=== PATIENT | female | born 1940 | race Caucasian/White ===

== ENCOUNTER → 2025-02-06 05:00 | Outpatient (REF) | payer MEDICARE, SELFPAY ==
[2025-02-06 08:48] LABS: Hematocrit 37.8 % (37-47); Hemoglobin 13.3 g/dL (12.0-15.0); Mean Corp Hgb Conc 35.2 g/dL (32-36); Mean Corpuscular Volume 92.4 fL (81-99); Mean Platelet Vol. 10.0 fl (6.2-12.0); Platelet Count 180 K/mm3 (150-450); RBC Distribution Width CV 12.2 % (11.6-14.6); RBC Distribution Width SD 41.5 fl (35.1-43.9); Red Blood Count 4.09 M/mm3 (4.2-5.4); White Blood Count 6.8 K/mm3 (4.4-11.0)
[2025-02-06 09:15] LABS: AST(SGOT) 21 U/L (<=31); Alanine Aminotransfer ALT/SGPT 20 U/L (<=34); Albumin, Serum 3.7 g/dL (3.4-4.8); Alkaline Phosphatase 64 U/L (35-104); Anion Gap 9 (5-15); BUN 17 mg/dL (4-19); BUN/Creat Ratio 23.5 RATIO (10-20); Calcium,Total 9.7 mg/dL (7.6-11.0); Carbon Dioxide 26.3 mmol/L (21.0-32.0); Chloride 100 mmol/L (98-108); Cholesterol 132 mg/dL (<=200); Globulin 2.6 g/dL (2.2-4.2); Glucose 87 mg/dL (70-99); Low Density Lipoprotein Calc. 68 mg/dL; Potassium 3.9 mmol/L (3.3-5.1); Triglycerides 79 mg/dL; Very Low Density Lipoprotein 16 mg/dL (5-40); cholesterol:hdl ratio screen 2.70
== END ==
LOC: OLS.ACH 05:00
PROVIDERS: Visit Provider Internal Medicine
DX: E03.9 Hypothyroidism, unspecified (principal); E78.5 Hyperlipidemia, unspecified; D52.9 Folate deficiency anemia, unspecified; I10 Essential (primary) hypertension
CPT/HCPCS: 36415; 80053; 80061; 84443; 85027

== ENCOUNTER → 2025-03-05 | Outpatient (REF) | payer MEDICARE, SELFPAY ==
--- OUTSIDE RECORDS SUMMARY | 2025-03-05 03:59 | XMS RPT_ITS | CCD ---
Author Organization [facility] Care Team Providers Care Well Treatment Offsider Name Role Phone Dorothy Darron Attending Unavailable PROVIDER, UNKNOWN Referring Unavailable Dorothy, Darron Primary Care Unavailable Dorothy, Darron Attending Unavailable PROVIDER, UNKNOWN Referring Unavailable Dorothy, Darron Primary Care Unavailable Dorothy DO, Darron Primary Care Provider [phone] Dorothy DO, Darron Primary Care Provider [phone] Dorothy DO, Darron Primary Care Provider DOROTHY, DARRON Primary Care Unavailable ABDELRAHMAN BAEZA Admitting Unavailable CARLOS FALL Attending Unavailable MANUEL AYOUB Consulting Unavailable SIMMERS, MICHELE Attending Unavailable SIMMERS, MICHELE Referring Unavailable DOROTHY, DARRON Primary Care Unavailable SIMMERS, MICHELE Attending Unavailable DOROTHY, DARRON Primary Care Unavailable SIMMERS, MICHELE Attending Unavailable DOROTHY, DARRON Primary Care Unavailable Deperro OLS, Michael Attending Unavailable Deperro OLS, Michael Referring Unavailable Deperro OLS, Michael Attending Unavailable Deperro OLS, Michael Attending Unavailable Deperro OLS, Michael Attending Unavailable Allergies Allergy Classification Reported Allergen(s) Allergy Type Date of Onset Reaction(s) Facility (10 sources) Barbiturate Propensity to adverse reactions 4 Unknown [facility] (10 sources) celecoxib Drug Allergy 4 Anxiety [facility] (10 sources) Citalopram Drug Allergy 4 Anxiety [facility] (10 sources) loracarbef Drug Allergy 4 Hives [facility] (10 sources) Penicillins Propensity to adverse reactions 4 Unknown [facility] (10 sources) Sulfamethoxazole Propensity to adverse reactions Unknown [facility] Medications Current Medications Medication Drug Class(es) Dates Sig (Normalized) Sig (Original) hydroCHLOROthiazide 12.5 mg / lisinopril 20 mg oral tablet (10 sources) Thiazide Diuretic, Angiotensin Converting Enzyme Inhibitor take 1 tablet by mouth once daily lisinopril-hydr oCHLOROthiazide 20-12.5 MG tablet Take 1 tablet by mouth daily. Active lidocaine 0.04 mg/mg medicated patch (4 sources) Antiarrhythmic, Amide Local Anesthetic Start: 10-20-2024 Lidocaine 4 % patch Place 2 patches on the skin daily. 10/20/2024 Active Start: 10-20-2024 Lidocaine 4 % patch Place 2 patches on the skin daily. 10/20/2024 Active Start: 10-16-2024 End: 10-19-2024 apply 2 doses transdermal route once daily, then apply 1 dose transdermal route every twelve hours 2 patch, TransDERmal, Administer over 12 Hours, Daily, First dose on Tue10/16/24 at 0945, Apply patch to both hip area of pain. Patch may remain in place for up to 12 hours in any 24 hour period. miconazole nitrate 0.02 mg/mg topical powder (4 sources) Azole Antifungal Start: 10-16-2024 End: 10-19-2024 miconazole (Micotin) 2 % powder Apply topically 2 times daily. 10/19/2024 Active Completed/Discontinued Medications Medication Drug Class(es) Dates Sig (Normalized) Sig (Original) acetaminophen 325 mg oral tablet (4 sources) Start: 10-19-2024 End: 10-19-2024 take 1 tablet by mouth every six hours as needed for pain Start: 10-16-2024 End: 10-19-2024 1,000 mg, Oral, 3 times kiko y, First dose on Tue10/16/24 at 0945, Maximum dose of acetaminophen is 4000 mg from all sources in 24 hours. atorvastatin 10 mg oral tablet (12 sources) HMG-CoA Reductase Inhibitor Start: 10-16-2024 End: 10-19-2024 take 10 mg by mouth once daily 10 mg, Oral, Nightly, First dose on Tue10/16/24 at 2100 donepezil hydrochloride 5 mg oral tablet (11 sources) Start: 10-16-2024 End: 10-19-2024 take 10 mg by mouth once daily 10 mg, Oral, Nightly, First dose on Tue10/16/24 at 2100 Start: 02-09-2024 End: 09-06-2025 take 1 tablet by mouth once daily donepezil (Aricept) 10 MG tablet Indications: 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 behavioral disturbance, psychotic disturbance, mood disturbance, or anxiety (HCC) Take 1 tablet (10 mg) by mouth Nightly. 30 tablet 6 09/06/2024 09/06/2025 Active Start: 01-12-2024 End: 01-11-2025 take 1 tablet by mouth once daily donepezil (Aricept) 5 MG tablet Indications: 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 behavioral disturbance, psychotic disturbance, mood disturbance, or anxiety (HCC) Take 1 tablet (5 mg) by mouth Nightly. 30 tablet 1 01/12/2024 02/09/2024 Discontinued (Therapy completed) 0.4 ml enoxaparin sodium 100 mg/ml prefilled syringe (2 sources) Low Molecular Weight Heparin Start: 10-16-2024 End: 10-19-2024 inject 40 mg by subcutaneous injection every twenty-four hours 40 mg, SubCUTAneous, Every 24 hours scheduled (Daily), First dose on Tue10/16/24 at 0945, Indication of Use: Prophylaxis-DVT/PE, Indications: Prophylaxis of Venous Thromboembolism folic acid 1 mg oral tablet (12 sources) Start: 10-16-2024 End: 10-19-2024 take 1 mg by mouth once daily 1 mg, Oral, Daily, First dose (after last reorder) on Tue10/16/24 at 1000 take 1 tablet by mouth once kiko y folic acid (Folvite) 800 MCG tablet Take 1 tablet by mouth daily. Active levothyroxine sodium 0.075 mg oral tablet (12 sources) l-Thyroxine Start: 10-17-2024 End: 10-19-2024 take 75 ug by mouth once daily before breakfast 75 mcg, Oral, Daily before breakfast, First dose on Tue10/17/24 at 0600, Tube feeding (TF) interaction, obtain physician order to manage, recommend holding TF for 30 minutes before and after dose. Lisinopril (2 sources) Angiotensin Converting Enzyme Inhibitor Start: 10-16-2024 End: 10-19-2024 lisinopril tablet 20 mg memantine hydrochloride 5 mg oral tablet (8 sources) F-adsumm-Y-aspart ate Receptor Antagonist Start: 10-16-2024 End: 10-19-2024 take 10 mg by mouth twice daily 10 mg, Oral, 2 times daily, First dose on Tue10/16/24 at 0945 Start: 09-20-2024 End: 04-18-2025 take 1 tablet by mouth twice daily memantine (Namenda) 10 MG tablet Indications: 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 behavioral disturbance, psychotic disturbance, mood disturbance, or anxiety (HCC) Take 1 tablet (10 mg) by mouth 2 times daily. Start after the initial titration script Do not start before September 20, 2024. 60 tablet 6 09/20/2024 04/18/2025 Active Start: 08-30-2024 memantine (Nam enda) 5 MG tablet Indications: 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 behavioral disturbance, psychotic disturbance, mood disturbance, or anxiety (HCC) Take 1 tablet (5 mg) daily for 7 days. Then take 1 tablet (5 mg) twice a day for 7 days. Then take 2 tablets (10 mg) in AM and 1 tablet (5 mg) in PM for 7 days. Then proceed to next script 42 tablet 08/30/2024 Active 1 ml naloxone hydrochloride 0.4 mg/ml injection (2 sources) Opioid Antagonist Start: 10-16-2024 End: 10-19-2024 0.4 mg, IntraVENous, Every 5 min PRN, opioid reversal, respiratory depression, Starting on Tue10/16/24 at 0940, +++ For RR naproxen 250 mg oral tablet (10 sources) Nonsteroidal Anti-inflammatory Drug End: 10-19-2024 take 1 tablet by mouth once daily as needed for pain naproxen (Naprosyn) 250 MG tablet Take 250 mg by mouth Nightly as needed for mild pain (1-3). 10/19/2024 Discontinued (Stop taking at discharge) ondansetron ODT (Zofran-ODT) disintegrating tablet 4 mg (2 sources) Start: 10-16-2024 End: 10-19-2024 take 1 tablet by mouth every eight hours as needed for nausea and vomiting ondansetron ODT (Zofran-ODT) disintegrating tablet 4 mg oxyCODONE hydrochloride 5 mg oral tablet (2 sources) Opioid Agonist Start: 10-16-2024 End: 10-19-2024 take 1 tablet by mouth every four hours as needed for pain and pain 2.5 mg, Oral, Every 4 hours PRN, severe pain (7-10), moderate pain (4-6), Starting on Tue10/16/24 at 0938 polyethylene glycol 3350 62079 mg powder for oral solution (2 sources) Osmotic Laxative Start: 10-16-2024 End: 10-19-2024 take 17 g by mouth every twenty-four hours as needed for constipation 17 g, Oral, Daily PRN, constipation, Starting on Tue10/16/24 at 0936, 1st line for treatment of constipation - give scheduled if no bowel movement in past 24 hours. predniSONE (2 sources) Start: 10-16-2024 End: 10-16-2024 take 30 mg by mouth once 30 mg, Oral, Once, On Tue10/16/24 at 0945, For 1 dose sertraline 50 mg oral tablet (12 sources) Serotonin Reuptake Inhibitor Start: 10-16-2024 End: 10-19-2024 take 50 mg by mouth once daily 50 mg, Oral, Daily, First dose on Tue10/16/24 at 0945 5 ml sodium chloride 9 mg/ml injection (6 sources) Start: 10-16-2024 End: 10-19-2024 take 5-40 mL intravenously every twelve hours 5-40 mL, IntraVENous, Every 12 hours, First dose on Tue10/16/24 at 0945, For Line Patency: Peripheral IV = 5 mL; Midline or Central Line = 10 mL/lumen. If following IV push medication, administer flush at same rate as the IV push. Flush volume is determined by type of infusion therapy being given. For non-viscous solutions use: Peripheral IV = 5 mL Midline or Central Line = 10 mL/lumen For viscous solutions (i.e. blood components, parenteral nutrition, contrast media, or after obtaining blood sample) use: Peripheral IV = 10 mL Midline or Central Line = 20 mL/lumen Start: 10-16-2024 End: 10-19-2024 take 100 mL intravenously every hour as needed, then take 20 mL intravenously every hour as needed 5-250 mL/hr, IntraVENous, PRN, if patient receiving piggyback infusions and maintenance fluids are not ordered OR KVO fluids to protect IV site / prevent frequent line interruptions / long duration, Starting on Tue10/16/24 at 0936, For piggyback infusion, administer at same rate as piggyback for a total of 25 mL. Enter 25 mL into dose field and piggyback rate into rate field of order. If piggyback is infusing at a rate less than 100 mL/hr, enter 25 mL into dose field and 100 mL/hr into rate field of order. For KVO fluids, enter rate of 20 mL/hr or less into rate field of order. Start: 10-16-2024 End: 10-19-2024 5-40 mL, IntraVENous, PRN, l ine care, After every IV line use, Starting on Tue10/16/24 at 0936, For Line Patency: Peripheral IV = 5 mL; Midline or Central Line = 10 mL/lumen. If following IV push medication, administer flush at same rate as the IV push. Flush volume is determined by type of infusion therapy being given. For non-viscous solutions use: Peripheral IV = 5 mL Midline or Central Line = 10 mL/lumen For viscous solutions (i.e. blood components, parenteral nutrition, contrast media, or after obtaining blood sample) use: Peripheral IV = 10 mL Midline or Central Line = 20 mL/lumen Problems Active Problems Problem Classification Problem Date Documented Da te Episodic/Chronic Deficiency and other anemia (1 source) Folate deficiency anemia, unspecified; Translations: [Folate deficiency anemia, unspecified] Onset: 02-13-2025 Episodic Delirium, dementia, and amnestic and other cognitive disorders (7 sources) Senile dementia; Translations: [Alzheimer's disease with late onset] Onset: 01-12-2024 01-12-2024 Chronic Disorders of lipid metabolism (2 sources) Hyperlipidemia; Translations: [Hyperlipidemia, unspecified] Onset: 02-13-2025 07-19-2022 Chronic Essential hypertension (1 source) Essential (primary) hypertension; Translations: [Essential (primary) hypertension] Onset: 02-13-2025 Chronic Nutritional deficiencies (1 source) Vitamin B deficiency; Translations: [Deficiency of other specified B group vitamins] 07-19-2022 Episodic Other circulatory disease (3 sources) H/O: hypertension; Translations: [Personal history of other diseases of the circulatory system] 10-18-2023 Episodic Other hereditary and degenerative nervous system conditions (2 sources) Degenerative disease of nervous system, unspecified; Translations: [Degenerative disease of nervous system, unspecified] Onset: 08-13-2021 Chronic Other nervous system disorders (2 sources) Unable to walk; Translations: [Difficulty in walking, not elsewhere classified] 10-15-2024 Chronic Other nervous system disorders (2 sources) Difficulty in walking, not elsewhere classified; Translations: [Difficulty in walking, not elsewhere classified] Onset: 10-15-2024 Chronic Other non-traumatic joint disorders (6 sources) Hip pain; Translations: [Pain in right hip] Onset: 10-15-2024 10-15-2024 Episodic Other non-traumatic joint disorders (2 sources) Pain in right hip; Translations: [Pain in right hip] Onset: 10-15-2024 Episodic Other non-traumatic joint disorders (2 sources) Pain in left hip; Translations: [Pain in left hip] Onset: 10-15-2024 Episodic Residual codes; unclassified (3 sources) Amnesia; Translations: [Other amnesia] 10-18-2023 Episodic Thyroid disorders (2 sources) Hypothyroidism; Translations: [Hypothyroidism, unspecified] Onset: 02-13-2025 07-19-2022 Chronic Unclassified (1 source) Dementia in other diseases classified elsewhere, moderate, without behavioral disturbance, psychotic disturbance, mood disturbance, and anxiety (HCC); Translations: [Dementia in other diseases classified elsewhere, moderate, without behavioral disturbance, psychotic disturbance, mood disturbance, and anxiety (HCC)] Onset: 01-12-2024 Past or Other Problems Problem Classification Problem Date Documented Da te Episodic/Chronic Residual codes; unclassified (4 sources) Other amnesia; Translations: [Other amnesia] Onset: 08-13-2021 Episodic Unclassified (1 source) Dementia in other diseases classified elsewhere, moderate, without behavioral disturbance, psychotic disturbance, mood disturbance, and anxiety (HCC); Translations: [Dementia in other diseases classified elsewhere, moderate, without behavioral disturbance, psychotic disturbance, mood disturbance, and anxiety (HCC)] Onset: 01-12-2024 Results Test Name Value Interpretation Reference Range Facility CBC-Complete Blood Cnt No Di ffon 02-06-2025 Erythrocyte distribution width (RBC) [Ratio] 12.2 % Normal 11.6-14.6 [facility] Comment on above: Order Comment: 315-1 Performed By: #### L 100.0500, L500.4100, L500.4050, [id number] #### [facility] [address] [place], [address] Hematocrit (Bld) [Volume fraction] 37.8 % Normal 37-47 [facility] Comment on above: Order Comment: 315-1 Performed By: #### L 100.0500, L500.4100, L500.4050, [id number] #### [facility] [address] [place], [address] Hemoglobin (Bld) [Mass/Vol] 13.3 g/dL Normal 12.0-15.0 [facility] Comment on above: Order Comment: 315-1 Performed By: #### L 100.0500, L500.4100, L500.4050, [id number] #### [facility] [address] [place], [address] MCH (RBC) [Entitic mass] 32.5 pg High 27.0-32.0 [facility] Comment on above: Order Comment: 315-1 Performed By: #### L 100.0500, L500.4100, L500.4050, [id number] #### [facility] [address] [place], [address] MCHC (RBC) [Mass/Vol] 35.2 g/dL Normal 32-36 [facility] Comment on above: Order Comment: 315-1 Performed By: #### L 100.0500, L500.4100, L500.4050, [id number] #### [facility] [address] [place], [address] MCV (RBC) [Entitic vol] 92.4 fL Normal 81-99 [facility] Comment on above: Order Comment: 315-1 Performed By: #### L 100.0500, L500.4100, L500.4050, [id number] #### [facility] [address] [place], [address] Platelet mean volume (Bld) [Entitic vol] 10.0 fL Normal 6.2-12.0 [facility] Comment on above: Order Comment: 315-1 Performed By: #### L 100.0500, L500.4100, L500.4050, [id number] #### [facility] [address] [place], [address] Platelets (Bld) [#/Vol] 180 10*3/uL Normal 150-450 [facility] Comment on above: Order Comment: 315-1 Performed By: #### L 100.0500, L500.4100, L500.4050, [id number] #### [facility] [address] [place], [address] RBC (Bld) [#/Vol] 4.09 10*6/uL Low 4.2-5.4 [facility] Comment on above: Order Comment: 315-1 Performed By: #### L 100.0500, L500.4100, L500.4050, [id number] #### [facility] [address] [place], [address] RDW SD 41.5 fl Normal 35.1-43.9 [facility] Comment on above: Order Comment: 315-1 Performed By: #### L 100.0500, L500.4100, L500.4050, [id number] #### [facility] [address] [place], [address] WBC (Bld) [#/Vol] 6.8 10*3/uL Normal 4.4-11.0 [facility] Comment on above: Order Comment: 315-1 Performed By: #### L 100.0500, L500.4100, L500.4050, [id number] #### [facility] [address] [place], [address] Comprehensive Metabolic Prof ilon 02-06-2025 Albumin [Mass/Vol] 3.7 g/dL Normal 3.4-4.8 [facility] Comment on above: Order Comment: 315-1 Performed By: #### L 100.0500, L500.4100, L500.4050, [id number] #### [facility] [address] [place], [address] Albumin/Globulin [Mass ratio] 1.4 {ratio} Normal 0.9-2.4 [facility] Comment on above: Order Comment: 315-1 Performed By: #### L 100.0500, L500.4100, L500.4050, [id number] #### [facility] [address] [place], [address] ALK PHOS 64 U/L Normal 35-104 [facility] Comment on above: Order Comment: 315-1 Performed By: #### L 100.0500, L500.4100, L500.4050, [id number] #### [facility] [address] [place], [address] ALT [Catalytic activity/Vol] 20 U/L Normal <=34 [facility] Comment on above: Order Comment: 315-1 Performed By: #### L 100.0500, L500.4100, L500.4050, [id number] #### [facility] [address] [place], [address] AST [Catalytic activity/Vol] 21 U/L Normal <=31 [facility] Comment on above: Order Comment: 315-1 Performed By: #### L 100.0500, L500.4100, L500.4050, [id number] #### [facility] [address] [place], [address] Bilirubin [Mass/Vol] 0.47 mg/dL Normal 0.00-1.30 [place] Comment on above: Order Comment: 315-1 Performed By: #### L 100.0500, L500.4100, L500.4050, [id number] #### [facility] [address] [place], [address] BUN/CRE 23.5 RATIO High 10-20 [facility] Comment on above: Order Comment: 315-1 Performed By: #### L 100.0500, L500.4100, L500.4050, [id number] #### [facility] [address] [place], [address] Calcium [Mass/Vol] 9.7 mg/dL Normal 7.6-11.0 [facility] Comment on above: Order Comment: 315-1 Performed By: #### L 100.0500, L500.4100, L500.4050, [id number] #### [facility] [address] [place], [address] Chloride [Moles/Vol] 100 mmol/L Normal 98-108 [place] Comment on above: Order Comment: 315-1 Performed By: #### L 100.0500, L500.4100, L500.4050, [id number] #### [facility] [address] [place], [address] CO2 [Moles/Vol] 26.3 mmol/L Normal 21.0-32.0 [facility] Comment on above: Order Comment: 315-1 Performed By: #### L 100.0500, L500.4100, L500.4050, [id number] #### [facility] [address] [place], [address] Creatinine [Mass/Vol] 0.71 mg/dL Normal 0.70-1.20 [facility] Comment on above: Order Comment: 315-1 Performed By: #### L 100.0500, L500.4100, L500.4050, [id number] #### [facility] [address] [place], [address] GAP 9 Normal 5-15 [facility] Comment on above: Order Comment: 315-1 Performed By: #### L 100.0500, L500.4100, L500.4050, [id number] #### [facility] [address] [place], [address] GFR/1.73 sq M.predicted among non-blacks MDRD (S/P/Bld) [Vol rate/Area] 85 mL/min/{1.73_m2} Normal >60 [facility] Comment on above: Order Comment: 315-1 Result Comment: mL/m in/1.73m2 CKD-EPI Creatinine Equation (2020) Performed By: #### L 100.0500, L500.4100, L500.4050, [id number] #### [facility] [address] [place], [address] Globulin (S) [Mass/Vol] 2.6 g/dL Normal 2.2-4.2 [facility] Comment on above: Order Comment: 315-1 Performed By: #### L 100.0500, L500.4100, L500.4050, [id number] #### [facility] [address] [place], [address] Glucose [Mass/Vol] 87 mg/dL Normal 70-99 [facility] Comment on above: Order Comment: 315-1 Performed By: #### L 100.0500, L500.4100, L500.4050, [id number] #### [facility] [address] [place], [address] Potassium [Moles/Vol] 3.9 mmol/L Normal 3.3-5.1 [facility] Comment on above: Order Comment: 315-1 Performed By: #### L 100.0500, L500.4100, L500.4050, [id number] #### [facility] [address] [place], [address] Sodium [Moles/Vol] 136 mmol/L Normal 133-145 [facility] Comment on above: Order Comment: 315-1 Performed By: #### L 100.0500, L500.4100, L500.4050, [id number] #### [facility] [address] [place], [address] T PROT 6.3 g/dL Normal 5.9-8.4 [facility] Comment on above: Order Comment: 315-1 Performed By: #### L 100.0500, L500.4100, L500.4050, [id number] #### [facility] [address] [place], [address] Urea nitrogen [Mass/Vol] 17 mg/dL Normal 4-19 [facility] Comment on above: Order Comment: 315-1 Performed By: #### L 100.0500, L500.4100, L500.4050, [id number] #### [facility] [address] [place], [address] Lipid Profileon 02-06-2025 CHOL:HDL 2.70 Normal [facility] Comment on above: Order Comment: 315-1 Performed By: #### L 100.0500, L500.4100, L500.4050, [id number] #### [facility] [address] [place], [address] Cholesterol [Mass/Vol] 132 mg/dL Normal <=[address] [facility] Comment on above: Order Comment: 315-1 Result Comment: Chol esterol level, Desirable <200 mg/dL Borderline high cholesterol 200-239 mg/dL High cholesterol >=240 mg/dL Recommendations of the NCEP Adult Treatment Panel for the following risk-cutoff thresholds for the [place] population. Performed By: #### L 100.0500, L500.4100, L500.4050, [id number] #### [facility] [address] [place], [address] Cholesterol in HDL [Mass/Vol] 49 mg/dL Normal [facility] Comment on above: Order Comment: 315-1 Result Comment: Odilia onal Cholesterol Education Program (NCEP) guidelines: <40 mg/dL: Low HDL-cholesterol (major risk factor for CHD) >= 60 mg/dL: High HDL-cholesterol (negative risk factor for CHD) HDL-cholesterol is affected by a number of factors, e.g. smoking, exercise, hormones, sex and age. Performed By: #### L 100.0500, L500.4100, L500.4050, [id number] #### [facility] [address] [place], [address] Cholesterol in LDL [Mass/Vol] 68 mg/dL Normal [facility] Comment on above: Order Comment: 315-1 Result Comment: Bord pofdyt=907-954 mg/dL Higher Hnaz=292 mg/dL or greater Shane Equation 2020 for LDL-C Performed By: #### L 100.0500, L500.4100, L500.4050, [id number] #### [facility] [address] [place], [address] Cholesterol in VLDL [Mass/Vol] 16 mg/dL Normal 5-40 [facility] Comment on above: Order Comment: 315-1 Performed By: #### L 100.0500, L500.4100, L500.4050, [id number] #### [facility] [address] [place], [address] Triglyceride [Mass/Vol] 79 mg/dL Normal [facility] Comment on above: Order Comment: 315-1 Result Comment: The drugs N-Acetylcysteine and Metamizole may falsely depress this assay. Normal range: <150 mg/dL Borderline High: 150-199 mg/dL High: 200-499 mg/dL Very High: >500 mg/dL Performed By: #### L 100.0500, L500.4100, L500.4050, [id number] #### [facility] [address] [place], [address] Thyroid Stim Hormone (TSH)on 02-06-2025 TSH 0.809 uIU/mL Normal 0.300-4.200 [facility] Comment on above: Order Comment: 315.1 Performed By: #### L 500.2500, L100.0500 #### [facility] [address] [place], [address] CBC-Complete Blood Cnt No Di ffon 02-05-2025 HCT Normal 37-47 [facility] Comment on above: Order Comment: 315.1 Result Comment: [facility] REFUSED TOLD NURSE ONEIL Performed By: #### L 500.4100, L100.0500, L500.4050 #### [facility] [address] [place], [address] HGB Normal 12.0-15.0 [facility] Comment on above: Order Comment: 315.1 Result Comment: [facility] REFUSED TOLD NURSE ONEIL Performed By: #### L 500.4100, L100.0500, L500.4050 #### [facility] [address] [place], [address] MCH Normal 27.0-32.0 [facility] Comment on above: Order Comment: 315.1 Result Comment: [facility] REFUSED TOLD NURSE ONEIL Performed By: #### L 500.4100, L100.0500, L500.4050 #### [facility] [address] [place], [address] MCHC Normal 32-36 [facility] Comment on above: Order Comment: 315.1 Result Comment: [facility] REFUSED TOLD NURSE ONEIL Performed By: #### L 500.4100, L100.0500, L500.4050 #### [facility] [address] [place], [address] MCV Normal 81-99 [facility] Comment on above: Order Comment: 315.1 Result Comment: [facility] REFUSED TOLD NURSE ONELI Performed By: #### L 500.4100, L100.0500, L500.4050 #### [facility] [address] [place], [address] PLT Normal 150-450 [facility] Comment on above: Order Comment: 315.1 Result Comment: [facility] REFUSED TOLD NURSE ONEIL Performed By: #### L 500.4100, L100.0500, L500.4050 #### [facility] [address] [place], [address] RBC Normal 4.2-5.4 [facility] Comment on above: Order Comment: 315.1 Result Comment: [facility] REFUSED TOLD NURSE ONEIL Performed By: #### L 500.4100, L100.0500, L500.4050 #### [facility] [address] [place], [address] RDW CV Normal 11.6-14.6 [facility] Comment on above: Order Comment: 315.1 Result Comment: [facility] REFUSED TOLD NURSE ONEIL Performed By: #### L 500.4100, L100.0500, L500.4050 #### [facility] [address] [place], [address] RDW SD Normal 35.1-43.9 [facility] Comment on above: Order Comment: 315.1 Result Comment: [facility] REFUSED TOLD NURSE ONEIL Performed By: #### L 500.4100, L100.0500, L500.4050 #### [facility] [address] [place], [address] WBC Normal 4.4-11.0 [facility] Comment on above: Order Comment: 315.1 Result Comment: [facility] REFUSED TOLD NURSE ONEIL Performed By: #### L 500.4100, L100.0500, L500.4050 #### [facility] [address] [place], [address] Comprehensive Metabolic Prof ilon 02-05-2025 ALB Normal 3.4-4.8 [facility] Comment on above: Order Comment: 315.1 Result Comment: [facility] REFUSED TOLD NURSE ONEIL Performed By: #### L 500.4100, L100.0500, L500.4050 #### [facility] [address] [place], [address] ALK PHOS Normal 35-104 [facility] Comment on above: Order Comment: 315.1 Result Comment: [facility] REFUSED TOLD NURSE ONEIL Performed By: #### L 500.4100, L100.0500, L500.4050 #### [facility] [address] [place], [address] ALT Normal <=34 [facility] Comment on above: Order Comment: 315.1 Result Comment: [facility] REFUSED TOLD NURSE ONEIL Performed By: #### L 500.4100, L100.0500, L500.4050 #### [facility] [address] [place], [address] AST Normal <=31 [facility] Comment on above: Order Comment: 315.1 Result Comment: [facility] REFUSED TOLD NURSE ONEIL Performed By: #### L 500.4100, L100.0500, L500.4050 #### [facility] [address] [place], [address] BUN Normal 4-19 [facility] Comment on above: Order Comment: 315.1 Result Comment: [facility] REFUSED TOLD NURSE ONEIL Performed By: #### L 500.4100, L100.0500, L500.4050 #### [facility] [address] [place], [address] BUN/CRE Normal 10-20 [facility] Comment on above: Order Comment: 315.1 Result Comment: [facility] REFUSED TOLD NURSE ONEIL Performed By: #### L 500.4100, L100.0500, L500.4050 #### [facility] [address] [place], [address] Calcium Normal 7.6-11.0 [facility] Comment on above: Order Comment: 315.1 Result Comment: [facility] REFUSED TOLD NURSE ONEIL Performed By: #### L 500.4100, L100.0500, L500.4050 #### [facility] [address] [place], [address] CL Normal 98-108 [facility] Comment on above: Order Comment: 315.1 Result Comment: [facility] REFUSED TOLD NURSE ONEIL Performed By: #### L 500.4100, L100.0500, L500.4050 #### [facility] [address] [place], [address] CO2 Normal 21.0-32.0 [facility] Comment on above: Order Comment: 315.1 Result Comment: [facility] REFUSED TOLD NURSE ONEIL Performed By: #### L 500.4100, L100.0500, L500.4050 #### [facility] [address] [place], [address] CREAT,SERUM Normal 0.70-1.20 [facility] Comment on above: Order Comment: 315.1 Result Comment: [facility] REFUSED TOLD NURSE ONEIL Performed By: #### L 500.4100, L100.0500, L500.4050 #### [facility] [address] [place], [address] eGFR Normal >60 [facility] Comment on above: Order Comment: 315.1 Result Comment: [facility] REFUSED TOLD NURSE ONEIL Performed By: #### L 500.4100, L100.0500, L500.4050 #### [facility] [address] [place], [address] GAP Normal 5-15 [facility] Comment on above: Order Comment: 315.1 Result Comment: [facility] REFUSED TOLD NURSE ONEIL Performed By: #### L 500.4100, L100.0500, L500.4050 #### [facility] [address] [place], [address] GLU Normal 70-99 [facility] Comment on above: Order Comment: 315.1 Result Comment: [facility] REFUSED TOLD NURSE ONEIL Performed By: #### L 500.4100, L100.0500, L500.4050 #### [facility] [address] [place], [address] Potassium Normal 3.3-5.1 [facility] Comment on above: Order Comment: 315.1 Result Comment: [facility] REFUSED TOLD NURSE ONEIL Performed By: #### L 500.4100, L100.0500, L500.4050 #### [facility] [address] [place], [address] T BILI Normal 0.00-1.30 [facility] Comment on above: Order Comment: 315.1 Result Comment: [facility] REFUSED TOLD NURSE ONEIL Performed By: #### L 500.4100, L100.0500, L500.4050 #### [facility] [address] [place], [address] T PROT Normal 5.9-8.4 [facility] Comment on above: Order Comment: 315.1 Result Comment: [facility] REFUSED TOLD NURSE ONEIL Performed By: #### L 500.4100, L100.0500, L500.4050 #### [facility] [address] [place], [address] Comprehensive Metabolic Profil Normal 133-145 [facility] Comment on above: Order Comment: 315.1 Result Comment: [facility] REFUSED TOLD NURSE ONEIL Performed By: #### L 500.4100, L100.0500, L500.4050 #### [facility] [address] [place], [address] Lipid Profileon 02-05-2025 CHOL Normal <=200 [facility] Comment on above: Order Comment: 315.1 Result Comment: [facility] REFUSED TOLD NURSE ONEIL Performed By: #### L 500.4100, L100.0500, L500.4050 #### [facility] [address] [place], [address] CHOL:HDL Normal [facility] Comment on above: Order Comment: 315.1 Result Comment: [facility] REFUSED TOLD NURSE ONEIL Performed By: #### L 500.4100, L100.0500, L500.4050 #### [facility] [address] [place], [address] CLDL Normal [facility] Comment on above: Order Comment: 315.1 Result Comment: [facility] REFUSED TOLD NURSE ONEIL Performed By: #### L 500.4100, L100.0500, L500.4050 #### [facility] [address] [place], [address] HDL Normal [facility] Comment on above: Order Comment: 315.1 Result Comment: [facility] REFUSED TOLD NURSE ONEIL Performed By: #### L 500.4100, L100.0500, L500.4050 #### [facility] [address] [place], [address] TRIG Normal [facility] Comment on above: Order Comment: 315.1 Result Comment: [facility] REFUSED TOLD NURSE ONEIL Performed By: #### L 500.4100, L100.0500, L500.4050 #### [facility] [address] [place], [address] VLDL Normal 5-40 [facility] Comment on above: Order Comment: 315.1 Result Comment: [facility] REFUSED TOLD NURSE ONEIL Performed By: #### L 500.4100, L100.0500, L500.4050 #### [facility] [address] [place], [address] Potassiumon 10-26-2024 Potassium [Moles/Vol] 3.3 mmol/L Normal 3.3-5.1 [facility] Comment on above: Order Comment: 315.1 Performed By: #### L 501.5600 #### [facility] [address] [place], [address] Potassiumon 10-23-2024 Potassium [Moles/Vol] 3.4 mmol/L Normal 3.3-5.1 [facility] Comment on above: Order Comment: 315.1 Performed By: #### L 501.5600 #### [facility] [address] [place], [address] [id number] 10-22-2024 [id number] Patient Choice Patient Name: MARTHA MILLIGAN Date of : 1940 [facility] Basic Metabolic Profile (BMP )on 10-22-2024 BUN/CRE 25.1 RATIO High 10-20 [facility] Comment on above: Order Comment: 315.1 Performed By: #### L 500.2500, L100.0500 #### [facility] [address] [place], [address] Calcium [Mass/Vol] 9.6 mg/dL Normal 7.6-11.0 [facility] Comment on above: Order Comment: 315.1 Performed By: #### L 500.2500, L100.0500 #### [facility] [address] [place], [address] Chloride [Moles/Vol] 99 mmol/L Normal 98-108 [place] Comment on above: Order Comment: 315.1 Performed By: #### L 500.2500, L100.0500 #### [facility] [address] [place], [address] CO2 [Moles/Vol] 29.9 mmol/L Normal 21.0-32.0 [facility] Comment on above: Order Comment: 315.1 Performed By: #### L 500.2500, L100.0500 #### [facility] [address] [place], [address] Creatinine [Mass/Vol] 0.67 mg/dL Low 0.70-1.20 [facility] Comment on above: Order Comment: 315.1 Performed By: #### L 500.2500, L100.0500 #### [facility] [address] [place], [address] GAP 10 Normal 5-15 [facility] Comment on above: Order Comment: 315.1 Performed By: #### L 500.2500, L100.0500 #### [facility] [address] [place], [address] GFR/1.73 sq M.predicted among non-blacks MDRD (S/P/Bld) [Vol rate/Area] 88 mL/min/{1.73_m2} Normal >60 [facility] Comment on above: Order Comment: 315.1 Result Comment: mL/m in/1.73m2 CKD-EPI Creatinine Equation (2020) Performed By: #### L 500.2500, L100.0500 #### [facility] [address] [place], [address] Glucose [Mass/Vol] 85 mg/dL Normal 70-99 [facility] Comment on above: Order Comment: 315.1 Performed By: #### L 500.2500, L100.0500 #### [facility] [address] [place], [address] Potassium [Moles/Vol] 2.8 mmol/L Low 3.3-5.1 [facility] Comment on above: Order Comment: 315.1 Performed By: #### L 500.2500, L100.0500 #### [facility] [address] [place], [address] Sodium [Moles/Vol] 138 mmol/L Normal 133-145 [facility] Comment on above: Order Comment: 315.1 Performed By: #### L 500.2500, L100.0500 #### [facility] [address] [place], [address] Urea nitrogen [Mass/Vol] 17 mg/dL Normal 4-19 [facility] Comment on above: Order Comment: 315.1 Performed By: #### L 500.2500, L100.0500 #### [facility] [address] [place], [address] CBC-Complete Blood Cnt No [facility] 10-22-2024 Erythrocyte distribution width (RBC) [Ratio] 12.3 % Normal 11.6-14.6 [facility] Comment on above: Order Comment: 315.1 Performed By: #### L 500.2500, L100.0500 #### [facility] [address] [place], [address] Hematocrit (Bld) [Volume fraction] 42.6 % Normal 37-47 [facility] Comment on above: Order Comment: 315.1 Performed By: #### L 500.2500, L100.0500 #### [facility] [address] [place], [address] Hemoglobin (Bld) [Mass/Vol] 13.9 g/dL Normal 12.0-15.0 [facility] Comment on above: Order Comment: 315.1 Performed By: #### L 500.2500, L100.0500 #### [facility] [address] [place], [address] MCH (RBC) [Entitic mass] 30.3 pg Normal 27.0-32.0 [facility] Comment on above: Order Comment: 315.1 Performed By: #### L 500.2500, L100.0500 #### [facility] [address] [place], [address] MCHC (RBC) [Mass/Vol] 32.6 g/dL Normal 32-36 [facility] Comment on above: Order Comment: 315.1 Performed By: #### L 500.2500, L100.0500 #### [facility] [address] [place], [address] MCV (RBC) [Entitic vol] 93.0 fL Normal 81-99 [facility] Comment on above: Order Comment: 315.1 Performed By: #### L 500.2500, L100.0500 #### [facility] [address] [place], [address] Platelet mean volume (Bld) [Entitic vol] 10.6 fL Normal 6.2-12.0 [facility] Comment on above: Order Comment: 315.1 Performed By: #### L 500.2500, L100.0500 #### [facility] [address] [place], [address] Platelets (Bld) [#/Vol] 206 10*3/uL Normal 150-450 [facility] Comment on above: Order Comment: 315.1 Performed By: #### L 500.2500, L100.0500 #### [facility] [address] [place], [address] RBC (Bld) [#/Vol] 4.58 10*6/uL Normal 4.2-5.4 [facility] Comment on above: Order Comment: 315.1 Performed By: #### L 500.2500, L100.0500 #### [facility] [address] [place], [address] RDW SD 42.0 fl Normal 35.1-43.9 [facility] Comment on above: Order Comment: 315.1 Performed By: #### L 500.2500, L100.0500 #### [facility] [address] [place], [address] WBC (Bld) [#/Vol] 8.0 10*3/uL Normal 4.4-11.0 [facility] Comment on above: Order Comment: 315.1 Performed By: #### L 500.2500, L100.0500 #### [facility] [address] [place], [address] [id number] 10-19-2024 [id number] Next Site of Care Admission Date: 10/15/2024 07:52 PM Patient Name: MARTHA MILLIGAN Location: [place] [id number] Date of : 1940 Placement Information Referral Type:Detention/SNF - New Referral ID:[id number] [email or web address] Address 1:[address] Address 2: City:[place] Selection Factors:Patient/Fami ly Choice State:[place] [facility] [phone] Discharge med list transmitted to [facility] via [employer] per TCC request. 7000 was entered into [facility] for the SNF- FACILITY IS AWARE [facility] [phone] DC order paced. FABIAN done. [facility] tasked to do 7000 and send DC paperwork and MAR to [facility]. Transportation will be set up by ne shortly. [facility] Nursing Noteon 10-19-2024 Nursing Note Report called to Tawny SAUNDERS at [facility]. No further questions or concerns. [facility] Nursing Note Transferred to the [address] at [facility] but no answer. Phone rang for 3 min. Will attempt calling report again at a later time. Scheduled knot picker cloth time is 1330. [facility] Progress Noteon 10-19-2024 Progress [address] THERAPY [facility] Treatment Note Name/MRN: Martha Milligan ([id number]) Date of : 1940 Age: 83 y.o. Room/Bed: B2-252/B2-252 A Visit #: 1 out of 7 Discharge Recommendation: Shelter Facility Equipment Needed: No Prior Level of Function Prior Level of ADL Function: Required Assist Prior Level of Mobility: Required Assist; Device: None Prior Level of Transfers: Required Assist Assessment Pt tolerated session fair, continues to be limited by hip pain. Pt completed bed mobility at Min-SBA and STS at Min A. Pt completed short functional mobility with FWW at Min-CGA. Pt requires VC for sequencing and attention to task. Pt is progressing with POC but is still below baseline and is a high fall risk. Pt would benefit from continued OT to improve activity tolerance, balance, and strength needed for improved occupational performance. Pt is recommended for SNF at D/C Subjective Pt supine in bed, pleasantly confused and agreeable. Pain: Mccormack-Ronquillo Pain Ratin = Hurts little more Pain Location: R hip Medical Precautions: No active isolations Proper PPE donned/doffed in accordance with facility standards. Fall Risk: Turner Fall Risk Score: 95 (High Risk) Precautions/Restrict ions: Fall Precautions Family/Caregiver Present: none Objective Bed Mobility Supine to sit: Min Assist Sit to supine: SBA Scooting: SBA HOB Elevated Use of bed rail(s) Pt completed supine to sit with HOB elevated, use of bed rails, and Min A for BLE and trunk management. Pt denied dizziness but c/o hip pain. Pt required SBA to return to supine, VC for initiation of tasks. Transfers/Mobility Sit to stand: Min Assist Stand to sit: Min Assist, Pt competed STS from EOB with FWW at Min A. Pt required VC for BUE placement and initiation, denied dizziness Sitting balance: SBA Standing balance: Contact Guard Functional mobility: Contact Guard, Min Assist Pt completed short functional mobility with FWW with initial CGA. Pt demo increased fatigue and decreased foot clearance, required Min A with FWW to return to EOB Device(s) used: Front wheeled walker Cognition - Safety judgement: decreased awareness of need for assistance and decreased awareness of need for safety - Insights: decreased awareness of deficits - Initiation: requires cues for some - Sequencing: requires cues for some Exceptions Plan Continue acute OT per plan of care. Safety/Education Safety Safety Devices in place: All fall risk precautions in place, call light within reach, left in bed, bed alarm in place, gait belt, and patient at risk for falls Restraints: No Education Education Given To: patient Education Provided: OT Role, Plan of Care, Precautions, Transfer Training, Equipment, Fall Prevention Education, and Discharge Recommendations Education Method: Verbal, Demonstration, and Teach Back Barriers to Learning: Cognition Education Outcome: Verbalized Understanding, Demonstrated Understanding, and Continued Education Needed AM-PAC AM-PAC Inpatient Daily Activity Raw Score: 14 ADL Inpatient CMS G-Code Modifier: CK Goals Patient Stated Goal: Patient unable to participate in goal setting at this time. Encounter Problems Encounter Problems (Active) Dressing Upper Extremities Patient will complete upper body dressing SUP (Not Addressed) Start: 10/17/24 Expected End: 10/27/24 Dressings Lower Extremities Patient will dress lower body SBA (Not Addressed) Start: 10/17/24 Expected End: 10/27/24 Mobility Patient will demonstrate functional mobility with SBA and FWW (Progressing) Start: 10/17/24 Expected End: 10/27/24 Toileting Patient will complete toileting tasks at standard toilet with SBA. (Not Addressed) Start: 10/17/24 Expected End: 10/27/24 Transfers Patient will complete functional transfer with rolling walker with SBA in order to prepare for ambulation. (Progressing) Start: 10/17/24 Expected End: 10/27/24 Therapy Time Individual Co-treatment Time In 954 Time Out 1008 Minutes 13 Timed Code Treatment Minutes: 13 Minutes (1 Ther Act) VISHAL Burleson [facility] Progress Note PHYSICAL THERAPY [facility] Treatment Note Name/MRN: Martha Milligan ([id number]) Date of : 1940 Age: 83 y.o. Room/Bed: B2252[facility] A Visit #: 1 out of 7 visits Discharge Recommendation: Shelter Facility Equipment Needed: No Prior Level of Function Prior Level of ADL Function: Required Assist Prior Level of Mobility: Required Assist; Device: None Prior Level of Transfers: Required Assist Assessment Pt demo improved mobility, demo bed mobility min A, transfer to FWW min A and ambulate bed> chair and back CGA. She began exercises but then returned to supine stating her hip hurt. Continue to rec SNF Subjective Pt pleasantly confused, agree to PT Pain: RN managing pain. Mccormack-Ronquillo Pain Ratin = Hurts little more Pain Location: hip Medical Precautions: No active isolations Proper PPE donned/doffed in accordance with facility standards. Fall Risk: Turner Fall Risk Score: 95 (High Risk) Precautions/Restrict ions: Fall Precautions Overall Cognitive Status: Exceptions - Following commands: follows one step commands with increased time and follows one step commands with repetition - Safety judgement: decreased awareness of need for assistance and decreased awareness of need for safety - Problem solving: assistance required to generate solutions, assistance required to implement solutions, assistance required to identify errors made, assistance required to correct errors made, and decreased awareness of errors - Initiation: requires cues for all - Sequencing: requires cues for all Overall Orientation Status: Oriented to Person Family/Caregiver Present: none Objective Bed Mobility Supine to sit: Min Assist, pt denies dizziness, demo bed mobility min A to square hips and assist trunk with HOB elevated. Once seated is SBA, return to supine SBA Sit to supine: SBA Transfers/Mobility Sit to stand: Contact Guard, Min Assist, pt transfer to FWW from bed min A, from chair CGA. Therapist cues for hand placement. She demo stand step with no device CGA. Therapist cues for sequencing. She complete bed>chair then chair>bed. Attempted to instruct in exercise and additional transfers but pt return self to supine, states her hip hurts. Stand to sit: Contact Guard Stand step: Contact Guard Device(s) used: None and Front wheeled walker Plan Continue acute PT per plan of care. Safety/Education Safety Safety Devices in place: All fall risk precautions in place, call light within reach, left in bed, bed alarm in place, gait belt, patient at risk for falls, and nurse notified Restraints: No Education Education Given To: patient Education Provided: PT Role, PT Goals, Gait Training, Plan of Care, Home Exercise Program, Precautions, Transfer Training, Energy Conservation, Orientation, Equipment, Fall Prevention Education, Discharge Recommendations, and Benefits of Increasing Activity Education Method: Verbal and Demonstration Barriers to Learning: Cognition Education Outcome: Continued Education Needed Outcome Measures AM-PAC AM-PAC Inpatient Mobility Raw Score (No Stairs) : 13 JH-HLM -HLM Score: Transferred to chair/commode Goals Patient Stated Goal: Patient unable to participate in goal setting at this time. Encounter Problems Encounter Problems (Active) Balance Patient will maintain dynamic standing balance for 5 minutes with min assist in order to demonstrate decreased risk of falling. (Progressing) Start: 10/16/24 Expected End: 10/27/24 Exercise Patient will complete lower extremity exercises for 1-2 sets / 10-15 reps in order to improve strength and activity tolerance for mobility. (Not Addressed) Start: 10/16/24 Expected End: 10/27/24 Mobility Patient will ambulate 15-20 feet with min assist and least restrictive device in order to improve safety and independence with mobility. (Progressing) Start: 10/16/24 Expected End: 10/27/24 Transfers Patient will perform bed mobility with CGA in order to improve independence and prepare for out of bed mobility. (Progressing) Start: 10/16/24 Expected End: 10/27/24 Patient will complete functional transfer with least restrictive device with min assist in order to prepare for ambulation. (Completed) Start: 10/16/24 Expected End: 10/27/24 Resolved: 10/19/24 Therapy Time Individual Co-treatment Time In 0842 Time Out 0852 Minutes 10 Timed Code Treatment Minutes: 8 Minutes (ther act) Emmett Bautista, PT [facility] Progress Noteon 10-18-2024 Progress Note OCCUPATIONAL THERAPY [facility]'s Name/MRN: Martha Milligan ([id number]) Date: 10/18/2024 Chart reviewed. Attempt to see pt for OT session. Pt adamantly declining participation in OT session. Pt given encouragement and multiple tx options with no success. Unable to re direct pt. OT will continue to follow and re attempt to see as schedule permits. VISHAL Mccarthy/Rodrigo [facility] [id number] 10-17-2024 [id number] Met with Jordan at bedside to discuss DC planning. Pt had choice list in hand that I left in room yesterday. chose1) [facility] and 2) [facility]. FORENSIC SCIENTIST tasked to make new SNF referrals. Awaiting acceptance. [facility] Consulton 10-17-2024 Consult Consult Note Date:10/17/2024 Patient Name:Martha Milligan Date of :1940 Age:83 y.o. Reason for Consult: Hip pain and inability to ambulate Chief Complaint Chief Complaint Patient presents with Hip Pain Bilateral History Obtained From Patient, chart. History of Present Illness The patient is an 83 yo WF admitted with hip pain and difficulty ambulating. She has dementia and is not able to offer me any history. There was a questionable history of fall, but she adamantly denies this. She has no complaints at this time. Specifically she denies neck or back pain, and no extremity complaints. Past Medical History Medical History[1] Past Surgical History Surgical History[2] Medications Prior to Admission medications Medication Sig Start Date End Date Taking? Authorizing Provider atorvastatin (Lipitor) 10 MG tablet Take 10 mg by mouth Nightly. Historical Provider, donepezil (Aricept) 10 MG tablet Take 1 tablet (10 mg) by mouth Nightly. 09/06/24 09/06/25 Michele Mccollum MD folic acid (Folvite) 800 MCG tablet Take 1 tablet by mouth daily. Historical Provider, levothyroxine (Synthroid, Levoxyl) 75 MCG tablet Take 75 mcg by mouth every morning (before breakfast). Historical Provider, lisinopril-hydroCHLO ROthiazide 20-12.5 MG tablet Take 1 tablet by mouth daily. Historical Provider, memantine (Namenda) 10 MG tablet Take 1 tablet (10 mg) by mouth 2 times daily. Start after the initial titration script Do not start before September 20, 2024. 09/20/24 04/18/25 Michele Mccollum MD memantine (Namenda) 5 MG tablet Take 1 tablet (5 mg) daily for 7 days. Then take 1 tablet (5 mg) twice a day for 7 days. Then take 2 tablets (10 mg) in AM and 1 tablet (5 mg) in PM for 7 days. Then proceed to next script 08/30/24 Michele Mccollum MD naproxen (Naprosyn) 250 MG tablet Take 250 mg by mouth Nightly as needed for mild pain (1-3). Historical Provider, sertraline (Zoloft) 50 MG tablet Take 50 mg by mouth daily. Historical Provider, Allergies Barbiturates, Lorabid [loracarbef], Penicillins, Sulfamethoxazole, Celebrex [celecoxib], and Celexa [citalopram] Social History reports that she quit smoking about 57 years ago. Her smoking use included cigarettes. She started smoking about 64 years ago. She has a 13.6 pack-year smoking history. She has never used smokeless tobacco. She reports that she does not currently use alcohol after a past usage of about 4.0 standard drinks of alcohol per week. She reports that she does not currently use drugs. Family History Family History[3] Review of Systems Unable to obtain due to patient's mental status. Physical Exam BP 144/75 Pulse 69 Temp 36.2 ?C (97.2 ?F) (Temporal) Resp 14 Wt 62.1 kg (136 lb 14.4 oz) SpO2 96% BMI 26.08 kg/m? A&O x 1. NAD. Head NC/AT. Heart RRR. Breathing unlabored. Abdomen soft, NT. No pain in the neck or back in the midline. UE moving freely without pain. No clinical deformity of the LE. No pain with palpation over the hips. No pain with log rolling of the hips. No pain with hip flexion. Both knees and ankles also non-tender to palpation. Calves soft, NT. NVI distally. Labs CBC: Recent Labs 10/15/242107 WBC 9.6 RBC 4.27 HGB 13.2 HCT 38.5 MCV 90.2 RDW 12.5 PLT 139* CHEMISTRIES: Recent Labs 10/15/242107 NA 141 K 3.5 CL 106 CO2 23 BUN 12 CREATININE 0.68 GLUCOSE 89 PT/INR: Recent Labs 10/15/242107 PROTIME 10.7 INR 1.0 APTT:No results for input(s): "APTT" in the last 72 hours. LIVER PROFILE:No results for input(s): "AST", "ALT", "BILIDIR", "BILITOT", "ALKPHOS" in the last 72 hours. Imaging/Diagnostics Pelvis plain films and CT scan show moderate bilateral hip OA and no acute findings. Assessment Bilateral hip pain. Bilateral hip OA. Debility and difficulty ambulating. Questionable fall history. Plan I am not able to reproduce any hip pain on today's exam. No further imaging needed at this point. I recommend observation. OK for activity as tolerated. Continue PT/OT acutely. Therapy currently recommends SNF placement. Dispo will depend on progress with therapy. I will sign off - call if any questions or concerns. Electronically signed by Manuel Ayoub MD [1] Past Medical History: Diagnosis Date Anxiety Depression Folate deficiency Hiatal hernia Hyperlipemia Hypertension Hypothyroidism Memory loss Osteopenia Vitamin D deficiency [2] Past Surgical History: Procedure Laterality Date COLONOSCOPY 09/22/2015 PARATHYROIDECTOMY 1992 THYROID SURGERY 1992 Benign Thyroid mass TONSILLECTOMY TUBAL LIGATION [3] Family History Problem Relation Name Age of Onset Dementia Mother Alysha Lang Stroke Mother Alysha Lang Breast cancer Mother Alysha Lang Lung cancer Father [place] Rickey Brain cancer Father [place]key Hypertension Father [place] Rickey Heart attack Father [place] Rickey L (more content not included)... Normal [facility] Progress Noteon 10-17-2024 Progress Note Nutrition rescreen completed. Chart reviewed. Patient to be monitored and followed by the diet pc network technician. Normal [facility] ED Nursing Noteon 10-16-2024 ED Nursing Note Pt depends changed for urine incontinence and repositioned in bed for comfort. Normal [facility] Nursing Noteon 10-16-2024 Nursing Note Chart accessed pending admission to [address] Normal [facility] BASIC METABOLIC PANELon 07 Anion gap [Moles/Vol] 12 mmol/L Normal 3-13 [facility] Comment on above: Performed By: #### L [id number] ####Bureau Chief: EGOVANNA MENJIVAR ([phone])[facility] ALEXANDER RITTMAN (SWRLAB)[address] [place] [address] [place] Calcium [Mass/Vol] 9.7 mg/dL Normal 8.8-10.0 [facility] Comment on above: Performed By: #### L [id number] ####Bureau Chief: GEOVANNA MENJIVAR ([phone])[facility] ALEXANDER RITTMAN (SWRLAB)[address] [place] [address] [place] Chloride [Moles/Vol] 106 mmol/L Normal 98-107 [facility] Comment on above: Performed By: #### L [id number] ####Bureau Chief: GEOVANNA MENJIVAR ([phone])[facility] ALEXANDER RITTMAN (SWRLAB)[address] [place] [address] [place] CO2 [Moles/Vol] 23 mmol/L Normal 23-31 [facility] Comment on above: Performed By: #### L [id number] ####Bureau Chief: GEOVANNA MENJIVAR ([phone])[facility] ALEXANDER RITTMAN (SWRLAB)[address] [place] [address] [place] Creatinine [Mass/Vol] 0.68 mg/dL Normal 0.57-1.11 [facility] Comment on above: Performed By: #### L [id number] ####Bureau Chief: GEOVANNA MENJIVAR ([phone])[facility] MUNOZ RITTMAN (SWRLAB)[address] [place] [address] [place] GLOMERULAR FILTRATION RATE ML/MIN/1.73 SQ M.PREDICTED 87.6 mL/min/1.73m*2 Normal >60.0 [facility] Comment on above: Result Comment: Calc ulation based on the Chronic Kidney Disease Epidemiology Collaboration (CKD-EPI) equation refit without adjustment for race Performed By: #### L [id number] ####Bureau Chief: GEOVANNA MENJIVAR ([phone])[facility] [place]UN[place] (SWRLAB)[address] [place] [address] [place] Glucose [Mass/Vol] 89 mg/dL Normal 82-115 [facility] Comment on above: Performed By: #### L [id number] ####Bureau Chief: GEOVANNA MENJIVAR ([phone])[facility] [place]UN[place] (SWRLAB)[address] [place] [address] [place] Potassium [Moles/Vol] 3.5 mmol/L Normal 3.5-5.1 [facility] Comment on above: Result Comment: [facility] potassium values may be up to 0.5 mmol/L lower than serum values. Performed By: #### L [id number] ####Bureau Chief: GEOVANNA MENJIVAR ([phone])[facility] (SWRLAB)[address] [place] [address] [place] Sodium [Moles/Vol] 141 mmol/L Normal 136-145 [facility] Comment on above: Performed By: #### L [id number] ####Bureau Chief: GEOVANNA MENJIVAR ([phone])[facility] [place] (SWRLAB)[address] [place] [address] [place] Urea nitrogen [Mass/Vol] 12 mg/dL Normal 9-[address] [facility] Comment on above: Performed By: #### L [id number] ####Bureau Chief: GEOVANNA MENJIVAR ([phone])[facility]ENTERALEXANDERTWYLA FISH (SWRLAB)[address] [place] [address] Basic metabolic 1998 panelon 10-15-2024 Anion gap [Moles/Vol] 12 mmol/L 3 - 13 mmol/L [facility] Calcium [Mass/Vol] 9.7 mg/dL 8.8 - 10. 0 mg/dL [facility] Chloride [Moles/Vol] 106 mmol/L 98 - 10 7 mmol/L [facility] CO2 [Moles/Vol] 23 mmol/L 23 - 31 mmol/L [facility] Creatinine [Mass/Vol] 0.68 mg/dL 0.57 - 1.11 mg/dL [facility] GFR/1.73 sq M.predicted (S/P/Bld) [Vol rate/Area] 87.6 mL/min - PINF [facility] Comment on above: Calculation based on the Chronic Kidney Disease Epidemiology Collaboration (CKD-EPI) equation refit without adjustment for race Glucose [Mass/Vol] 89 mg/dL 82 - 115 mg/dL [facility] Interpretation and review of laboratory results Normal [facility] Potassium [Moles/Vol] 3.5 mmol/L 3.5 - 5.1 mmol/L [facility] Comment on above: Plasma potassium yohana ues may be up to 0.5 mmol/L lower than serum values. Sodium [Moles/Vol] 141 mmol/L 136 - 145 mmol/L [facility] Urea nitrogen [Mass/Vol] 12 mg/dL 9 - 23 mg/dL [facility] CBC W Auto Differential pane l (Bld)on 10-15-2024 Basophils (Bld) [#/Vol] 0.1 10*3/uL 0.0 - 0.2 10*3/uL [facility] Basophils/100 WBC (Bld) 0.7 % 0.0 - 2.0 % [facility] Eosinophils (Bld) [#/Vol] 0 10*3/uL 0.0 - 0.5 10*3/uL [facility] Eosinophils/100 WBC (Bld) 0 % 0.0 - 6.0 % [facility] Erythrocyte distribution width (RBC) [Ratio] 12.5 % 11.5 - 15.0 % [facility] Hematocrit (Bld) [Volume fraction] 38.5 % 35.0 - 47.0 % [facility] Hemoglobin (Bld) [Mass/Vol] 13.2 g/dL 11.7 - 16.0 g/dL [facility] Immature granulocytes (Bld) [#/Vol] 0 10*3/uL NINF - 0.1 10*3/uL [facility] Immature granulocytes/100 WBC (Bld) 0.4 % 0.0 - 2.0 % [facility] Interpretation and review of laboratory results Abnormal [facility] IPF 5 [facility] Lymphocytes (Bld) [#/Vol] 1.2 10*3/uL 1.0 - 4.3 10*3/uL [facility] Lymphocytes/100 WBC (Bld) 12.8 % Low 15.0 - 45.0 % [facility] MCH (RBC) [Entitic mass] 30.9 pg 26.0 - 34.0 pg [facility] MCHC (RBC) [Mass/Vol] 34.3 % 30.5 - 36.0 % [facility] MCV (RBC) [Entitic vol] 90.2 fL 77.0 - 99.0 fL [facility] Monocytes (Bld) [#/Vol] 1 10*3/uL High 0.0 - 0.9 10*3/uL [facility] Monocytes/100 WBC (Bld) 10.7 % 5.0 - 13.0 % [facility] Neutrophils (Bld) [#/Vol] 7.2 10*3/uL 1.8 - 7.5 10*3/uL [facility] Neutrophils/100 WBC (Bld) 75.4 % 38.0 - 82.0 % [facility] Nucleated RBC/100 WBC (Bld) [Ratio] 0 % [facility] Platelet mean volume (Bld) [Entitic vol] 11.1 fL 9.0 - 12.7 fL [facility] Platelets (Bld) [#/Vol] 139 10*3/uL Low 140 - 440 10*3/uL [facility] RBC (Bld) [#/Vol] 4.27 10*6/uL 3.80 - 5.2 0 10*6/uL [facility] WBC (Bld) [#/Vol] 9.6 10*3/uL 3.6 - 10.7 10*3/uL [facility] CBC WITH AUTO DIFFERENTIALon 10-15-2024 Basophils (Bld) [#/Vol] 0.1 10*3/uL Normal 0.0-0.[address] [facility] Comment on above: Performed By: #### L [id number] ####Bureau Chief: GEOVANNA MENJIVAR ([phone])[facility]UN[facility] (SWRLAB)[address] [place] [address] [place] Basophils/100 WBC (Bld) 0.7 % Normal 0.0-2.0 [facility] Comment on above: Performed By: #### L [id number] ####Bureau Chief: GEOVANNA MENJIVAR ([phone])[facility] [place] (SWRLAB)[address] [place] [address] [place] Eosinophils (Bld) [#/Vol] 0.0 10*3/uL Normal 0.0-0.[address] [facility] Comment on above: Performed By: #### L [id number] ####Bureau Chief: GEOVANNA MENJIVAR ([id number])[facility] [place] (SWRLAB)[address] [place] [address] [place] Eosinophils/100 WBC (Bld) 0.0 % Normal 0.0-6.[address] [facility] Comment on above: Performed By: #### L [id number] ####Bureau Chief: GEOVANNA MENJIVAR ([phone])[facility] [place] (SWRLAB)[address] [place] [address] Erythrocyte distribution width (RBC) [Ratio] 12.5 % Normal 11.5-15.[address] [facility] Comment on above: Performed By: #### L [id number] ####Bureau Chief: GEOVANNA MENJIVAR ([phone])[facility] CANADAALEXANDER RITTMAN (SWRLAB)[address] [place] [address] Hematocrit (Bld) [Volume fraction] 38.5 % Normal 35.0-47.[address] [facility] Comment on above: Performed By: #### L [id number] ####Bureau Chief: GEOVANNA MENJIVAR ([id number])[facility] [place] (SWRLAB)[address] [place] [address] Hemoglobin (Bld) [Mass/Vol] 13.2 g/dL Normal 11.7-16.[address] [facility] Comment on above: Performed By: #### L [id number] ####Bureau Chief: GEOVANNA MENJIVAR ([phone])[facility] [place] (SWRLAB)[address] [place] [address] IMMATURE GRANS % 0.4 % Normal 0.0-2.0 [facility] Comment on above: Performed By: #### L [id number] ####Bureau Chief: GEOVANNA MENJIVAR ([phone])[facility] [place] (SWRLAB)[address] [place] [address] IMMATURE GRANS ABSOLUTE 0.0 10*3/uL Normal <0.[address] [facility] Comment on above: Performed By: #### L [id number] ####Bureau Chief: GEOVANNA MENJIVAR ([phone])[facility] [place] (SWRLAB)[address] [place] [address] IPF [address] [facility] Comment on above: Performed By: #### L [id number] ####Bureau Chief: GEOVANNA MENJIVAR ([phone])[facility] (SWRLAB)[address] [place] [address] Lymphocytes (Bld) [#/Vol] 1.2 10*3/uL Normal 1.0-4.[address] [facility] Comment on above: Performed By: #### L [id number] ####Bureau Chief: GEOVANNA MENJIVAR ([id number])[facility] [place] (SWRLAB)[address] [place] [address] Lymphocytes/100 WBC (Bld) 12.8 % Low 15.0-45.[address] [facility] Comment on above: Performed By: #### L [id number] ####Bureau Chief: GEOVANNA MENJIVAR ([phone])MARLENE MUNOZ RITTMAN (SWRLAB)[address] [place] [address] MCH (RBC) [Entitic mass] 30.9 pg Normal 26.0-34.0 [facility] Comment on above: Performed By: #### L [id number] ####Bureau Chief: GEOVANNA MENJIVAR ([phone])MARLENE MUNOZ RITTMAN (SWRLAB)[address] [place] [address] MCHC 34.3 % Normal 30.5-36.0 [facility] Comment on above: Performed By: #### L [id number] ####Bureau Chief: GEOVANNA MENJIVAR ([phone])MARLENE MUNOZ RITTMAN (SWRLAB)[address] [place] [address] MCV (RBC) [Entitic vol] 90.2 fL Normal 77.0-99.0 [facility] Comment on above: Performed By: #### L [id number] ####Bureau Chief: GEOVANNA MENJIVAR ([phone])MARLENE MUNOZ RITTMAN (SWRLAB)[address] [place] [address] Monocytes (Bld) [#/Vol] 1.0 10*3/uL High 0.0-0.9 [facility] Comment on above: Performed By: #### L [id number] ####Bureau Chief: GEOVANNA MENJIVAR ([id number])MARLENE MUNOZ RITTMAN (SWRLAB)[address] [place] [address] [place] Monocytes/100 WBC (Bld) 10.7 % Normal 5.0-13.0 [facility] Comment on above: Performed By: #### L [id number] ####Bureau Chief: GEOVANNA MENJIVAR ([id number])MARLENE MUNOZ RITTMAN (SWRLAB)[address] [place] [address] NEUTROPHILS ABSOLUTE 7.2 10*3/uL Normal 1.8-7.5 [facility] Comment on above: Performed By: #### L [id number] ####Bureau Chief: GEOVANNA MENJIVAR ([phone])MARLENE MUNOZ RITTMAN (SWRLAB)[address] [place] [address] Neutrophils/100 WBC (Bld) 75.4 % Normal 38.0-82.0 [facility] Comment on above: Performed By: #### L [id number] ####Bureau Chief: GEOVANNA MENJIVAR ([id number])[facility] CANADAALEXANDER RITTMAN (SWRLAB)[address] NRBC 0.0 /100 WBCs Normal 0.0-2.0 [facility] Comment on above: Performed By: #### L [id number] ####Bureau Chief: GEOVANNA MENJIVAR ([id number])[facility] [place]DAAL[place]ANDER RITTMAN (SWRLAB)[address] [place] [address] Platelet mean volume (Bld) [Entitic vol] 11.1 fL Normal 9.0-12.7 [facility] Comment on above: Performed By: #### L [id number] ####Bureau Chief: GEOVANNA MENJIVAR ([phone])[facility] MUNO[facility]TM[facility] (SWRLAB)[address] [place] [address] [place] Platelets (Bld) [#/Vol] 139 10*3/uL Low 140-440 [facility] Comment on above: Performed By: #### L [id number] ####Bureau Chief: GEOVANNA MENJIVAR ([phone])[facility] MUN[facility] (SWRLAB)[address] [place] [address] [place] RBC (Bld) [#/Vol] 4.27 10*6/uL Normal 3.80-5.20 [facility] Comment on above: Performed By: #### L [id number] ####Bureau Chief: GEOVANNA MENJIVAR ([id number])[facility] (SWRLAB)[address] WBC (Bld) [#/Vol] 9.6 10*3/uL Normal 3.6-10.7 [facility] Comment on above: Performed By: #### L [id number] ####Bureau Chief: GEOVANNA MENJIVAR ([id number])[facility] SANDISARAI (SWRLAB)[address] PELVIS WO IV CONTRASTon 0 10-15-2024 CT PELVIS WO IV CONTRAST Patient Name: MARTHA MILLIGAN : 1940 Exam Date/Time: 10/15/2024 21:10 Procedure: CT PELVIS WO IV CONTRAST Ordering Provider: RINCON J Reason For Exam: Pelvic fracture; bilateral hip pain s/p fall CT PELVIS WITHOUT CONTRAST CLINICAL INDICATION: Pelvic fracture; bilateral hip pain s/p fall TECHNIQUE: CT scan of the pelvis without IV contrast. Multiplanar reformations. Dose reduction was employed with automated exposure control. COMPARISON: Radiographs of same date. FINDINGS: No apparent fracture, dislocation or osseous destruction. Mild degenerative change in the bilateral hip joints. Degenerative change also in the visualized lower lumbar spine. Soft tissues grossly unremarkable. Diverticulosis in the sigmoid colon. Diffuse aortoiliac calcification. Small, fat-containing umbilical hernia partially visualized. IMPRESSION: 1. No acute osseous abnormality. 2. Degenerative change. Report Dictated on Electronically Signed By: Lazaro Osuna MD Electronically Signed Date/Time: 10/15/2024 9:33 PM EDT Pt with dementia and difficulty weight bearing today, XRs done same day, suspects fall Normal [facility] CT Pelvis WO contraston 07-0 1. No acute osseous abnormality. 2. Degenerative change. Report Dictated on Electronically Signed By: Lazaro Osuna MD Electronically Signed Date/Time: 10/15/2024 9:33 PM EDT [facility] Patient Name: MARTHA MILLIGAN : 1940 Exam Date/Time: 10/15/2024 21:10 Procedure: CT PELVIS WO IV CONTRAST Ordering Provider: RINCON J Reason For Exam: Pelvic fracture; bilateral hip pain s/p fall CT PELVIS WITHOUT CONTRAST CLINICAL INDICATION: Pelvic fracture; bilateral hip pain s/p fall TECHNIQUE: CT scan of the pelvis without IV contrast. Multiplanar reformations. Dose reduction was employed with automated exposure control. COMPARISON: Radiographs of same date. FINDINGS: No apparent fracture, dislocation or osseous destruction. Mild degenerative change in the bilateral hip joints. Degenerative change also in the visualized lower lumbar spine. Soft tissues grossly unremarkable. Diverticulosis in the sigmoid colon. Diffuse aortoiliac calcification. Small, fat-containing umbilical hernia partially visualized. [facility] Lazaro Osuna MD - 10/15/2024 [facility] Name: [facility] 1940 [id number] Exam Date/Time: 10/15/2024 21:10 Procedure: CT PELVIS WO IV CONTRAST Ordering Provider: RINCON J Reason For Exam: Pelvic fracture; bilateral hip pain s/p fall CT PELVIS WITHOUT CONTRAST CLINICAL INDICATION: Pelvic fracture; bilateral hip pain s/p fall TECHNIQUE: CT scan of the pelvis without IV contrast. Multiplanar reformations. Dose reduction was employed with automated exposure control. COMPARISON: Radiographs of same date. FINDINGS: No apparent fracture, dislocation or osseous destruction. Mild degenerative change in the bilateral hip joints. Degenerative change also in the visualized lower lumbar spine. Soft tissues grossly unremarkable. Diverticulosis in the sigmoid colon. Diffuse aortoiliac calcification. Small, fat-containing umbilical hernia partially visualized. IMPRESSION: 1. No acute osseous abnormality. 2. Degenerative change. Report Dictated on Electronically Signed By: Lazaro Osuna MD Electronically Signed Date/Time: 10/15/2024 9:33 PM EDT [facility] Radiology Study observation (narrative) [facility] ED Nursing Noteon 10-15-2024 ED Nursing Note Pt to xray via cart and lifted onto table with assist of 3. Tolerated well Normal [facility] ED Nursing Note Pt to ER with her . Pt with hx of dementia- pt unable to answer questions about why she is here. Info obtained through . State she normally uses a wheelchair, but she was not able to stand and transfer today. thinks pt fell. states he lifted her into the wheelchair today from the car. Pt able to stand with assist of this RN and to pivot into the bed. Complains of pain with movement. Side rails up x 2 for safety. Cody light in reach. @ bedside. [facility] ED Provider Noteon ED Provider Note EMERGENCY DEPARTMENT ENCOUNTER Pt Name: Martha Milligan Birthdate 1940 Date of evaluation: 10/15/2024 ED Provider: Almita Rincon MD CHIEF COMPLAINT No chief complaint on file. HISTORY OF PRESENT ILLNESS (Location/Symptom, Timing/Onset, Context/Setting, Quality, Duration, Modifying Factors, Severity) Note limiting factors. I wore appropriate PPE for the entirety of this encounter. HPI Martha Milligan is a 83 y.o. female who presents to the emergency department with chief complaint of hip pain and a fall. History is provided by the patient's , who states the patient has severe Alzheimer's dementia and thinks she may have fallen today but was complaining of right hip pain. When asked, the patient states that she cannot remember. The patient's denies any head injury or loss of consciousness. Nursing Notes were reviewed. Limitations to history: Alzheimer's dementia Outside historians: Significant other REVIEW OF SYSTEMS Review of Systems Pertinent positives and negatives as per HPI. PAST MEDICAL HISTORY Medical History[1] SURGICAL HISTORY Surgical History[2] CURRENT MEDICATIONS Previous Medications ATORVASTATIN (LIPITOR) 10 MG TABLET Take 10 mg by mouth Nightly. DONEPEZIL (ARICEPT) 10 MG TABLET Take 1 tablet (10 mg) by mouth Nightly. FOLIC ACID (FOLVITE) 800 MCG TABLET Take 1 tablet by mouth daily. LEVOTHYROXINE (SYNTHROID, LEVOXYL) 75 MCG TABLET Take 75 mcg by mouth every morning (before breakfast). LISINOPRIL-HYDROCHLO ROTHIAZIDE 20-12.5 MG TABLET Take 1 tablet by mouth daily. MEMANTINE (NAMENDA) 10 MG TABLET Take 1 tablet (10 mg) by mouth 2 times daily. Start after the initial titration script Do not start before September 20, 2024. MEMANTINE (NAMENDA) 5 MG TABLET Take 1 tablet (5 mg) daily for 7 days. Then take 1 tablet (5 mg) twice a day for 7 days. Then take 2 tablets (10 mg) in AM and 1 tablet (5 mg) in PM for 7 days. Then proceed to next script NAPROXEN (NAPROSYN) 250 MG TABLET Take 250 mg by mouth Nightly as needed for mild pain (1-3). SERTRALINE (ZOLOFT) 50 MG TABLET Take 50 mg by mouth daily. ALLERGIES Barbiturates, Lorabid [loracarbef], Penicillins, Sulfamethoxazole, Celebrex [celecoxib], and Celexa [citalopram] FAMILY HISTORY Family History[3] SOCIAL HISTORY Social History[4] SCREENINGS PHYSICAL EXAM ED Triage Vitals [10/15/241951] Temp Heart Rate Resp BP 36.6 ?C (97.9 ?F) 66 18 (!) 186/78 SpO2 Temp Source Heart Rate Source Patient Position 95 % Temporal Monitor -- BP Location FiO2 (%) -- -- Physical Exam Vitals and nursing note reviewed. Constitutional: General: She is not in acute distress. Appearance: She is well-developed. HENT: Head: Normocephalic and atraumatic. Eyes: Conjunctiva/sclera: Conjunctivae normal. Cardiovascular: Rate and Rhythm: Normal rate. Pulmonary: Effort: Pulmonary effort is normal. No respiratory distress. Musculoskeletal: General: No swelling. Cervical back: Neck supple. Comments: TTP to bilateral hips. No TTP along the femurs or tib-fibs Skin: General: Skin is warm and dry. Neurological: Mental Status: She is alert. Psychiatric: Mood and Affect: Mood normal. DIAGNOSTIC RESULTS Procedures/EKG: Interpretation per the Radiologist below, if available at the time of this note: CT pelvis wo IV contrast Final Result 1. No acute osseous abnormality. 2. Degenerative change. Report Dictated on Electronically Signed By: Lazaro Osuna MD Electronically Signed Date/Time: 10/15/2024 9:33 PM EDT XR femur bilateral 2 views Final Result 1. No acute osseous abnormality. 2. Degenerative change. Report Dictated on Electronically Signed By: Lazaro Osuna MD Electronically Signed Date/Time: 10/15/2024 8:41 PM EDT XR pelvis 1 or 2 views Final Result 1. No acute osseous abnormality. 2. Degenerative change. Report Dictated on Electronically Signed By: Lazaro Osuna MD Electronically Signed Date/Time: 10/15/2024 8:41 PM EDT ED BEDSIDE ULTRASOUND: Performed by ED Physician - none LABS: Labs Reviewed CBC WITH AUTO DIFFERENTIAL - Abnormal Result Value Auto WBC 9.6 RBC 4.27 Hemoglobin 13.2 Hematocrit 38.5 MCV 90.2 MCH 30.9 MCHC 34.3 RDW 12.5 Platelets 139 (*) MPV 11.1 nRBC 0.0 Neutrophils Relative 75.4 Lymphocytes Relative 12.8 (*) Monocytes Relative 10.7 Eosinophils Relative 0.0 Basophils Relative 0.7 Immature Grans % 0.4 Neutrophils Absolute 7.2 Lymphocytes Absolute 1.2 Monocytes Absolute 1.0 (*) Eosinophils Absolute 0.0 Basophils Absolute 0.1 Immature Grans Absolute 0.0 IPF 5 BASIC METABOLIC PANEL - Normal SODIUM 141 POTASSIUM 3.5 CHLORIDE 106 CARBON DIOXIDE 23 UREA NITROGEN 12 CREATININE 0.68 GLUCOSE 89 CALCIUM 9.7 ANION GAP 12 eGFR 87.6 PROTHROMBIN TIME - Normal PROTHROMBIN TIME 10.7 (more content not included)... Normal [facility] Laboratory - Coagulationon 0 10-15-2024 PT Coag (Bld) [Time] 10.7 s 9.0 - 12.0 s [facility] No Panel Informationon 10-15 1. No acute osseous abnormality. 2. Degenerative change. Report Dictated on Electronically Signed By: Lazaro Osuna MD Electronically Signed Date/Time: 10/15/2024 8:41 PM EDT [facility] No Panel InformationOrdered By: Lazaro Osuna on 10-15-2024 [facility] Work Phone: PROTHROMBIN TIMEon 5 INR Coag (PPP) [Relative time] 1.0 {INR} Normal 0.9-1.1 [facility] Comment on above: Result Comment: Neil mmended Anticoagulant Therapy: SEE BELOW ----- INR of 2.0 - 3.0 : - Prophylaxis of Venous Thrombosis (high-risk surgery) - Treatment of Venous Thrombosis - Treatment of Pulmonary Embolism (Includes tissue heart valves, Acute Myocardial Infarction to prevent systemic embolism, Valvular Heart Disease, and Atrial Fibrillation) ----- INR of 2.5 - 3.5 : - Mechanical Prosthetic Valves (high risk) - If oral anticoagulant therapy is used to prevent Myocardial Infarction Performed By: #### L [id number] #### Bureau Chief: GEOVANNA MENJIVAR ([id number]) [facility] [employer] ([employer]) [address] [place] [address] PT Coag (PPP) [Time] 10.7 s Normal 9.0-12.0 [facility] Comment on above: Performed By: #### L [id number] #### Bureau Chief: GEOVANNA MENJIVAR ([id number]) [facility] [employer] ([employer]) [address] [place] [address] PT Coag (Bld) [Time]on 10-15 INR Coag (PPP) [Relative time] 1 {INR} 0.9 - 1.1 [facility] Comment on above: Recommended Anticoag ulant Therapy: SEE BELOW ----- INR of 2.0 - 3.0 : - Prophylaxis of Venous Thrombosis (high-risk surgery) - Treatment of Venous Thrombosis - Treatment of Pulmonary Embolism (Includes tissue heart valves, Acute Myocardial Infarction to prevent systemic embolism, Valvular Heart Disease, and Atrial Fibrillation) ----- INR of 2.5 - 3.5 : - Mechanical Prosthetic Valves (high risk) - If oral anticoagulant therapy is used to prevent Myocardial Infarction Interpretation and review of laboratory results Normal [facility] XR Femur - bilateral 2 Views on 10-15-2024 Patient Name: MARTHA MILLIGAN : 1940 Exam Date/Time: 10/15/2024 20:32 Procedure: XR FEMUR 2 VW BILATERAL Ordering Provider: RINCON J Reason For Exam: fall, bilateral hip pain PELVIS SINGLE VIEW. BILATERAL FEMUR 2 VIEWS CLINICAL INDICATION: fall, bilateral hip pain, worse to right TECHNIQUE: Single, AP view of the pelvis. 2 views of the bilateral femurs. COMPARISON: None. FINDINGS: Generalized osteopenia. No apparent fracture or dislocation. Hip joint spaces maintained. Mild, marginal spurring of the bilateral acetabula and iliac crests. Degenerative change in the visualized lower lumbar spine, and bilateral patellofemoral joint spaces. Soft tissues grossly unremarkable. [facility] Lazaro Osuna MD - 10/15/2024 [facility] 1940 [id number] Exam Date/Time: 10/15/2024 20:32 Procedure: XR FEMUR 2 VW BILATERAL Ordering Provider: RINCON J Reason For Exam: fall, bilateral hip pain PELVIS SINGLE VIEW. BILATERAL FEMUR 2 VIEWS CLINICAL INDICATION: fall, bilateral hip pain, worse to right TECHNIQUE: Single, AP view of the pelvis. 2 views of the bilateral femurs. COMPARISON: None. FINDINGS: Generalized osteopenia. No apparent fracture or dislocation. Hip joint spaces maintained. Mild, marginal spurring of the bilateral acetabula and iliac crests. Degenerative change in the visualized lower lumbar spine, and bilateral patellofemoral joint spaces. Soft tissues grossly unremarkable. IMPRESSION: 1. No acute osseous abnormality. 2. Degenerative change. Report Dictated on Electronically Signed By: Lazaro Osuna MD Electronically Signed Date/Time: 10/15/2024 8:41 PM EDT [facility] Radiology Study observation (narrative) [facility] alth XR Pelvis 1 or 2 Viewson Patient Name: MARTHA [facility]ILLIGAN : 1940 [id number] Exam Date/Time: 10/15/2024 20:13 Procedure: XR PELVIS 1-2 VIEWS Ordering Provider: RINCON J Reason For Exam: fall, bilateral hip pain, worse to right PELVIS SINGLE VIEW. BILATERAL FEMUR 2 VIEWS CLINICAL INDICATION: fall, bilateral hip pain, worse to right TECHNIQUE: Single, AP view of the pelvis. 2 views of the bilateral femurs. COMPARISON: None. FINDINGS: Generalized osteopenia. No apparent fracture or dislocation. Hip joint spaces maintained. Mild, marginal spurring of the bilateral acetabula and iliac crests. Degenerative change in the visualized lower lumbar spine, and bilateral patellofemoral joint spaces. Soft tissues grossly unremarkable. [facility] Lazaro Osuna MD - 10/15/2024 Patient Name: MARTHA [facility]ILLIGAN : 1940 [id number] Exam Date/Time: 10/15/2024 20:13 Procedure: XR PELVIS 1-2 VIEWS Ordering Provider: RINCON J Reason For Exam: fall, bilateral hip pain, worse to right PELVIS SINGLE VIEW. BILATERAL FEMUR 2 VIEWS CLINICAL INDICATION: fall, bilateral hip pain, worse to right TECHNIQUE: Single, AP view of the pelvis. 2 views of the bilateral femurs. COMPARISON: None. FINDINGS: Generalized osteopenia. No apparent fracture or dislocation. Hip joint spaces maintained. Mild, marginal spurring of the bilateral acetabula and iliac crests. Degenerative change in the visualized lower lumbar spine, and bilateral patellofemoral joint spaces. Soft tissues grossly unremarkable. IMPRESSION: 1. No acute osseous abnormality. 2. Degenerative change. Report Dictated on Electronically Signed By: Lazaro Osuna MD Electronically Signed Date/Time: 10/15/2024 8:41 PM EDT [facility] Radiology Study observation (narrative) Marlene contreras [id number] 36 Request for refill received from pharmacy Last appointment: 08/30/2024 Next appointment: 01/31/2025 Pharmacy confirmed: [x] Yes [] No Normal [facility] 37on 08-30-2024 37 Start memantine (Namenda) IR to slow down the memory loss. Take 5 mg daily for 7 days, then increase to 5 mg twice a day, then increase to 10 mg in the morning and 5 mg in the evening for 7 days then increase to 10 mg twice a day thereafter. Two scripts have been sent to the pharmacy. The first one will be the script that slowly increasing the dose of the medication over the first three weeks. The 2nd script will be the full dose, which will be started after she completes the 1st script. Potential side effects include dizziness, headache, and negative mood/behavior changes. Call if any problems with this medication. Normal [facility] Office Visiton 08-30-2024 Follow-up visit [id number] Martha Milligan 1940 F Date Provider Department Center 08/30/2024 MICHELE AUGUSTINE [facility] None Family History Problem Relation Age of Onset Dementia Mother Stroke Mother Breast cancer Mother Lung cancer Father Brain cancer Father Hypertension Father Heart attack Father Lymphoma Father Cancer Father Family Status - Relation Status Age at Mother Alive Father Alive Level of Service:[id number] LA OFFICE/OUTPATIENT ESTABLISHED MOD MDM 30 MIN Reason for Visit and Comments: Dementia [30] Normal [facility] Progress Noteon 08-30-2024 Progress Note Senior Services/Geriatrics Social History Present at visit: patient, Jordan Marital status: Children: 2 sons (1 [facility], 1 in [place]) Living arrangement: with spouse, own home >>08/30/24 same Household safety problems: none >>08/30/24 none Concerning Behaviors: None >>08/30/24 none Wandering potential: No >>08/30/24 no Pets: No Guns in the home: None Elder abuse: No/Denied Concerns >>08/30/24 no Alcohol/Tobacco/Kalie ryley/Drug Use History: 4-5 glasses of wine per week >>08/30/24 no longer drinking alcohol service: Neither pt or spouse/partner Highest level of education: college 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, 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, 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 Activities: spends much time doing word searches, reads newspaper, watches tv, out to eat some, more socializing with family >>08/30/24 word searches, less reading, watches tv, out to eat, socialize with family, went to [place] Exercise: none Finances: has adequate assets My Chart: Only spouse uses Healthcare Power of Program Project Manager: Yes: spouse Financial Power of Program Project Manager: Yes: spouse Living Will: Yes Guardian: No Code Status: Not in place Primary Caregiver: spouse Current care plan/supervision: spouse can leave patient for a few hours >>08/30/24 spouse mostly with her, can leave her for a short time Community resources: Yes: Cleaning Service (every 2 weeks) >>08/30/24 same Caregiver stressors: denies >>08/30/24 denies Goals for care: evaluate memory, resources As a Caregiver, What Matters Most to You: Patient remains independent/in community >>10/18/23 Spouse has noticed changes for a while, he is helping her with most things. Spouse does leave patient alone sometimes but is interested in hiring home health aides because he is wanting to increase supervision when he is gone. >>08/30/24 is reporting patient having memory decline. He is still helping her with most things; function staying about the same. They did go to [place] since last visit and patient did well there. has people lined up to help give him respite when he feels that he needs it. Family visits often and socializes with patient. SW encouraged to put respite in place as patient's needs increase and 's stress level increases. No resources given today. Functional Status (I: Independent, A: Assisted, D: Dependent) ADLs I A D Notes Bathing [] [x] [] Spouse has to cue patient, patient somewhat resistant >>08/30/24 same Dressing [] [x] [] Spouse makes sure she is wearing clean clothes >>08/30/24 lays out clothes Toileting [] [x] [] No issues >>08/30/24 incontinence, wearing Depends all the time, helps some with clean up Transfers [x] [] [] No issues Feeding [x] [] [] No issues Ambulation [x] [] [] none Assistive devices: Grab bars and Shower chair IADLs I A D Telephone [] [] [x] Landline, patient doesn't call or answer the phone, manages all appointments, reminds her >>08/30/24 same Transportation [] [] [x] Driving safety concerns: Not currently driving- hasn't driven for over a year, was having navigation issues >>08/30/24 same Shopping [] [] [x] Spouse shops, sometimes patient goes with him >>08/30/24 spouse shops Meal prep [] [x] [] Patient wouldn't eat meals if spouse doesn't put in front of her, may get snacks on her own >>08/30/24 same Housework [] [] [x] Cleaning service, cleans in between >>08/30/24 same Medications [] [] [x] administers >>08/30/24 same Finances [] [] [x] manages >>08/30/24 same - Normal [facility] Progress Note [facility] [place] [address] Dept: [phone] Dept Loc: [phone] Visit type: [facility] [email or web address] Follow Up Visit Reason for Visit: Dementia Visit Date: 08/30/2024 Assessment and Plan 1. 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 behavioral disturbance, psychotic disturbance, mood disturbance, or anxiety (HCC) - memantine (Namenda) 5 MG tablet; Take 1 tablet (5 mg) daily for 7 days. Then take 1 tablet (5 mg) twice a day for 7 days. Then take 2 tablets (10 mg) in AM and 1 tablet (5 mg) in PM for 7 days. Then proceed to next script, Normal - memantine (Namenda) 10 MG tablet; Take 1 tablet (10 mg) by mouth 2 times daily. Start after the initial titration script Do not start before September 20, 2024., Starting Ofelia 09/20/2024, Until Ofelia 04/18/2025, Normal -Slow progressive worsening of Alzheimer's Disease. -No more testing at future appointments due to low MMSE score today. Spouse aware -Will add memantine. Reviewed titration instructions and potential side effects with spouse. Call office if there are issues/questions -Continue donepezil -Continue sertraline for mood. Follow up in about 6 months (around 03/02/2025). Subjective HPI: Martha Milligan is a 83 y.o. female with past medical history of Alzheimer's Disease, hyperlipidemia, hypothyroidism, hypertension, anxiety/depression who presents to the [facility] [[email or web address]] for a follow-up visit. The patient is known to me. Chart Review -seen October 2023: memory loss for a least 1.5 years. Proressively worsening. Poor short term memory. Needs cueing. Mood is OK. MOCA 11/07. Would not be able to manage medical or financial decisions. -Concern for moderate Alzheimer's Disease -Spouse did send message in December asking for an official letter invoking POA -blood pressure was low and she was asymptomatic. Suspected over-medicated with blood pressure medication. We did update her PCP office. Looks like hydrochlorothiazide was stopped. -if blood pressure is better, we can consider aricept -Vitamin b12 307 -Started on Aricept in January 2024 She saw her PCP on Aug 20 2024. Pulse was 63. Per their note, she is tolerating aricept well. Reviewed labwork in PCP note. Creatinine 0.9. History obtained from caregiver(s): - Jordan No side effects to the aricept 10 mg daily. Two things changed since the last appointment: -She relies on Depends all the time now -Occasionally doesn't want to get out of bed in the morning. Says she wants to rest. -Otherwise "slowly slowing down" -Appetite: Good -Mood: Good. No anxiety or agitation -short term memory is poor -snf memory is pretty good. -Sleep: "Almost too good" -Physical health: Gets around better now that her blood pressure issues were taken care of. Doesn't use a cane or a walker. No falls History obtained from patient: Memory: "I don't know". "I just roll with the punches" Mood: "I am a happy person". Likes the play the piano. Sleep: 'I sure can sleep" Appetite: "I think it is good". Physical Health: "I think it is alright". Reviewed progress notes completed by EDGARD GREGORIO) and social work. Allergies[1] Current Medications[2] Medical History[3] Social History Tobacco Use Smoking status: Former Current packs/day: 0.25 Average packs/day: 0.3 packs/day for 54.4 years (13.6 ttl pk-yrs) Types: Cigarettes Start date: 04/11/1960 Quit date: 1967 Smokeless tobacco: Never Substance Use Topics Alcohol use: Not Currently Alcohol/week: 4.0 standard drinks of alcohol Surgical History[4] Family History[5] Family Status Relation Name Status Mother Alysha Lang Alive Father [place] Rickey Alive No partnership data on file Objective Vitals: 08/30/24 1348 BP: 121/77 BP Location: Right arm Patient Position: Sitting Pulse: 55 Weight: 136 lb 9.6 oz (62 kg) Wt Readings from Last 3 Encounters: 08/30/24 136 lb 9.6 oz (62 kg) 01/12/24 140 lb (63.5 kg) 10/18/23 146 lb 6.4 oz (66.4 kg) Physical Exam Constitutional: General: She is not in acute distress. Appearance: She is not ill-appearing. HENT: Head: Normocephalic and atraumatic. Cardiovascular: Rate and Rhythm: Normal rate and regular rhythm. Heart sounds: No murmur heard. No friction rub. No gallop. Pulmonary: Effort: Pulmonary effort is normal. Breath sounds: Normal breath sounds. No decreased breath sounds, wheezing, rhonchi or rales. Musculoskeletal: Right lower leg: No edema. Left lower leg: No edema. Neurological: Mental Status: She is alert. Psychiatric: Attention and Perception: Attention normal. Cognition and Memory: Cognition is impaired. Memory is impaired. Data Reviewed and Summarized Testing: The following tests were performed at today's visit and scanned in to thechart: MMSE score:01/08 Clock drawing score: 1 I independently reviewed the M (more content not included)... Normal [facility] Progress Note Review of Systems Constitutional: Negative for appetite change, fatigue and unexpected weight change. HENT: Negative for dental problem, hearing loss and trouble swallowing. Eyes: Negative for visual disturbance. Gastrointestinal: Negative for constipation and diarrhea. Genitourinary: Negative for difficulty urinating and dysuria. Musculoskeletal: Negative for arthralgias, back pain and gait problem. Neurological: Negative for tremors, speech difficulty and weakness. Psychiatric/Behavior al: Positive for confusion. Negative for agitation, dysphoric mood, hallucinations and sleep disturbance. The patient is not nervous/anxious. Normal [facility] Office Visiton 01-12-2024 Follow-up visit [id number] Martha Milligan 1940 F Date Provider Department Center 01/12/2024 [id number]-JCLEESNMICHELE MCCOLLUM [facility] None Family History Problem Relation Age of Onset Dementia Mother Stroke Mother Breast cancer Mother Lung cancer Father Brain cancer Father Hypertension Father Heart attack Father Lymphoma Father Family Status - Relation Status Age at Mother Father Level of Service:17229 LA OFFICE/OUTPATIENT ESTABLISHED MOD MDM 30 MIN Reason for Visit and Comments: Dementia [30] Normal [facility] PATINSon 01-12-2024 PATINS Your vitamin b12 levels were on the low end of normal. To optimize your Vitamin B12 levels you can take an over the counter vitamin b12 supplement. You can take vitamin b12 500 mcg daily Memory medication: -Start donepezil (Aricept) 5 mg once a day to slow down memory loss. Most common side effects are nausea and diarrhea. In one month please message or call me to let me know how she is tolerating the medication. If she is doin ok, we will increase the dose to 10 mg once a day. Call/message if any problems with this medication. We will see her again in six months. Normal [facility] Progress Noteon 01-12-2024 Progress Note Interval history since last appointment: Any visits to primary care provider? Yes Any visits to the emergency department/hospital? No Any medication changes? Yes, reduced blood pressure medication Any falls? No Family present: patient, Jordan Educational Materials reviewed/provided at visit: Memory/Cognitive Ability Next Steps After an Alzheimer's Diagnosis Alzheimer's Association info/hotline Memory Tips (moderate to severe) Dealing with Dementia Stages for Memory Loss Exercise/Activities Dementia exercise tips Activities/Reminisce nce guide Communication/Behavi ors Communication - All Stages Communication Tips Redirecting Confabulation Therapeutic Fibbing Apathy Caregiver Stress Coping Techniques for Caregiver Stress Home Care/Facility Options- gave at initial visit Adult Day Center list Home Care Agency list Community Programs Lifeline Video Monitoring Diet Healthy Nutrition for Older Adults - [facility] Injury Prevention/Home Safety [facility] Home Safety Checklist [facility] Mobility for Adults Medications Medication Safety/Dispensers Sleep Getting a Good Night's Sleep ([facility]) Personal Care Personal Care Tips Normal [facility] Progress Note [facility] [address] [address] Dept: [phone] Dept Loc: [phone] Visit type: [facility] [[email or web address] Family Summary Conference Reason for Visit: Dementia Visit Date: 01/12/2024 Assessment and Plan 1. 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 behavioral disturbance, psychotic disturbance, mood disturbance, or anxiety (HCC) - donepezil (Aricept) 5 MG tablet; Take 1 tablet (5 mg) by mouth Nightly., Starting Ofelia 01/12/2024, Until 01/11/2025, Normal We reviewed the diagnosis of moderate stage Alzheimer's Dementia, course, prognosis and treatment. Discussed the option of medication. Opted to start donepezil (Aricept) 5 mg once a day to slow down memory loss. In one month increase the dose to 10 mg once a day. Call if any problems with this medication. Vitamin b12 was low-normal. Start OTC vitamin b12 500 mcg daily to optimize levels Reviewed management of the following behavioral symptoms: apathy Discussed safety management: increased supervision Educational information and handouts on the above was provided to the caregiver. Spouse was given a letter invoking POA Follow up in about 6 months (around 07/12/2024). Subjective Martha Milligan is a 83 y.o. female with past medical history of hyperlipidemia, hypothyroidism, hypertension, anxiety/depression who returns today for a Family Summary Conference to review the care plan based on the comprehensive geriatric assessment completed at the last appointment. Chart Review -seen October 2023: memory loss for a least 1.5 years. Proressively worsening. Poor short term memory. Needs cueing. Mood is OK. MOCA 11/07. Would not be able to manage medical or financial decisions. -Concern for moderate Alzheimer's Disease -Spouse did send message in December asking for an official letter invoking POA -blood pressure was low and she was asymptomatic. Suspected over-medicated with blood pressure medication. We did update her PCP office. Looks like hydrochlorothiazide was stopped. -if blood pressure is better, we can consider aricept -Vitamin b12 307 Patient update: She is here with her -Her blood pressure medication has been reduced from 2 tablets daily to 1 tablet dailyTo op -No hospital stays. No falls. No ER visits. -Did go to primary care at end of October -She is more stable with walking down. Allergies Allergen Reactions Barbiturates Unknown Lorabid [Loracarbef] Hives Penicillins Unknown Sulfamethoxazole Unknown Celebrex [Celecoxib] Anxiety Celexa [Citalopram] Anxiety Current Outpatient Medications Medication Sig Dispense Refill atorvastatin (Lipitor) 10 MG tablet Take 10 mg by mouth Nightly. donepezil (Aricept) 5 MG tablet Take 1 tablet (5 mg) by mouth Nightly. 30 tablet 1 folic acid (Folvite) 800 MCG tablet Take 1 tablet by mouth daily. levothyroxine (Synthroid, Levoxyl) 75 MCG tablet Take 75 mcg by mouth every morning (before breakfast). lisinopril-hydroCHLO ROthiazide 20-12.5 MG tablet Take 1 tablet by mouth daily. naproxen (Naprosyn) 250 MG tablet Take 250 mg by mouth Nightly as needed for mild pain (1-3). sertraline (Zoloft) 50 MG tablet Take 50 mg by mouth daily. No current facility-administere d medications for this visit. Past Medical History: Diagnosis Date Anxiety Depression Folate deficiency Hiatal hernia Hyperlipemia Hypertension Hypothyroidism Memory loss Osteopenia Vitamin D deficiency Social History Tobacco Use Smoking status: Former Current packs/day: 0.25 Average packs/day: 0.3 packs/day for 46.8 years (11.7 ttl pk-yrs) Types: Cigarettes Start date: 1977 Quit date: 1967 Smokeless tobacco: Never Substance Use Topics Alcohol use: Yes Alcohol/week: 4.0 standard drinks of alcohol Types: 4 Glasses of wine per week Past Surgical History: Procedure Laterality Date COLONOSCOPY 09/22/2015 PARATHYROIDECTOMY 1993 THYROID SURGERY 1992 Benign Thyroid mass TONSILLECTOMY TUBAL LIGATION Family History Problem Relation Name Age of Onset Dementia Mother Stroke Mother Breast cancer Mother Lung cancer Father Brain cancer Father Hypertension Father Heart attack Father Lymphoma Father Family Status Relation Name Status Mother (Not Specified) Father (Not Specified) No partnership data on file Objective Wt Readings from Last 3 Encounters: 01/12/24 140 lb (63.5 kg) 10/18/23 146 lb 6.4 oz (66.4 kg) No physical exam performed Discussion only Data Reviewed and Summarized Problems and recommendations from initial assessment reviewed, Medications reviewed, Recent laboratory tests reviewed, and Recent diagnostic imaging reviewed Labs: Lab Results Component Value Date WBC 7.3 07/19/2022 HGB 14.5 07/19/2022 HCT 42.2 07/19/2022 MCV 91.9 07/19/2022 PLT 208 07/19/2022 Lab Results Component Value Date NA 137 (more content not included)... Normal [facility] Cobalamin (Vitamin B12) [Mas s/Vol]on 11-03-2023 Interpretation and review of laboratory results Normal [facility] VITAMIN B12on 11-03-2023 Cobalamin (Vitamin B12) [Mass/Vol] 307 pg/mL Normal 239-931 [facility] Comment on above: Performed By: #### L AB67 ####Bureau Chief: GEOVANNA MENJIVAR ([id number])[facility] ALEXANDER FISH (SWRLAB)[address] [place] [address] Vitamin B12on 11-03-2023 Cobalamin (Vitamin B12) [Mass/Vol] 307 pg/mL 239 - 931 pg/mL [facility] CBC W Auto Differential pane l (Bld)Ordered By: Kira Gant on 07-19-2022 Basophils (Bld) [#/Vol] 0.1 10*3/uL 0.0 - 0.2 10*3/uL [facility] Basophils/100 WBC (Bld) 1.0 % 0.0 - 2.0 % [facility] Eosinophils (Bld) [#/Vol] 0.0 10*3/uL 0.0 - 0.5 10*3/uL [facility] Eosinophils/100 WBC (Bld) 0.0 % Low 1.0 - 6.0 % [facility] Erythrocyte distribution width (RBC) [Ratio] 12.4 % 11.5 - 14.5 % [facility] Hematocrit (Bld) [Volume fraction] 42.2 % 35.0 - 47.0 % [facility] Hemoglobin (Bld) [Mass/Vol] 14.5 g/dL 11.7 - 16.0 g/dL [facility] Immature granulocytes (Bld) [#/Vol] 0.0 10*3/uL NINF - 0.0 10*3/uL [facility] Immature granulocytes/100 WBC (Bld) 0.3 % High NINF - 0.0 % [facility] Interpretation and review of laboratory results Abnormal [facility] Lymphocytes (Bld) [#/Vol] 1.9 10*3/uL 1.0 - 4.3 10*3/uL [facility] Lymphocytes/100 WBC (Bld) 26.2 % 20.0 - 40.0 % [facility] MCH (RBC) [Entitic mass] 31.6 pg 26.0 - 34.0 pg [facility] MCHC (RBC) [Mass/Vol] 34.4 % 32.0 - 36.0 % [facility] MCV (RBC) [Entitic vol] 91.9 fL 80.0 - 98.0 fL [facility] Monocytes (Bld) [#/Vol] 0.7 10*3/uL 0.0 - 0.8 10*3/uL [facility] Monocytes/100 WBC (Bld) 9.7 % 2.0 - 10.0 % [facility] Neutrophils (Bld) [#/Vol] 4.6 10*3/uL 1.8 - 7.0 10*3/uL [facility] Neutrophils/100 WBC (Bld) 62.8 % 40.0 - 80.0 % [facility] Platelet mean volume (Bld) [Entitic vol] 11.0 fL 7.4 - 12.4 fL [facility] Comment on above: MPV is a calculated measurement using platelet volume ratio Platelets (Bld) [#/Vol] 208 10*3/uL 140 - 440 10*3/uL [facility] RBC (Bld) [#/Vol] 4.59 10*6/uL 3.8 - 5.20 10*6/uL [facility] WBC (Bld) [#/Vol] 7.3 10*3/uL 3.6 - 10.7 10*3/uL [facility] Comprehensive metabolic 1998 panelon 07-19-2022 Albumin [Mass/Vol] 4.2 g/dL 3.5 - 5.0 g/dL [facility] ALP [Catalytic activity/Vol] 84 U/L 38 - 126 U/L [facility] ALT [Catalytic activity/Vol] 22 U/L 0 - 34 U/L [facility] Anion gap [Moles/Vol] 3 mmol/L 3 - 13 mmol/L [facility] AST [Catalytic activity/Vol] 24 U/L 15 - 46 U/L [facility] Bilirubin [Mass/Vol] 0.6 mg/dL 0.2 - 1 .3 mg/dL [facility] Calcium [Mass/Vol] 9.7 mg/dL 8.4 - 10. 4 mg/dL [facility] Chloride [Moles/Vol] 102 mmol/L 98 - 10 7 mmol/L [facility] CO2 [Moles/Vol] 32 mmol/L High 22 - 30 mmol/L [facility] Creatinine [Mass/Vol] 0.61 mg/dL 0.52 - 1.04 mg/dL [facility] GFR/1.73 sq M.predicted MDRD (S/P/Bld) [Vol rate/Area] - PINF [facility] Comment on above: Calculation based on the Chronic Kidney Disease Epidemiology Collaboration (CKD-EPI) equation refit without adjustment for race Glucose [Mass/Vol] 92 mg/dL 70 - 100 mg/dL [facility] Potassium [Moles/Vol] 3.5 mmol/L 3.5 - 5.1 mmol/L [facility] Protein [Mass/Vol] 7.0 g/dL 6.3 - 8.2 g/dL [facility] Sodium [Moles/Vol] 137 mmol/L 135 - 145 mmol/L [facility] Urea nitrogen [Mass/Vol] 12 mg/dL 7 - 17 mg/dL [facility] Folateon 07-19-2022 Folate [Mass/Vol] 18.4 ng/mL 2.9 - PINF ng/mL [facility] Folate [Mass/Vol]on 07-20-19 Interpretation and review of laboratory results Normal [facility] Free T3 [Mass/Vol]on 023 Interpretation and review of laboratory results Normal [facility] Free T4 [Mass/Vol]on 023 Free T4 Dialysis [Mass/Vol] 1.17 ng/dL 0.78 - 2.19 ng/dL [facility] Interpretation and review of laboratory results Normal [facility] Lipid 1996 panelon Cholesterol [Mass/Vol] 188 mg/dL NINF - 200 mg/dL [facility] Cholesterol in HDL [Mass/Vol] 47 mg/dL 40 - 60 mg/dL [facility] Cholesterol in LDL [Mass/Vol] 112 mg/dL High 0 - <100 [facility] Cholesterol.total/[place] sterol in HDL [Mass ratio] 4 {ratio} [facility] Comment on above: Ref Range: < 3 Low Risk for CHD 3-6 Mod Risk for CHD > 6 High Risk for CHD Triglyceride [Mass/Vol] 145 mg/dL NINF - 150 mg/dL [facility] No Panel Informationon 07-19 Interpretation and review of laboratory results Abnormal [facility] T3, freeon 07-19-2022 Free T3 [Mass/Vol] 3.83 pg/mL 2.77 - 5. 27 pg/mL [facility] TSHon 07-19-2022 TSH Qn 2.720 m[IU]/L [facility] TSH Qnon 07-19-2022 Interpretation and review of laboratory results Normal [facility] Metabolic Panelon 02-04 ALP [Catalytic activity/Vol] 85 U/L Normal 38-[address] [facility] Comment on above: Performed By: #### C MP3, TSH5, LIPD2 #### [facility] [address] [place] [address] ALT [Catalytic activity/Vol] 17 U/L Normal 0-[address] [facility] Comment on above: Result Comment: The ALT test is performed by an updated assay method. Please note that the reference intervals have been changed and are now sex specific. Performed By: #### C MP3, TSH5, LIPD2 #### [facility] [address] [place] [address] AST [Catalytic activity/Vol] 37 U/L Normal 15-[address] [facility] Comment on above: Performed By: #### C MP3, TSH5, LIPD2 #### [facility] [address] [place] [address] Bilirubin [Mass/Vol] 0.8 mg/dL Normal 0.2-1.3 [facility] Comment on above: Performed By: #### C MP3, TSH5, LIPD2 #### [facility] [address] [place] [address] Calcium [Mass/Vol] 9.7 mg/dL Normal 8.4-10.[address] [facility] Comment on above: Performed By: #### C MP3, TSH5, LIPD2 #### [facility] [address] [place] [address] Glucose [Mass/Vol] 108 mg/dL High 70-[address] [facility] Comment on above: Performed By: #### C MP3, TSH5, LIPD2 #### [facility] [address] [place] [address] Protein [Mass/Vol] 7.7 g/dL Normal 6.3-8.[address] [facility] Comment on above: Performed By: #### C MP3, TSH5, LIPD2 #### [facility] [address] [place] [address] Urea nitrogen [Mass/Vol] 11 mg/dL Normal 9-[address] [facility] Comment on above: Performed By: #### C MP3, TSH5, LIPD2 #### [facility] [address] [place] [address] Anion gap [Moles/Vol] 6 mmol/L Normal 3-13 [facility] Comment on above: Performed By: #### C MP3, TSH5, LIPD2 #### [facility] [address] [place] [address] CO2 [Moles/Vol] 30 mmol/L Normal 22-[address] [facility] Comment on above: Performed By: #### C MP3, TSH5, LIPD2 #### [facility] [address] [place] [address] Creatinine [Mass/Vol] 0.75 mg/dL Normal 0.52-1.25 [facility] Comment on above: Performed By: #### C MP3, TSH5, LIPD2 #### [facility] [address] [place] [address] GFR/1.73 sq M.predicted among blacks MDRD (S/P/Bld) [Vol rate/Area] 87.8 mL/min/{1.73_m2} Normal >[address] [facility] Comment on above: Performed By: #### C MP3, TSH5, LIPD2 #### [facility] [address] [place] [address] GFR/1.73 sq M.predicted among non-blacks MDRD (S/P/Bld) [Vol rate/Area] 75.7 mL/min/{1.73_m2} Normal >[address] [facility] Comment on above: Result Comment: KDIG O guidelines provide the following GFR categories: Stage GFR(ml/min/1.73 m2) Terms G1 >=90 Normal or high G2 60-89 Mildly decreased* G3a 45-59 Mildly to moderately decreased G3b 30-44 Moderately to severely decreased G4 15-29 Severely decreased G5 <15 Kidney failure *Relative to young adult level. In the absence of evidence of kidney damage, neither GFR category G1 nor G2 fulfill the criteria for CKD. The CKD-EPI equation is validated in individuals 18 years of age and older. Currently the best equation for estimating glomerular filtration rate (GFR) from serum creatinine in children is the Bedside Singh equation. It is less accurate in patients with extremes of muscle mass, restriction of dietary protein, ingestion of creatine, extra-renal metabolism of creatinine, or treatment with medications that affect renal tubular creatinine secretion. Performed By: #### C MP3, TSH5, LIPD2 #### [facility] [address] [place] [address] Albumin [Mass/Vol] 4.3 g/dL Normal 3.5-5.[address] [facility] Comment on above: Performed By: #### C MP3, TSH5, LIPD2 #### [facility] [address] [place] [address] Chloride [Moles/Vol] 104 mmol/L Normal 98-107 [facility] Comment on above: Performed By: #### C MP3, TSH5, LIPD2 #### [facility] [address] [place] [address] Potassium [Moles/Vol] 4.0 mmol/L Normal 3.5-5.1 [facility] Comment on above: Performed By: #### C MP3, TSH5, LIPD2 #### [facility] [address] [place] [address] Sodium [Moles/Vol] 140 mmol/L Normal 135-[address] [facility] Comment on above: Performed By: #### C MP3, TSH5, LIPD2 #### [facility] [address] [place] [address] Comprehensive Metabolic Pane juliane 02-04-2022 Albumin [Mass/Vol] 4.3 g/dL 3.5 - 5.0 g/dL [facility] ALP (Bld) [Catalytic activity/Vol] 85 U/L 38 - 126 U/L [facility] ALT [Catalytic activity/Vol] 17 U/L 0 - 34 U/L [facility] Comment on above: The ALT test is perf ormed by an updated assay method. Please note that the reference intervals have been changed and are now sex specific. Anion gap [Moles/Vol] 6 mmol/L 3 - 13 mmol/L [facility] AST [Catalytic activity/Vol] 37 U/L 15 - 46 U/L [facility] Bilirubin [Mass/Vol] 0.8 mg/dL 0.2 - 1 .3 mg/dL [facility] Calcium [Mass/Vol] 9.7 mg/dL 8.4 - 10. 4 mg/dL [facility] Chloride [Moles/Vol] 104 mmol/L 98 - 10 7 mmol/L [facility] CO2 [Moles/Vol] 30 mmol/L 22 - 30 mmol/L [facility] Creatinine [Mass/Vol] 0.75 mg/dL 0.52 - 1.25 mg/dL [facility] EGFR IF NonAfrican [place]uran 75.7 mL/min 60 - PINF mL/min [facility] Comment on above: KDIGO guidelines pro vide the following GFR categories: Stage GFR(ml/min/1.73 m2) Terms G1 >=90 Normal or high G2 60-89 Mildly decreased* G3a 45-59 Mildly to moderately decreased G3b 30-44 Moderately to severely decreased G4 15-29 Severely decreased G5 <15 Kidney failure *Relative to young adult level. In the absence of evidence of kidney damage, neither GFR category G1 nor G2 fulfill the criteria for CKD. The CKD-EPI equation is validated in individuals 18 years of age and older. Currently the best equation for estimating glomerular filtration rate (GFR) from serum creatinine in children is the Bedside Singh equation. It is less accurate in patients with extremes of muscle mass, restriction of dietary protein, ingestion of creatine, extra-renal metabolism of creatinine, or treatment with medications that affect renal tubular creatinine secretion. GFR/1.73 sq M.predicted among blacks MDRD (S/P/Bld) [Vol rate/Area] 87.8 mL/min/{1.73_m2} 60 - PINF mL/min [facility] Glucose [Mass/Vol] 108 mg/dL High 70 - 100 mg/dL [facility] Potassium [Moles/Vol] 4.0 mmol/L 3.5 - 5.1 mmol/L [facility] Protein [Mass/Vol] 7.7 g/dL 6.3 - 8.2 g/dL [facility] Sodium [Moles/Vol] 140 mmol/L 135 - 145 mmol/L [facility] Urea nitrogen (BldV) [Mass/Vol] 11 mg/dL 9 - 20 mg/dL [facility] Lipid Panelon 02-04-2022 Chol/HDL [address] [facility] Comment on above: Result Comment: Ref Range: < 3 Low Risk for CHD 3-6 Mod Risk for CHD > 6 High Risk for CHD Performed By: #### C MP3, TSH5, LIPD2 #### [facility] [address] [place] [address] Cholesterol in HDL [Mass/Vol] 44 mg/dL Normal 40-[address] [facility] Comment on above: Performed By: #### C MP3, TSH5, LIPD2 #### [facility] [address] [address] Low Density Lipoprotein 101 mg/dL Abnormal <100 [facility] Comment on above: Performed By: #### C MP3, TSH5, LIPD2 #### [facility] [address] [place] [address] Triglyceride [Mass/Vol] 142 mg/dL Normal <150 [facility] Comment on above: Performed By: #### C MP3, TSH5, LIPD2 #### [facility] [address] [place] [address] Cholesterol [Mass/Vol] 173 mg/dL Normal < 200 [facility] Comment on above: Performed By: #### C MP3, TSH5, LIPD2 #### [facility] [address] [address] Cholesterol [Mass/Vol] 173 mg/dL NINF - 200 mg/dL [facility] Cholesterol in HDL [Mass/Vol] 44 mg/dL 40 - 60 mg/dL [facility] Cholesterol in LDL [Mass/Vol] 101 mg/dL Abnormal NINF - 100 mg/dL [facility] Cholesterol.total/[place] sterol in HDL [Mass ratio] 4 {ratio} [facility] Comment on above: Ref Range: < 3 Low Risk for CHD 3-6 Mod Risk for CHD > 6 High Risk for CHD Triglyceride [Mass/Vol] 142 mg/dL NINF - 150 mg/dL [facility] No Panel Informationon 02-04 Interpretation and review of laboratory results Abnormal [facility] Test Performed by [facility], [address] , [address] LAB [facility] TSHon 02-04-2022 Interpretation and review of laboratory results Abnormal [facility] TSH Qn 5.010 u[IU]/mL High 0.465 - 4.680 u[IU]/mL [facility] Test Performed by [facility], [address] , [address] LAB [facility] Thyroid Stim. Hormoneon 10-2 Thyroid Stim. Hormone 5.010 u[IU]/mL High 0.465-4.[address] [facility] Comment on above: Performed By: #### C MP3, TSH5, LIPD2 #### [facility] [address] [place] [address] CT Head or Brain w/o Contras ton 08-13-2021 CT Head or Brain w/o Contrast Patient Name: MARTHA MILLIGAN Computed Tomography ACCESSION EXAM DATE/TIME PROCEDURE ORDERING PROVIDER [id number] 08/13/2021 13:[address] Head or Brain w/o DO DE LA CRUZ JOSHUA D Contrast CPT code 88900 Reason For Exam (CT Head or Brain w/o Contrast) memory loss Report CT HEAD WITHOUT CONTRAST CLINICAL INDICATION: Memory loss Axial CT images of the brain were obtained without intravenous contrast. Coronal and sagittal reformatted images were also made available for interpretation. COMPARISON: None. FINDINGS: There is mild diffuse cortical volume loss. Nonspecific periventricular white matter hypodensities likely reflect areas of small vessel ischemic change in a patient of this age. No high attenuation material is seen to suggest hemorrhage. There is no definite evidence for acute cortical infarction. No midline shift or mass effect is noted. No fracture is identified on the bone windows. The paranasal sinuses are clear. Atherosclerotic calcification of the carotid siphons is noted. IMPRESSION: No evidence of intracranial hemorrhage or definite acute cortical infarction. There is mild volume loss. Periventricular leukomalacia likely reflects areas of small vessel ischemic change. Report Dictated on Final Dictating Physician: MD ROUSSEAU JONATHAN R Signed Date and Time: 08/13/2021 4:37 pm Signed by: MD ROUSSEAU JONATHAN R Transcribed Date and Time: 08/13/2021 4:38 Normal [facility] Vital Signs Date Time Vital Sign Value Performing Clinician Maria Fernanda [email or web address] 10-19-2024 07:43-0400 Body temperature 97.7 [degF] TIMMY Rincon MD Work Phone: [facility] 10-19-2024 07:43-0400 Diastolic blood pressure 77 mm[Hg] TIMMY Rincon MD Work Phone: [facility] 10-19-2024 07:43-0400 Heart rate 58 /min TIMMY Rincon MD Work Phone: [facility] 10-19-2024 07:43-0400 Respiratory rate 15 /min TIMMY Rincon MD Work Phone: [facility] 10-19-2024 07:43-0400 SaO2% (BldA) [Mass fraction] 95 % TIMMY Rincon MD Work Phone: [facility] 10-19-2024 07:43-0400 Systolic blood pressure 150 mm[Hg] TIMMY Rincon MD Work Phone: [facility] 10-15-2024 19:52-0400 Body mass index (BMI) [Ratio] 26.08 kg/m2 TIMMY Rincon MD Work Phone: [facility] 10-15-2024 19:52-0400 Body weight 62.1 kg TIMMY Rincon MD Work Phone: [facility] 01-12-2024 12:45-0400 Body mass index (BMI) [Ratio] 26.67 kg/m2 Michele Mccollum MD Work Phone: [facility] 01-12-2024 12:45-0400 Body weight 63.5 kg Michele Mccollum MD Work Phone: [facility] 01-12-2024 12:45-0400 Diastolic blood pressure 77 mm[Hg] Michele Mccollum MD Work Phone: [facility] 01-12-2024 12:45-0400 Heart rate 89 /min Michele Mccollum MD Work Phone: [facility] 01-12-2024 12:45-0400 Systolic blood pressure 122 mm[Hg] Michele Shetty Work Phone: [facility] 10-18-2023 08:52-0400 Diastolic blood pressure 54 mm[Hg] Michele Mccollum MD Work Phone: [facility] 10-18-2023 08:52-0400 Heart rate 102 /min Micehle Mccollum MD Work Phone: [facility] 10-18-2023 08:52-0400 Systolic blood pressure 83 mm[Hg] Michele Shetty Work Phone: [facility] 10-18-2023 08:51-0400 Body height 154.3 cm Michele Mccollum MD Work Phone: [facility] 10-18-2023 08:51-0400 Body mass index (BMI) [Ratio] 27.89 kg/m2 Michele Mccollum MD Work Phone: [facility] 10-18-2023 08:51-0400 Body weight 66.41 kg Michele Mccollum MD Work Phone: [facility] Encounters Encounter Date Encounter Type Care Provider Facility Start: 02-06-2025 ambulatory Michael Deperro [facility] Start: 10-26-2024 ambulatory Michael Deperro O[facility] Facili ty:[facility] Start: 10-23-2024 ambulatory Michael Deperro OLS Facili ty:[facility] Start: 10-22-2024 ambulatory Michael Deperro OLS Facili ty:[facility] Start: 10-15-2024 End: 10-19-2024 Evaluation and management of inpatient J Zena Rincon MD Work Phone: [facility] Cardiac Progressive Care Unit PCU 2E Comment on above: Hip pain, bilateral (Primary Dx); Unable to ambulate Start: 09-06-2024 End: 09-06-2024 [facility] Comment on above: 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 behavioral disturbance, psychotic disturbance, mood disturbance, or anxiety (HCC) Start: 08-30-2024 End: 08-30-2024 ambulatory MICHELE Start: 02-09-2024 End: 02-09-2024 Refill Michele Mccollum MD Work Phone: [facility] Comment on above: 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 behavioral disturbance, psychotic disturbance, mood disturbance, or anxiety (HCC) (Primary Dx) Start: 01-12-2024 End: 01-12-2024 Office outpatient visit 25 minutes Michele Mccollum MD Work Phone: [facility] Comment on above: 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 behavioral disturbance, psychotic disturbance, mood disturbance, or anxiety (HCC) (Primary Dx) Start: 01-12-2024 End: 01-12-2024 ambulatory [facility] Start: 11-03-2023 End: 11-03-2023 ambulatory [facility] Start: 10-18-2023 End: 10-18-2023 Office outpatient new 45 minutes Michele Mccollum MD Work Phone: [facility] Geriatrics Comment on above: Memory loss (Primary Dx); History of hypertension Start: 08-31-2023 Telephone encounter Darron kirby DO Work Phone: [facility] Communication Comment on above: new patient appointm ent Start: 08-29-2023 Telephone encounter Re Chairez MD Work Phone: [facility] Ger[facility] Comment on above: Appointment Request Start: 07-19-2022 End: 07-19-2022 ambulatory Darron De La Cruz DO Work Phone: [facility] Laboratory Comment on above: Hyperlipidemia, unsp ecified (Primary Dx); Deficiency of other specified B group vitamins; Hypothyroidism, unspecified Start: 02-04-2022 [facility] Start: 02-04-2022 End: 02-04-2022 Subsequent hospital visit by physician Darron De La Cruz DO Work Phone: [facility] Start: 08-13-2021 ambulatory Darron Gama [facility] Procedures Date Procedure Procedure Detail Performing Clinician Start: 10-15-2024 Ct pelvis w/o contra st material J Zena Rincon MD Work Phone: Start: 10-15-2024 Basic metabolic pane l calcium total J Zena Rincon MD Work Phone: Start: 10-15-2024 End: 10-15-2024 Radiologic examination femur minimum 2 views J Zena Rincon MD Work Phone: Start: 02-03-2024 Thyrotropin [Units/v olume] in Serum or Plasma Zoya Gross Start: 10-18-2023 Adult depression scr eening assessment Michele Mccollum MD Work Phone: Start: 07-19-2022 Comprehensive metabo lic panel Darron De La Cruz DO Work Phone: Start: 07-19-2022 Lipid panel Darron kirby DO Work Phone: Start: 07-19-2022 Lipid 1996 panel - S michelle or Plasma Michele Mccollum MD Work Phone: Start: 07-19-2022 End: 07-19-2022 Thyrotropin [Units/volume] in Serum or Plasma Darron De La Cruz DO Work Phone: Start: 02-04-2022 Comprehensive metabo lic panel Darron De La Cruz DO Work Phone: Start: 02-04-2022 Lipid panel Darron Franks mirta DO Work Phone: Plan of Treatment Date Care Activity Detail Author Start: 07-20-2027 Lipid panel Lipid Panel [facility] Start: 03-02-2025 Depression Monitoring Depression Mon [facility] Start: 02-02-2025 Thyroid stimulating hormone measurement TSH Level [facility] Start: 01-31-2025 End: 01-31-2025 Patient encounter procedure 01/31/2025 1:00 PM EDT Office Visit [facility] [address] [place] [phone] Michele Mccollum MD [address] [address] [facility] Start: 2024 Influenza vaccination Influenza Vacc ine (#1) [facility] Start: 10-17-2024 Depression Screening Depression Scre ening [facility] Start: 09-02-2024 Medicare Annual Wellness (AWV) Medicare Annual Wellness (AWV) [facility] Start: 08-02-2024 End: 08-02-2024 Patient encounter procedure 08/02/2024 11:00 AM EDT [facility] [place] [phone] Michele Mccollum MD [address] [address] [facility] Start: 04-19-2024 Depression Monitoring Depression Mon [facility] Start: 01-12-2024 End: 01-12-2024 Patient encounter procedure 01/12/2024 1:00 PM EDT Office Visit [facility] [place] [phone] Michele Mccollum MD [address] [address] [facility] Start: 12-11-2023 COVID-19 Vaccine ( season) COVID-19 Vaccine ( season) [facility] Start: 12-11-2023 COVID-19 Vaccine ( season) COVID-19 Vaccine ( season) [facility] Start: 12-11-2023 Influenza vaccination [facility] Start: 11-24-2023 End: 11-24-2023 Patient encounter procedure [facility] Start: 10-18-2023 End: 10-17-2024 Cobalamin (Vitamin B12) [Mass/volume] in Serum or Plasma Vitamin B12 Lab Routine Memory loss Expected: 10/18/2023 (Approximate), Expires: 10/17/2024 [facility] Work Phone: Comment on above: Expected: 10/18/2023 (Approximate), Expires: 10/17/2024 Start: 10-18-2023 End: 10-18-2023 Patient encounter procedure 10/18/2023 8:45 AM EDT Office Visit [facility] [address] [place] [phone] Michele Mccollum MD [address] [address] [facility] Start: 07-20-2023 Thyroid stimulating hormone measurement TSH Level [facility] Start: 2022 COVID-19 Vaccine ( season) COVID-19 Vaccine ( season) [facility] Start: 2022 Influenza vaccination Influenza Vacc ine (#1) [facility] Start: 11-09-2021 Influenza vaccination Flu vaccine (# 1) [facility] Start: 06-05-2019 Shingles vaccine (2 of 2) Shingles vaccine (2 of 2) [facility] Start: 06-05-2019 Zoster Vaccines (2 o f 2) Zoster Vaccines (2 of 2) [facility] Start: 06-05-2019 Zoster Vaccines (3 o f 3) Zoster Vaccines (3 of 3) [facility] Start: 2017 RSV Immunization for Adults (1 - 1-dose 75+ series) RSV Immunization for Adults (1 - 1-dose 75+ series) [facility] Start: 02-14-2016 Pneumococcal 65+ yea rs Vaccine (2 - PPSV23 if available, else PCV20) Pneumococcal 65+ years Vaccine (2 - PPSV23 if available, else PCV20) [facility] Start: 02-14-2016 Pneumococcal Vaccine : 65+ Years (2 - PPSV23 if available, else PCV20) Pneumococcal Vaccine: 65+ Years (2 - PPSV23 if available, else PCV20) [facility] Start: 02-14-2016 Pneumococcal Vaccine : 65+ Years (2 of 2 - PPSV23 or PCV20) Pneumococcal Vaccine: 65+ Years (2 of 2 - PPSV23 or PCV20) [facility] Start: 2002 RSV Immunization age d 60 or older (1 - 1-dose 60+ series) RSV Immunization aged 60 or older (1 - 1-dose 60+ series) [facility] Start: 1997 Screening for osteoporosis DEXA (modify frequency per FRAX score) [facility] Start: 1961 DTaP/Tdap/Td vaccine (1 - Tdap) DTaP/Tdap/Td vaccine (1 - Tdap) [facility] Start: 1961 DTaP/Tdap/Td Vaccine s (1 - Tdap) DTaP/Tdap/Td Vaccines (1 - Tdap) [facility] Start: 1960 Hepatitis C screening S [facility] Start: 1954 Depression Screen Depression Screen [facility] Start: 1954 Depression Screening Depression Scre ening [facility] Start: 06-10-1943 COVID-19 Vaccine (#1) COVID-19 Vacci ne (#1) [facility] Start: 1940 Hepatitis B Vaccines (1 of 3 - 3-dose series) Hepatitis B Vaccines (1 of 3 - 3-dose series) [facility] Start: 1940 Medicare Annual Wellness (AWV) Medicare Annual Wellness (AWV) [facility] Start: 1940 Screening for osteoporosis Bone Density Scan [facility] OUTSIDE PROCEDURE SCAN OUTSIDE P ROCEDURE SCAN Procedures Ordered: 07/19/2022 [facility] Comment on above: Ordered: 07/19/2022 Immunizations Immunization Date Immunization Notes Care Provider Fa cili 01-19-2024 influenza virus vacc ine, unspecified formulation TIMMY Rincon MD Work Phone: [facility] 01-02-2022 influenza virus vacc ine, unspecified formulation Darron De La Cruz DO Work Phone: [facility] Payers Date Payer Category Payer Self-pay 2022 Private Health Insurance GENERIC COMMERCIAL [id number] 2022 Unknown [id number] 2007 Unknown 2007 Medicare 2007 Medicare [id number] 1940 Unknown [id number] 1940 Unknown [id number]. Unknown [id number] Social History Date Type Detail Facility Tobacco smoking stat [facility] Tobacco smoking consumption unknown [facility] Start: 1940 Sex Assigned At Not on file [facility] [employer] Work Phone: Start: 07-09-2022 End: 07-19-2022 Exposure to SARS-CoV-2 (event) Not sure [facility] Start: 10-18-2023 End: 10-16-2024 Gender identity Not on file [facility] Start: 10-18-2023 End: 08-30-2024 Tobacco smoking status OKIS Ex-smoker [facility] Start: 04-11-1960 End: 04-11-1967 History of tobacco use Current smoker [facility] Start: 04-11-1960 End: 04-11-1967 History of tobacco use Cigarette Smoker [facility] Start: 10-18-2023 End: 10-16-2024 Cigarettes smoked current (pack per day) - Reported 0.2 [facility] Start: 10-18-2023 End: 08-30-2024 Tobacco use and exposure Smokeless tobacco non-user [facility] Start: 10-18-2023 Alcoholic beverage intake Current drinker of alcohol (finding) [facility] Start: 11-09-2021 Sex Female (finding) [facility] Start: 08-30-2024 End: 10-16-2024 Alcoholic beverage intake Ex-drinker (finding) [facility] Has the Snapt, or [employer] threatened to shut off services in your home in past 12Mo No [facility] Are you now , , , , never or living with a partner? [facility] How often to you hav e a drink containing alcohol? Monthly or less [facility] How many standard drinks containing alcohol do you have on a typical day? 1 or 2 [facility] How often do you hav e 6 or more drinks on 1 occasion? Never [facility] How hard is it for y ou to pay for the very basics like food, housing, medical care, and heating Not hard at all [facility] Do you feel stress - tense, restless, nervous, or anxious, or unable to sleep at night because your mind is troubled all the time - these days [OSQ] Not at all [facility] (I/We) worried wheth er (my/our) food would run out before (I/we) got money to buy more. Never true [facility] Functional Status Date Assessment Result Facility 10-15-2024 Total score [AUDIT-C] 0 10/16/19 7:54 PM EDT Meena Carranza RN [facility] Clinical Notes 08-29-2023 to 10-19-2024 Tameka Paz RN - 10/19/2024 2:17 PM Rodrigo Paz RN - 10/19/2024 2:17 PM Rodrigo Paz RN - 10/19/2024 1:43 PM Manuelito Patrick RN - 10/16/2024 3:08 AM EDTDavid Instr - FABIAN Note Date & Type Note Facility 10-19-2024 Nurse Note Report called to Tawny SAUNDERS at [facility]. No further questions or concerns. [facility] 10-19-2024 Nurse Note Report called to Tawny SAUNDERS at [facility]. No further questions or concerns. Transferred to the [address] [place] [address] nurseline at [facility] but no answer. Phone rang for 3 min. Will attempt calling report again at a later time. Scheduled knot picker cloth time is 1330. Chart accessed pending admission to [address] documented in this encounter [facility] 10-19-2024 Nurse Note Transferred to the [address] [place] [address] nurseline at [facility] but no answer. Phone rang for 3 min. Will attempt calling report again at a later time. Scheduled knot picker cloth time is 1330. [facility] 10-19-2024 Note Discharge Summary Martha Milligan : 1940 ADMIT DATE: 10/15/2024 DISCHARGE DATE: 10/19/2024 PRIMARY CARE PHYSICIAN: Darron De La Cruz VISIT STATUS: Admission CODE STATUS: DNR-CCA DISCHARGE DIAGNOSES: Principal Problem: Hip pain, bilateral HOSPITAL COURSE: Martha is a 83 y.o. female who presents to the emergency department with chief complaint of hip pain and a fall. History is provided by the patient's , who states the patient has severe Alzheimer's dementia and thinks she may have fallen today but was complaining of right hip pain. When asked, the patient states that she cannot remember. The patient's denies any head injury or loss of consciousness. XR and CT pelvis done in ER only showed Degenerative changes but no fractures seen. Patient wants to go home but has dementia. is at bedside. He states she has been having difficulty walking because of hip pain. Patient herself currently denies any pain laying in bed. Otherwise she denies any chest pain no shortness of breath no other complaints. As far as CODE STATUS, states she has a living will and she is a DNR CCAno intubation. 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 X-ray and CT pelvis in ER only showed degenerative hip disease but otherwise no fractures. Ortho saw and signed off. States no further imaging needed. Continue Pain control. PT OT saw and recommending SNF. She has been approved. Will discharge there today # CODE STATUS: states DNR CCA no intubation but okay for ICU transfer for medical treatment Stable chronic problems affecting care, new non-acute diagnoses: # Alzheimer's dementia # Hx of anxiety and depression # Chronic hypertension # Hyperlipidemia # Chronic hypothyroidism # History of hiatal hernia Physical exam: Cardiovascular: S1/S2 heard, RRR Respiratory: Clear to auscultation bilaterally Abdomen: Soft, non-tender, non-distended bowel sounds positive Musculoskeletal: No obvious deformities seen Skin: No visible rashes or lesions. SIGNIFICANT DIAGNOSTIC STUDIES: As above CONSULTANTS: Ortho RECOMMENDED NEXT STEPS: DISCHARGE MEDICATIONS: Medication List START taking these medications Lidocaine 4 % patch Place 2 patches on the skin daily. Start taking on: October 20, 2024 miconazole 2 % powder Commonly known as: Micotin Apply topically 2 times daily. CONTINUE taking these medications atorvastatin 10 MG tablet Commonly known as: Lipitor donepezil 10 MG tablet Commonly known as: Aricept Take 1 tablet (10 mg) by mouth Nightly. folic acid 800 MCG tablet Commonly known as: Folvite levothyroxine 75 MCG tablet Commonly known as: Synthroid, Levoxyl lisinopril-hydroCHLOROthiazide 20-12.5 MG tablet * memantine 5 MG tablet Commonly known as: Namenda Take 1 tablet (5 mg) daily for 7 days. Then take 1 tablet (5 mg) twice a day for 7 days. Then take 2 tablets (10 mg) in AM and 1 tablet (5 mg) in PM for 7 days. Then proceed to next script * memantine 10 MG tablet Commonly known as: Namenda Take 1 tablet (10 mg) by mouth 2 times daily. Start after the initial titration script Do not start before September 20, 2024. sertraline 50 MG tablet Commonly known as: Zoloft * This list has 2 medication(s) that are the same as other medications prescribed for you. Read the directions carefully, and ask your doctor or other care provider to review them with you. STOP taking these medications naproxen 250 MG tablet Commonly known as: Naprosyn Where to Get Your Medications Information about where to get these medications is not yet available Ask your nurse or doctor about these medications Lidocaine 4 % patch miconazole 2 % powder DIET: Adult diet Regular ACTIVITY: Up with assist COMPLEXITY OF FOLLOW UP: [] Moderate Complexity: follow up within 7-14 calendar days (91423) [] Severe Complexity: follow up within 7 calendar days (22489) FOLLOW UP TESTING, PENDING RESULTS OR REFERRALS AT TRANSITIONAL CARE VISIT: [] Yes [] No PENDING STUDIES: DISPOSITION: Skilled Facility FACILITY/HOME CARE AGENCY NAME: Follow up with No follow-up provider specified. Follow up with PCP INSTRUCTIONS TO MA/SW: Please call patient on day after discharge (must document patient contacted within 2 business days of discharge). FOLLOW UP QUESTIONS FOR MA/SW: 1. Did you get medications filled and taking them as instructed from discharge? 2. Are you following your discharge instructions from your hospital stay? 3. Please confirm patient (more content not included)... [facility] 10-19-2024 Hospital course Narrative Images from the original note were not included. Discharge Summary Martha Milligan : 1940 ADMIT DATE: 10/15/2024 DISCHARGE DATE: 10/19/2024 PRIMARY CARE PHYSICIAN: Darron De La Cruz VISIT STATUS: Admission CODE STATUS: DNR-CCA DISCHARGE DIAGNOSES: Principal Problem: Hip pain, bilateral HOSPITAL COURSE: Martha is a 83 y.o. female who presents to the emergency department with chief complaint of hip pain and a fall. History is provided by the patient's , who states the patient has severe Alzheimer's dementia and thinks she may have fallen today but was complaining of right hip pain. When asked, the patient states that she cannot remember. The patient's denies any head injury or loss of consciousness. XR and CT pelvis done in ER only showed Degenerative changes but no fractures seen. Patient wants to go home but has dementia. is at bedside. He states she has been having difficulty walking because of hip pain. Patient herself currently denies any pain laying in bed. Otherwise she denies any chest pain no shortness of breath no other complaints. As far as CODE STATUS, states she has a living will and she is a DNR CCA no intubation. 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 X-ray and CT pelvis in ER only showed degenerative hip disease but otherwise no fractures. Ortho saw and signed off. States no further imaging needed. Continue Pain control. PT OT saw and recommending SNF. She has been approved. Will discharge there today # CODE STATUS: states DNR CCA no intubation but okay for ICU transfer for medical treatment Stable chronic problems affecting care, new non-acute diagnoses: # Alzheimer's dementia # Hx of anxiety and depression # Chronic hypertension # Hyperlipidemia # Chronic hypothyroidism # History of hiatal hernia Physical exam: Cardiovascular: S1/S2 heard, RRR Respiratory: Clear to auscultation bilaterally Abdomen: Soft, non-tender, non-distended bowel sounds positive Musculoskeletal: No obvious deformities seen Skin: No visible rashes or lesions. SIGNIFICANT DIAGNOSTIC STUDIES: As above CONSULTANTS: Ortho RECOMMENDED NEXT STEPS: DISCHARGE MEDICATIONS: Medication List START taking these medications Lidocaine 4 % patch Place 2 patches on the skin daily. Start taking on: October 20, 2024 miconazole 2 % powder Commonly known as: Micotin Apply topically 2 times daily. CONTINUE taking these medications atorvastatin 10 MG tablet Commonly known as: Lipitor donepezil 10 MG tablet Commonly known as: Aricept Take 1 tablet (10 mg) by mouth Nightly. folic acid 800 MCG tablet Commonly known as: Folvite levothyroxine 75 MCG tablet Commonly known as: Synthroid, Levoxyl lisinopril-hydroCHLOROthiazide 20-12.5 MG tablet * memantine 5 MG tablet Commonly known as: Namenda Take 1 tablet (5 mg) daily for 7 days. Then take 1 tablet (5 mg) twice a day for 7 days. Then take 2 tablets (10 mg) in AM and 1 tablet (5 mg) in PM for 7 days. Then proceed to next script * memantine 10 MG tablet Commonly known as: Namenda Take 1 tablet (10 mg) by mouth 2 times daily. Start after the initial titration script Do not start before September 20, 2024. sertraline 50 MG tablet Commonly known as: Zoloft * This list has 2 medication(s) that are the same as other medications prescribed for you. Read the directions carefully, and ask your doctor or other care provider to review them with you. STOP taking these medications naproxen 250 MG tablet Commonly known as: Naprosyn Where to Get Your Medications Information about where to get these medications is not yet available Ask your nurse or doctor about these medications Lidocaine 4 % patch miconazole 2 % powder DIET: Adult diet Regular ACTIVITY: Up with assist COMPLEXITY OF FOLLOW UP: [] Moderate Complexity: follow up within 7-14 calendar days (51852) [] Severe Complexity: follow up within 7 calendar days (63607) FOLLOW UP TESTING, PENDING RESULTS OR REFERRALS AT TRANSITIONAL CARE VISIT: [] Yes [] No PENDING STUDIES: DISPOSITION: Skilled Facility FACILITY/HOME CARE AGENCY NAME: Follow up with No follow-up provider specified. Follow up with PCP INSTRUCTIONS TO MA/SW: Please call patient on day after discharge (must document patient contacted within 2 business days of discharge). FOLLOW UP QUESTIONS FOR MA/SW: 1. Did you get medications filled and taking them as instructed from discharge? 2. Are you following your discharge instructions from your hospital stay? 3. Please confirm patient is scheduled for a follow up appointment within the above time frame. DISCHARGE TIME: > 31 minutes SIGNED: Carlos Fall MD 10/19/2024, 12:23 PM documented in this encounter [facility] 10-19-2024 Miscellaneous Notes Patient Choice Patient Name: MARTHA MILLIGAN Date of : 1940 All Providers Sent [facility] Phone: [phone] Address: [id number] [place] [id number] Name: [employer] [facility] Phone: [phone] Address: [address] [place] [address] Discharge med list transmitted to [facility] via [facility] per TCC request. 7000 was entered into [facility] for the SNF- FACILITY IS AWARE DC order paced. FABIAN done. [facility] tasked to do 7000 and send DC paperwork and MAR to [facility]. Transportation will be set up by ne shortly. Problem: Safety Goal: I will remain free of falls Outcome: Progressing Problem: Daily Care Goal: Daily care needs are met Outcome: Progressing Problem: Chronic Conditions and Co-morbidities Goal: Patient's chronic conditions and co-morbidity symptoms are monitored and maintained or improved Outcome: Progressing Problem: Safety Goal: I will remain free of falls Outcome: Progressing Problem: Daily Care Goal: Daily care needs are met Outcome: Progressing Problem: Chronic Conditions and Co-morbidities Goal: Patient's chronic conditions and co-morbidity symptoms are monitored and maintained or improved Outcome: Progressing Cosigned by Ousmane Mancia RN at 10/17/2024 11:51 AM EDT [facility] T[facility]. Await review and response regarding ability to accept. TCC notified. Met with Jordan at bedside to discuss DC planning. Pt had choice list in hand that I left in room yesterday. chose1) [facility] SNF and [facility]. [employer] tasked to make new SNF referrals. Awaiting acceptance. Problem: Safety Goal: I will remain free of falls Outcome: Progressing Problem: Daily Care Goal: Daily care needs are met Outcome: Progressing Problem: Chronic Conditions and Co-morbidities Goal: Patient's chronic conditions and co-morbidity symptoms are monitored and maintained or improved Outcome: Progressing Problem: Safety Goal: I will remain free of falls Outcome: Progressing Problem: Daily Care Goal: Daily care needs are met Outcome: Progressing Problem: Chronic Conditions and Co-morbidities Goal: Patient's chronic conditions and co-morbidity symptoms are monitored and maintained or improved Outcome: Progressing Care Management Progress Note Short Medical why still here: Diagnostic workup Chart reviewed. PT/OT recommending SNF placement at DC. Attempted to met with pt and at bedside. not at bedside at present time. Pt appears to not understand fully, so this TCC called and left HIPAA compliant message to call back to discuss DC planning. Will continue to follow. Planned Discharge Disposition: Other (Comment) (Awaiting PT/OT) Barriers/Today we still Wait: Clinical stability, Diagnostic workup, Symptomatic control Length of Stay (Days): 0 GMLOS: No GMLOS Documented documented in this encounter [facility] 10-19-2024 Note Formatting of this n ote might be different from the original. Patient Choice Patient Name: MARTHA MILLIGAN Date of : 1940 All Providers Sent Referral Name: [employer] Phone: [phone] Address: [address] [place] [address] Name: [employer] Phone: [phone] Address: [address] [place] [id number] [facility] 10-19-2024 Note Formatting of this n ote might be different from the original. Patient Choice Patient Name: MARTHA MILLIGAN Date of : 1940 All Providers Sent Referral Name: [employer] Phone: [phone] Address: [address] [place] [address] Name: [employer] Phone: [phone] Address: [address] [place], [place] [address] [address] [facility] 10-19-2024 Note Formatting of this n ote might be different from the original. Discharge med list transmitted to [facility] via Careport per TCC request. 7000 was entered into [employer] for the SNF- FACILITY IS AWARE [facility] 10-19-2024 Note Formatting of this n ote might be different from the original. Discharge med list transmitted to [facility] via [facility]port per TCC request. 7000 was entered into [employer] for the SNF- FACILITY IS AWARE [facility] 10-19-2024 Note Formatting of this n ote might be different from the original. DC order paced. FABIAN done. FORENSIC SCIENTIST tasked to do 7000 and send DC paperwork and MAR to [facility]. Transportation will be set up by ne shortly. ort [facility] 10-19-2024 Note Formatting of this n ote might be different from the original. DC order paced. FABIAN done. FORENSIC SCIENTIST tasked to do 7000 and send DC paperwork and MAR to [facility]. Transportation will be set up by ne shortly. [facility] 10-19-2024 History of Present illness Narrative Images from the original note were not included. OCCUPATIONAL THERAPY [facility] Treatment Note Name/MRN: Martha Milligan ([id number]) Date of : 1940 Age: 83 y.o. Room/Bed: B2-252/B2-252 A Visit #: 1 out of 7 Discharge Recommendation: Shelter Facility Equipment Needed: No Prior Level of Function Prior Level of ADL Function: Required Assist Prior Level of Mobility: Required Assist; Device: None Prior Level of Transfers: Required Assist Assessment Pt tolerated session fair, continues to be limited by hip pain. Pt completed bed mobility at Min-SBA and STS at Min A. Pt completed short functional mobility with FWW at Min-CGA. Pt requires VC for sequencing and attention to task. Pt is progressing with POC but is still below baseline and is a high fall risk. Pt would benefit from continued OT to improve activity tolerance, balance, and strength needed for improved occupational performance. Pt is recommended for SNF at D/C Subjective Pt supine in bed, pleasantly confused and agreeable. Pain: Mccormack-Ronquillo Pain Ratin = Hurts little more Pain Location: R hip Medical Precautions: No active isolations Proper PPE donned/doffed in accordance with facility standards. Fall Risk: Turner Fall Risk Score: 95 (High Risk) Precautions/Restrictions: Fall Precautions Family/Caregiver Present: none Objective Bed Mobility Supine to sit: Min Assist Sit to supine: SBA Scooting: SBA HOB Elevated Use of bed rail(s) Pt completed supine to sit with HOB elevated, use of bed rails, and Min A for BLE and trunk management. Pt denied dizziness but c/o hip pain. Pt required SBA to return to supine, VC for initiation of tasks. Transfers/Mobility Sit to stand: Min Assist Stand to sit: Min Assist, Pt competed STS from EOB with FWW at Min A. Pt required VC for BUE placement and initiation, denied dizziness Sitting balance: SBA Standing balance: Contact Guard Functional mobility: Contact Guard, Min Assist Pt completed short functional mobility with FWW with initial CGA. Pt demo increased fatigue and decreased foot clearance, required Min A with FWW to return to EOB Device(s) used: Front wheeled walker Cognition - Safety judgement: decreased awareness of need for assistance and decreased awareness of need for safety - Insights: decreased awareness of deficits - Initiation: requires cues for some - Sequencing: requires cues for some Exceptions Plan Continue acute OT per plan of care. Safety/Education Safety Safety Devices in place: All fall risk precautions in place, call light within reach, left in bed, bed alarm in place, gait belt, and patient at risk for falls Restraints: No Education Education Given To: patient Education Provided: OT Role, Plan of Care, Precautions, Transfer Training, Equipment, Fall Prevention Education, and Discharge Recommendations Education Method: Verbal, Demonstration, and Teach Back Barriers to Learning: Cognition Education Outcome: Verbalized Understanding, Demonstrated Understanding, and Continued Education Needed AM-PAC AM-PAC Inpatient Daily Activity Raw Score: 14 ADL Inpatient CMS G-Code Modifier: CK Goals Patient Stated Goal: Patient unable to participate in goal setting at this time. Encounter Problems Encounter Problems (Active) Dressing Upper Extremities Patient will complete upper body dressing SUP (Not Addressed) Start: 10/17/24 Expected End: 10/27/24 Dressings Lower Extremities Patient will dress lower body SBA (Not Addressed) Start: 10/17/24 Expected End: 10/27/24 Mobility Patient will demonstrate functional mobility with SBA and FWW (Progressing) Start: 10/17/24 Expected End: 10/27/24 Toileting Patient will complete toileting tasks at standard toilet with SBA. (Not Addressed) Start: 10/17/24 Expected End: 10/27/24 Transfers Patient will complete functional transfer with rolling walker with SBA in order to prepare for ambulation. (Progressing) Start: 10/17/24 Expected End: 10/27/24 Therapy Time Individual Co-treatment Time In 0955 Time Out 1008 Minutes 13 Timed Code Treatment Minutes: 13 Minutes (1 Ther Act) VISHAL Burleson Cosigned by Tom Palencia OT at 10/19/2024 3:38 PM EDT Images from the original note were not included. PHYSICAL THERAPY [facility] Treatment Note Name/MRN: Martha Milligan ([id number]) Date of : 1940 Age: 83 y.o. Room/Bed: [facility]252/[facility] A Visit #: 1 out of 7 visits Discharge Recommendation: Shelter Facility Equipment Needed: No Prior Level of Function Prior Level of ADL Function: Required Assist Prior Level of Mobility: Required Assist; Device: None Prior Level of Transfers: Required Assist Assessment Pt demo improved mobility, demo bed mobility min A, transfer to FWW min A and ambulate bed> chair and back CGA. She began exercises but then returned to supine stating her hip hurt. Continue to rec SNF Subjective Pt pleasantly confused, agree to PT Pain: RN managing pain. Mccormack-Ronquillo Pain Ratin = Hurts little more Pain Location: hip Medical Precautions: No active isolations Proper PPE donned/doffed in accordance with facility standards. Fall Risk: Turner Fall Risk Score: 95 (High Risk) Precautions/Restrictions: Fall Precautions Overall Cognitive Status: Exceptions - Following commands: follows one step commands with increased time and follows one step commands with repetition - Safety judgement: decreased awareness of need for assistance and decreased awareness of need for safety - Problem solving: assistance required to generate solutions, assistance required to implement solutions, assistance required to identify errors made, assistance required to correct errors made, and decreased awareness of errors - Initiation: requires cues for all - Sequencing: requires cues for all Overall Orientation Status: Oriented to Person Family/Caregiver Present: none Objective Bed Mobility Supine to sit: Min Assist, pt denies dizziness, demo bed mobility min A to square hips and assist trunk with HOB elevated. Once seated is SBA, return to supine SBA Sit to supine: SBA Transfers/Mobility Sit to stand: Contact Guard, Min Assist, pt transfer to FWW from bed min A, from chair CGA. Therapist cues for hand placement. She demo stand step with no device CGA. Therapist cues for sequencing. She complete bed>chair then chair>bed. Attempted to instruct in exercise and additional transfers but pt return self to supine, states her hip hurts. Stand to sit: Contact Guard Stand step: Contact Guard Device(s) used: None and Front wheeled walker Plan Continue acute PT per plan of care. Safety/Education Safety Safety Devices in place: All fall risk precautions in place, call light within reach, left in bed, bed alarm in place, gait belt, patient at risk for falls, and nurse notified Restraints: No Education Education Given To: patient Education Provided: PT Role, PT Goals, Gait Training, Plan of Care, Home Exercise Program, Precautions, Transfer Training, Energy Conservation, Orientation, Equipment, Fall Prevention Education, Discharge Recommendations, and Benefits of Increasing Activity Education Method: Verbal and Demonstration Barriers to Learning: Cognition Education Outcome: Continued Education Needed Outcome Measures AM-PAC AM-PAC Inpatient Mobility Raw Score (No Stairs) : 13 JH-HLM JH-HLM Score: Transferred to chair/commode Goals Patient Stated Goal: Patient unable to participate in goal setting at this time. Encounter Problems Encounter Problems (Active) Balance Patient will maintain dynamic standing balance for 5 minutes with min assist in order to demonstrate decreased risk of falling. (Progressing) Start: 10/16/24 Expected End: 10/27/24 Exercise Patient will complete lower extremity exercises for 1-2 sets / 10-15 reps in order to improve strength and activity tolerance for mobility. (Not Addressed) Start: 10/16/24 Expected End: 10/27/24 Mobility Patient will ambulate 15-20 feet with min assist and least restrictive device in order to improve safety and independence with mobility. (Progressing) Start: 10/16/24 Expected End: 10/27/24 Transfers Patient will perform bed mobility with CGA in order to improve independence and prepare for out of bed mobility. (Progressing) Start: 10/16/24 Expected End: 10/27/24 Patient will complete functional transfer with least restrictive device with min assist in order to prepare for ambulation. (Completed) Start: 10/16/24 Expected End: 10/27/24 Resolved: 10/19/24 Therapy Time Individual Co-treatment Time In 0842 Time Out 0852 Minutes 10 Timed Code Treatment Minutes: 8 Minutes (ther act) Emmett Bautista PT Images from the original note were not included. OCCUPATIONAL THERAPY [facility]'s Name/MRN: Martha Milligan ([id number]) Date: 10/18/2024 Chart reviewed. Attempt to see pt for OT session. Pt adamantly declining participation in OT session. Pt given encouragement and multiple tx options with no success. Unable to re direct pt. OT will continue to follow and re attempt to see as schedule permits. VISHAL Mccarthy/Rodrigo Cosigned by Tom Palencia OT at 10/18/2024 3:58 PM EDT Hospitalist Progress Note 10/18/[id number]: Please page me ([phone]) for patient care issues. [phone]: Please page [facility] night Hospitalist for any issues. Subjective: Admit Date: 10/15/2024 PCP: Darron De La Cruz, DO Room#: B2-252/B2-252 A Interval History: No overnight issues. Denies chest pain or sob. No abdominal pain, nausea, vomiting. No fevers or chills. She is laying in bed resting comfortably. Her is at bedside again today. Adult diet Regular @[id number]@ 24HR INTAKE/OUTPUT: Intake/Output Summary (Last 24 hours) at 10/18/2024 1411 Last data filed at 10/18/2024 1405 Gross per 24 hour Intake 598 ml Output -- Net 598 ml Past Medical History: Medical History[1] LABS: CBC: Recent Labs 10/15/242107 WBC 9.6 RBC 4.27 HGB 13.2 HCT 38.5 MCV 90.2 RDW 12.5 PLT 139* BMP: Recent Labs 10/15/242107 NA 141 K 3.5 CL 106 CO2 23 BUN 12 CREATININE 0.68 GLUCOSE 89 CALCIUM 9.7 ANIONGAP 12 LIVER PROFILE:No results for input(s): "AST", "ALT", "BILITOT", "ALKPHOS", "PROT" in the last 72 hours. No lab exists for component: LABALBU PT/INR: Recent Labs 10/15/242107 PROTIME 10.7 INR 1.0 CARDIAC ENZYMES: No results for input(s): "TROPONINI" in the last 72 hours. Procalcitonin: No results found for: "PROCAL" COVID-19 PCR: No results for input(s): "COVID19" in the last 72 hours. Objective: Vitals: BP 159/75 Pulse 57 Temp 36.2 C (97.1 F) (Temporal) Resp 18 Wt 136 lb 14.4 oz (62.1 kg) SpO2 95% BMI 26.08 kg/m Pulse Ox: SpO2 Av % Min: 95 % Max: 95 % Supplemental O2: General appearance: No apparent distress, appears stated age, HEENT: Eyes: No scleral icterus Oral: Tongue is semi-moist Cardiovascular: S1/S2 heard, RRR Respiratory: Clear to auscultation bilaterally Abdomen: Soft, non-tender, non-distended bowel sounds positive Musculoskeletal: No obvious deformities seen Skin: No visible rashes or lesions. Medications: Continuous Meds[2] Scheduled Meds[3] Assessment Acute, acute on chronic, unstable/uncontrolled chronic problems/diagnoses: # Hip pain with inability to ambulate likely due to severe arthritis of the hips - was concerned about a possible fall however currently we have no evidence of this. X-ray and CT pelvis in ER only showed degenerative hip disease but otherwise no fractures. Ortho saw and signed off. States no further imaging needed. Continue Pain control. PT OT saw and recommending SNF. # CODE STATUS: states DNR CCA no intubation but okay for ICU transfer for medical treatment Stable chronic problems affecting care, new non-acute diagnoses: # Alzheimer's dementia # Hx of anxiety and depression # Chronic hypertension # Hyperlipidemia # Chronic hypothyroidism # History of hiatal hernia Plan -PT/OT saw and recommending SNF. Plan to discharge to SNF soon when bed available -ortho saw and has signed off. Extended Emergency Contact Information Primary Emergency Contact: Jordan Milligan Mobile Relation: Spouse Balcony Worker needed? No Carlos Fall MD Division of Hospitalist Medicine Inpatient Medical Services/[facility] PAGER: Epic chat [1] Past Medical History: Diagnosis Date Anxiety Depression Folate deficiency Hiatal hernia Hyperlipemia Hypertension Hypothyroidism Memory loss Osteopenia Vitamin D deficiency [2] [3] acetaminophen, 1,000 mg, Oral, TID atorvastatin, 10 mg, Oral, Nightly donepezil, 10 mg, Oral, Nightly enoxaparin, 40 mg, SubCUTAneous, Daily folic acid, 1 mg, Oral, Daily lisinopril, 20 mg, Oral, Daily And hydroCHLOROthiazide, 12.5 mg, Oral, Daily levothyroxine, 75 mcg, Oral, qAM AC Lidocaine, 2 patch, TransDERmal, Daily memantine, 10 mg, Oral, BID miconazole, , Topical, BID sertraline, 50 mg, Oral, Daily sodium chloride 0.9%, 5-40 mL, IntraVENous, q12h Images from the original note were not included. OCCUPATIONAL THERAPY [facility] Initial Evaluation Name/MRN: Martha Milligan ([id number]) Evaluation Date: 10/17/2024 Date of : 1940 Admission Date: 10/15/2024 7:52 PM Age: 83 y.o. Room/Bed: [facility] A Discharge Recommendation: Shelter Facility Equipment Needed: No Assessment IMPRESSION: Pt in 10/16 with c/o eran hip pain, increased confusion, and hx of Alzheimer's. Patient was previously requiring assistance for ADLs, functional transfers/mobility from however prior to 3 days ago with previously independent her mobility per spouse's report. She is currently mod assist with bed mobility, min assist for functional transfers and sidesteps with a front wheel walker, max to mod assist for lower body ADLs, and mod to min assist for upper body ADLs. She is limited by diminished cognition, weakness, instability, pain this date. Increased education and cueing required this date provided to both patient and for bed mobility and transfer/mobility sequencing. She would benefit from skilled OT services to rest the below. Recommend plan discharge for SNF at this time. Admitting Diagnosis: Bilateral hip pain, increased confusion, history of Alzheimer's Performance Deficits /Impairments: Increased Pain, Decreased Functional Mobility, Decreased ADL status, Decreased Strength, Decreased Endurance, Decreased Balance, and Decreased High Level IADLs Prognosis: Good Decision Making: Medium Complexity Subjective Pleasantly confused and cooperative. OK to see per RN. Agreeable to therapy evaluation. Pain: "medium pain" in eran hips (R > L) Past Medical History: Medical History[1] Past Surgical History: Surgical History[2] Admission Diagnosis: Patient Active Problem List Diagnosis Date Noted Hip pain, bilateral 10/15/2024 Medical Precautions: No active isolations Proper PPE donned/doffed in accordance with facility standards. Fall Risk: Yue Fall Risk Score: 100 (High Risk) Precautions/Restrictions: Fall Precautions Family/Caregiver Present: spouse Overall Cognitive Status: Exceptions - Following commands: follows one step commands with increased time, follows one step commands with repetition, follows multi-step commands with increased time, and follows multi-step commands with repetition - Attention span: difficulty attending to directions - Memory: decreased recall of biographical information, decreased recall of precautions, decreased recall of recent events, and decreased short term memory - Safety judgement: decreased awareness of need for assistance and decreased awareness of need for safety - Problem solving: assistance required to generate solutions, assistance required to implement solutions, assistance required to identify errors made, and assistance required to correct errors made - Insights: not aware of deficits - Initiation: requires cues for all - Sequencing: requires cues for all Overall Orientation Status: Oriented to Place, Disoriented to Situation, Disoriented to Time, and Disoriented to Place Social/Functional History Patient admitted from home. Lives With: Spouse Type of Home: single family home Home Layout: Two Level Home and Bed/Bath Upstairs - elevator to second floor noted Home Access: Ramped Entrance Bathroom Shower/Tub: Shower Chair with Back, Walk in Shower, and Grab Bars Toilet: Standard and Grab Bars Home Equipment: front wheeled walker and wheelchair - manual Homemaking Responsibilities: Independent Receives Help From: Family Active Project Hire: No Prior Level of Function Prior Level of ADL Function: Required Assist Prior Level of Mobility: Required Assist; Device: None Prior Level of Transfers: Required Assist Objective ADLs Patient declines participation in ADL tasks at this time. She demos diminished functional reach, strength, endurance, balance this date with increased pain noted with all functional activity. She required increased time for extended participation in functional task. Increased reliance of four-wheel walker for stability. Patient requires near total cueing this date for sequencing, initiation, and problem-solving during functional activities this date. Upper Extremity Assessment AROM: Exceptions: ~ 90 BUE shoulder flexion functionally observed PROM: Not assessed this session Strength: Exceptions: > +3/5 grossly observed with functional activity Bed Mobility Supine to sit: Mod Assist Sit to supine: Mod Assist Scooting: Mod Assist Head of bed elevated. Denies dizziness or positional changes. Mod assist overall for supine to sit and sit to supine mobility with increased assist for lower extreme management this date. Increased cueing required for sequencing proper lower extreme management as well as hand placement this date to improve participation. Cueing for sequencing with increased reliance on pull upon therapist to reach edge of bed this date. Patient required mod assist overall for return to supine for lower extremity management at this time. Mod assist overall to scoot edge of bed with increased reliance on drop at this date. Transfers/Mobility Sit to stand: Min Assist Stand to sit: Min Assist Functional mobility: Min Assist Patient completed to stand transfer from edge of bed to front wheel walker with min assist overall. Near-total cueing required for proper hand placement, lower extremity management, and sequencing through transfers this date. Increased time required to complete with increased education provided to both patient and caregiver this date. Patient initially given time to sequence sit to stand from edge of bed to front wheel walker however unable to complete without increased cueing. Once in standing patient was able to take few sidesteps to edge of bed this date with increased cueing for proper device management, BLE management, and overall sequencing this date. Increased time required for all functional out of bed activities this date. Device(s) used: Front wheeled walker Vision: Not Assessed Hearing: normal AM-PAC AM-PAC Inpatient Daily Activity Raw Score: 14 ADL Inpatient CMS G-Code Modifier: CK Plan Pt would benefit from skilled acute OT services to address Strengthening, Balance Training, Self-Care/ADL Training, Functional Mobility Training, Endurance Training, Safety Education and Training, Equipment Evaluation/Education, Home Management Training, and Patient/Caregiver Training Frequency: 7 visits during current hospital admission or until additional recommendations are made Barriers: Pain, Impaired balance, Lower extremity weakness, Upper extremity weakness, Decreased endurance, Limited safety awareness, Confusion, Cognitive deficit, Impulsivity, and Limited participation Safety/Education Safety Safety Devices in place: All fall risk precautions in place, call light within reach, left in bed, bed alarm in place, gait belt, patient at risk for falls, and nurse notified Restraints: No Education Education Given To: patient and spouse Education Provided: OT Role, Plan of Care, ADL Adaptive Strategies, Transfer Training, Family Education, Equipment, Fall Prevention Education, Discharge Recommendations, and Benefits of Increasing Activity Education Method: Verbal, Demonstration, and Teach Back Barriers to Learning: Cognition Education Outcome: Verbalized Understanding, Demonstrated Understanding, and Continued Education Needed Goals Patient Stated Goal: Patient unable to participate in goal setting at this time. Encounter Problems Encounter Problems (Active) Dressing Upper Extremities Patient will complete upper body dressing SUP Start: 10/17/24 Expected End: 10/27/24 Dressings Lower Extremities Patient will dress lower body SBA Start: 10/17/24 Expected End: 10/27/24 Mobility Patient will demonstrate functional mobility with SBA and FWW Start: 10/17/24 Expected End: 10/27/24 Toileting Patient will complete toileting tasks at standard toilet with SBA. Start: 10/17/24 Expected End: 10/27/24 Transfers Patient will complete functional transfer with rolling walker with SBA in order to prepare for ambulation. Start: 10/17/24 Expected End: 10/27/24 Therapy Time Individual Co-Treatment Co-Evaluation Time In 927 Time Out 957 Minutes 30 Timed Code Treatment Minutes: 8 Minutes (Ther Act) Tom Palencia OT Patient's Occupational Therapy Plan of Care supervision is transferred to a [facility] Occupational Therapist. Goals and/or treatment plan was established in collaboration with patient/family/other representatives. Portions of the information within this encounter were entered using an electronic dictation system. Best attempts were made to edit/proofread the information prior to note completion. Despite the review of information, some errors may remain. If there are questions related to the information contained within the note please contact the signing provider directly. [1] Past Medical History: Diagnosis Date Anxiety Depression Folate deficiency Hiatal hernia Hyperlipemia Hypertension Hypothyroidism Memory loss Osteopenia Vitamin D deficiency [2] Past Surgical History: Procedure Laterality Date COLONOSCOPY 09/22/2015 PARATHYROIDECTOMY 1992 THYROID SURGERY 1992 Benign Thyroid mass TONSILLECTOMY TUBAL LIGATION Hospitalist Progress Note 10/17/[phone]: Please page me ([phone]) for patient care issues. [phone]: Please page [facility] Hospitalist for any issues. Subjective: Admit Date: 10/15/2024 PCP: Darron De La Cruz, DO Room#: B2-252/B2-252 A Interval History: No overnight issues. Denies chest pain or sob. No abdominal pain, nausea, vomiting. No fevers or chills. She is laying in bed resting comfortably. She was sleeping before I woke her up. Her is at bedside. Adult diet Regular @[id number]@ 24HR INTAKE/OUTPUT: Intake/Output Summary (Last 24 hours) at 10/17/2024 1055 Last data filed at 10/17/2024 1004 Gross per 24 hour Intake 758 ml Output -- Net 758 ml Past Medical History: Medical History[1] LABS: CBC: Recent Labs 10/15/242107 WBC 9.6 RBC 4.27 HGB 13.2 HCT 38.5 MCV 90.2 RDW 12.5 PLT 139* BMP: Recent Labs 10/15/242107 NA 141 K 3.5 CL 106 CO2 23 BUN 12 CREATININE 0.68 GLUCOSE 89 CALCIUM 9.7 ANIONGAP 12 LIVER PROFILE:No results for input(s): "AST", "ALT", "BILITOT", "ALKPHOS", "PROT" in the last 72 hours. No lab exists for component: LABALBU PT/INR: Recent Labs 10/15/242107 PROTIME 10.7 INR 1.0 CARDIAC ENZYMES: No results for input(s): "TROPONINI" in the last 72 hours. Procalcitonin: No results found for: "PROCAL" COVID-19 PCR: No results for input(s): "COVID19" in the last 72 hours. Objective: Vitals: BP 142/75 Pulse 55 Temp (!) 35.7 C (96.3 F) (Temporal) Resp 16 Wt 136 lb 14.4 oz (62.1 kg) SpO2 93% BMI 26.08 kg/m Pulse Ox: SpO2 Av.5 % Min: 93 % Max: 96 % Supplemental O2: General appearance: No apparent distress, appears stated age, HEENT: Eyes: No scleral icterus Oral: Tongue is semi-moist Cardiovascular: S1/S2 heard, RRR Respiratory: Clear to auscultation bilaterally Abdomen: Soft, non-tender, non-distended bowel sounds positive Musculoskeletal: No obvious deformities seen Skin: No visible rashes or lesions. Medications: Continuous Meds[2] Scheduled Meds[3] Assessment Acute, acute on chronic, unstable/uncontrolled chronic problems/diagnoses: # Hip pain with inability to ambulate likely due to severe arthritis of the hips - was concerned about a possible fall however currently we have no evidence of this. X-ray and CT pelvis in ER only showed degenerative hip disease but otherwise no fractures. Ortho saw and signed off. States no further imaging needed. Continue Pain control. PT OT saw and recommending SNF. # CODE STATUS: states DNR CCA no intubation but okay for ICU transfer for medical treatment Stable chronic problems affecting care, new non-acute diagnoses: # Alzheimer's dementia # Hx of anxiety and depression # Chronic hypertension # Hyperlipidemia # Chronic hypothyroidism # History of hiatal hernia Plan -PT/OT saw and recommending SNF. TCC/SW to arrange. -ortho saw and has signed off. Extended Emergency Contact Information Primary Emergency Contact: Jordan Milligan Mobile Relation: Spouse Balcony Worker needed? No Carlos Fall MD Division of Hospitalist Medicine Inpatient Medical Services/[facility] PAGER: Epic chat [1] Past Medical History: Diagnosis Date Anxiety Depression Folate deficiency Hiatal hernia Hyperlipemia Hypertension Hypothyroidism Memory loss Osteopenia Vitamin D deficiency [2] [3] acetaminophen, 1,000 mg, Oral, TID atorvastatin, 10 mg, Oral, Nightly donepezil, 10 mg, Oral, Nightly enoxaparin, 40 mg, SubCUTAneous, Daily folic acid, 1 mg, Oral, Daily lisinopril, 20 mg, Oral, Daily And hydroCHLOROthiazide, 12.5 mg, Oral, Daily levothyroxine, 75 mcg, Oral, qAM AC Lidocaine, 2 patch, TransDERmal, Daily memantine, 10 mg, Oral, BID miconazole, , Topical, BID sertraline, 50 mg, Oral, Daily sodium chloride 0.9%, 5-40 mL, IntraVENous, q12h Nutrition rescreen completed. Chart reviewed. Patient to be monitored and followed by the diet pc network technician. Images from the original note were not included. PHYSICAL THERAPY [facility] Initial Evaluation Name/MRN: Martha Milligan ([id number]) Evaluation Date: 10/16/2024 Date of : 1940 Admission Date: 10/15/2024 7:52 PM Age: 83 y.o. Room/Bed: B2-252/B2-252 A Discharge Recommendation: Shelter Facility Equipment Needed: No Assessment IMPRESSION: Pt admitted to ED on 10/16/24 with B hip pain. Pt has history of dementia which attributes to pt presentation and inability to identify cause for pain. Prior to admission, pt lived with and performed mobility independently roughly 3 days ago per spouse. Upon eval, pt required Mod/Max Ax1 for bed mobility, Unable to tolerate attempt at transfers/ambulation. Pt would benefit from skilled PT services in order to increase safety and independence in functional mobility and daily tasks. Recommend SNF upon DC. Admitting Diagnosis: B hip pain Prognosis: good Performance Deficits /Impairments: Increased Pain, Decreased Functional Mobility, Decreased ADL status, Decreased Strength, Decreased Safety Awareness, Decreased Endurance, and Decreased Balance Decision Making: Medium Complexity Subjective Pt agreeable to PT evaluation with moderate encouragement. Spouse present and assisting in PLOF d/t pt cognition. RN cleared pt for session. Pain: Mccormack-Ronquillo Pain Ratin = Hurts whole lot Pain Location: R hip Past Medical History: Medical History[1] Past Surgical History: Surgical History[2] Admission Diagnosis: Patient Active Problem List Diagnosis Date Noted Hip pain, bilateral 10/15/2024 Medical Precautions: No active isolations Proper PPE donned/doffed in accordance with facility standards. Fall Risk: Turner Fall Risk Score: 100 (High Risk) Precautions/Restrictions: Fall Precautions Family/Caregiver Present: spouse Overall Cognitive Status: Exceptions - Following commands: follows one step commands with increased time, follows one step commands with repetition, follows multi-step commands with increased time, and follows multi-step commands with repetition - Attention span: difficulty attending to directions - Memory: decreased recall of biographical information, decreased recall of precautions, decreased recall of recent events, and decreased short term memory - Safety judgement: decreased awareness of need for assistance and decreased awareness of need for safety - Problem solving: assistance required to generate solutions, assistance required to implement solutions, assistance required to identify errors made, and assistance required to correct errors made - Insights: not aware of deficits - Initiation: requires cues for all - Sequencing: requires cues for all Overall Orientation Status: Oriented to Person, Disoriented to Situation, Disoriented to Time, and Disoriented to Place Vision: wears glasses at all times and and are NOT being used during the eval Hearing: normal Social/Functional History Patient admitted from home. Lives With: Spouse Type of Home: single family home Home Layout: Two Level Home and Bed/Bath Upstairs - elevator to second floor noted Home Access: Ramped Entrance Bathroom Shower/Tub: Shower Chair with Back, Walk in Shower, and Grab Bars Toilet: Standard and Grab Bars Home Equipment: front wheeled walker and wheelchair - manual Homemaking Responsibilities: Independent Receives Help From: Family Active Project Hire: No Prior Level of Function Prior Level of ADL Function: Required Assist Prior Level of Mobility: Required Assist; Device: None Prior Level of Transfers: Required Assist Objective Lower Extremity Assessment AROM: Impaired: Decreased tolerance to mobility d/t pain Strength: Exceptions: Poor tolerance to MMT. Moderate agitation noted by pt. Grossly 3+/5 Sensation: WFL Bed Mobility: Supine to sit: Max Assist Sit to supine: Max Assist Rolling to left: Mod Assist Scooting: Max Assist Mod/Max Ax1 required for all bed mobility. Pt yelling out in pain with mobility. Calm de-escalation tactics required to improve pt tolerance to activity. Fair overall return noted. Cues given for self assistance with poor overall return noted. No LOB d/t support provided. Tolerated EOB sitting ~4 minutes at CGAx1. Transfers Unable to tolerate d/t pain. Pt becoming increasingly agitated with cues to attempt STS. De-escalation tactics utilized to avoid conflict with pt. Ambulation Did not assess this session. Outcome Measures AM-PAC How much HELP from another person do you currently need Turning from your back to your side while in a flat bed without using bedrails?: A Lot Moving from lying on your back to sitting on the side of a flat bed without using bedrails?: Total Moving to and from a bed to a chair (including a wheelchair)?: Total Standing up from a chair using your arms (wheelchair or bedside chair)?: Total Walking in a hospital room?: Total Stair climbing assessed?: No AM-PAC Inpatient Mobility Raw Score (No Stairs) : 6 JH-HLM JH-HLM Score: Sat at edge of bed Plan Pt would benefit from skilled acute PT services to address Strengthening, Gait Training, Balance Training, Self-Care/ADL Training, Functional Mobility Training, Endurance Training, Safety Education and Training, and Pain Management. Frequency: 7 visits during current hospital admission or until additional recommendations are made Barriers: Pain, Impaired balance, Lower extremity weakness, Decreased endurance, Limited safety awareness, Confusion, and Cognitive deficit Safety/Education Safety Safety Devices in place: All fall risk precautions in place, call light within reach, left in bed, bed alarm in place, gait belt, patient at risk for falls, and nurse notified Restraints: N/A Education Education Given To: patient Education Provided: PT Role, PT Goals, Gait Training, Plan of Care, Transfer Training, Energy Conservation, IADL Safety, Family Education, Equipment, Fall Prevention Education, Discharge Recommendations, and Benefits of Increasing Activity Education Method: Verbal and Demonstration Barriers to Learning: Agitation, Cognition Education Outcome: Verbalized Understanding and Continued Education Needed Goals Patient Stated Goal: none stated Encounter Problems Encounter Problems (Active) Balance Patient will maintain dynamic standing balance for 5 minutes with min assist in order to demonstrate decreased risk of falling. Start: 10/16/24 Expected End: 10/27/24 Exercise Patient will complete lower extremity exercises for 1-2 sets / 10-15 reps in order to improve strength and activity tolerance for mobility. Start: 10/16/24 Expected End: 10/27/24 Mobility Patient will ambulate 15-20 feet with min assist and least restrictive device in order to improve safety and independence with mobility. Start: 10/16/24 Expected End: 10/27/24 Transfers Patient will perform bed mobility with CGA in order to improve independence and prepare for out of bed mobility. Start: 10/16/24 Expected End: 10/27/24 Patient will complete functional transfer with least restrictive device with min assist in order to prepare for ambulation. Start: 10/16/24 Expected End: 10/27/24 Therapy Time Individual Co-Treatment Co-Evaluation Time In 1053 Time Out 1107 Minutes 14 José Miguel Bowers PT Patient's Physical Therapy Plan of Care supervision is transferred to a [facility] Physical Therapist. Goals and/or treatment plan was established in collaboration with patient/family/other representatives. [1] Past Medical History: Diagnosis Date Anxiety Depression Folate deficiency Hiatal hernia Hyperlipemia Hypertension Hypothyroidism Memory loss Osteopenia Vitamin D deficiency [2] Past Surgical History: Procedure Laterality Date COLONOSCOPY 09/22/2015 PARATHYROIDECTOMY 1993 THYROID SURGERY 1993 Benign Thyroid mass TONSILLECTOMY TUBAL LIGATION documented in this encounter [facility] 10-19-2024 Hospital Discharge instructions Tameka Carolyn Paz RN - 10/19/2024 10:03 AM EDT Images from the original note were not included. Continuity of Care Form Patient Name: Matrha Milligan : 1940 Admit date: 10/15/2024 Discharge date: 10.19.24 Code Status Order: DNR-CCA Advance Directives: Y Admitting Physician: Abdelrahman Baeza MD PCP: Darron De La Cruz DO Discharging Nurse: Zahraa SAUNDERS Discharging Hospital Unit/Room#: B2-252/B2-252 A Discharging Unit Emergency Contact: Extended Emergency Contact Information Primary Emergency Contact: Jordan Milligan Mobile Relation: Spouse Balcony Worker needed? No Past Surgical History: Past Surgical History: Procedure Laterality Date COLONOSCOPY 09/22/2015 PARATHYROIDECTOMY 1993 THYROID SURGERY 1993 Benign Thyroid mass TONSILLECTOMY TUBAL LIGATION Immunization History: Immunization History Administered Date(s) Administered Covid-19, Moderna Bivalent Booster, (Age 6y-11y) 01/02/2022 Moderna SARS-CoV-2 Vaccination 06/10/2020, 02/12/2021 Active Problems: Medical Problems Problem List * (Principal) Hip pain, bilateral Isolation/Infection: No active isolations No active infections Nurse Assessment: Last Vital Signs: BP 150/77 (BP Location: Right arm, Patient Position: Sitting) Pulse 58 Temp 36.5 C (97.7 F) (Temporal) Resp 15 Wt 136 lb 14.4 oz (62.1 kg) SpO2 95% BMI 26.08 kg/m Last documented pain score (0-10 scale): Last Weight: Wt Readings from Last 1 Encounters: 10/15/24 136 lb 14.4 oz (62.1 kg) Mental Status: FABIAN Patient Mental Status: disoriented and alert IV Access: FABIAN IV Access: None Nursing Mobility/ADLs: Walking Total assistance Transfer Total assistance Bathing Total assistance Dressing Total assistance Toileting Total assistance Feeding Minimal assistance Mixer Dry Food Products Total assistance Med Delivery yes Wound Care Documentation and Therapy: Elimination: Continence: Bowel: yes Bladder: yes Urinary Catheter: None Colostomy/Ileostomy/Ileal Conduit: None Date of Last BM: Intake/Output Summary (Last 24 hours) at 10/19/2024 1003 Last data filed at 10/18/2024 1547 Gross per 24 hour Intake 240 ml Output 700 ml Net -460 ml I/O last 3 completed shifts: In: 358 (5.8 mL/kg) [P.O.:358] Out: 700 (11.3 mL/kg) [Urine:700 (0.3 mL/kg/hr)] Weight: 62.1 kg Safety Concerns: at risk for falls Impairments/Disabilities: hearing Nutrition Therapy: Current Nutrition Therapy: Oral diet: general Routes of Feeding: oral Liquids: thin liquids Daily Fluid Restriction: no Last Modified Barium Swallow with Video (Video Swallowing Test): not done Treatments at the Time of Hospital Discharge: Respiratory Treatments: Oxygen Therapy: is not on home oxygen therapy. Ventilator: No ventilator support Rehab Therapies: physical therapy and occupational therapy Weight Bearing Status/Restrictions: no restriction Other Medical Equipment (for information only, NOT a DME order): none Other Treatments: Patient's personal belongings (please select all that are sent with patient): {FABIAN Patient Belongings:[id number]} RN SIGNATURE: MANAGEMENT/SOCIAL WORK SECTION Inpatient Status Date: 10/16/24 [email or web address] Address: [id number] [place] [address] Fax: Dialysis Facility (if applicable) Name: Address: Dialysis Schedule: Phone: Fax: Assistant Store Manager/Sewer Pipe Cleaner signature: ICIAN SECTION Name: Martha Milligan Prognosis: good Condition at Discharge: stable Rehab Potential (if transferring to Rehab): good Recommended Labs or Other Treatments After Discharge: The individual is being admitted to a nursing facility directly from an [facility] or a unit of a hospital that is not operated by or licensed by [facility] under section 5119.14 or 5160-3-15.1 5 The individual requires the level of services provided by a nursing facility for the condition for which he or she was treated in the hospital and, Physician Certification: I certify the above information and transfer of Martha Milligan is necessary for the continuing treatment of the diagnosis listed and that she requires fdc facility for less than 30 days. Update Admission H&P: No change in H&P PHYSICIAN SIGNATURE: documented in this encounter [facility] 10-18-2024 Note Hospitalist Progress Note 10/18/2024 [phone]: Please page me ([phone]) for patient care issues. [phone]: Please page [facility] Hospitalist for any issues. Subjective: Admit Date: 10/15/2024 PCP: Darron De La Cruz, DO Room#: B2-252/B2-252 A Interval History: No overnight issues. Denies chest pain or sob. No abdominal pain, nausea, vomiting. No fevers or chills. She is laying in bed resting comfortably. Her is at bedside again today. Adult diet Regular @[id number]@ 24HR INTAKE/OUTPUT: Intake/Output Summary (Last 24 hours) at 10/18/2024 1411 Last data filed at 10/18/2024 1405 Gross per 24 hour Intake 598 ml Output -- Net 598 ml Past Medical History: Medical History[1] LABS: CBC: Recent Labs 10/15/242107 WBC 9.6 RBC 4.27 HGB 13.2 HCT 38.5 MCV 90.2 RDW 12.5 PLT 139* BMP: Recent Labs 07/07/25 2108 NA 141 K 3.5 CL 106 CO2 23 BUN 12 CREATININE 0.68 GLUCOSE 89 CALCIUM 9.7 ANIONGAP 12 LIVER PROFILE:No results for input(s): "AST", "ALT", "BILITOT", "ALKPHOS", "PROT" in the last 72 hours. No lab exists for component: LABALBU PT/INR: Recent Labs 10/15/242107 PROTIME 10.7 INR 1.0 CARDIAC ENZYMES: No results for input(s): "TROPONINI" in the last 72 hours. Procalcitonin: No results found for: "PROCAL" COVID-19 PCR: No results for input(s): "COVID19" in the last 72 hours. Objective: Vitals: BP 159/75 Pulse 57 Temp 36.2 ?C (97.1 ?F) (Temporal) Resp 18 Wt 136 lb 14.4 oz (62.1 kg) SpO2 95% BMI 26.08 kg/m? Pulse Ox: SpO2 Av % Min: 95 % Max: 95 % Supplemental O2: General appearance: No apparent distress, appears stated age, HEENT: Eyes: No scleral icterus Oral: Tongue is semi-moist Cardiovascular: S1/S2 heard, RRR Respiratory: Clear to auscultation bilaterally Abdomen: Soft, non-tender, non-distended bowel sounds positive Musculoskeletal: No obvious deformities seen Skin: No visible rashes or lesions. Medications: Continuous Meds[2] Scheduled Meds[3] Assessment Acute, acute on chronic, unstable/uncontrolled chronic problems/diagnoses: # Hip pain with inability to ambulate likely due to severe arthritis of the hips - was concerned about a possible fall however currently we have no evidence of this. X-ray and CT pelvis in ER only showed degenerative hip disease but otherwise no fractures. Ortho saw and signed off. States no further imaging needed. Continue Pain control. PT OT saw and recommending SNF. # CODE STATUS: states DNR CCA no intubation but okay for ICU transfer for medical treatment Stable chronic problems affecting care, new non-acute diagnoses: # Alzheimer's dementia # Hx of anxiety and depression # Chronic hypertension # Hyperlipidemia # Chronic hypothyroidism # History of hiatal hernia Plan -PT/OT saw and recommending SNF. Plan to discharge to SNF soon when bed available -ortho saw and has signed off. Extended Emergency Contact Information Primary Emergency Contact: Jordan Milligan Mobile Relation: Spouse Balcony Worker needed? No Carlos Fall MD Division of Hospitalist Medicine Inpatient Medical Services/[facility] PAGER: Shaquille villanueva [1] Past Medical History: Diagnosis Date Anxiety Depression Folate deficiency Hiatal hernia Hyperlipemia Hypertension Hypothyroidism Memory loss Osteopenia Vitamin D deficiency [2] [3] acetaminophen, 1,000 mg, Oral, TID atorvastatin, 10 mg, Oral, Nightly donepezil, 10 mg, Oral, Nightly enoxaparin, 40 mg, SubCUTAneous, Daily folic acid, 1 mg, Oral, Daily lisinopril, 20 mg, Oral, Daily And hydroCHLOROthiazide, 12.5 mg, Oral, Daily levothyroxine, 75 mcg, Oral, qAM AC Lidocaine, 2 patch, TransDERmal, Daily memantine, 10 mg, Oral, BID miconazole, , Topical, BID sertraline, 50 mg, Oral, Daily sodium chloride 0.9%, 5-40 mL, IntraVENous, q12h [facility] 10-17-2024 Note Problem: Safety Goal: I will remain free of falls Outcome: Progressing Problem: Daily Care Goal: Daily care needs are met Outcome: Progressing Problem: Chronic Conditions and Co-morbidities Goal: Patient's chronic conditions and co-morbidity symptoms are monitored and maintained or improved Outcome: Progressing [facility] 10-17-2024 Plan of care note Problem: Safety Goal: I will remain free of falls Outcome: Progressing Problem: Daily Care Goal: Daily care needs are met Outcome: Progressing Problem: Chronic Conditions and Co-morbidities Goal: Patient's chronic conditions and co-morbidity symptoms are monitored and maintained or improved Outcome: Progressing [facility] 10-17-[address] [facility] Initial Evaluation Name/MRN: Martha Milligan ([id number]) Evaluation Date: 10/17/2024 Date of : 1940 Admission Date: 10/15/2024 7:52 PM Age: 83 y.o. Room/Bed: B2252/[facility] A Discharge Recommendation: Shelter Facility Equipment Needed: No Assessment IMPRESSION: Pt in 10/16 with c/o eran hip pain, increased confusion, and hx of Alzheimer's. Patient was previously requiring assistance for ADLs, functional transfers/mobility from however prior to 3 days ago with previously independent her mobility per spouse's report. She is currently mod assist with bed mobility, min assist for functional transfers and sidesteps with a front wheel walker, max to mod assist for lower body ADLs, and mod to min assist for upper body ADLs. She is limited by diminished cognition, weakness, instability, pain this date. Increased education and cueing required this date provided to both patient and for bed mobility and transfer/mobility sequencing. She would benefit from skilled OT services to rest the below. Recommend plan discharge for SNF at this time. Admitting Diagnosis: Bilateral hip pain, increased confusion, history of Alzheimer's Performance Deficits /Impairments: Increased Pain, Decreased Functional Mobility, Decreased ADL status, Decreased Strength, Decreased Endurance, Decreased Balance, and Decreased High Level IADLs Prognosis: Good Decision Making: Medium Complexity Subjective Pleasantly confused and cooperative. OK to see per RN. Agreeable to therapy evaluation. Pain: "medium pain" in eran hips (R > L) Past Medical History: Medical History[1] Past Surgical History: Surgical History[2] Admission Diagnosis: Patient Active Problem List Diagnosis Date Noted Hip pain, bilateral 10/15/2024 Medical Precautions: No active isolations Proper PPE donned/doffed in accordance with facility standards. Fall Risk: Turner Fall Risk Score: 100 (High Risk) Precautions/Restrictions: Fall Precautions Family/Caregiver Present: spouse Overall Cognitive Status: Exceptions - Following commands: follows one step commands with increased time, follows one step commands with repetition, follows multi-step commands with increased time, and follows multi-step commands with repetition - Attention span: difficulty attending to directions - Memory: decreased recall of biographical information, decreased recall of precautions, decreased recall of recent events, and decreased short term memory - Safety judgement: decreased awareness of need for assistance and decreased awareness of need for safety - Problem solving: assistance required to generate solutions, assistance required to implement solutions, assistance required to identify errors made, and assistance required to correct errors made - Insights: not aware of deficits - Initiation: requires cues for all - Sequencing: requires cues for all Overall Orientation Status: Oriented to Place, Disoriented to Situation, Disoriented to Time, and Disoriented to Place Social/Functional History Patient admitted from home. Lives With: Spouse Type of Home: single family home Home Layout: Two Level Home and Bed/Bath Upstairs - elevator to second floor noted Home Access: Ramped Entrance Bathroom Shower/Tub: Shower Chair with Back, Walk in Shower, and Grab Bars Toilet: Standard and Grab Bars Home Equipment: front wheeled walker and wheelchair - manual Homemaking Responsibilities: Independent Receives Help From: Family Active Project Hire: No Prior Level of Function Prior Level of ADL Function: Required Assist Prior Level of Mobility: Required Assist; Device: None Prior Level of Transfers: Required Assist Objective ADLs Patient declines participation in ADL tasks at this time. She demos diminished functional reach, strength, endurance, balance this date with increased pain noted with all functional activity. She required increased time for extended participation in functional task. Increased reliance of four-wheel walker for stability. Patient requires near total cueing this date for sequencing, initiation, and problem-solving during functional activities this date. Upper Extremity Assessment AROM: Exceptions: ~ 90 BUE shoulder flexion functionally observed PROM: Not assessed this session Strength: Exceptions: > +3/5 grossly observed with functional activity Bed Mobility Supine to sit: Mod Assist Sit to supine: Mod Assist Scooting: Mod Assist Head of bed elevated. Denies dizziness or positional changes. Mod assist overall for supine to sit and sit to supine mobility with increased assist for lower extreme management this date. Increased cueing required for sequencing proper lower extreme management as well as hand placement this date to improve participation. Cueing for sequencing with increased reliance on pull upon therapist to reach edge of bed this date. Patient (more content not included)... [facility] 10-17-2024 Note Hospitalist Progress Note 10/17/2024 [phone]: Please page me ([phone]) for patient care issues. [phone]: Please page [place] [facility]. Subjective: Admit Date: 10/15/2024 PCP: Darron De La Cruz DO Room#: B2-252/B2-252 A Interval History: No overnight issues. Denies chest pain or sob. No abdominal pain, nausea, vomiting. No fevers or chills. She is laying in bed resting comfortably. She was sleeping before I woke her up. Her is at bedside. Adult diet Regular @[id number]@ 24HR INTAKE/OUTPUT: Intake/Output Summary (Last 24 hours) at 10/17/2024 1055 Last data filed at 10/17/2024 1004 Gross per 24 hour Intake 758 ml Output -- Net 758 ml Past Medical History: Medical History[1] LABS: CBC: Recent Labs 10/15/242107 WBC 9.6 RBC 4.27 HGB 13.2 HCT 38.5 MCV 90.2 RDW 12.5 PLT 139* BMP: Recent Labs 10/15/242107 NA 141 K 3.5 CL 106 CO2 23 BUN 12 CREATININE 0.68 GLUCOSE 89 CALCIUM 9.7 ANIONGAP 12 LIVER PROFILE:No results for input(s): "AST", "ALT", "BILITOT", "ALKPHOS", "PROT" in the last 72 hours. No lab exists for component: LABALBU PT/INR: Recent Labs 10/15/242107 PROTIME 10.7 INR 1.0 CARDIAC ENZYMES: No results for input(s): "TROPONINI" in the last 72 hours. Procalcitonin: No results found for: "PROCAL" COVID-19 PCR: No results for input(s): "COVID19" in the last 72 hours. Objective: Vitals: BP 142/75 Pulse 55 Temp (!) 35.7 ?C (96.3 ?F) (Temporal) Resp 16 Wt 136 lb 14.4 oz (62.1 kg) SpO2 93% BMI 26.08 kg/m? Pulse Ox: SpO2 Av.5 % Min: 93 % Max: 96 % Supplemental O2: General appearance: No apparent distress, appears stated age, HEENT: Eyes: No scleral icterus Oral: Tongue is semi-moist Cardiovascular: S1/S2 heard, RRR Respiratory: Clear to auscultation bilaterally Abdomen: Soft, non-tender, non-distended bowel sounds positive Musculoskeletal: No obvious deformities seen Skin: No visible rashes or lesions. Medications: Continuous Meds[2] Scheduled Meds[3] Assessment Acute, acute on chronic, unstable/uncontrolled chronic problems/diagnoses: # Hip pain with inability to ambulate likely due to severe arthritis of the hips - was concerned about a possible fall however currently we have no evidence of this. X-ray and CT pelvis in ER only showed degenerative hip disease but otherwise no fractures. Ortho saw and signed off. States no further imaging needed. Continue Pain control. PT OT saw and recommending SNF. # CODE STATUS: states DNR CCA no intubation but okay for ICU transfer for medical treatment Stable chronic problems affecting care, new non-acute diagnoses: # Alzheimer's dementia # Hx of anxiety and depression # Chronic hypertension # Hyperlipidemia # Chronic hypothyroidism # History of hiatal hernia Plan -PT/OT saw and recommending SNF. TCC/SW to arrange. -ortho saw and has signed off. Extended Emergency Contact Information Primary Emergency Contact: Jordan Milligan Mobile Relation: Spouse Balcony Worker needed? No Carlos Fall MD Division of Hospitalist Medicine Inpatient Medical Services/[facility] PAGER: [employer] chat [1] Past Medical History: Diagnosis Date Anxiety Depression Folate deficiency Hiatal hernia Hyperlipemia Hypertension Hypothyroidism Memory loss Osteopenia Vitamin D deficiency [2] [3] acetaminophen, 1,000 mg, Oral, TID atorvastatin, 10 mg, Oral, Nightly donepezil, 10 mg, Oral, Nightly enoxaparin, 40 mg, SubCUTAneous, Daily folic acid, 1 mg, Oral, Daily lisinopril, 20 mg, Oral, Daily And hydroCHLOROthiazide, 12.5 mg, Oral, Daily levothyroxine, 75 mcg, Oral, qAM AC Lidocaine, 2 patch, TransDERmal, Daily memantine, 10 mg, Oral, BID miconazole, , Topical, BID sertraline, 50 mg, Oral, Daily sodium chloride 0.9%, 5-40 mL, IntraVENous, q12h [facility] 10-17-2024 Note Problem: Safety Goal: I will remain free of falls Outcome: Progressing Problem: Daily Care Goal: Daily care needs are met Outcome: Progressing Problem: Chronic Conditions and Co-morbidities Goal: Patient's chronic conditions and co-morbidity symptoms are monitored and maintained or improved Outcome: Progressing [facility] 10-17-2024 Plan of care note Problem: Safety Goal: I will remain free of falls Outcome: Progressing Problem: Daily Care Goal: Daily care needs are met Outcome: Progressing Problem: Chronic Conditions and Co-morbidities Goal: Patient's chronic conditions and co-morbidity symptoms are monitored and maintained or improved Outcome: Progressing Cosigned by Ousmane Mancia RN at 10/17/2024 11:51 AM EDT [facility] 10-17-2024 Note Formatting of this n ote might be different from the original. Referral placed to [facility] via [facility] per TCC request. Await review and response regarding ability to accept. TCC notified. [facility] 10-17-2024 Note Formatting of this n ote might be different from the original. Referral placed to [facility] via [facility] per TCC request. Await review and response regarding ability to accept. TCC notified. [facility] 10-17-2024 Note Referral placed to [facility] via [facility] per TCC request. Await review and response regarding ability to accept. TCC notified. [facility] 10-17-2024 Note Formatting of this n ote might be different from the original. Met with Jordan at bedside to discuss DC planning. Pt had choice list in hand that I left in room yesterday. chose1) [facility]. FORENSIC SCIENTIST tasked to make new SNF referrals. Awaiting acceptance. [facility] 10-17-2024 Note Formatting of this n ote might be different from the original. Met with Jordan at bedside to discuss DC planning. Pt had choice list in hand that I left in room yesterday. chose1) [facility] SNF and 2) [facility]. FORENSIC SCIENTIST tasked to make new SNF referrals. Awaiting acceptance. T [facility] 10-17-2024 Consult note Associated Order (s): IP CONSULT TO ORTHOPAEDIC SURGERY Consult Note Date:10/17/2024 Patient Name:Martha Milligan Date of :1940 Age:83 y.o. Reason for Consult: Hip pain and inability to ambulate Chief Complaint Chief Complaint Patient presents with Hip Pain Bilateral History Obtained From Patient, chart. History of Present Illness The patient is an 83 yo WF admitted with hip pain and difficulty ambulating. She has dementia and is not able to offer me any history. There was a questionable history of fall, but she adamantly denies this. She has no complaints at this time. Specifically she denies neck or back pain, and no extremity complaints. Past Medical History Medical History[1] Past Surgical History Surgical History[2] Medications Prior to Admission medications Medication Sig Start Date End Date Taking? Authorizing Provider atorvastatin (Lipitor) 10 MG tablet Take 10 mg by mouth Nightly. Historical Provider, donepezil (Aricept) 10 MG tablet Take 1 tablet (10 mg) by mouth Nightly. 09/06/24 09/06/25 Michele Mccollum MD folic acid (Folvite) 800 MCG tablet Take 1 tablet by mouth daily. Historical Provider, levothyroxine (Synthroid, Levoxyl) 75 MCG tablet Take 75 mcg by mouth every morning (before breakfast). Historical Provider, lisinopril-hydroCHLOROthiazide 20-12.5 MG tablet Take 1 tablet by mouth daily. Historical Provider, memantine (Namenda) 10 MG tablet Take 1 tablet (10 mg) by mouth 2 times daily. Start after the initial titration script Do not start before September 20, 2024. 09/20/24 04/18/25 Michele Mccollum MD memantine (Namenda) 5 MG tablet Take 1 tablet (5 mg) daily for 7 days. Then take 1 tablet (5 mg) twice a day for 7 days. Then take 2 tablets (10 mg) in AM and 1 tablet (5 mg) in PM for 7 days. Then proceed to next script 08/30/24 Michele Mccollum MD naproxen (Naprosyn) 250 MG tablet Take 250 mg by mouth Nightly as needed for mild pain (1-3). Historical Provider, sertraline (Zoloft) 50 MG tablet Take 50 mg by mouth daily. Historical Provider, Allergies Barbiturates, Lorabid [loracarbef], Penicillins, Sulfamethoxazole, Celebrex [celecoxib], and Celexa [citalopram] Social History reports that she quit smoking about 57 years ago. Her smoking use included cigarettes. She started smoking about 64 years ago. She has a 13.6 pack-year smoking history. She has never used smokeless tobacco. She reports that she does not currently use alcohol after a past usage of about 4.0 standard drinks of alcohol per week. She reports that she does not currently use drugs. Family History Family History[3] Review of Systems Unable to obtain due to patient's mental status. Physical Exam BP 144/75 Pulse 69 Temp 36.2 C (97.2 F) (Temporal) Resp 14 Wt 62.1 kg (136 lb 14.4 oz) SpO2 96% BMI 26.08 kg/m A&O x 1. NAD. Head NC/AT. Heart RRR. Breathing unlabored. Abdomen soft, NT. No pain in the neck or back in the midline. UE moving freely without pain. No clinical deformity of the LE. No pain with palpation over the hips. No pain with log rolling of the hips. No pain with hip flexion. Both knees and ankles also non-tender to palpation. Calves soft, NT. NVI distally. Labs CBC: Recent Labs 10/15/24 2108 WBC 9.6 RBC 4.27 HGB 13.2 HCT 38.5 MCV 90.2 RDW 12.5 PLT 139* CHEMISTRIES: Recent Labs 10/15/24 2108 NA 141 K 3.5 CL 106 CO2 23 BUN 12 CREATININE 0.68 GLUCOSE 89 PT/INR: Recent Labs 10/15/242107 PROTIME 10.7 INR 1.0 APTT:No results for input(s): "APTT" in the last 72 hours. LIVER PROFILE:No results for input(s): "AST", "ALT", "BILIDIR", "BILITOT", "ALKPHOS" in the last 72 hours. Imaging/Diagnostics Pelvis plain films and CT scan show moderate bilateral hip OA and no acute findings. Assessment Bilateral hip pain. Bilateral hip OA. Debility and difficulty ambulating. Questionable fall history. Plan I am not able to reproduce any hip pain on today's exam. No further imaging needed at this point. I recommend observation. OK for activity as tolerated. Continue PT/OT acutely. Therapy currently recommends SNF placement. Dispo will depend on progress with therapy. I will sign off - call if any questions or concerns. Electronically signed by Manuel Ayoub MD [1] Past Medical History: Diagnosis Date Anxiety Depression Folate deficiency Hiatal hernia Hyperlipemia Hypertension Hypothyroidism Memory loss Osteopenia Vitamin D deficiency [2] Past Surgical History: Procedure Laterality Date COLONOSCOPY 09/22/2015 PARATHYROIDECTOMY 1992 THYROID SURGERY 1992 Benign Thyroid mass TONSILLECTOMY TUBAL LIGATION [3] Family History Problem Relation Name Age of Onset Dementia Mother Alysha Rickey Stroke Mother Alysha Rickey Breast cancer Mother Alysha Rickey Lung cancer Father [place] Brain cancer Father [place] Hypertension Father [place] Heart attack Father [place] Lymphoma Father [place] Cancer Father [place] [employer] Phone: 10-17-2024 Consult note Associated Order (s): IP CONSULT TO ORTHOPAEDIC SURGERY Consult Note Date:10/17/2024 Patient Name:Martha Milligan Date of :1940 Age:83 y.o. Reason for Consult: Hip pain and inability to ambulate Chief Complaint Chief Complaint Patient presents with Hip Pain Bilateral History Obtained From Patient, chart. History of Present Illness The patient is an 83 yo WF admitted with hip pain and difficulty ambulating. She has dementia and is not able to offer me any history. There was a questionable history of fall, but she adamantly denies this. She has no complaints at this time. Specifically she denies neck or back pain, and no extremity complaints. Past Medical History Medical History[1] Past Surgical History Surgical History[2] Medications Prior to Admission medications Medication Sig Start Date End Date Taking? Authorizing Provider atorvastatin (Lipitor) 10 MG tablet Take 10 mg by mouth Nightly. Historical Provider, donepezil (Aricept) 10 MG tablet Take 1 tablet (10 mg) by mouth Nightly. 09/06/24 09/06/25 Michele Mccollum MD folic acid (Folvite) 800 MCG tablet Take 1 tablet by mouth daily. Historical Provider, levothyroxine (Synthroid, Levoxyl) 75 MCG tablet Take 75 mcg by mouth every morning (before breakfast). Historical ProviderMD lisinopril-hydroCHLOROthiazide 20-12.5 MG tablet Take 1 tablet by mouth daily. Historical Provider, memantine (Namenda) 10 MG tablet Take 1 tablet (10 mg) by mouth 2 times daily. Start after the initial titration script Do not start before September 20, 2024. 09/20/24 04/18/25 Michele Mccollum MD memantine (Namenda) 5 MG tablet Take 1 tablet (5 mg) daily for 7 days. Then take 1 tablet (5 mg) twice a day for 7 days. Then take 2 tablets (10 mg) in AM and 1 tablet (5 mg) in PM for 7 days. Then proceed to next script 08/30/24 Michele Mccollum MD naproxen (Naprosyn) 250 MG tablet Take 250 mg by mouth Nightly as needed for mild pain (1-3). Historical Provider, sertraline (Zoloft) 50 MG tablet Take 50 mg by mouth daily. Historical Provider, Allergies Barbiturates, Lorabid [loracarbef], Penicillins, Sulfamethoxazole, Celebrex [celecoxib], and Celexa [citalopram] Social History reports that she quit smoking about 57 years ago. Her smoking use included cigarettes. She started smoking about 64 years ago. She has a 13.6 pack-year smoking history. She has never used smokeless tobacco. She reports that she does not currently use alcohol after a past usage of about 4.0 standard drinks of alcohol per week. She reports that she does not currently use drugs. Family History Family History[3] Review of Systems Unable to obtain due to patient's mental status. Physical Exam BP 144/75 Pulse 69 Temp 36.2 C (97.2 F) (Temporal) Resp 14 Wt 62.1 kg (136 lb 14.4 oz) SpO2 96% BMI 26.08 kg/m A&O x 1. NAD. Head NC/AT. Heart RRR. Breathing unlabored. Abdomen soft, NT. No pain in the neck or back in the midline. UE moving freely without pain. No clinical deformity of the LE. No pain with palpation over the hips. No pain with log rolling of the hips. No pain with hip flexion. Both knees and ankles also non-tender to palpation. Calves soft, NT. NVI distally. Labs CBC: Recent Labs 10/15/242107 WBC 9.6 RBC 4.27 HGB 13.2 HCT 38.5 MCV 90.2 RDW 12.5 PLT 139* CHEMISTRIES: Recent Labs 10/15/242107 NA 141 K 3.5 CL 106 CO2 23 BUN 12 CREATININE 0.68 GLUCOSE 89 PT/INR: Recent Labs 10/15/242107 PROTIME 10.7 INR 1.0 APTT:No results for input(s): "APTT" in the last 72 hours. LIVER PROFILE:No results for input(s): "AST", "ALT", "BILIDIR", "BILITOT", "ALKPHOS" in the last 72 hours. Imaging/Diagnostics Pelvis plain films and CT scan show moderate bilateral hip OA and no acute findings. Assessment Bilateral hip pain. Bilateral hip OA. Debility and difficulty ambulating. Questionable fall history. Plan I am not able to reproduce any hip pain on today's exam. No further imaging needed at this point. I recommend observation. OK for activity as tolerated. Continue PT/OT acutely. Therapy currently recommends SNF placement. Dispo will depend on progress with therapy. I will sign off - call if any questions or concerns. Electronically signed by Manuel Ayoub MD [1] Past Medical History: Diagnosis Date Anxiety Depression Folate deficiency Hiatal hernia Hyperlipemia Hypertension Hypothyroidism Memory loss Osteopenia Vitamin D deficiency [2] Past Surgical History: Procedure Laterality Date COLONOSCOPY 09/22/2015 PARATHYROIDECTOMY 1993 THYROID SURGERY 1993 Benign Thyroid mass TONSILLECTOMY TUBAL LIGATION [3] Family History Problem Relation Name Age of Onset Dementia Mother Alysha Lang Stroke Mother Alysha Lang Breast cancer Mother Alysha Lang Lung cancer Father [place] Brain cancer Father [place] Hypertension Father [place] Heart attack Father [place] Lymphoma Father [place] Cancer Father [place] documented in this encounter [facility] 10-16-2024 Note Problem: Safety Goal: I will remain free of falls Outcome: Progressing Problem: Daily Care Goal: Daily care needs are met Outcome: Progressing Problem: Chronic Conditions and Co-morbidities Goal: Patient's chronic conditions and co-morbidity symptoms are monitored and maintained or improved Outcome: Progressing [facility] 10-16-2024 Plan of care note Problem: Safety Goal: I will remain free of falls Outcome: Progressing Problem: Daily Care Goal: Daily care needs are met Outcome: Progressing Problem: Chronic Conditions and Co-morbidities Goal: Patient's chronic conditions and co-morbidity symptoms are monitored and maintained or improved Outcome: Progressing [facility] 10-16-2024 Note Problem: Safety Goal: I will remain free of falls Outcome: Progressing Problem: Daily Care Goal: Daily care needs are met Outcome: Progressing Problem: Chronic Conditions and Co-morbidities Goal: Patient's chronic conditions and co-morbidity symptoms are monitored and maintained or improved Outcome: Progressing [facility] 10-16-2024 Plan of care note Problem: Safety Goal: I will remain free of falls Outcome: Progressing Problem: Daily Care Goal: Daily care needs are met Outcome: Progressing Problem: Chronic Conditions and Co-morbidities Goal: Patient's chronic conditions and co-morbidity symptoms are monitored and maintained or improved Outcome: Progressing [facility] 10-16-2024 Note Formatting of this n ote might be different from the original. Care Management Progress Note Short Medical why still here: Diagnostic workup Chart reviewed. PT/OT recommending SNF placement at DC. Attempted to met with pt and at bedside. not at bedside at present time. Pt appears to not understand fully, so this TCC called and left HIPAA compliant message to call back to discuss DC planning. Will continue to follow. Planned Discharge Disposition: Other (Comment) (Awaiting PT/OT) Barriers/Today we still Wait: Clinical stability, Diagnostic workup, Symptomatic control Length of Stay (Days): 0 GMLOS: No GMLOS Documented T [facility] 10-16-2024 Note Formatting of this n ote might be different from the original. Care Management Progress Note Short Medical why still here: Diagnostic workup Chart reviewed. PT/OT recommending SNF placement at DC. Attempted to met with pt and at bedside. not at bedside at present time. Pt appears to not understand fully, so this TCC called and left HIPAA compliant message to call back to discuss DC planning. Will continue to follow. Planned Discharge Disposition: Other (Comment) (Awaiting PT/OT) Barriers/Today we still Wait: Clinical stability, Diagnostic workup, Symptomatic control Length of Stay (Days): 0 GMLOS: No GMLOS Documented T [facility] 10-16-2024 Note Care Management Prog ress Note Short Medical why still here: Diagnostic workup Chart reviewed. PT/OT recommending SNF placement at DC. Attempted to met with pt and at bedside. not at bedside at present time. Pt appears to not understand fully, so this TCC called and left HIPAA compliant message to call back to discuss DC planning. Will continue to follow. Planned Discharge Disposition: Other (Comment) (Awaiting PT/OT) Barriers/Today we still Wait: Clinical stability, Diagnostic workup, Symptomatic control Length of Stay (Days): 0 GMLOS: No GMLOS Documented [facility] 10-16-[address] [facility] Initial Evaluation Name/MRN: Martha Milligan ([id number]) Evaluation Date: 10/16/2024 Date of : 1940 Admission Date: 10/15/2024 7:52 PM Age: 83 y.o. Room/Bed: B2-252/B2-252 A Discharge Recommendation: Shelter Facility Equipment Needed: No Assessment IMPRESSION: Pt admitted to ED on 10/16/24 with B hip pain. Pt has history of dementia which attributes to pt presentation and inability to identify cause for pain. Prior to admission, pt lived with and performed mobility independently roughly 3 days ago per spouse. Upon eval, pt required Mod/Max Ax1 for bed mobility, Unable to tolerate attempt at transfers/ambulation. Pt would benefit from skilled PT services in order to increase safety and independence in functional mobility and daily tasks. Recommend SNF upon DC. Admitting Diagnosis: B hip pain Prognosis: good Performance Deficits /Impairments: Increased Pain, Decreased Functional Mobility, Decreased ADL status, Decreased Strength, Decreased Safety Awareness, Decreased Endurance, and Decreased Balance Decision Making: Medium Complexity Subjective Pt agreeable to PT evaluation with moderate encouragement. Spouse present and assisting in PLOF d/t pt cognition. RN cleared pt for session. Pain: Mccormack-Ronquillo Pain Ratin = Hurts whole lot Pain Location: R hip Past Medical History: Medical History[1] Past Surgical History: Surgical History[2] Admission Diagnosis: Patient Active Problem List Diagnosis Date Noted Hip pain, bilateral 10/15/2024 Medical Precautions: No active isolations Proper PPE donned/doffed in accordance with facility standards. Fall Risk: Turner Fall Risk Score: 100 (High Risk) Precautions/Restrictions: Fall Precautions Family/Caregiver Present: spouse Overall Cognitive Status: Exceptions - Following commands: follows one step commands with increased time, follows one step commands with repetition, follows multi-step commands with increased time, and follows multi-step commands with repetition - Attention span: difficulty attending to directions - Memory: decreased recall of biographical information, decreased recall of precautions, decreased recall of recent events, and decreased short term memory - Safety judgement: decreased awareness of need for assistance and decreased awareness of need for safety - Problem solving: assistance required to generate solutions, assistance required to implement solutions, assistance required to identify errors made, and assistance required to correct errors made - Insights: not aware of deficits - Initiation: requires cues for all - Sequencing: requires cues for all Overall Orientation Status: Oriented to Person, Disoriented to Situation, Disoriented to Time, and Disoriented to Place Vision: wears glasses at all times and and are NOT being used during the eval Hearing: normal Social/Functional History Patient admitted from home. Lives With: Spouse Type of Home: single family home Home Layout: Two Level Home and Bed/Bath Upstairs - elevator to second floor noted Home Access: Ramped Entrance Bathroom Shower/Tub: Shower Chair with Back, Walk in Shower, and Grab Bars Toilet: Standard and Grab Bars Home Equipment: front wheeled walker and wheelchair - manual Homemaking Responsibilities: Independent Receives Help From: Family Active Project Hire: No Prior Level of Function Prior Level of ADL Function: Required Assist Prior Level of Mobility: Required Assist; Device: None Prior Level of Transfers: Required Assist Objective Lower Extremity Assessment AROM: Impaired: Decreased tolerance to mobility d/t pain Strength: Exceptions: Poor tolerance to MMT. Moderate agitation noted by pt. Grossly 3+/5 Sensation: WFL Bed Mobility: Supine to sit: Max Assist Sit to supine: Max Assist Rolling to left: Mod Assist Scooting: Max Assist Mod/Max Ax1 required for all bed mobility. Pt yelling out in pain with mobility. Calm de-escalation tactics required to improve pt tolerance to activity. Fair overall return noted. Cues given for self assistance with poor overall return noted. No LOB d/t support provided. Tolerated EOB sitting ~4 minutes at CGAx1. Transfers Unable to tolerate d/t pain. Pt becoming increasingly agitated with cues to attempt STS. De-escalation tactics utilized to avoid conflict with pt. Ambulation Did not assess this session. Outcome Measures AM-PAC How much HELP from another person do you currently need Turning from your back to your side while in a flat bed without using bedrails?: A Lot Moving from lying on your back to sitting on the side of a flat bed without using bedrails?: Total Moving to and from a bed to a chair (including a wheelchair)?: Total Standing up from a chair using your arms (wheelchair or bedside chair)?: Total Walking in a hospital room?: Total Stair climbing assessed?: No AM-PAC Inpatient Mobili (more content not included)... [facility] 10-16-2024 History and physical note Attending History and Physical Admit Date: 10/15/2024 PCP: Darron De La Cruz DO CHIEF COMPLAINT: Unable to stand and transfer with hip pain and hx of Alzheimers. thinks pt fell History Obtained From: ER HISTORY OF PRESENT ILLNESS: Martha is a 83 y.o. female who presents to the emergency department with chief complaint of hip pain and a fall. History is provided by the patient's , who states the patient has severe Alzheimer's dementia and thinks she may have fallen today but was complaining of right hip pain. When asked, the patient states that she cannot remember. The patient's denies any head injury or loss of consciousness. XR and CT pelvis done in ER only showed Degenerative changes but no fractures seen. Patient wants to go home but has dementia. is at bedside. He states she has been having difficulty walking because of hip pain. Patient herself currently denies any pain laying in bed. Otherwise she denies any chest pain no shortness of breath no other complaints. As far as CODE STATUS, states she has a living will and she is a DNR CCA no intubation. Past Medical History: Medical History[1] Past Surgical History: Surgical History[2] Family History: Family History[3] Medications Prior to Admission: Current Medications[4] Allergies: Barbiturates, Lorabid [loracarbef], Penicillins, Sulfamethoxazole, Celebrex [celecoxib], and Celexa [citalopram] Social History: Social History Socioeconomic History Marital status: Spouse name: Jordan Number of children: 2 Years of education: Not on file Highest education level: Not on file Occupational History Not on file Tobacco Use Smoking status: Former Current packs/day: 0.25 Average packs/day: 0.3 packs/day for 54.5 years (13.6 ttl pk-yrs) Types: Cigarettes Start date: 04/11/1960 Quit date: 1967 Smokeless tobacco: Never Vaping Use Vaping status: Never Used Substance and Sexual Activity Alcohol use: Not Currently Alcohol/week: 4.0 standard drinks of alcohol Drug use: Not Currently Sexual activity: Not Currently Partners: Male control/protection: None Other Topics Concern Not on file Social History Narrative Not on file Social Drivers of Health Financial Resource Strain: Low Risk (08/27/2024) Overall Financial Resource Strain (CARDIA) Difficulty of Paying Living Expenses: Not hard at all Food Insecurity: No Food Insecurity (08/27/2024) Hunger Vital Sign Worried About Running Out of Food in the Last Year: Never true Ran Out of Food in the Last Year: Never true Transportation Needs: No Transportation Needs (08/27/2024) PRAPARE - Transportation Lack of Transportation (Medical): No Lack of Transportation (Non-Medical): No Physical Activity: Inactive (08/27/2024) Exercise Vital Sign Days of Exercise per Week: 0 days Minutes of Exercise per Session: 0 min Stress: No Stress Concern Present (08/27/2024) [employer] - Occupational Stress Questionnaire Feeling of Stress : Not at all Social Connections: Moderately Isolated (08/27/2024) Social Connection and Isolation Panel [NHANES] Frequency of Communication with Friends and Family: Once a week Frequency of Social Gatherings with Friends and Family: Once a week Attends Baptism Services: 1 to 4 times per year Active Member of Clubs or Organizations: No Attends Club or Organization Meetings: Never Marital Status: Intimate Partner Violence: Not At Risk (08/27/2024) Humiliation, Afraid, Rape, and Kick questionnaire Fear of Current or Ex-Partner: No Emotionally Abused: No Physically Abused: No Sexually Abused: No Housing Stability: Low Risk (08/27/2024) Housing Stability Vital Sign Unable to Pay for Housing in the Last Year: No Number of Times Moved in the Last Year: 0 Homeless in the Last Year: No REVIEW OF SYSTEMS: Other than patient's chronic conditions and those complaints in the history above, the rest of the 10 systems review were done and were negative. Vitals: BP (!) 167/78 (BP Location: Left arm, Patient Position: Lying) Pulse 62 Temp 36.8 C (98.3 F) (Oral) Resp 18 Wt 136 lb 14.4 oz (62.1 kg) SpO2 94% BMI 26.08 kg/m BMI Classification: Overweight (BMI 25.0-29.9) Pulse Ox: SpO2 Av % Min: 94 % Max: 96 % Supplemental O2: PHYSICAL EXAM: General appearance: No apparent distress, appears stated age and cooperative with exam. HEENT: Eyes: No scleral icterus Oral: Tongue is semi-moist Cardiovascular: S1/S2 heard, RRR Respiratory: Clear to auscultation bilaterally Abdomen: Soft, non-tender, non-distended bowel sounds positive Musculoskeletal: No obvious deformities seen, range of motion of both hips are fine with no pain on passive movement Skin: No visible rashes or lesions. DATA: CBC: Recent Labs 10/15/242107 WBC 9.6 RBC 4.27 HGB 13.2 HCT 38.5 MCV 90.2 RDW 12.5 PLT 139* BMP: Recent Labs 10/15/242107 NA 141 K 3.5 CL 106 CO2 23 BUN 12 CREATININE 0.68 GLUCOSE 89 CALCIUM 9.7 ANIONGAP 12 LIVER PROFILE:No results for input(s): "AST", "ALT", "BILITOT", "ALKPHOS", "PROT" in the last 72 hours. No lab exists for component: LABALBU PT/INR: Recent Labs 10/15/242107 PROTIME 10.7 INR 1.0 CARDIAC ENZYMES: No results for input(s): "TROPONINI" in the last 72 hours. Procalcitonin: No results found for: "PROCAL" Urine Culture: No results found for this or any previous visit. COVID-19 PCR: No results for input(s): "COVID19" in the last 72 hours. I reviewed: [x] laboratory results [x] radiographic results At the time of today's encounter. Pt was advised of the results. 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 X-ray and CT pelvis in ER only showed degenerative hip disease but otherwise no fractures. Pain control, PT OT evaluation. Will have orthopedics evaluate # CODE STATUS: states DNR CCA no intubation but okay for ICU transfer for medical treatment Stable chronic problems affecting care, new non-acute diagnoses: # Alzheimer's dementia # Hx of anxiety and depression # Chronic hypertension # Hyperlipidemia # Chronic hypothyroidism # History of hiatal hernia PLAN: PT OT evaluation, consult Ortho to evaluate, Prednisone 30 mg po once (to see if this will help the with hip arthritis), Tylenol, lidocaine patch and as needed low-dose Roxicodone for pain, resume home medication, check vitals per routine, put on regular diet, up with assistance, Lovenox for DVT prophylaxis, please see the rest of the order for plan of care -PT/OT eval/increase activity -am labs, replace lytes prn -vitals per routine -home meds as ordered -DVT prophylaxis: [] Lovenox [] Heparin [] SCDs [x] Encourage ambulation [] Already on Anticoagulation -see below for additional orders, further recommendations to follow Orders Placed This Encounter Procedures XR femur bilateral 2 views XR pelvis [address] pelvis wo IV contrast CBC auto differential Basic metabolic panel Protime-INR Inpatient consult to Wound Prevention PT eval and treat Admit to inpatient Code status: No Order Please forward a copy of this H&P to the patient's PCP. Thank you. Electronically signed by [email or web address]@ on @TDNR@ at @NOWNR@ [1] Past Medical History: Diagnosis Date Anxiety Depression Folate deficiency Hiatal hernia Hyperlipemia Hypertension Hypothyroidism Memory loss Osteopenia Vitamin D deficiency [2] Past Surgical History: Procedure Laterality Date COLONOSCOPY 09/22/2015 PARATHYROIDECTOMY 1992 THYROID SURGERY 1992 Benign Thyroid mass TONSILLECTOMY TUBAL LIGATION [3] Family History Problem Relation Name Age of Onset Dementia Mother Alysha Lang Stroke Mother Alysha Lang Breast cancer Mother Alysha Lang Lung cancer Father [place] Brain cancer Father [place] Hypertension Father [place] Heart attack Father [place] Lymphoma Father [place] Cancer Father [place] [4] No current facility-administered medications for this encounter. [facility] 10-16-2024 Note Attending History an d Physical Admit Date: 10/15/2024 PCP: Darron De La Cruz DO CHIEF COMPLAINT: Unable to stand and transfer with hip pain and hx of Alzheimers. thinks pt fell History Obtained From: ER HISTORY OF PRESENT ILLNESS: Martha is a 83 y.o. female who presents to the emergency department with chief complaint of hip pain and a fall. History is provided by the patient's , who states the patient has severe Alzheimer's dementia and thinks she may have fallen today but was complaining of right hip pain. When asked, the patient states that she cannot remember. The patient's denies any head injury or loss of consciousness. XR and CT pelvis done in ER only showed Degenerative changes but no fractures seen. Patient wants to go home but has dementia. is at bedside. He states she has been having difficulty walking because of hip pain. Patient herself currently denies any pain laying in bed. Otherwise she denies any chest pain no shortness of breath no other complaints. As far as CODE STATUS, states she has a living will and she is a DNR CCAno intubation. Past Medical History: Medical History[1] Past Surgical History: Surgical History[2] Family History: Family History[3] Medications Prior to Admission: Current Medications[4] Allergies: Barbiturates, Lorabid [loracarbef], Penicillins, Sulfamethoxazole, Celebrex [celecoxib], and Celexa [citalopram] Social History: Social History Socioeconomic History Marital status: Spouse name: Jordan Number of children: 2 Years of education: Not on file Highest education level: Not on file Occupational History Not on file Tobacco Use Smoking status: Former Current packs/day: 0.25 Average packs/day: 0.3 packs/day for 54.5 years (13.6 ttl pk-yrs) Types: Cigarettes Start date: 04/11/1960 Quit date: 1967 Smokeless tobacco: Never Vaping Use Vaping status: Never Used Substance and Sexual Activity Alcohol use: Not Currently Alcohol/week: 4.0 standard drinks of alcohol Drug use: Not Currently Sexual activity: Not Currently Partners: Male control/protection: None Other Topics Concern Not on file Social History Narrative Not on file Social Drivers of Health Financial Resource Strain: Low Risk (08/27/2024) Overall Financial Resource Strain (CARDIA) Difficulty of Paying Living Expenses: Not hard at all Food Insecurity: No Food Insecurity (08/27/2024) Hunger Vital Sign Worried About Running Out of Food in the Last Year: Never true Ran Out of Food in the Last Year: Never true Transportation Needs: No Transportation Needs (08/27/2024) PRAPARE - Transportation Lack of Transportation (Medical): No Lack of Transportation (Non-Medical): No Physical Activity: Inactive (08/27/2024) Exercise Vital Sign Days of Exercise per Week: 0 days Minutes of Exercise per Session: 0 min Stress: No Stress Concern Present (08/27/2024) [employer] - Occupational Stress Questionnaire Feeling of Stress : Not at all Social Connections: Moderately Isolated (08/27/2024) Social Connection and Isolation Panel [NHANES] Frequency of Communication with Friends and Family: Once a week Frequency of Social Gatherings with Friends and Family: Once a week Attends Baptism Services: 1 to 4 times per year Active Member of Clubs or Organizations: No Attends Club or Organization Meetings: Never Marital Status: Intimate Partner Violence: Not At Risk (08/27/2024) Humiliation, Afraid, Rape, and Kick questionnaire Fear of Current or Ex-Partner: No Emotionally Abused: No Physically Abused: No Sexually Abused: No Housing Stability: Low Risk (08/27/2024) Housing Stability Vital Sign Unable to Pay for Housing in the Last Year: No Number of Times Moved in the Last Year: 0 Homeless in the Last Year: No REVIEW OF SYSTEMS: Other than patient's chronic conditions and those complaints in the history above, the rest of the 10 systems review were done and were negative. Vitals: BP (!) 167/78 (BP Location: Left arm, Patient Position: Lying) Pulse 62 Temp 36.8 ?C (98.3 ?F) (Oral) Resp 18 Wt 136 lb 14.4 oz (62.1 kg) SpO2 94% BMI 26.08 kg/m? BMI Classification: Overweight (BMI 25.0-29.9) Pulse Ox: SpO2 Av % Min: 94 % Max: 96 % Supplemental O2: PHYSICAL EXAM: General appearance: No apparent distress, appears stated age and cooperative with exam. HEENT: Eyes: No scleral icterus Oral: Tongue is semi-moist Cardiovascular: S1/S2 heard, RRR Respiratory: Clear to auscultation bilaterally Abdomen: Soft, non-tender, non-distended bowel sounds positive Musculoskeletal: No obvious deformities seen, range of motion of both hips are fine with no pain on passive movement Skin: No visible rashes or lesions. DATA: CBC: Recent Labs 10/15/248 WBC 9.6 RBC 4.27 HGB 13.2 HCT 38.5 MCV 90.2 RDW 12.5 PLT 139* BMP: Rec (more content not included)... [facility] 10-16-2024 History and physical note Attending History and Physical Admit Date: 10/15/2024 PCP: Darron De La Cruz DO CHIEF COMPLAINT: Unable to stand and transfer with hip pain and hx of Alzheimers. thinks pt fell History Obtained From: ER HISTORY OF PRESENT ILLNESS: Martha is a 83 y.o. female who presents to the emergency department with chief complaint of hip pain and a fall. History is provided by the patient's , who states the patient has severe Alzheimer's dementia and thinks she may have fallen today but was complaining of right hip pain. When asked, the patient states that she cannot remember. The patient's denies any head injury or loss of consciousness. XR and CT pelvis done in ER only showed Degenerative changes but no fractures seen. Patient wants to go home but has dementia. is at bedside. He states she has been having difficulty walking because of hip pain. Patient herself currently denies any pain laying in bed. Otherwise she denies any chest pain no shortness of breath no other complaints. As far as CODE STATUS, states she has a living will and she is a DNR CCA no intubation. Past Medical History: Medical History[1] Past Surgical History: Surgical History[2] Family History: Family History[3] Medications Prior to Admission: Current Medications[4] Allergies: Barbiturates, Lorabid [loracarbef], Penicillins, Sulfamethoxazole, Celebrex [celecoxib], and Celexa [citalopram] Social History: Social History Socioeconomic History Marital status: Spouse name: Jordan Number of children: 2 Years of education: Not on file Highest education level: Not on file Occupational History Not on file Tobacco Use Smoking status: Former Current packs/day: 0.25 Average packs/day: 0.3 packs/day for 54.5 years (13.6 ttl pk-yrs) Types: Cigarettes Start date: 04/11/1960 Quit date: 1967 Smokeless tobacco: Never Vaping Use Vaping status: Never Used Substance and Sexual Activity Alcohol use: Not Currently Alcohol/week: 4.0 standard drinks of alcohol Drug use: Not Currently Sexual activity: Not Currently Partners: Male control/protection: None Other Topics Concern Not on file Social History Narrative Not on file Social Drivers of Health Financial Resource Strain: Low Risk (08/27/2024) Overall Financial Resource Strain (CARDIA) Difficulty of Paying Living Expenses: Not hard at all Food Insecurity: No Food Insecurity (08/27/2024) Hunger Vital Sign Worried About Running Out of Food in the Last Year: Never true Ran Out of Food in the Last Year: Never true Transportation Needs: No Transportation Needs (08/27/2024) PRAPARE - Transportation Lack of Transportation (Medical): No Lack of Transportation (Non-Medical): No Physical Activity: Inactive (08/27/2024) Exercise Vital Sign Days of Exercise per Week: 0 days Minutes of Exercise per Session: 0 min Stress: No Stress Concern Present (08/27/2024) [employer] - Occupational Stress Questionnaire Feeling of Stress : Not at all Social Connections: Moderately Isolated (08/27/2024) Social Connection and Isolation Panel [NHANES] Frequency of Communication with Friends and Family: Once a week Frequency of Social Gatherings with Friends and Family: Once a week Attends Baptism Services: 1 to 4 times per year Active Member of Clubs or Organizations: No Attends Club or Organization Meetings: Never Marital Status: Intimate Partner Violence: Not At Risk (08/27/2024) Humiliation, Afraid, Rape, and Kick questionnaire Fear of Current or Ex-Partner: No Emotionally Abused: No Physically Abused: No Sexually Abused: No Housing Stability: Low Risk (08/27/2024) Housing Stability Vital Sign Unable to Pay for Housing in the Last Year: No Number of Times Moved in the Last Year: 0 Homeless in the Last Year: No REVIEW OF SYSTEMS: Other than patient's chronic conditions and those complaints in the history above, the rest of the 10 systems review were done and were negative. Vitals: BP (!) 167/78 (BP Location: Left arm, Patient Position: Lying) Pulse 62 Temp 36.8 C (98.3 F) (Oral) Resp 18 Wt 136 lb 14.4 oz (62.1 kg) SpO2 94% BMI 26.08 kg/m BMI Classification: Overweight (BMI 25.0-29.9) Pulse Ox: SpO2 Av % Min: 94 % Max: 96 % Supplemental O2: PHYSICAL EXAM: General appearance: No apparent distress, appears stated age and cooperative with exam. HEENT: Eyes: No scleral icterus Oral: Tongue is semi-moist Cardiovascular: S1/S2 heard, RRR Respiratory: Clear to auscultation bilaterally Abdomen: Soft, non-tender, non-distended bowel sounds positive Musculoskeletal: No obvious deformities seen, range of motion of both hips are fine with no pain on passive movement Skin: No visible rashes or lesions. DATA: CBC: Recent Labs 10/15/242107 WBC 9.6 RBC 4.27 HGB 13.2 HCT 38.5 MCV 90.2 RDW 12.5 PLT 139* BMP: Recent Labs 10/15/242107 NA 141 K 3.5 CL 106 CO2 23 BUN 12 CREATININE 0.68 GLUCOSE 89 CALCIUM 9.7 ANIONGAP 12 LIVER PROFILE:No results for input(s): "AST", "ALT", "BILITOT", "ALKPHOS", "PROT" in the last 72 hours. No lab exists for component: LABALBU PT/INR: Recent Labs 10/15/242107 PROTIME 10.7 INR 1.0 CARDIAC ENZYMES: No results for input(s): "TROPONINI" in the last 72 hours. Procalcitonin: No results found for: "PROCAL" Urine Culture: No results found for this or any previous visit. COVID-19 PCR: No results for input(s): "COVID19" in the last 72 hours. I reviewed: [x] laboratory results [x] radiographic results At the time of today's encounter. Pt was advised of the results. 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 X-ray and CT pelvis in ER only showed degenerative hip disease but otherwise no fractures. Pain control, PT OT evaluation. Will have orthopedics evaluate # CODE STATUS: states DNR CCA no intubation but okay for ICU transfer for medical treatment Stable chronic problems affecting care, new non-acute diagnoses: # Alzheimer's dementia # Hx of anxiety and depression # Chronic hypertension # Hyperlipidemia # Chronic hypothyroidism # History of hiatal hernia PLAN: PT OT evaluation, consult Ortho to evaluate, Prednisone 30 mg po once (to see if this will help the with hip arthritis), Tylenol, lidocaine patch and as needed low-dose Roxicodone for pain, resume home medication, check vitals per routine, put on regular diet, up with assistance, Lovenox for DVT prophylaxis, please see the rest of the order for plan of care -PT/OT eval/increase activity -am labs, replace lytes prn -vitals per routine -home meds as ordered -DVT prophylaxis: [] Lovenox [] Heparin [] SCDs [x] Encourage ambulation [] Already on Anticoagulation -see below for additional orders, further recommendations to follow Orders Placed This Encounter Procedures XR femur bilateral 2 views XR pelvis [address] pelvis wo IV contrast CBC auto differential Basic metabolic panel Protime-INR Inpatient consult to Wound Prevention PT eval and treat Admit to inpatient Code status: No Order Please forward a copy of this H&P to the patient's PCP. Thank you. Electronically signed by [email or web address]@ on @TDNR@ at @NOWNR@ [1] Past Medical History: Diagnosis Date Anxiety Depression Folate deficiency Hiatal hernia Hyperlipemia Hypertension Hypothyroidism Memory loss Osteopenia Vitamin D deficiency [2] Past Surgical History: Procedure Laterality Date COLONOSCOPY 09/22/2015 PARATHYROIDECTOMY 1993 THYROID SURGERY 1992 Benign Thyroid mass TONSILLECTOMY TUBAL LIGATION [3] Family History Problem Relation Name Age of Onset Dementia Mother Alysha Lang Stroke Mother Alysha Lang Breast cancer Mother Alysha Lang Lung cancer Father [place] Brain cancer Father [place] Hypertension Father [place] Heart attack Father [place] Lymphoma Father [place] Cancer Father [place] [4] No current facility-administered medications for this encounter. documented in this encounter [facility] 10-16-2024 Emergency department Note Pt depends changed for urine incontinence and repositioned in bed for comfort. [facility] 10-16-2024 Emergency department Note Pt depends changed for urine incontinence and repositioned in bed for comfort. Pt to xray via cart and lifted onto table with assist of 3. Tolerated well EMERGENCY DEPARTMENT ENCOUNTER Pt Name: Martha Milligan Birthdate 1940 Date of evaluation: 10/15/2024 ED Provider: Almita Rincon MD CHIEF COMPLAINT No chief complaint on file. HISTORY OF PRESENT ILLNESS (Location/Symptom, Timing/Onset, Context/Setting, Quality, Duration, Modifying Factors, Severity) Note limiting factors. I wore appropriate PPE for the entirety of this encounter. HPI Martha Milligan is a 83 y.o. female who presents to the emergency department with chief complaint of hip pain and a fall. History is provided by the patient's , who states the patient has severe Alzheimer's dementia and thinks she may have fallen today but was complaining of right hip pain. When asked, the patient states that she cannot remember. The patient's denies any head injury or loss of consciousness. Nursing Notes were reviewed. Limitations to history: Alzheimer's dementia Outside historians: Significant other REVIEW OF SYSTEMS Review of Systems Pertinent positives and negatives as per HPI. PAST MEDICAL HISTORY Medical History[1] SURGICAL HISTORY Surgical History[2] CURRENT MEDICATIONS Previous Medications ATORVASTATIN (LIPITOR) 10 MG TABLET Take 10 mg by mouth Nightly. DONEPEZIL (ARICEPT) 10 MG TABLET Take 1 tablet (10 mg) by mouth Nightly. FOLIC ACID (FOLVITE) 800 MCG TABLET Take 1 tablet by mouth daily. LEVOTHYROXINE (SYNTHROID, LEVOXYL) 75 MCG TABLET Take 75 mcg by mouth every morning (before breakfast). LISINOPRIL-HYDROCHLOROTHIAZIDE 20-12.5 MG TABLET Take 1 tablet by mouth daily. MEMANTINE (NAMENDA) 10 MG TABLET Take 1 tablet (10 mg) by mouth 2 times daily. Start after the initial titration script Do not start before September 20, 2024. MEMANTINE (NAMENDA) 5 MG TABLET Take 1 tablet (5 mg) daily for 7 days. Then take 1 tablet (5 mg) twice a day for 7 days. Then take 2 tablets (10 mg) in AM and 1 tablet (5 mg) in PM for 7 days. Then proceed to next script NAPROXEN (NAPROSYN) 250 MG TABLET Take 250 mg by mouth Nightly as needed for mild pain (1-3). SERTRALINE (ZOLOFT) 50 MG TABLET Take 50 mg by mouth daily. ALLERGIES Barbiturates, Lorabid [loracarbef], Penicillins, Sulfamethoxazole, Celebrex [celecoxib], and Celexa [citalopram] FAMILY HISTORY Family History[3] SOCIAL HISTORY Social History[4] SCREENINGS PHYSICAL EXAM ED Triage Vitals [10/15/241951] Temp Heart Rate Resp BP 36.6 C (97.9 F) 66 18 (!) 186/78 SpO2 Temp Source Heart Rate Source Patient Position 95 % Temporal Monitor -- BP Location FiO2 (%) -- -- Physical Exam Vitals and nursing note reviewed. Constitutional: General: She is not in acute distress. Appearance: She is well-developed. HENT: Head: Normocephalic and atraumatic. Eyes: Conjunctiva/sclera: Conjunctivae normal. Cardiovascular: Rate and Rhythm: Normal rate. Pulmonary: Effort: Pulmonary effort is normal. No respiratory distress. Musculoskeletal: General: No swelling. Cervical back: Neck supple. Comments: TTP to bilateral hips. No TTP along the femurs or tib-fibs Skin: General: Skin is warm and dry. Neurological: Mental Status: She is alert. Psychiatric: Mood and Affect: Mood normal. DIAGNOSTIC RESULTS Procedures/EKG: Interpretation per the Radiologist below, if available at the time of this note: CT pelvis wo IV contrast Final Result 1. No acute osseous abnormality. 2. Degenerative change. Report Dictated on Electronically Signed By: Lazaro Osuna MD Electronically Signed Date/Time: 10/15/2024 9:33 PM EDT XR femur bilateral 2 views Final Result 1. No acute osseous abnormality. 2. Degenerative change. Report Dictated on Electronically Signed By: Lazaro Osuna MD Electronically Signed Date/Time: 10/15/2024 8:41 PM EDT XR pelvis 1 or 2 views Final Result 1. No acute osseous abnormality. 2. Degenerative change. Report Dictated on Electronically Signed By: Lazaro Osuna MD Electronically Signed Date/Time: 10/15/2024 8:41 PM EDT ED BEDSIDE ULTRASOUND: Performed by ED Physician - none LABS: Labs Reviewed CBC WITH AUTO DIFFERENTIAL - Abnormal Result Value Auto WBC 9.6 RBC 4.27 Hemoglobin 13.2 Hematocrit 38.5 MCV 90.2 MCH 30.9 MCHC 34.3 RDW 12.5 Platelets 139 (*) MPV 11.1 nRBC 0.0 Neutrophils Relative 75.4 Lymphocytes Relative 12.8 (*) Monocytes Relative 10.7 Eosinophils Relative 0.0 Basophils Relative 0.7 Immature Grans % 0.4 Neutrophils Absolute 7.2 Lymphocytes Absolute 1.2 Monocytes Absolute 1.0 (*) Eosinophils Absolute 0.0 Basophils Absolute 0.1 Immature Grans Absolute 0.0 IPF 5 BASIC METABOLIC PANEL - Normal SODIUM 141 POTASSIUM 3.5 CHLORIDE 106 CARBON DIOXIDE 23 UREA NITROGEN 12 CREATININE 0.68 GLUCOSE 89 CALCIUM 9.7 ANION GAP 12 eGFR 87.6 PROTHROMBIN TIME - Normal PROTHROMBIN TIME 10.7 INR 1.0 All other labs were within normal range or not returned as of this dictation. EMERGENCY DEPARTMENT COURSE and DIFFERENTIAL DIAGNOSIS/MDM: Vitals: Vitals: 10/15/242 10/15/24 2154 BP: (!) 186/78 (!) 181/82 BP Location: Right arm Patient Position: Lying Pulse: 66 64 Resp: 18 17 Temp: 36.6 C (97.9 F) TempSrc: Temporal SpO2: 95% 96% Weight: 62.1 kg (136 lb 14.4 oz) The patient presented with a chief complaint of hip pain after a fall The differential diagnosis associated with this patient's presentation includes but is not limited to: Presentation concerning for traumatic injuries, including fractures Our workup consisted of ordering/reviewing: X-rays of the pelvis and bilateral femurs I reviewed external records from: [facility] demonstrating no controlled substance prescriptions X-rays negative for fracture, upon my independent interpretation. Patient still unable to bear weight and subsequently, CT pelvis ordered, as patient still has tenderness to both of her hips. CT negative for fracture. Patient care discussed with: Dr. Baeza, [facility] hospitalist, who has agreed to accept the patient for admission. Consideration for escalation of care with: Admission. The patient requires hospitalization due to inability to ambulate Patient's care was impacted by Alzheimer's dementia The patient will be discharged The patient is in agreement with this plan. Diagnoses as of 10/15/24 2207 Hip pain, bilateral Unable to ambulate Medications - No data to display REVAL: CRITICAL CARE TIME None CONSULTS: None PROCEDURES: Unless otherwise noted below, none Procedures FINAL IMPRESSION 1. Hip pain, bilateral 2. Unable to ambulate DISPOSITION Admit 10/15/2024 10:05:55 PM PATIENT REFERRED TO: No follow-up provider specified. DISCHARGE MEDICATIONS: New Prescriptions No medications on file (Comment: Please note this report has been produced using speech recognition software and may contain errors related to that system including errors in grammar, punctuation, and spelling, as well as words and phrases that may be inappropriate. If there are any questions or concerns please feel free to contact the dictating provider for clarification.) Almita Rincon MD (electronically signed) Emergency Medicine Provider [1] Past Medical History: Diagnosis Date Anxiety Depression Folate deficiency Hiatal hernia Hyperlipemia Hypertension Hypothyroidism Memory loss Osteopenia Vitamin D deficiency [2] Past Surgical History: Procedure Laterality Date COLONOSCOPY 09/22/2015 PARATHYROIDECTOMY 1992 THYROID SURGERY 1992 Benign Thyroid mass TONSILLECTOMY TUBAL LIGATION [3] Family History Problem Relation Name Age of Onset Dementia Mother Alysha Lang Stroke Mother Alysha Lang Breast cancer Mother Alysha Lang Lung cancer Father [place] Brain cancer Father [place] Hypertension Father [place] Heart attack Father [place] Lymphoma Father [place] Cancer Father [place] [4] Social History Socioeconomic History Marital status: Spouse name: Jordan Number of children: 2 Tobacco Use Smoking status: Former Current packs/day: 0.25 Average packs/day: 0.3 packs/day for 54.5 years (13.6 ttl pk-yrs) Types: Cigarettes Start date: 04/11/1960 Quit date: 1967 Smokeless tobacco: Never Vaping Use Vaping status: Never Used Substance and Sexual Activity Alcohol use: Not Currently Alcohol/week: 4.0 standard drinks of alcohol Drug use: Not Currently Sexual activity: Not Currently Partners: Male control/protection: None Social Drivers of Health Financial Resource Strain: Low Risk (08/27/2024) Overall Financial Resource Strain (CARDIA) Difficulty of Paying Living Expenses: Not hard at all Food Insecurity: No Food Insecurity (08/27/2024) Hunger Vital Sign Worried About Running Out of Food in the Last Year: Never true Ran Out of Food in the Last Year: Never true Transportation Needs: No Transportation Needs (08/27/2024) PRAPARE - Transportation Lack of Transportation (Medical): No Lack of Transportation (Non-Medical): No Physical Activity: Inactive (08/27/2024) Exercise Vital Sign Days of Exercise per Week: 0 days Minutes of Exercise per Session: 0 min Stress: No Stress Concern Present (08/27/2024) [employer] - Occupational Stress Questionnaire Feeling of Stress : Not at all Social Connections: Moderately Isolated (08/27/2024) Social Connection and Isolation Panel [NHANES] Frequency of Communication with Friends and Family: Once a week Frequency of Social Gatherings with Friends and Family: Once a week Attends Baptism Services: 1 to 4 times per year Active Member of Clubs or Organizations: No Attends Club or Organization Meetings: Never Marital Status: Intimate Partner Violence: Not At Risk (08/27/2024) Humiliation, Afraid, Rape, and Kick questionnaire Fear of Current or Ex-Partner: No Emotionally Abused: No Physically Abused: No Sexually Abused: No Housing Stability: Low Risk (08/27/2024) Housing Stability Vital Sign Unable to Pay for Housing in the Last Year: No Number of Times Moved in the Last Year: 0 Homeless in the Last Year: No Monica Rincon MD 10/15/242206 Pt to ER with her . Pt with hx of dementia- pt unable to answer questions about why she is here. Info obtained through . State she normally uses a wheelchair, but she was not able to stand and transfer today. thinks pt fell. states he lifted her into the wheelchair today from the car. Pt able to stand with assist of this RN and to pivot into the bed. Complains of pain with movement. Side rails up x 2 for safety. Cody light in reach. @ bedside. documented in this encounter [facility] 10-16-2024 Nurse Note Chart accessed pending admission to [address] [facility] 10-15-2024 Emergency department Note Pt to xray via cart and lifted onto table with assist of 3. Tolerated well [facility] 10-15-2024 Emergency department Triage note Pt to ER with her . Pt with hx of dementia- pt unable to answer questions about why she is here. Info obtained through . State she normally uses a wheelchair, but she was not able to stand and transfer today. thinks pt fell. states he lifted her into the wheelchair today from the car. Pt able to stand with assist of this RN and to pivot into the bed. Complains of pain with movement. Side rails up x 2 for safety. Cody light in reach. @ bedside. [facility] 10-15-2024 Physician Emergency department Note EMERGENCY DEPARTMENT ENCOUNTER Pt Name: Martha Milligan Birthdate 1940 Date of evaluation: 10/15/2024 ED Provider: Almita Rincon MD CHIEF COMPLAINT No chief complaint on file. HISTORY OF PRESENT ILLNESS (Location/Symptom, Timing/Onset, Context/Setting, Quality, Duration, Modifying Factors, Severity) Note limiting factors. I wore appropriate PPE for the entirety of this encounter. HPI Martha Milligan is a 83 y.o. female who presents to the emergency department with chief complaint of hip pain and a fall. History is provided by the patient's , who states the patient has severe Alzheimer's dementia and thinks she may have fallen today but was complaining of right hip pain. When asked, the patient states that she cannot remember. The patient's denies any head injury or loss of consciousness. Nursing Notes were reviewed. Limitations to history: Alzheimer's dementia Outside historians: Significant other REVIEW OF SYSTEMS Review of Systems Pertinent positives and negatives as per HPI. PAST MEDICAL HISTORY Medical History[1] SURGICAL HISTORY Surgical History[2] CURRENT MEDICATIONS Previous Medications ATORVASTATIN (LIPITOR) 10 MG TABLET Take 10 mg by mouth Nightly. DONEPEZIL (ARICEPT) 10 MG TABLET Take 1 tablet (10 mg) by mouth Nightly. FOLIC ACID (FOLVITE) 800 MCG TABLET Take 1 tablet by mouth daily. LEVOTHYROXINE (SYNTHROID, LEVOXYL) 75 MCG TABLET Take 75 mcg by mouth every morning (before breakfast). LISINOPRIL-HYDROCHLOROTHIAZIDE 20-12.5 MG TABLET Take 1 tablet by mouth daily. MEMANTINE (NAMENDA) 10 MG TABLET Take 1 tablet (10 mg) by mouth 2 times daily. Start after the initial titration script Do not start before September 20, 2024. MEMANTINE (NAMENDA) 5 MG TABLET Take 1 tablet (5 mg) daily for 7 days. Then take 1 tablet (5 mg) twice a day for 7 days. Then take 2 tablets (10 mg) in AM and 1 tablet (5 mg) in PM for 7 days. Then proceed to next script NAPROXEN (NAPROSYN) 250 MG TABLET Take 250 mg by mouth Nightly as needed for mild pain (1-3). SERTRALINE (ZOLOFT) 50 MG TABLET Take 50 mg by mouth daily. ALLERGIES Barbiturates, Lorabid [loracarbef], Penicillins, Sulfamethoxazole, Celebrex [celecoxib], and Celexa [citalopram] FAMILY HISTORY Family History[3] SOCIAL HISTORY Social History[4] SCREENINGS PHYSICAL EXAM ED Triage Vitals [10/15/241951] Temp Heart Rate Resp BP 36.6 C (97.9 F) 66 18 (!) 186/78 SpO2 Temp Source Heart Rate Source Patient Position 95 % Temporal Monitor -- BP Location FiO2 (%) -- -- Physical Exam Vitals and nursing note reviewed. Constitutional: General: She is not in acute distress. Appearance: She is well-developed. HENT: Head: Normocephalic and atraumatic. Eyes: Conjunctiva/sclera: Conjunctivae normal. Cardiovascular: Rate and Rhythm: Normal rate. Pulmonary: Effort: Pulmonary effort is normal. No respiratory distress. Musculoskeletal: General: No swelling. Cervical back: Neck supple. Comments: TTP to bilateral hips. No TTP along the femurs or tib-fibs Skin: General: Skin is warm and dry. Neurological: Mental Status: She is alert. Psychiatric: Mood and Affect: Mood normal. DIAGNOSTIC RESULTS Procedures/EKG: Interpretation per the Radiologist below, if available at the time of this note: CT pelvis wo IV contrast Final Result 1. No acute osseous abnormality. 2. Degenerative change. Report Dictated on Electronically Signed By: Lazaro Osuna MD Electronically Signed Date/Time: 10/15/2024 9:33 PM EDT XR femur bilateral 2 views Final Result 1. No acute osseous abnormality. 2. Degenerative change. Report Dictated on Electronically Signed By: Lazaro Osuna MD Electronically Signed Date/Time: 10/15/2024 8:41 PM EDT XR pelvis 1 or 2 views Final Result 1. No acute osseous abnormality. 2. Degenerative change. Report Dictated on Electronically Signed By: Lazaro Osuna MD Electronically Signed Date/Time: 10/15/2024 8:41 PM EDT ED BEDSIDE ULTRASOUND: Performed by ED Physician - none LABS: Labs Reviewed CBC WITH AUTO DIFFERENTIAL - Abnormal Result Value Auto WBC 9.6 RBC 4.27 Hemoglobin 13.2 Hematocrit 38.5 MCV 90.2 MCH 30.9 MCHC 34.3 RDW 12.5 Platelets 139 (*) MPV 11.1 nRBC 0.0 Neutrophils Relative 75.4 Lymphocytes Relative 12.8 (*) Monocytes Relative 10.7 Eosinophils Relative 0.0 Basophils Relative 0.7 Immature Grans % 0.4 Neutrophils Absolute 7.2 Lymphocytes Absolute 1.2 Monocytes Absolute 1.0 (*) Eosinophils Absolute 0.0 Basophils Absolute 0.1 Immature Grans Absolute 0.0 IPF 5 BASIC METABOLIC PANEL - Normal SODIUM 141 POTASSIUM 3.5 CHLORIDE 106 CARBON DIOXIDE 23 UREA NITROGEN 12 CREATININE 0.68 GLUCOSE 89 CALCIUM 9.7 ANION GAP 12 eGFR 87.6 PROTHROMBIN TIME - Normal PROTHROMBIN TIME 10.7 INR 1.0 All other labs were within normal range or not returned as of this dictation. EMERGENCY DEPARTMENT COURSE and DIFFERENTIAL DIAGNOSIS/MDM: Vitals: Vitals: 10/15/24 1952 10/15/24 2154 BP: (!) 186/78 (!) 181/82 BP Location: Right arm Patient Position: Lying Pulse: 66 64 Resp: 18 17 Temp: 36.6 C (97.9 F) TempSrc: Temporal SpO2: 95% 96% Weight: 62.1 kg (136 lb 14.4 oz) The patient presented with a chief complaint of hip pain after a fall The differential diagnosis associated with this patient's presentation includes but is not limited to: Presentation concerning for traumatic injuries, including fractures Our workup consisted of ordering/reviewing: X-rays of the pelvis and bilateral femurs I reviewed external records from: [employer]MP demonstrating no controlled substance prescriptions X-rays negative for fracture, upon my independent interpretation. Patient still unable to bear weight and subsequently, CT pelvis ordered, as patient still has tenderness to both of her hips. CT negative for fracture. Patient care discussed with: Dr. Baeza, [facility] hospitalist, who has agreed to accept the patient for admission. Consideration for escalation of care with: Admission. The patient requires hospitalization due to inability to ambulate Patient's care was impacted by Alzheimer's dementia The patient will be discharged The patient is in agreement with this plan. Diagnoses as of 10/15/247 Hip pain, bilateral Unable to ambulate Medications - No data to display REVAL: CRITICAL CARE TIME None CONSULTS: None PROCEDURES: Unless otherwise noted below, none Procedures FINAL IMPRESSION 1. Hip pain, bilateral 2. Unable to ambulate DISPOSITION Admit 10/15/2024 10:05:55 PM PATIENT REFERRED TO: No follow-up provider specified. DISCHARGE MEDICATIONS: New Prescriptions No medications on file (Comment: Please note this report has been produced using speech recognition software and may contain errors related to that system including errors in grammar, punctuation, and spelling, as well as words and phrases that may be inappropriate. If there are any questions or concerns please feel free to contact the dictating provider for clarification.) Almita Rincon MD (electronically signed) Emergency Medicine Provider [1] Past Medical History: Diagnosis Date Anxiety Depression Folate deficiency Hiatal hernia Hyperlipemia Hypertension Hypothyroidism Memory loss Osteopenia Vitamin D deficiency [2] Past Surgical History: Procedure Laterality Date COLONOSCOPY 09/22/2015 PARATHYROIDECTOMY 1993 THYROID SURGERY 1992 Benign Thyroid mass TONSILLECTOMY TUBAL LIGATION [3] Family History Problem Relation Name Age of Onset Dementia Mother Alysha Lang Stroke Mother Alysha Lang Breast cancer Mother Alysha Lang Lung cancer Father [place] Brain cancer Father [place] Hypertension Father [place] Heart attack Father [place] Lymphoma Father [place] Cancer Father [place] [4] Social History Socioeconomic History Marital status: Spouse name: Jordan Number of children: 2 Tobacco Use Smoking status: Former Current packs/day: 0.25 Average packs/day: 0.3 packs/day for 54.5 years (13.6 ttl pk-yrs) Types: Cigarettes Start date: 04/11/1960 Quit date: 1967 Smokeless tobacco: Never Vaping Use Vaping status: Never Used Substance and Sexual Activity Alcohol use: Not Currently Alcohol/week: 4.0 standard drinks of alcohol Drug use: Not Currently Sexual activity: Not Currently Partners: Male control/protection: None Social Drivers of Health Financial Resource Strain: Low Risk (08/27/2024) Overall Financial Resource Strain (CARDIA) Difficulty of Paying Living Expenses: Not hard at all Food Insecurity: No Food Insecurity (08/27/2024) Hunger Vital Sign Worried About Running Out of Food in the Last Year: Never true Ran Out of Food in the Last Year: Never true Transportation Needs: No Transportation Needs (08/27/2024) PRAPARE - Transportation Lack of Transportation (Medical): No Lack of Transportation (Non-Medical): No Physical Activity: Inactive (08/27/2024) Exercise Vital Sign Days of Exercise per Week: 0 days Minutes of Exercise per Session: 0 min Stress: No Stress Concern Present (08/27/2024) [employer] - Occupational Stress Questionnaire Feeling of Stress : Not at all Social Connections: Moderately Isolated (08/27/2024) Social Connection and Isolation Panel [NHANES] Frequency of Communication with Friends and Family: Once a week Frequency of Social Gatherings with Friends and Family: Once a week Attends Baptism Services: 1 to 4 times per year Active Member of Clubs or Organizations: No Attends Club or Organization Meetings: Never Marital Status: Intimate Partner Violence: Not At Risk (08/27/2024) Humiliation, Afraid, Rape, and Kick questionnaire Fear of Current or Ex-Partner: No Emotionally Abused: No Physically Abused: No Sexually Abused: No Housing Stability: Low Risk (08/27/2024) Housing Stability Vital Sign Unable to Pay for Housing in the Last Year: No Number of Times Moved in the Last Year: 0 Homeless in the Last Year: No Monica Rincon MD 10/15/242206 [facility] 09-06-2024 Telephone encounter Note Request for refill received from pharmacy Last appointment: 08/30/2024 Next appointment: 01/31/2025 Pharmacy confirmed: [x] Yes [] No [facility] 09-06-2024 Miscellaneous Notes Request for refill received from pharmacy Last appointment: 08/30/2024 Next appointment: 01/31/2025 Pharmacy confirmed: [x] Yes [] No documented in this encounter [facility] 01-12-2024 History of Present illness Narrative Images from the original note were not included. [facility] [id number] Dept: [phone] Dept Loc: [phone] Visit type: [facility] [email or web address] Family Summary Conference Reason for Visit: Dementia Visit Date: 01/12/2024 Assessment and Plan 1. 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 behavioral disturbance, psychotic disturbance, mood disturbance, or anxiety (HCC) - donepezil (Aricept) 5 MG tablet; Take 1 tablet (5 mg) by mouth Nightly., Starting Ofelia 01/12/2024, Until Tue01/11/2025, Normal We reviewed the diagnosis of moderate stage Alzheimer's Dementia, course, prognosis and treatment. Discussed the option of medication. Opted to start donepezil (Aricept) 5 mg once a day to slow down memory loss. In one month increase the dose to 10 mg once a day. Call if any problems with this medication. Vitamin b12 was low-normal. Start OTC vitamin b12 500 mcg daily to optimize levels Reviewed management of the following behavioral symptoms: apathy Discussed safety management: increased supervision Educational information and handouts on the above was provided to the caregiver. Spouse was given a letter invoking POA Follow up in about 6 months (around 07/12/2024). Subjective Martha Milligan is a 83 y.o. female with past medical history of hyperlipidemia, hypothyroidism, hypertension, anxiety/depression who returns today for a Family Summary Conference to review the care plan based on the comprehensive geriatric assessment completed at the last appointment. Chart Review -seen October 2023: memory loss for a least 1.5 years. Proressively worsening. Poor short term memory. Needs cueing. Mood is OK. MOCA 11/07. Would not be able to manage medical or financial decisions. -Concern for moderate Alzheimer's Disease -Spouse did send message in December asking for an official letter invoking POA -blood pressure was low and she was asymptomatic. Suspected over-medicated with blood pressure medication. We did update her PCP office. Looks like hydrochlorothiazide was stopped. -if blood pressure is better, we can consider aricept -Vitamin b12 307 Patient update: She is here with her -Her blood pressure medication has been reduced from 2 tablets daily to 1 tablet dailyTo op -No hospital stays. No falls. No ER visits. -Did go to primary care at end of October -She is more stable with walking down. Allergies Allergen Reactions Barbiturates Unknown Lorabid [Loracarbef] Hives Penicillins Unknown Sulfamethoxazole Unknown Celebrex [Celecoxib] Anxiety Celexa [Citalopram] Anxiety Current Outpatient Medications Medication Sig Dispense Refill atorvastatin (Lipitor) 10 MG tablet Take 10 mg by mouth Nightly. donepezil (Aricept) 5 MG tablet Take 1 tablet (5 mg) by mouth Nightly. 30 tablet 1 folic acid (Folvite) 800 MCG tablet Take 1 tablet by mouth daily. levothyroxine (Synthroid, Levoxyl) 75 MCG tablet Take 75 mcg by mouth every morning (before breakfast). lisinopril-hydroCHLOROthiazide 20-12.5 MG tablet Take 1 tablet by mouth daily. naproxen (Naprosyn) 250 MG tablet Take 250 mg by mouth Nightly as needed for mild pain (1-3). sertraline (Zoloft) 50 MG tablet Take 50 mg by mouth daily. No current facility-administered medications for this visit. Past Medical History: Diagnosis Date Anxiety Depression Folate deficiency Hiatal hernia Hyperlipemia Hypertension Hypothyroidism Memory loss Osteopenia Vitamin D deficiency Social History Tobacco Use Smoking status: Former Current packs/day: 0.25 Average packs/day: 0.3 packs/day for 46.8 years (11.7 ttl pk-yrs) Types: Cigarettes Start date: 1977 Quit date: 1967 Smokeless tobacco: Never Substance Use Topics Alcohol use: Yes Alcohol/week: 4.0 standard drinks of alcohol Types: 4 Glasses of wine per week Past Surgical History: Procedure Laterality Date COLONOSCOPY 09/22/2015 PARATHYROIDECTOMY 1993 THYROID SURGERY 1993 Benign Thyroid mass TONSILLECTOMY TUBAL LIGATION Family History Problem Relation Name Age of Onset Dementia Mother Stroke Mother Breast cancer Mother Lung cancer Father Brain cancer Father Hypertension Father Heart attack Father Lymphoma Father Family Status Relation Name Status Mother (Not Specified) Father (Not Specified) No partnership data on file Objective Wt Readings from Last 3 Encounters: 01/12/24 140 lb (63.5 kg) 10/18/23 146 lb 6.4 oz (66.4 kg) No physical exam performed Discussion only Data Reviewed and Summarized Problems and recommendations from initial assessment reviewed, Medications reviewed, Recent laboratory tests reviewed, and Recent diagnostic imaging reviewed Labs: Lab Results Component Value Date WBC 7.3 07/19/2022 HGB 14.5 07/19/2022 HCT 42.2 07/19/2022 MCV 91.9 07/19/2022 PLT 208 07/19/2022 Lab Results Component Value Date NA 137 07/19/2022 K 3.5 07/19/2022 CL 102 07/19/2022 CO2 32 (H) 07/19/2022 BUN 12 07/19/2022 CREATININE 0.61 07/19/2022 GLUCOSE 92 07/19/2022 CALCIUM 9.7 07/19/2022 PROT 7.0 07/19/2022 BILITOT 0.6 07/19/2022 ALKPHOS 84 07/19/2022 AST 24 07/19/2022 ALT 22 07/19/2022 Lab Results Component Value Date TSH 2.720 07/19/2022 Lab Results Component Value Date FOLATE 18.4 07/19/2022 Lab Results Component Value Date ACEKPHLC30 307 11/03/2023 No results found for: "RPR" Imaging: no new neuroimaging obtained Testing: I reviewed the Deandre CognitiveAssessment from the initial assessment with the patient and family. Total score was 7 out of 30. I spent total time of 35 minutes face to face with the patient and/or family discussing the diagnosis and importance of compliance with the treatment plan as well as documenting on the day of the visit. In addition, that total time includes the following (this does not include the time spent in Advanced Care Planning which, if done, was documented elsewhere in the note): -Reviewing previous notes, -Reviewing labs, -Reviewing previous cognitive tests, -Obtaining and/or reviewing separately obtained history, -Ordering prescription medications, tests and procedures, -Communicating results to the patient/family/caregiver, -Counseling/educating the patient/family/caregiver, -Documenting clinical information in the patients electronic record, and -Coordination of care for the patient Interval history since last appointment: Any visits to primary care provider? Yes Any visits to the emergency department/hospital? No Any medication changes? Yes, reduced blood pressure medication Any falls? No Family present: patient, Jordan Educational Materials reviewed/provided at visit: Memory/Cognitive Ability Next Steps After an Alzheimer's Diagnosis Alzheimer's Association info/hotline Memory Tips (moderate to severe) Dealing with Dementia Stages for Memory Loss Exercise/Activities Dementia exercise tips Activities/Reminiscence guide Communication/Behaviors Communication - All Stages Communication Tips Redirecting Confabulation Therapeutic Fibbing Apathy Caregiver Stress Coping Techniques for Caregiver Stress Home Care/Facility Options- gave at initial visit Adult Day Center list Home Care Agency list Community Programs Lifeline Video Monitoring Diet Healthy Nutrition for Older Adults - [facility] Injury Prevention/Home Safety [facility] Home Safety Checklist [facility] Mobility for Adults Medications Medication Safety/Dispensers Sleep Getting a Good Night's Sleep ([facility]) Personal Care Personal Care Tips documented in this encounter [facility] 01-12-2024 Instructions Michele Mccollum MD - 01/12/2024 1:00 PM EDT Your vitamin b12 levels were on the low end of normal. To optimize your Vitamin B12 levels you can take an over the counter vitamin b12 supplement. You can take vitamin b12 500 mcg daily Memory medication: -Start donepezil (Aricept) 5 mg once a day to slow down memory loss. Most common side effects are nausea and diarrhea. In one month please message or call me to let me know how she is tolerating the medication. If she is doin ok, we will increase the dose to 10 mg once a day. Call/message if any problems with this medication. We will see her again in six months. documented in this encounter [facility] 10-18-2023 History of Present illness Narrative Review of Systems Constitutional: Positive for appetite change and fatigue. Negative for fever and unexpected weight change. HENT: Negative for dental problem, hearing loss and trouble swallowing. Eyes: Negative for visual disturbance. Respiratory: Negative for cough and shortness of breath. Cardiovascular: Negative for leg swelling. Gastrointestinal: Negative for constipation and diarrhea. Genitourinary: Negative for difficulty urinating and dysuria. Musculoskeletal: Negative for arthralgias, back pain and gait problem. Neurological: Positive for weakness. Negative for tremors and speech difficulty. Psychiatric/Behavioral: Positive for confusion. Negative for agitation, dysphoric mood, hallucinations and sleep disturbance. The patient is not nervous/anxious. 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 Activities: spends much time doing word searches, reads newspaper, watches tv, out to eat some, more socializing with family Exercise: none Finances: has adequate assets My Chart: Only spouse uses Healthcare Power of Program Project Manager: Yes: spouse Financial Power of Program Project Manager: Yes: spouse Living Will: Yes Guardian: No Code Status: Not in place Primary Caregiver: spouse Current care plan/supervision: spouse can leave patient for a few hours Community resources: Yes: Cleaning Service (every 2 weeks) Caregiver stressors: denies Goals for care: evaluate memory, resources As a Caregiver, What Matters Most to You: Patient remains independent/in community >>10/18/23 Spouse has noticed changes for a while, he is helping her with most things. Spouse does leave patient alone sometimes but is interested in hiring home health aides because he is wanting to increase supervision when he is gone. Functional Status (I: Independent, A: Assisted, D: Dependent) ADLs I A D Notes Bathing [] [x] [] Spouse has to cue patient, patient somewhat resistant Dressing [] [x] [] Spouse makes sure she is wearing clean clothes Toileting [x] [] [] No issues Transfers [x] [] [] No issues Feeding [x] [] [] No issues Ambulation [x] [] [] none Assistive devices: Grab bars and Shower chair IADLs I A D Telephone [] [] [x] Landline, patient doesn't call or answer the phone, manages all appointments, reminds her Transportation [] [] [x] Driving safety concerns: Not currently driving- hasn't driven for over a year, was having navigation issues Shopping [] [] [x] Spouse shops, sometimes patient goes with him Meal prep [] [x] [] Patient wouldn't eat meals if spouse doesn't put in front of her, may get snacks on her own Housework [] [] [x] Cleaning service, cleans in between Medications [] [] [x] administers Finances [] [] [x] manages Educational materials will be provided at next visit: Memory/Cognitive Ability Next Steps After an Alzheimer's Diagnosis Alzheimer's Association info/hotline Memory Tips (moderate to severe) Dealing with Dementia Stages for Memory Loss Exercise/Activities Dementia exercise tips Activities/Reminiscence guide Communication/Behaviors Communication - All Stages Communication Tips Redirecting Confabulation Therapeutic Fibbing Apathy Caregiver Stress Coping Techniques for Caregiver Stress Home Care/Facility Options- gave at initial visit Adult Day Center list Choosing an Adult Day Center guide Home Care Agency list Community Programs Lif[facility] Video Monitoring Diet Healthy Nutrition for Older Adults - [facility] Injury Prevention/Home Safety [facility] Home Safety Checklist [facility] Mobility for Adults Medications Medication Safety/Dispensers Sleep Getting a Good Night's Sleep ([facility]) Personal Care Personal Care Tips Images from the original note were not included. [facility] [address] [facility] [address] Dept: [phone] Dept Loc: [phone] Visit type: [facility] [[email or web address] Initial Assessment Visit Date: 10/18/2023 Reason for Visit: Memory Loss Assessment and Plan 1. Memory loss - Vitamin B12 2. History of hypertension - Mental status change with cognitive deficits in the following areas: short term memory, executive functions, language, attention, orientation, and insight which have been slowly progressive over time with subsequent impairment in function. History and exam are concerning for Moderate stage Alzheimer's Dementia. Have ordered labs to complete the assessment. Will review results at the Family Summary Conference. -History concerning for moderate Alzheimer's Disease -She did get a CT head two years ago for memory loss. Given no concern for strokes/focal neuro deficits, she does not need further neuroimaging at this time -Check vitamin b12 -If her blood pressure is better at next visit, then we can consider offering aricept to slow memory loss -She would not be able to manage her healthcare or finances anymore. I advised spouse that we can provide him a letter invoking medical and financial POA if he needs one. -blood pressure was low today. She is feeling very well. I suspect her blood pressure medication is too strong. Our office called PCP office to report the finding and my suggestion to lower her blood pressure medication. aware and will follow up with Dr De La Cruz. She does have an upcoming appointment in a couple weeks with Dr De La Cruz as well Follow up in 5 weeks (on 11/24/2023). Subjective HPI: Martha Milligan is a 82 y.o. female with past medical history of hyperlipidemia, hypothyroidism, hypertension, anxiety/depression who presents to the [facility] [[email or web address]] for a comprehensive geriatric assessment. The patient is new to me. Chart Review -Tsh 1.8 in 07/2023 -CMP and CBC from 08/02 reviewed as well (in PCP progress note) -PCP concerned about Alzheimer's Disease due to memory loss. -She had a CT head in 2021 for memory loss: "No evidence of intracranial hemorrhage or definite acute cortical infarction. There is mild volume loss. Periventricular leukomalacia likely reflects areas of small vessel ischemic change." History obtained from caregiver(s): Spouse - Jordan -Her mother had dementia (possible stroke-induced). -Spouse started to see signs of memory loss at least for the past 1.5 years (though likely longer as the CT head done for memory loss was over 2 years ago). -Progressive worsening of memory loss over the past year, especially the last six months. -She repeats herself a lot. -She needs cueing. For example, She sometimes will ask "where should I go and sit". -She has trouble with names (even people she knows well). 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 -No dizziness/lightheaded complaints. Just seems a bit unstable when she stands sometimes. -Mood: no anxiety or depression. Mood is pretty "even". Short term memory loss: Timing- slowly progressive, all day everyday, no difference whether morning or night, cognitive changes are stable day to day, Context- (give details of any "yes" answers) history of stroke- No, history of head trauma- no, history of seizures- no, history of hospitalization or surgery that made memory worse- no History of COVID-19- No If yes, were there symptoms of "brain fog"? N/a History of cancer? - No Hearing Loss? - No Hearing Aids? - no Associated signs and symptoms- delusions or hallucinations- No hallucinations. No delusions. paranoia- no Trouble sleeping? No. If anything she sleeps too much ( has to wake her up sometimes) Symptoms of REM-related sleep disorder- Does he/she appear to "act out their dreams" while sleeping (punch or flail arms, shout or scream? No Appetite: It is lessening with time. If workup results in a diagnosis of dementia/Alzheimer's, do you have any concerns about your loved one hearing this diagnosis?" "I don't know". Would likely go with the flow. Would likely be in denial History obtained from patient: -Memory: No issues noted by patient herself. -She is not sure if helps her throughout the day. Her does golf with his friends. She is happy for him. -Can't think of any activities that she likes to do. Then mentions doing puzzles. (Pulls out a word search book from her purse). -Mood: "I feel pretty good and happy". -Sleep: "that is kind of a strange question". No trouble falling or staying asleep -Appetite: It is usually pretty good. -Hallucinations: no -Sometimes goes out for walks with her spouse. -Doesn't feel sick/ill today. No dizziness/lightheadedness. -"I'm as happy as a clam". Hearing Screen: HHIE-S: 0/40 Able to identify 9-: yes Reviewed progress notes completed by EDGARD GREGORIO)and social work. Allergies Allergen Reactions Barbiturates Unknown Lorabid [Loracarbef] Hives Penicillins Unknown Sulfamethoxazole Unknown Celebrex [Celecoxib] Anxiety Celexa [Citalopram] Anxiety Current Outpatient Medications Medication Sig Dispense Refill atorvastatin (Lipitor) 10 MG tablet Take 10 mg by mouth Nightly. folic acid (Folvite) 800 MCG tablet Take 1 tablet by mouth daily. levothyroxine (Synthroid, Levoxyl) 75 MCG tablet Take 75 mcg by mouth every morning (before breakfast). lisinopril-hydroCHLOROthiazide 20-12.5 MG tablet Take 2 tablets by mouth daily. naproxen (Naprosyn) 250 MG tablet Take 250 mg by mouth Nightly as needed for mild pain (1-3). sertraline (Zoloft) 50 MG tablet Take 50 mg by mouth daily. No current facility-administered medications for this visit. Past Medical History: Diagnosis Date Anxiety Depression Folate deficiency Hiatal hernia Hyperlipemia Hypertension Hypothyroidism Memory loss Osteopenia Vitamin D deficiency Social History Tobacco Use Smoking status: Former Current packs/day: 0.25 Average packs/day: 0.2 packs/day for 46.5 years (11.6 ttl pk-yrs) Types: Cigarettes Start date: 1977 Quit date: 1967 Smokeless tobacco: Never Substance Use Topics Alcohol use: Yes Alcohol/week: 4.0 standard drinks of alcohol Types: 4 Glasses of wine per week Past Surgical History: Procedure Laterality Date COLONOSCOPY 09/22/2015 PARATHYROIDECTOMY 1993 THYROID SURGERY 1992 Benign Thyroid mass TONSILLECTOMY TUBAL LIGATION Family History Problem Relation Name Age of Onset Dementia Mother Stroke Mother Breast cancer Mother Lung cancer Father Brain cancer Father Hypertension Father Heart attack Father Lymphoma Father Family Status Relation Name Status Mother (Not Specified) Father (Not Specified) No partnership data on file Objective Vitals: 10/18/23 0851 10/18/23 0852 BP: 89/60 83/54 BP Location: Left arm Left arm Patient Position: Sitting Standing BP Cuff Size: Adult long Adult long Pulse: 106 102 Weight: 146 lb 6.4 oz (66.4 kg) Height: 5' 0.75" (1.543 m) Wt Readings from Last 3 Encounters: 10/18/23 146 lb 6.4 oz (66.4 kg) Physical Exam Constitutional: General: She is not in acute distress. Appearance: She is not ill-appearing. HENT: Head: Normocephalic and atraumatic. Cardiovascular: Rate and Rhythm: Normal rate and regular rhythm. Heart sounds: No murmur heard. No friction rub. No gallop. Pulmonary: Effort: Pulmonary effort is normal. Breath sounds: Normal breath sounds. No decreased breath sounds, wheezing, rhonchi or rales. Musculoskeletal: Right lower leg: No edema. Left lower leg: No edema. Neurological: Mental Status: She is alert. Comments: She had difficulty with instructions for finger to nose test Gait: slightly forward-bent posture with mildly slowed russell. Otherwise normal and steady Moving extremities grossly equally Psychiatric: Attention and Perception: Attention normal. Cognition and Memory: Cognition is impaired. Memory is impaired. Comments: Speech vague at times Data Reviewed and Summarized Old records reviewed and summarized here: See above Labs: Lab Results Component Value Date WBC 7.3 07/19/2022 HGB 14.5 07/19/2022 HCT 42.2 07/19/2022 MCV 91.9 07/19/2022 PLT 208 07/19/2022 Lab Results Component Value Date NA 137 07/19/2022 K 3.5 07/19/2022 CL 102 07/19/2022 CO2 32 (H) 07/19/2022 BUN 12 07/19/2022 CREATININE 0.61 07/19/2022 GLUCOSE 92 07/19/2022 CALCIUM 9.7 07/19/2022 PROT 7.0 07/19/2022 BILITOT 0.6 07/19/2022 ALKPHOS 84 07/19/2022 AST 24 07/19/2022 ALT 22 07/19/2022 Lab Results Component Value Date TSH 2.720 07/19/2022 Lab Results Component Value Date FOLATE 18.4 07/19/2022 No results found for: "[id number]" No results found for: "RPR" Testing: The following tests were performed at today's visit and scanned in to the chart: MoCA score: 7/30, MIS score: 2/15 Clock drawing score: 0/7 PHQ-9 score: 0 I independently reviewed the Deandre Cognitive Assessment from 10/18/2023. Test scanned in to the chart. I spent total time of 50 minutes face to face with the patient and/or family discussing the diagnosis and importance of compliance with the treatment plan as well as documenting on the day of the visit. In addition, that total time includes the following: -Reviewing previous notes, -Reviewing labs, -Obtaining and/or reviewing separately obtained history, -Ordering prescription medications, tests and procedures, -Counseling/educating the patient/family/caregiver, -Documenting clinical information in the patients electronic record, -Coordination of care for the patient, and -Performing a medically appropriate exam and/or evaluation documented in this encounter [facility] 10-18-2023 History of Present illness Narrative Review of Systems Constitutional: Positive for appetite change and fatigue. Negative for fever and unexpected weight change. HENT: Negative for dental problem, hearing loss and trouble swallowing. Eyes: Negative for visual disturbance. Respiratory: Negative for cough and shortness of breath. Cardiovascular: Negative for leg swelling. Gastrointestinal: Negative for constipation and diarrhea. Genitourinary: Negative for difficulty urinating and dysuria. Musculoskeletal: Negative for arthralgias, back pain and gait problem. Neurological: Positive for weakness. Negative for tremors and speech difficulty. Psychiatric/Behavioral: Positive for confusion. Negative for agitation, dysphoric mood, hallucinations and sleep disturbance. The patient is not nervous/anxious. 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 Activities: spends much time doing word searches, reads newspaper, watches tv, out to eat some, more socializing with family Exercise: none Finances: has adequate assets My Chart: Only spouse uses Healthcare Power of Program Project Manager: Yes: spouse Financial Power of Program Project Manager: Yes: spouse Living Will: Yes Guardian: No Code Status: Not in place Primary Caregiver: spouse Current care plan/supervision: spouse can leave patient for a few hours Community resources: Yes: Cleaning Service (every 2 weeks) Caregiver stressors: denies Goals for care: evaluate memory, resources As a Caregiver, What Matters Most to You: Patient remains independent/in community >>10/18/23 Spouse has noticed changes for a while, he is helping her with most things. Spouse does leave patient alone sometimes but is interested in hiring home health aides because he is wanting to increase supervision when he is gone. Functional Status (I: Independent, A: Assisted, D: Dependent) ADLs I A D Notes Bathing [] [x] [] Spouse has to cue patient, patient somewhat resistant Dressing [] [x] [] Spouse makes sure she is wearing clean clothes Toileting [x] [] [] No issues Transfers [x] [] [] No issues Feeding [x] [] [] No issues Ambulation [x] [] [] none Assistive devices: Grab bars and Shower chair IADLs I A D Telephone [] [] [x] Landline, patient doesn't call or answer the phone, manages all appointments, reminds her Transportation [] [] [x] Driving safety concerns: Not currently driving- hasn't driven for over a year, was having navigation issues Shopping [] [] [x] Spouse shops, sometimes patient goes with him Meal prep [] [x] [] Patient wouldn't eat meals if spouse doesn't put in front of her, may get snacks on her own Housework [] [] [x] Cleaning service, cleans in between Medications [] [] [x] administers Finances [] [] [x] manages Educational materials will be provided at next visit: Memory/Cognitive Ability Next Steps After an Alzheimer's Diagnosis Alzheimer's Association info/hotline Memory Tips (moderate to severe) Dealing with Dementia Stages for Memory Loss Exercise/Activities Dementia exercise tips Activities/Reminiscence guide Communication/Behaviors Communication - All Stages Communication Tips Redirecting Confabulation Therapeutic Fibbing Apathy Caregiver Stress Coping Techniques for Caregiver Stress Home Care/Facility Options- gave at initial visit Adult Day Center list Choosing an Adult Day Center guide Home Care Agency list Community Programs Lifeline Video Monitoring Diet Healthy Nutrition for Older Adults - [facility] Injury Prevention/Home Safety [facility] Home Safety Checklist [facility] Mobility for Adults Medications Medication Safety/Dispensers Sleep Getting a Good Night's Sleep ([facility]) Personal Care Personal Care Tips Images from the original note were not included. [facility] [address] [place] [address] Dept: [phone] Dept Loc: [phone] Visit type: [facility] [[email or web address] Initial Assessment Visit Date: 10/18/2023 Reason for Visit: Memory Loss Assessment and Plan 1. Memory loss - Vitamin B12 2. History of hypertension - Mental status change with cognitive deficits in the following areas: short term memory, executive functions, language, attention, orientation, and insight which have been slowly progressive over time with subsequent impairment in function. History and exam are concerning for Moderate stage Alzheimer's Dementia. Have ordered labs to complete the assessment. Will review results at the Family Summary Conference. -History concerning for moderate Alzheimer's Disease -She did get a CT head two years ago for memory loss. Given no concern for strokes/focal neuro deficits, she does not need further neuroimaging at this time -Check vitamin b12 -If her blood pressure is better at next visit, then we can consider offering aricept to slow memory loss -She would not be able to manage her healthcare or finances anymore. I advised spouse that we can provide him a letter invoking medical and financial POA if he needs one. -blood pressure was low today. She is feeling very well. I suspect her blood pressure medication is too strong. Our office called PCP office to report the finding and my suggestion to lower her blood pressure medication. aware and will follow up with Dr De La Cruz. She does have an upcoming appointment in a couple weeks with Dr De La Cruz as well Follow up in 5 weeks (on 11/24/2023). Subjective HPI: Martha Milligan is a 82 y.o. female with past medical history of hyperlipidemia, hypothyroidism, hypertension, anxiety/depression who presents to the [facility] [[email or web address]] for a comprehensive geriatric assessment. The patient is new to me. Chart Review -Tsh 1.8 in 07/2023 -CMP and CBC from 08/02 reviewed as well (in PCP progress note) -PCP concerned about Alzheimer's Disease due to memory loss. -She had a CT head in 2021 for memory loss: "No evidence of intracranial hemorrhage or definite acute cortical infarction. There is mild volume loss. Periventricular leukomalacia likely reflects areas of small vessel ischemic change." History obtained from caregiver(s): Spouse - Jordan -Her mother had dementia (possible stroke-induced). -Spouse started to see signs of memory loss at least for the past 1.5 years (though likely longer as the CT head done for memory loss was over 2 years ago). -Progressive worsening of memory loss over the past year, especially the last six months. -She repeats herself a lot. -She needs cueing. For example, She sometimes will ask "where should I go and sit". -She has trouble with names (even people she knows well). -short term memory is poor -snf memory is OK -She has not been irritable. -No dizziness/lightheaded complaints. Just seems a bit unstable when she stands sometimes. -Mood: no anxiety or depression. Mood is pretty "even". Short term memory loss: Timing- slowly progressive, all day everyday, no difference whether morning or night, cognitive changes are stable day to day, Context- (give details of any "yes" answers) history of stroke- No, history of head trauma- no, history of seizures- no, history of hospitalization or surgery that made memory worse- no History of COVID-19- No If yes, were there symptoms of "brain fog"? N/a History of cancer? - No Hearing Loss? - No Hearing Aids? - no Associated signs and symptoms- delusions or hallucinations- No hallucinations. No delusions. paranoia- no Trouble sleeping? No. If anything she sleeps too much ( has to wake her up sometimes) Symptoms of REM-related sleep disorder- Does he/she appear to "act out their dreams" while sleeping (punch or flail arms, shout or scream? No Appetite: It is lessening with time. If workup results in a diagnosis of dementia/Alzheimer's, do you have any concerns about your loved one hearing this diagnosis?" "I don't know". Would likely go with the flow. Would likely be in denial History obtained from patient: -Memory: No issues noted by patient herself. -She is not sure if helps her throughout the day. Her does golf with his friends. She is happy for him. -Can't think of any activities that she likes to do. Then mentions doing puzzles. (Pulls out a word search book from her purse). -Mood: "I feel pretty good and happy". -Sleep: "that is kind of a strange question". No trouble falling or staying asleep -Appetite: It is usually pretty good. -Hallucinations: no -Sometimes goes out for walks with her spouse. -Doesn't feel sick/ill today. No dizziness/lightheadedness. -"I'm as happy as a clam". Hearing Screen: HHIE-S: 0 Able to identify 9--1: yes Reviewed progress notes completed by EDGARD GREGORIO)and social work. Allergies Allergen Reactions Barbiturates Unknown Lorabid [Loracarbef] Hives Penicillins Unknown Sulfamethoxazole Unknown Celebrex [Celecoxib] Anxiety Celexa [Citalopram] Anxiety Current Outpatient Medications Medication Sig Dispense Refill atorvastatin (Lipitor) 10 MG tablet Take 10 mg by mouth Nightly. folic acid (Folvite) 800 MCG tablet Take 1 tablet by mouth daily. levothyroxine (Synthroid, Levoxyl) 75 MCG tablet Take 75 mcg by mouth every morning (before breakfast). lisinopril-hydroCHLOROthiazide 20-12.5 MG tablet Take 2 tablets by mouth daily. naproxen (Naprosyn) 250 MG tablet Take 250 mg by mouth Nightly as needed for mild pain (1-3). sertraline (Zoloft) 50 MG tablet Take 50 mg by mouth daily. No current facility-administered medications for this visit. Past Medical History: Diagnosis Date Anxiety Depression Folate deficiency Hiatal hernia Hyperlipemia Hypertension Hypothyroidism Memory loss Osteopenia Vitamin D deficiency Social History Tobacco Use Smoking status: Former Current packs/day: 0.25 Average packs/day: 0.2 packs/day for 46.5 years (11.6 ttl pk-yrs) Types: Cigarettes Start date: 1977 Quit date: 1967 Smokeless tobacco: Never Substance Use Topics Alcohol use: Yes Alcohol/week: 4.0 standard drinks of alcohol Types: 4 Glasses of wine per week Past Surgical History: Procedure Laterality Date COLONOSCOPY 09/22/2015 PARATHYROIDECTOMY 1992 THYROID SURGERY 1992 Benign Thyroid mass TONSILLECTOMY TUBAL LIGATION Family History Problem Relation Name Age of Onset Dementia Mother Stroke Mother Breast cancer Mother Lung cancer Father Brain cancer Father Hypertension Father Heart attack Father Lymphoma Father Family Status Relation Name Status Mother (Not Specified) Father (Not Specified) No partnership data on file Objective Vitals: 10/18/23 0851 10/18/23 0852 BP: 89/60 83/54 BP Location: Left arm Left arm Patient Position: Sitting Standing BP Cuff Size: Adult long Adult long Pulse: 106 102 Weight: 146 lb 6.4 oz (66.4 kg) Height: 5' 0.75" (1.543 m) Wt Readings from Last 3 Encounters: 10/18/23 146 lb 6.4 oz (66.4 kg) Physical Exam Constitutional: General: She is not in acute distress. Appearance: She is not ill-appearing. HENT: Head: Normocephalic and atraumatic. Cardiovascular: Rate and Rhythm: Normal rate and regular rhythm. Heart sounds: No murmur heard. No friction rub. No gallop. Pulmonary: Effort: Pulmonary effort is normal. Breath sounds: Normal breath sounds. No decreased breath sounds, wheezing, rhonchi or rales. Musculoskeletal: Right lower leg: No edema. Left lower leg: No edema. Neurological: Mental Status: She is alert. Comments: She had difficulty with instructions for finger to nose test Gait: slightly forward-bent posture with mildly slowed russell. Otherwise normal and steady Moving extremities grossly equally Psychiatric: Attention and Perception: Attention normal. Cognition and Memory: Cognition is impaired. Memory is impaired. Comments: Speech vague at times Data Reviewed and Summarized Old records reviewed and summarized here: See above Labs: Lab Results Component Value Date WBC 7.3 07/19/2022 HGB 14.5 07/19/2022 HCT 42.2 07/19/2022 MCV 91.9 07/19/2022 PLT 208 07/19/2022 Lab Results Component Value Date NA 137 07/19/2022 K 3.5 07/19/2022 CL 102 07/19/2022 CO2 32 (H) 07/19/2022 BUN 12 07/19/2022 CREATININE 0.61 07/19/2022 GLUCOSE 92 07/19/2022 CALCIUM 9.7 07/19/2022 PROT 7.0 07/19/2022 BILITOT 0.6 07/19/2022 ALKPHOS 84 07/19/2022 AST 24 07/19/2022 ALT 22 07/19/2022 Lab Results Component Value Date TSH 2.720 07/19/2022 Lab Results Component Value Date FOLATE 18.4 07/19/2022 No results found for: "JJFRLKPQ24" No results found for: "RPR" Testing: The following tests were performed at today's visit and scanned in to the chart: MoCA score: 730, MIS score: 2/15 Clock drawing score: 0/7 PHQ-9 score: 0 I independently reviewed the Deandre Cognitive Assessment from 10/18/2023. Test scanned in to the chart. I spent total time of 50 minutes face to face with the patient and/or family discussing the diagnosis and importance of compliance with the treatment plan as well as documenting on the day of the visit. In addition, that total time includes the following: -Reviewing previous notes, -Reviewing labs, -Obtaining and/or reviewing separately obtained history, -Ordering prescription medications, tests and procedures, -Counseling/educating the patient/family/caregiver, -Documenting clinical information in the patients electronic record, -Coordination of care for the patient, and -Performing a medically appropriate exam and/or evaluation documented in this encounter [facility] 10-18-2023 Miscellaneous Notes Addended by: CAITLIN GONZALEZ on: 11/03/2023 02:34 PM Modules accepted: Orders documented in this encounter [facility] 10-18-2023 Note Addended by: CAITLIN GONZALEZ on: 11/03/2023 02:34 PM Modules accepted: Orders [facility] 08-31-2023 Telephone encounter Note Scheduled 10/18/2023. [facility] 08-31-2023 Miscellaneous Notes Scheduled 10/18/2023. Name of Caller: Jordan Contact Reason for Appointment: Returning a call to Karishma to schedule an appointment with Dr. Chairez. Please advise Office Name: Senior Services Medication Refills need, if any: N/A Medication Name: N/A Left message for Jordan to call back (new patient). Name of Caller: Karishma Contact Reason for Appointment: new patient appt- referral in [place] Office Name: senior services Medication Refills need, if any: na Medication Name: na documented in this encounter [facility] 08-31-2023 Telephone encounter Note Duplicate TE. [facility] 08-31-2023 Miscellaneous Notes Duplicate TE. Name of Caller: Juventino Contact Reason for Appointment: new patient appt- referral in [facility] second call he's a little frustrated. Appointments for Martha Office Name: senior services Medication Refills need, if any: na Medication Name: na documented in this encounter [facility] 08-31-2023 Telephone encounter Note Name of Caller: Juventino Contact Reason for Appointment: new patient appt- referral in [facility] second call he's a little frustrated. Appointments for Martha Office Name: senior services Medication Refills need, if any: na Medication Name: na [facility] 08-30-2023 Telephone encounter Note Name of Caller: Jordan Contact Reason for Appointment: Returning a call to Karishma to schedule an appointment with Dr. Chairez. Please advise Office Name: Senior Services Medication Refills need, if any: N/A Medication Name: N/A [facility] 08-30-2023 Telephone encounter Note Left message for Jordan to call back (new patient). [facility] 08-29-2023 Telephone encounter Note Name of Caller: Karishma Contact Reason for Appointment: new patient appt- referral in [place] Office Name: senior services Medication Refills need, if any: na Medication Name: na [facility] note Diagnosis Hyperlipidemia, unspecified- Primary Deficiency of other specified B group vitamins Hypothyroidism, unspecified [facility]* Diagnosis Memory loss- Primary History of hypertension Personal history of other diseases of circulatory system documented [facility]* Diagnosis Memory loss- Primary History of hypertension Personal history of other diseases of circulatory system [facility]* Diagnosis 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 behavioral disturbance, psychotic disturbance, mood disturbance, or anxiety (HCC)- Primary [facility]* Diagnosis 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 behavioral disturbance, psychotic disturbance, mood disturbance, or anxiety (HCC)- Primary [facility]* Diagnosis 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 behavioral disturbance, psychotic disturbance, mood disturbance, or anxiety (HCC) documented [facility]* Diagnosis Hip pain, bilateral- Primary Pain in joint, pelvic region and thigh Hip pain, bilateral Pain in joint, pelvic region and thigh Unable to ambulate documented in this encounter [facility] Summary Purpose Family History No Family History Records FoundNo Family History Records FoundNo Family History Records Found Advance Directives No Advanced Directives Records FoundDocuments on File Type Date Recorded 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 Power of Program Project Manager 01/12/2024 12:37 PM DPOA [id number] Advance Directives and Living Will 01/12/2024 12:39 PM Living Will [id number] Power of Program Project Manager 01/12/2024 12:38 PM HC P OA [id number] Documents on File Type Date Recorded 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 DNR (Do Not Resuscitate) 10/19/2024 10:03 AM [place] DNR Form Power of Program Project Manager 01/12/2024 12:37 PM DPOA [id number] Advance Directives and Living Will 01/12/2024 12:39 PM Living Will [id number] Power of Program Project Manager 01/12/2024 12:38 PM HC P OA [id number] Date Activated Date Inactivated Comments 10/16/2024 9:40 AM 10/19/2024 4:38 PM Question Answer Comments ICU transfer: Yes Intubation: No Additional Source Comments INFORMATION SOURCE (unrecogn ized section and content) DATE CREATED AUTHOR 02/04/2022 [facility] DATE CREATED AUTHOR AUTHOR'S ORGANIZ ATION 10/25/2024 [facility] DATE CREATED AUTHOR AUTHOR'S ORGANIZ ATION 02/15/2025 [facility] Care Teams (unrecognized sec tion and content) Well Treatment Offsider Relationship Specialty Start Date End Date Darron De La Cruz DO [address] [place] [id number] PCP - General 09/09/15 Well Treatment Offsider Relationship Specialty Start Date End Date Darron De La Cruz DO [address] [place] [phone] PCP - General 09/09/18 Well Treatment Offsider Relationship Specialty Start Date End Date Darron De La Cruz DO [address] [place] [phone] PCP - General 09/09/18 Well Treatment Offsider Relationship Specialty Start Date End Date Darron De La Cruz DO [address] [place] [place] [phone] PCP - General 09/09/18 Well Treatment Offsider Relationship Specialty Start Date End Date Darron De La Cruz DO [address] [place] [phone] PCP - General 09/09/18 Well Treatment Offsider Relationship Specialty Start Date End Date Darron De La Cruz DO [address] [place] [phone] PCP - General 09/09/18 Well Treatment Offsider Relationship Specialty Start Date End Date Darron De La Cruz DO [address] [place] [phone] PCP - General 09/09/18 Well Treatment Offsider Relationship Specialty Start Date End Date Darron De La Cruz DO [address] [place] [phone] PCP - General 09/09/18 Well Treatment Offsider Relationship Specialty Start Date End Date Darron De La Cruz DO [address] [place] [phone] PCP - General 09/09/18 Well Treatment Offsider Relationship Specialty Start Date End Date Darron De La Cruz DO [address] [place] [phone] PCP - General 09/09/18 Reason for Visit (unrecogniz ed section and content) Reason Onset Date Comments new patient appointment 08/31/2023 Reason Onset Date Comments Appointment Request 08/29/2023 Reason Comments Memory Loss Specialty Diagnoses / Procedures Referred By Myron t Referred To Contact Geriatric Medicine Diagnoses Other amnesia Procedures new patient appointment [address] [phone] [phone] Referral ID Status Reason Start Date Expiration Date Visits Re quested Visits Authorized [id number] Closed 08/23/2023 02/19/2024 1 1 Reason Comments Dementia Reason Onset Date Comments Med Refill 09/06/2024 Reason Comments Hip Pain Bilateral Specialty Diagnoses / Procedures Referred By Myron potter Referred To Contact Diagnoses Hip pain, bilateral Unable to ambulate Procedures . Abdelrahman Baeza MD [address] [place] [address] Phone: tel: fax: [facility] Cardiac Progressive Care Unit [address] [place] [address] Phone: tel: Referral ID Status Reason Start Date Expiration Date Visits Re quested Visits Authorized [id number] 1 1 Scheduled Active and Recently Administ ered Medications (unrecognized section and content) Medication Order 10/17/2024 10/18/2024 10/19/2024 acetaminophen (Tylenol) tablet 1,000 mg 1,000 mg, Oral, 3 times daily, First dose on Tue10/16/24 at 0945, Maximum dose of acetaminophen is 4000 mg from all sources in 24 hours. 0855 (Given - Provider: Ada Peters)1410 (Given - Provider: Ada Peters)2010 (Given - Provider: Rachel North RN) 0928 (Given - Provider: Ousmane Mancia RN)1319 (Not Given - Provider: Ousmane Mancia RN - Reason: Patient/family refused)2117 (Given - Provider: Gema Phillips RN) 817 (Given - Provider: Tameka Paz RN)1400 (Canceled Entry - Provider: Automatic Discharge Provider - Comment: Automatically canceled at discontinue of medication order) atorvastatin (Lipitor) tablet 10 mg 10 mg, Oral, Nightly, First dose on Tue10/16/24 at 2099 2010 (Given - Provider: Rachel North, CHIP) 2117 (Given - Provider: Gema Phillips, CHIP) donepezil (Aricept) tablet 10 mg 10 mg, Oral, Nightly, First dose on Tue10/16/24 at 2099 2010 (Given - Provider: Rachel North RN) 2117 (Given - Provider: Gema Phillips RN) enoxaparin (Lovenox) syringe 40 mg 40 mg, SubCUTAneous, Every 24 hours scheduled (Daily), First dose on Tue10/16/24 at 0945, Indication of Use: Prophylaxis-DVT/PE, Indications: Prophylaxis of Venous Thromboembolism 0854 (Given - Provider: Ada Peters) 09 (Given - Provider: Ousmane Mancia RN) 0819 (Given - Provider: Tameka Paz RN) folic acid (Folvite) tablet 1 mg 1 mg, Oral, Daily, First dose (after last reorder) on Tue10/16/24 at 1000 0855 (Given - Provider: Ada Petesr) 0929 (Given - Provider: Ousmane Mancia RN) 0818 (Given - Provider: Tameka Paz RN) hydroCHLOROthiazide (HYDRODiuril) tablet 12.5 mg(Linked Group 1) 12.5 mg, Oral, Daily, First dose on Tue10/16/24 at 0945, Therapeutic Substitution for lisinopril/hydrochlorothi azide 20-12.5mg 0855 (Given - Provider: Ada Peters) 0928 (Given - Provider: Ousmane Mancia RN) 0818 (Given - Provider: Tameka Paz, CHIP) levothyroxine (Synthroid, Levoxyl) tablet 75 mcg 75 mcg, Oral, Daily before breakfast, First dose on Tue10/17/24 at 0600, Tube feeding (TF) interaction, obtain physician order to manage, recommend holding TF for 30 minutes before and after dose. 0609 (Given - Provider: Rachel North, CHIP) 0616 (Given - Provider: Rachel North, CHIP) 0656 (Given - Provider: Gema Phillips, RN) Lidocaine 4 % patch 2 patch 2 patch, TransDERmal, Administer over 12 Hours, Daily, First dose on Tue10/16/24 at 0945, Apply patch to both hip area of pain. Patch may remain in place for up to 12 hours in any 24 hour period. 0855 (Not Given - Provider: Ada Peters - Reason: Patient/family refused - Comment: pt said that it was not necessary.) 09 (Not Given - Provider: Ousmane Mancia RN - Reason: Patient/family refused) 08 (Medication Applied - Provider: Tameka Paz, CIHP)1427 (Due: Medication Removed - Provider: Automatic Discharge Provider - Comment: Time automatically adjusted from order being discontinued) lisinopril tablet 20 mg(Linked Group 1) 20 mg, Oral, Daily, First dose on Tue10/16/24 at 0945, Therapeutic Substitution for lisinopril/hydrochlorothi azide 20-12.5mg 0855 (Given - Provider: Ada Peters) 928 (Given - Provider: Ousmane Mancia RN) 08 (Given - Provider: Tameka Paz, CHIP) memantine (Namenda) tablet 10 mg 10 mg, Oral, 2 times daily, First dose on Tue10/16/24 at 0945 0855 (Given - Provider: Ada Peters)2010 (Given - Provider: Rachel North, CHIP) 927 (Given - Provider: Ousmane Mancia, CHIP)2117 (Given - Provider: Gema Phillips, RN) 08 (Given - Provider: Tameka Paz, CHIP) miconazole (Micotin) 2 % powder Topical, 2 times daily, First dose on Tue10/16/24 at 2100, Apply to skin fold yeast infection ? 1418 (Given - Provider: Ada Peters - Comment: nursing workflow)2014 (Given - Provider: Rachel North RN) 929 (Given - Provider: Ousmane Mancia RN - Comment: right breast)2118 (Given - Provider: Gema Phillips, RN) 821 (Given - Provider: Tameka Paz, CHIP) sertraline (Zoloft) tablet 50 mg 50 mg, Oral, Daily, First dose on Tue10/16/24 at 0945 0855 (Given - Provider: Ada Peters) 927 (Given - Provider: Ousmane Mancia RN) 08 (Given - Provider: Tameka Paz, CHIP) sodium chloride 0.9% (NS) flush 5-40 mL 5-40 mL, IntraVENous, Every 12 hours, First dose on Tue10/16/24 at 0945, For Line Patency: Peripheral IV = 5 mL; Midline or Central Line = 10 mL/lumen. If following IV push medication, administer flush at same rate as the IV push. Flush volume is determined by type of infusion therapy being given. For non-viscous solutions use: Peripheral IV = 5 mL Midline or Central Line = 10 mL/lumen For viscous solutions (i.e. blood components, parenteral nutrition, contrast media, or after obtaining blood sample) use: Peripheral IV = 10 mL Midline or Central Line = 20 mL/lumen 08 (Not Given - Provider: Ada Peters - Reason: Loss of IV access)2014 (Not Given - Provider: Rachel North RN - Reason: Loss of IV access) 929 (Not Given - Provider: Ousmane Mancia RN - Reason: Loss of IV access)2118 (Not Given - Provider: Gema Phillips RN - Reason: Other) 820 (Not Given - Provider: Tameka Paz RN - Reason: Loss of IV access) PRN Medication Order 10/17/2024 10/18/2024 10/19/2024 acetaminophen (Tylenol) tablet 650 mg 650 mg, Oral, Every 6 hours PRN, mild pain (1-3), Starting on Tue10/19/24 at 1005, Maximum dose of acetaminophen is 4000 mg from all sources in 24 hours. 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 Give IV if patient is unable to take orally. If inadequate response within 60 minutes, proceed to next-line agent or contact provider if no further options ordered. ondansetron ODT (Zofran-ODT) disintegrating tablet 4 mg(Linked Group 2) 4 mg, Oral, Every 8 hours PRN, nausea, vomiting, Starting on Tue10/16/24 at 0936, 1st Line. If inadequate response within 60 minutes, proceed to next-line agent or contact provider if no further options ordered. Patient should allow tablet to dissolve on tongue. Do not remove from blister pack until just before administering. oxyCODONE (Roxicodone) immediate release tablet 2.5 mg 2.5 mg, Oral, Every 4 hours PRN, severe pain (7-10), moderate pain (4-6), Starting on Tue10/16/24 at 0938 polyethylene glycol (PEG) 3350 (Miralax) packet 17 g 17 g, Oral, Daily PRN, constipation, Starting on Tue10/16/24 at 0936, 1st line for treatment of constipation - give scheduled if no bowel movement in past 24 hours. sodium chloride 0.9 % infusion 5-250 mL/hr, IntraVENous, PRN, if patient receiving piggyback infusions and maintenance fluids are not ordered OR KVO fluids to protect IV site / prevent frequent line interruptions / long duration, Starting on Tue10/16/24 at 0936, For piggyback infusion, administer at same rate as piggyback for a total of 25 mL. Enter 25 mL into dose field and piggyback rate into rate field of order. If piggyback is infusing at a rate less than 100 mL/hr, enter 25 mL into dose field and 100 mL/hr into rate field of order. For KVO fluids, enter rate of 20 mL/hr or less into rate field of order. sodium chloride 0.9% (NS) flush 5-40 mL 5-40 mL, IntraVENous, PRN, line care, After every IV line use, Starting on Tue10/16/24 at 0936, For Line Patency: Peripheral IV = 5 mL; Midline or Central Line = 10 mL/lumen. If following IV push medication, administer flush at same rate as the IV push. Flush volume is determined by type of infusion therapy being given. For non-viscous solutions use: Peripheral IV = 5 mL Midline or Central Line = 10 mL/lumen For viscous solutions (i.e. blood components, parenteral nutrition, contrast media, or after obtaining blood sample) use: Peripheral IV = 10 mL Midline or Central Line = 20 mL/lumen Linked Groups Order Group 1: lisinopril tablet 20 mgJump to med 20 mg, Oral, Daily, First dose on Tue10/16/24 at 0945, Therapeutic Substitution for lisinopril/hydrochlorothiazide 20-12.5mg And hydroCHLOROthiazide (HYDRODiuril) tablet 12.5 mgJump to med 12.5 mg, Oral, Daily, First dose on Tue10/16/24 at 0945, Therapeutic Substitution for lisinopril/hydrochlorothiazide 20-12.5mg Group 2: ondansetron ODT (Zofran-ODT) disintegrating tablet 4 mgJump to med 4 mg, Oral, Every 8 hours PRN, nausea, vomiting, Starting on Tue10/16/24 at 0936, 1st Line. If inadequate response within 60 minutes, proceed to next-line agent or contact provider if no further options ordered. Patient should allow tablet to dissolve on tongue. Do not remove from blister pack until just before administering. Or ondansetron (Zofran) injection 4 mgJump to med 4 mg, IntraVENous, Every 6 hours PRN, nausea, vomiting, Starting on Tue10/16/24 at 0936, 1st Line. Give IV if patient is unable to take orally. If inadequate response within 60 minutes, proceed to next-line agent or contact provider if no further options ordered. FOR RECORDS PERTAINING TO PATIENTS WHO ARE OR HAVE BEEN ENROLLED IN A CHEMICAL DEPENDENCY/SUBSTANCEABUSE PROGRAM, SOME INFORMATION MAY BE OMITTED. This clinical summary was aggregated from multiple sources. Caution should be exercised in using it in the provision of clinical care. This summary normalizes information from multiple sources, and as a consequence, information in this document may materially change the coding, format and clinical context of patient data. In addition, data may be omitted in some cases. CLINICAL DECISIONS SHOULD BE BASED ON THE PRIMARY CLINICAL RECORDS. [facility]. provides no warranty or guarantee of the accuracy or completeness of information in this document.
[2025-03-05 08:35] LABS: Mucous, Urine 0 SEEN /hpf (<or=2+); Red Blood Cells-Urine 0 SEEN /hpf (0-5)
[2025-03-05 09:10] LABS: Hematocrit 38.7 % (37-47); Hemoglobin 13.0 g/dL (12.0-15.0); Mean Corp Hgb Conc 33.6 g/dL (32-36); Mean Corpuscular Volume 95.1 fL (81-99); Mean Platelet Vol. 10.3 fl (6.2-12.0); Platelet Count 171 K/mm3 (150-450); RBC Distribution Width CV 11.9 % (11.6-14.6); RBC Distribution Width SD 41.5 fl (35.1-43.9); Red Blood Count 4.07 M/mm3 (4.2-5.4); White Blood Count 4.9 K/mm3 (4.4-11.0)
[2025-03-05 09:13] LABS: Color, Urine Yellow (Yellow); Glucose, Dipstick Normal (Normal); Ketone-Dipstick Negative (Negative); Leukocyte Esterase-Dipstick 500 /ul (Negative); Nitrite-Dipstick Negative (Negative); Occult Blood-Urine 10 /ul (Negative); Protein-Dipstick 15 mg/dl (Negative); Specific Gravity, Urine 1.010 (1.002-1.030); Urine Bilirubin Dipstick Negative (Negative)
[2025-03-05 09:29] LABS: Squamous Epithelial Cells - UA 0-5 SEEN /hpf (5-10)
[2025-03-05 09:30] LABS: AST(SGOT) 21 U/L (<=31); Alanine Aminotransfer ALT/SGPT 18 U/L (<=34); Albumin, Serum 3.8 g/dL (3.4-4.8); Alkaline Phosphatase 65 U/L (35-104); Anion Gap 10 (5-15); BUN 14 mg/dL (4-19); BUN/Creat Ratio 21.4 RATIO (10-20); Calcium,Total 9.5 mg/dL (7.6-11.0); Carbon Dioxide 26.0 mmol/L (21.0-32.0); Chloride 103 mmol/L (98-108); Globulin 2.5 g/dL (2.2-4.2); Glucose 84 mg/dL (70-99); Potassium 3.7 mmol/L (3.3-5.1)
== END ==
LOC: OLS.ACH 04:00
PROVIDERS: Referring Provider Internal Medicine; Visit Provider Internal Medicine
DX: D52.9 Folate deficiency anemia, unspecified (principal); R27.8 Other lack of coordination; E87.6 Hypokalemia; R39.9 Unspecified symptoms and signs involving the genitourinary system
CPT/HCPCS: 36415; 80053; 81001; 85027; 87077; 87086; 87088; 87186

== ENCOUNTER → 2025-04-01 05:00 | Outpatient (REF) | payer MEDICARE, SELFPAY ==
--- OUTSIDE RECORDS SUMMARY | 2025-04-01 04:27 | XMS RPT_ITS | CCD ---
Author Organization [facility] Care Team Providers Care [employer] Dean Name Role Phone Dorothy Darron Attending Unavailable PROVIDER, UNKNOWN Referring Unavailable Dorothy, Darron Primary Care Unavailable Dorothy, Darron Attending Unavailable PROVIDER, UNKNOWN Referring Unavailable Dorothy, Darron Primary Care Unavailable Dorothy DO, Darron Primary Care Provider [phone] Dorothy DO, Darron Primary Care Provider [phone] Dorothy DO, Darron Primary Care Provider DOROTHY, [...] Barbiturate Propensity to adverse reactions [address] [facility] (10 sources) celecoxib Drug Allergy [address] [facility] (10 sources) Citalopram Drug Allergy [address] [facility] (10 sources) loracarbef Drug Allergy [address] [facility] (10 sources) Penicillins Propensity to adverse reactions [address] [facility] (10 sources) Sulfamethoxazole Propensity to adverse reactions Unknown [facility] Medications Current Medications Medication Drug Class(es) [...] hydrochloride 5 mg oral tablet (8 sources) J-ofshcf-N-aspart ate Receptor Antagonist Start: 10-16-2024 End: 10-19-2024 [...] on Tue10/16/24 at 0938 polyethylene glycol 3350 24627 mg powder for oral solution (2 sources) [...] width (RBC) [Ratio] 12.2 % Normal 11.6-14.6 [facility] Comment on above: Order Comment: 315-1 Performed By: #### L 100.0500, L500.4100, L500.4050, [id number] #### [facility] [address] [place], [address] Hematocrit (Bld) [Volume fraction] 37.8 % Normal 37-47 [facility] Comment on above: Order Comment: 315-1 Performed By: #### L 100.0500, L500.4100, L500.4050, [id number] #### [facility] [address] [place], [address] Hemoglobin (Bld) [Mass/Vol] 13.3 g/dL Normal 12.0-15.0 [facility] Comment on above: Order Comment: 315-1 Performed By: #### L 100.0500, L500.4100, L500.4050, [id number] #### [facility] [address] [place], [address] MCH (RBC) [Entitic mass] 32.5 pg High 27.0-32.0 [facility] Comment on above: Order Comment: 315-1 Performed By: #### L 100.0500, L500.4100, L500.4050, [id number] #### [facility] [address] [place], [address] MCHC (RBC) [Mass/Vol] 35.2 g/dL Normal 32-36 [facility] Comment on above: Order Comment: 315-1 Performed By: #### L 100.0500, L500.4100, L500.4050, [id number] #### [facility] [address] [place], [address] MCV (RBC) [Entitic vol] 92.4 fL Normal 81-99 [facility] Comment on above: Order Comment: 315-1 Performed By: #### L 100.0500, L500.4100, L500.4050, [id number] #### [facility] [address] [place], [address] Platelet mean volume (Bld) [Entitic vol] 10.0 fL Normal 6.2-12.0 [facility] Comment on above: Order Comment: 315-1 Performed By: #### L 100.0500, L500.4100, L500.4050, [id number] #### [facility] [address] [place], [address] Platelets (Bld) [#/Vol] 180 10*3/uL Normal 150-450 [facility] Comment on above: Order Comment: 315-1 Performed By: #### L 100.0500, L500.4100, L500.4050, [id number] #### [facility] [address] [place], [address] RBC (Bld) [#/Vol] 4.09 10*6/uL Low 4.2-5.4 [facility] Comment on above: Order Comment: 315-1 Performed By: #### L 100.0500, L500.4100, L500.4050, [id number] #### [facility] [address] [place], [address] RDW SD 41.5 fl Normal 35.1-43.9 [facility] Comment on above: Order Comment: 315-1 Performed By: #### L 100.0500, L500.4100, L500.4050, [id number] #### [facility] [address] [place], [address] WBC (Bld) [#/Vol] 6.8 10*3/uL Normal 4.4-11.0 [facility] Comment on above: Order Comment: 315-1 Performed By: #### L 100.0500, L500.4100, L500.4050, [id number] #### [facility] [address] [place], [address] Comprehensive Metabolic Prof ilon 02-06-2025 Albumin [Mass/Vol] 3.7 g/dL Normal 3.4-4.8 [facility] Comment on above: Order Comment: 315-1 Performed By: #### L 100.0500, L500.4100, L500.4050, [id number] #### [facility] [address] [place], [address] Albumin/Globulin [Mass ratio] 1.4 {ratio} Normal 0.9-2.4 [facility] Comment on above: Order Comment: 315-1 Performed By: #### L 100.0500, L500.4100, L500.4050, [id number] #### [facility] [address] [place], [address] ALK PHOS 64 U/L Normal 35-104 [facility] Comment on above: Order Comment: 315-1 Performed By: #### L 100.0500, L500.4100, L500.4050, [id number] #### [facility] [address] [place], [address] ALT [Catalytic activity/Vol] 20 U/L Normal <=34 [facility] Comment on above: Order Comment: 315-1 Performed By: #### L 100.0500, L500.4100, L500.4050, [id number] #### [facility] [address] [place], [address] AST [Catalytic activity/Vol] 21 U/L Normal <=31 [facility] Comment on above: Order Comment: 315-1 Performed By: #### L 100.0500, L500.4100, L500.4050, [id number] #### [facility] [address] [place], [address] Bilirubin [Mass/Vol] 0.47 mg/dL Normal 0.00-1.[address] [facility] Comment on above: Order Comment: 315-1 Performed By: #### L 100.0500, L500.4100, L500.4050, [id number] #### [facility] [address] [place], [address] BUN/CRE 23.5 RATIO High 10-20 [facility] Comment on above: Order Comment: 315-1 Performed By: #### L 100.0500, L500.4100, L500.4050, [id number] #### [facility] [address] [place], [address] Calcium [Mass/Vol] 9.7 mg/dL Normal 7.6-11.0 [facility] Comment on above: Order Comment: 315-1 Performed By: #### L 100.0500, L500.4100, L500.4050, [id number] #### [facility] [address] [place], [address] Chloride [Moles/Vol] 100 mmol/L Normal 98-[address] [facility] Comment on above: Order Comment: 315-1 Performed By: #### L 100.0500, L500.4100, L500.4050, [id number] #### [facility] [address] [place], [address] CO2 [Moles/Vol] 26.3 mmol/L Normal 21.0-32.0 [facility] Comment on above: Order Comment: 315-1 Performed By: #### L 100.0500, L500.4100, L500.4050, [id number] #### [facility] [address] [place], [address] Creatinine [Mass/Vol] 0.71 mg/dL Normal 0.70-1.20 [facility] Comment on above: Order Comment: 315-1 Performed By: #### L 100.0500, L500.4100, L500.4050, [id number] #### [facility] [address] [place], [address] GAP 9 Normal 5-15 [facility] Comment on above: Order Comment: 315-1 Performed By: #### L 100.0500, L500.4100, L500.4050, [id number] #### [facility] [address] [place], [address] GFR/1.73 sq M.predicted among non-blacks MDRD (S/P/Bld) [Vol rate/Area] 85 mL/min/{1.73_m2} Normal >60 [facility] Comment on above: Order Comment: 315-1 Result Comment: mL/m in/1.73m2 CKD-EPI Creatinine Equation (2020) Performed By: #### L 100.0500, L500.4100, L500.4050, [id number] #### [facility] [address] [place], [address] Globulin (S) [Mass/Vol] 2.6 g/dL Normal 2.2-4.2 [facility] Comment on above: Order Comment: 315-1 Performed By: #### L 100.0500, L500.4100, L500.4050, [id number] #### [facility] [address] [place], [address] Glucose [Mass/Vol] 87 mg/dL Normal 70-99 [facility] Comment on above: Order Comment: 315-1 Performed By: #### L 100.0500, L500.4100, L500.4050, [id number] #### [facility] [address] [place], [address] Potassium [Moles/Vol] 3.9 mmol/L Normal 3.3-5.1 [facility] Comment on above: Order Comment: 315-1 Performed By: #### L 100.0500, L500.4100, L500.4050, [id number] #### [facility] [address] [place], [address] Sodium [Moles/Vol] 136 mmol/L Normal 133-145 [facility] Comment on above: Order Comment: 315-1 Performed By: #### L 100.0500, L500.4100, L500.4050, [id number] #### [facility] [address] [place], [address] T PROT 6.3 g/dL Normal 5.9-8.4 [facility] Comment on above: Order Comment: 315-1 Performed By: #### L 100.0500, L500.4100, L500.4050, [id number] #### [facility] [address] [place], [address] Urea nitrogen [Mass/Vol] 17 mg/dL Normal 4-19 [facility] Comment on above: Order Comment: 315-1 Performed By: #### L 100.0500, L500.4100, L500.4050, [id number] #### [facility] [address] [place], [address] Lipid Profileon 02-06-2025 CHOL:HDL 2.70 Normal [facility] Comment on above: Order Comment: 315-1 Performed By: #### L 100.0500, L500.4100, L500.4050, [id number] #### [facility] [address] [place], [address] Cholesterol [Mass/Vol] 132 mg/dL Normal <=200 [facility] Comment on above: Order Comment: 315-1 Result Comment: Chol esterol level, Desirable <200 mg/dL Borderline high cholesterol 200-239 mg/dL High cholesterol >=240 mg/dL Recommendations of the NCEP Adult Treatment Panel for the following risk-cutoff thresholds for the [place] population. Performed By: #### L 100.0500, L500.4100, L500.4050, [id number] #### [facility] [address] [place], [address] Cholesterol in HDL [Mass/Vol] 49 mg/dL Normal [facility] Comment on above: Order Comment: 315-1 Result Comment: Odilia onal Cholesterol Education Program (NCEP) guidelines: <40 mg/dL: Low HDL-cholesterol (major risk factor for CHD) >= 60 mg/dL: High HDL-cholesterol (negative risk factor for CHD) HDL-cholesterol is affected by a number of factors, e.g. smoking, exercise, hormones, sex and age. Performed By: #### L 100.0500, L500.4100, L500.4050, [id number] #### [facility] [address] [place], [address] Cholesterol in LDL [Mass/Vol] 68 mg/dL Normal [facility] Comment on above: Order Comment: 315-1 Result Comment: Bord cdkubq=107-782 mg/dL Higher Hhrp=622 mg/dL or greater Shane Equation 2020 for LDL-C Performed By: #### L 100.0500, L500.4100, L500.4050, [id number] #### [facility] [address] [place], [address] Cholesterol in VLDL [Mass/Vol] 16 mg/dL Normal 5-40 [facility] Comment on above: Order Comment: 315-1 Performed By: #### L 100.0500, L500.4100, L500.4050, [id number] #### [facility] [address] [place], [address] Triglyceride [Mass/Vol] 79 mg/dL Normal [facility] Comment on above: Order Comment: 315-1 Result Comment: The drugs N-Acetylcysteine and Metamizole may falsely depress this assay. Normal range: <150 mg/dL Borderline High: 150-199 mg/dL High: 200-499 mg/dL Very High: >500 mg/dL Performed By: #### L 100.0500, L500.4100, L500.4050, [id number] #### [facility] [address] [place], [address] Thyroid Stim Hormone (TSH)on 02-06-2025 TSH 0.809 uIU/mL Normal 0.300-4.200 [facility] Comment on above: Order Comment: 315.1 Performed By: #### L 500.2500, L100.0500 #### [facility] [address] [place], [address] CBC-Complete Blood Cnt No Di ffon 02-05-2025 HCT Normal 37-47 [facility] Comment on above: Order Comment: 315.1 Result Comment: [facility] [employer] REFUSED TOLD NURSE ONEIL Performed By: #### L 500.4100, L100.0500, L500.4050 #### [facility] [address] [place], [address] HGB Normal 12.0-15.0 [facility] Comment on above: Order Comment: 315.1 Result Comment: [facility] [employer] REFUSED TOLD NURSE ONEIL Performed By: #### L 500.4100, L100.0500, L500.4050 #### [facility] [address] [place], [address] MCH Normal 27.0-32.0 [facility] Comment on above: Order Comment: 315.1 Result Comment: [facility] [employer] REFUSED TOLD NURSE ONEIL Performed By: #### L 500.4100, L100.0500, L500.4050 #### [facility] [address] [place], [address] MCHC Normal 32-36 [facility] Comment on above: Order Comment: 315.1 Result Comment: [facility] [employer] REFUSED TOLD NURSE ONEIL Performed By: #### L 500.4100, L100.0500, L500.4050 #### [facility] [address] [place], [address] MCV Normal 81-99 [facility] Comment on above: Order Comment: 315.1 Result Comment: [facility] [employer] REFUSED TOLD NURSE ONEIL Performed By: #### L 500.4100, L100.0500, L500.4050 #### [facility] [address] [place], [address] PLT Normal 150-450 [facility] Comment on above: Order Comment: 315.1 Result Comment: [employer] REFUSED TOLD NURSE ONEIL Performed By: #### L 500.4100, L100.0500, L500.4050 #### [facility] [address] [place], [address] RBC Normal 4.2-5.4 [facility] Comment on above: Order Comment: 315.1 Result Comment: [employer] REFUSED TOLD NURSE ONEIL Performed By: #### L 500.4100, L100.0500, L500.4050 #### [facility] [address] [place], [address] RDW CV Normal 11.6-14.6 [facility] Comment on above: Order Comment: 315.1 Result Comment: [facility] REFUSED TOLD NURSE ONEIL Performed By: #### L 500.4100, L100.0500, L500.4050 #### [facility] [address] [place], [address] RDW SD Normal 35.1-43.9 [facility] Comment on above: Order Comment: 315.1 Result Comment: [facility] REFUSED TOLD NURSE ONEIL Performed By: #### L 500.4100, L100.0500, L500.4050 #### [facility] [address] [place], [address] WBC Normal 4.4-11.0 [facility] Comment on above: Order Comment: 315.1 Result Comment: [facility] REFUSED TOLD NURSE ONEIL Performed By: #### L 500.4100, L100.0500, L500.4050 #### [facility] [address] [place], [address] Comprehensive Metabolic Prof ilon 02-05-2025 ALB Normal 3.4-4.8 [facility] Comment on above: Order Comment: 315.1 Result Comment: [facility] REFUSED TOLD NURSE ONEIL Performed By: #### L 500.4100, L100.0500, L500.4050 #### [facility] [address] [place], [address] ALK PHOS Normal 35-104 [facility] Comment on above: Order Comment: 315.1 Result Comment: [employer] REFUSED TOLD NURSE ONEIL Performed By: #### L 500.4100, L100.0500, L500.4050 #### [facility] [address] [place], [address] ALT Normal <=34 [facility] Comment on above: Order Comment: 315.1 Result Comment: [facility] REFUSED TOLD NURSE ONEIL Performed By: #### L 500.4100, L100.0500, L500.4050 #### [facility] [address] [place], [address] AST Normal <=31 [facility] Comment on above: Order Comment: 315.1 Result Comment: [facility] REFUSED TOLD NURSE ONEIL Performed By: #### L 500.4100, L100.0500, L500.4050 #### [facility] [address] [place], [address] BUN Normal 4-19 [facility] Comment on above: Order Comment: 315.1 Result Comment: [facility] [employer] REFUSED TOLD NURSE ONEIL Performed By: #### L 500.4100, L100.0500, L500.4050 #### [facility] [address] [place], [address] BUN/CRE Normal 10-20 [facility] Comment on above: Order Comment: 315.1 Result Comment: [facility] [employer] REFUSED TOLD NURSE ONEIL Performed By: #### L 500.4100, L100.0500, L500.4050 #### [facility] [address] [place], [address] Calcium Normal 7.6-11.0 [facility] Comment on above: Order Comment: 315.1 Result Comment: [employer] REFUSED TOLD NURSE ONEIL Performed By: #### L 500.4100, L100.0500, L500.4050 #### [facility] [address] [place], [address] CL Normal 98-108 [facility] Comment on above: Order Comment: 315.1 Result Comment: [employer] REFUSED TOLD NURSE ONEIL Performed By: #### L 500.4100, L100.0500, L500.4050 #### [facility] [address] [place], [address] CO2 Normal 21.0-32.0 [facility] Comment on above: Order Comment: 315.1 Result Comment: [employer] REFUSED TOLD NURSE ONEIL Performed By: #### L 500.4100, L100.0500, L500.4050 #### [facility] [address] [place], [address] CREAT,SERUM Normal 0.70-1.20 [facility] Comment on above: Order Comment: 315.1 Result Comment: [employer] REFUSED TOLD NURSE ONEIL Performed By: #### L 500.4100, L100.0500, L500.4050 #### [facility] [address] [place], [address] eGFR Normal >60 [facility] Comment on above: Order Comment: 315.1 Result Comment: [employer] REFUSED TOLD NURSE ONEIL Performed By: #### L 500.4100, L100.0500, L500.4050 #### [facility] [address] [place], [address] GAP Normal 5-15 [facility] Comment on above: Order Comment: 315.1 Result Comment: [facility] REFUSED TOLD NURSE ONELI Performed By: #### L 500.4100, L100.0500, L500.4050 #### [facility] [address] [place], [address] GLU Normal 70-99 [facility] Comment on above: Order Comment: 315.1 Result Comment: [employer] REFUSED TOLD NURSE ONEIL Performed By: #### L 500.4100, L100.0500, L500.4050 #### [facility] [address] [place], [address] Potassium Normal 3.3-5.1 [facility] Comment on above: Order Comment: 315.1 Result Comment: [employer] E[employer] REFUSED TOLD NURSE ONEIL Performed By: #### L 500.4100, L100.0500, L500.4050 #### [facility] [address] [place], [address] T BILI Normal 0.00-1.30 [facility] Comment on above: Order Comment: 315.1 Result Comment: [employer] E[employer] REFUSED TOLD NURSE ONEIL Performed By: #### L 500.4100, L100.0500, L500.4050 #### [facility] [address] [place], [address] T PROT Normal 5.9-8.4 [facility] Comment on above: Order Comment: 315.1 Result Comment: [employer] E[employer] REFUSED TOLD NURSE ONEIL Performed By: #### L 500.4100, L100.0500, L500.4050 #### [facility] [address] [place], [address] Comprehensive Metabolic Profil Normal 133-145 [facility] Comment on above: Order Comment: 315.1 Result Comment: [employer] E[employer] REFUSED TOLD NURSE ONEIL Performed By: #### L 500.4100, L100.0500, L500.4050 #### [facility] [address] [place], [address] Lipid Profileon 02-05-2025 CHOL Normal <=200 [facility] Comment on above: Order Comment: 315.1 Result Comment: [employer] E[employer] REFUSED TOLD NURSE ONEIL Performed By: #### L 500.4100, L100.0500, L500.4050 #### [facility] [address] [place], [address] CHOL:HDL Normal [facility] Comment on above: Order Comment: 315.1 Result Comment: [employer] E[employer] REFUSED TOLD NURSE ONEIL Performed By: #### L 500.4100, L100.0500, L500.4050 #### [facility] [address] [place], [address] CLDL Normal [facility] Comment on above: Order Comment: 315.1 Result Comment: [employer] E[employer] REFUSED TOLD NURSE ONEIL Performed By: #### L 500.4100, L100.0500, L500.4050 #### [facility] [address] [place], [address] HDL Normal [facility] Comment on above: Order Comment: 315.1 Result Comment: [employer] E[employer] REFUSED TOLD NURSE ONEIL Performed By: #### L 500.4100, L100.0500, L500.4050 #### [facility] [address] [place], [address] TRIG Normal [facility] Comment on above: Order Comment: 315.1 Result Comment: [employer] E[employer] REFUSED TOLD NURSE ONEIL Performed By: #### L 500.4100, L100.0500, L500.4050 #### [facility] [address] [place], [address] VLDL Normal 5-40 [facility] Comment on above: Order Comment: 315.1 Result Comment: [facility] E[employer] REFUSED TOLD NURSE ONEIL Performed By: #### L 500.4100, L100.0500, L500.4050 #### [facility] [address] [place], [address] Potassiumon 10-26-2024 Potassium [Moles/Vol] 3.3 mmol/L Normal 3.3-5.1 [facility] Comment on above: Order Comment: 315.1 Performed By: #### L 501.5600 #### [facility] [address] [place], [address] Potassiumon 10-23-2024 Potassium [Moles/Vol] 3.4 mmol/L Normal 3.3-5.1 [facility] Comment on above: Order Comment: 315.1 Performed By: #### L 501.5600 #### [facility] [address] [place], [address] [id number] 10-22-2024 [id number] Patient Choice Patient Name: MARTHA MILLIGAN Date of : 1940 [facility] Basic Metabolic Profile (BMP )on 10-22-2024 BUN/CRE 25.1 RATIO High 10-20 [facility] Comment on above: Order Comment: 315.1 Performed By: #### L 500.2500, L100.0500 #### [facility] [address] [place], [address] Calcium [Mass/Vol] 9.6 mg/dL Normal 7.6-11.0 [facility] Comment on above: Order Comment: 315.1 Performed By: #### L 500.2500, L100.0500 #### [facility] [address] [place], [address] Chloride [Moles/Vol] 99 mmol/L Normal 98-[address] [facility] Comment on above: Order Comment: 315.1 Performed By: #### L 500.2500, L100.0500 #### [facility] [address] [place], [address] CO2 [Moles/Vol] 29.9 mmol/L Normal 21.0-32.0 [facility] Comment on above: Order Comment: 315.1 Performed By: #### L 500.2500, L100.0500 #### [facility] [address] [place], [address] Creatinine [Mass/Vol] 0.67 mg/dL Low 0.70-1.20 [facility] Comment on above: Order Comment: 315.1 Performed By: #### L 500.2500, L100.0500 #### [facility] [address] [place], [address] GAP 10 Normal 5-15 [facility] Comment on above: Order Comment: 315.1 Performed By: #### L 500.2500, L100.0500 #### [facility] [address] [place], [address] GFR/1.73 sq M.predicted among non-blacks MDRD (S/P/Bld) [Vol rate/Area] 88 mL/min/{1.73_m2} Normal >60 [facility] Comment on above: Order Comment: 315.1 Result Comment: mL/m in/1.73m2 CKD-EPI Creatinine Equation (2020) Performed By: #### L 500.2500, L100.0500 #### [facility] [address] [place], [address] Glucose [Mass/Vol] 85 mg/dL Normal 70-99 [facility] Comment on above: Order Comment: 315.1 Performed By: #### L 500.2500, L100.0500 #### [facility] [address] [place], [address] Potassium [Moles/Vol] 2.8 mmol/L Low 3.3-5.1 [facility] Comment on above: Order Comment: 315.1 Performed By: #### L 500.2500, L100.0500 #### [facility] [address] [place], [address] Sodium [Moles/Vol] 138 mmol/L Normal 133-145 [facility] Comment on above: Order Comment: 315.1 Performed By: #### L 500.2500, L100.0500 #### [facility] [address] [place], [address] Urea nitrogen [Mass/Vol] 17 mg/dL Normal 4-19 [facility] Comment on above: Order Comment: 315.1 Performed By: #### L 500.2500, L100.0500 #### [facility] [address] [place], [address] CBC-Complete Blood Cnt No [facility] 10-22-2024 Erythrocyte distribution width (RBC) [Ratio] 12.3 % Normal 11.6-14.6 [facility] Comment on above: Order Comment: 315.1 Performed By: #### L 500.2500, L100.0500 #### [facility] [address] [place], [address] Hematocrit (Bld) [Volume fraction] 42.6 % Normal 37-47 [facility] Comment on above: Order Comment: 315.1 Performed By: #### L 500.2500, L100.0500 #### [facility] [address] [place], [address] Hemoglobin (Bld) [Mass/Vol] 13.9 g/dL Normal 12.0-15.0 [facility] Comment on above: Order Comment: 315.1 Performed By: #### L 500.2500, L100.0500 #### [facility] [address] [place], [address] MCH (RBC) [Entitic mass] 30.3 pg Normal 27.0-32.0 [facility] Comment on above: Order Comment: 315.1 Performed By: #### L 500.2500, L100.0500 #### [facility] [address] [place], [address] MCHC (RBC) [Mass/Vol] 32.6 g/dL Normal 32-36 [facility] Comment on above: Order Comment: 315.1 Performed By: #### L 500.2500, L100.0500 #### [facility] [address] [place], [address] MCV (RBC) [Entitic vol] 93.0 fL Normal 81-99 [facility] Comment on above: Order Comment: 315.1 Performed By: #### L 500.2500, L100.0500 #### [facility] [address] [place], [address] Platelet mean volume (Bld) [Entitic vol] 10.6 fL Normal 6.2-12.0 [facility] Comment on above: Order Comment: 315.1 Performed By: #### L 500.2500, L100.0500 #### [facility] [address] [place], [address] Platelets (Bld) [#/Vol] 206 10*3/uL Normal 150-450 [facility] Comment on above: Order Comment: 315.1 Performed By: #### L 500.2500, L100.0500 #### [facility] [address] [place], [address] RBC (Bld) [#/Vol] 4.58 10*6/uL Normal 4.2-5.4 [facility] Comment on above: Order Comment: 315.1 Performed By: #### L 500.2500, L100.0500 #### [facility] [address] [place], [address] RDW SD 42.0 fl Normal 35.1-43.9 [facility] Comment on above: Order Comment: 315.1 Performed By: #### L 500.2500, L100.0500 #### [facility] [address] [place], [address] WBC (Bld) [#/Vol] 8.0 10*3/uL Normal 4.4-11.0 [facility] Comment on above: Order Comment: 315.1 Performed By: #### L 500.2500, L100.0500 #### [facility] [address] [place], [address] [id number] 10-19-2024 [id number] Next Site of Care Admission Date: 10/15/2024 07:52 PM Patient Name: MARTHA MILLIGAN Location: [place] [id number] Date of : 1940 Placement Information Referral Type:Jail/SNF - New Referral ID:[facility][id number] [facility] Address 1:[address] Address 2: City:[place] Selection Factors:Patient/Fami ly Choice [place] [facility] [phone] Discharge med list transmitted to [facility] via Careport per TCC request. 7000 was entered into [place] [facility] for the SNF- FACILITY IS AWARE [facility] [phone] DC order paced. FABIAN done. [facility] tasked to do 7000 and send DC paperwork and MAR to [facility]. Transportation will be set up by pr shortly. [facility] Nursing Noteon 10-19-2024 Nursing Note Report called to Tawny SAUNDERS at [facility]. No further questions or concerns. [facility] Nursing Note Transferred to the [address] at [facility] but no answer. Phone rang for 3 min. Will attempt calling report again at a later time. 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 [facility] Progress Noteon 10-19-2024 Progress Note OCCUPATIONAL THERAPY [facility] Treatment Note Name/MRN: Martha Milligan ([id number]) Date of : 1940 Age: 83 y.o. Room/Bed: B2-252/B2-252 A Visit #: 1 out of 7 Discharge Recommendation: Senior Care Facility Equipment Needed: No Prior Level of [...] 13 Minutes (1 Ther Act) VISHAL Burleson [facility] Progress Note PHYSICAL THERAPY [facility] Treatment Note Name/MRN: Martha Milligan ([id number]) Date of : 1940 Age: 83 y.o. Room/Bed: B2252/[facility] A Visit #: 1 out of 7 visits Discharge Recommendation: Senior Care Facility Equipment Needed: No Prior Level of [...] 8 Minutes (ther act) Emmett Bautista, PT [facility] Progress Noteon 10-18-2024 Progress Note OCCUPATIONAL THERAPY [facility] Name/MRN: Martha Milligan ([id number]) Date: 10/18/2024 Chart reviewed. Attempt to see pt for OT session. Pt adamantly declining participation in OT session. Pt given encouragement and multiple tx options with no success. Unable to re direct pt. OT will continue to follow and re attempt to see as schedule permits. VISHAL Mccarthy/Rodrigo [facility] [id number] 10-17-2024 [id number] Met with Jordan at bedside to discuss DC planning. Pt had choice list in hand that I left in room yesterday. chose1) [facility] SNF and 2) [facility]. CLINICAL PHYSICIAN ASSISTANT tasked to make new SNF referrals. Awaiting acceptance. [facility] Consulton 10-17-2024 Consult Consult Note Date:10/17/2024 Patient [...] 10.7 INR 1.0 APTT:No results for input(s): APTT in the last 72 hours. LIVER PROFILE:No results for input(s): AST, ALT, BILIDIR, BILITOT, ALKPHOS in the last 72 hours. Imaging/Diagnostics Pelvis [...] Onset Dementia Mother Alysha Lang Stroke Mother Alysah Lang Breast cancer Mother Alysha Lang Lung cancer Father Brilliant Rickey Brain cancer Father Brilliant Rickey Hypertension Father Brilliant Rickey Heart attack Father Brilliant Rickey L (more content not included)... Normal [facility] Progress Noteon 10-17-2024 Progress Note Nutrition rescreen completed. Chart reviewed. Patient to be monitored and followed by the diet ecg technician. Normal [facility] ED Nursing Noteon 10-16-2024 ED Nursing Note Pt depends changed for urine incontinence and repositioned in bed for comfort. Normal [facility] Nursing Noteon 10-16-2024 Nursing Note Chart accessed pending admission to [address] [facility] BASIC METABOLIC PANELon Anion gap [Moles/Vol] 12 mmol/L Normal 3-13 [facility] Comment on above: Performed By: #### L [id number] ####Nuclear Auxiliary Operator: GEOVANNA MENJIVAR ([phone])[facility] (SWRLAB)[address] [place] [address] [place] Calcium [Mass/Vol] 9.7 mg/dL Normal 8.8-10.0 [facility] Comment on above: Performed By: #### L [id number] ####Nuclear Auxiliary Operator: GEOVANNA MENJIVAR ([phone])[facility] ALEXAND[facility] RITTMAN (SWRLAB)[address] [place] [address] [place] Chloride [Moles/Vol] 106 mmol/L Normal 98-107 [facility] Comment on above: Performed By: #### L [id number] ####Nuclear Auxiliary Operator: GEOVANNA MENJIVAR ([phone])[facility] RITTMAN (SWRLAB)[address] [place] [address] [place] CO2 [Moles/Vol] 23 mmol/L Normal 23-31 [facility] Comment on above: Performed By: #### L AB15 ####Nuclear Auxiliary Operator: GEOVANNA MENJIVAR ([phone])[facility] RITTMAN (SWRLAB)[address] [place] [address] [place] Creatinine [Mass/Vol] 0.68 mg/dL Normal 0.57-1.11 [facility] Comment on above: Performed By: #### L [id number] ####Nuclear Auxiliary Operator: GEOVANNA MENJIVAR ([phone])[facility] JUNIORTMAN (SWRLAB)[address] [place] [address] [place] GLOMERULAR FILTRATION RATE ML/MIN/1.73 SQ M.PREDICTED 87.6 mL/min/1.73m*2 Normal >60.0 [facility] Comment on above: Result Comment: Calc ulation based on the Chronic Kidney Disease Epidemiology Collaboration (CKD-EPI) equation refit without adjustment for race Performed By: #### L [id number] ####Nuclear Auxiliary Operator: GEOVANNA MENJIVAR ([phone])[facility] JUNIORT[facility] (SWRLAB)[address] [place] [address] [place] Glucose [Mass/Vol] 89 mg/dL Normal 82-115 [facility] Comment on above: Performed By: #### L [id number] ####Nuclear Auxiliary Operator: GEOVANNA MENJIVAR ([phone])[facility] MUNOZ RITTMAN (SWRLAB)[address] [place] [address] [place] Potassium [Moles/Vol] 3.5 mmol/L Normal 3.5-5.1 [facility] Comment on above: Result Comment: [facility] potassium values may be up to 0.5 mmol/L lower than serum values. Performed By: #### L AB15 ####Nuclear Auxiliary Operator: GEOVANNA MENJIVAR ([phone])[facility] MUN[facility] RITTMAN (SWRLAB)[address] [place] [address] [place] Sodium [Moles/Vol] 141 mmol/L Normal 136-145 [facility] Comment on above: Performed By: #### L [id number] ####Nuclear Auxiliary Operator: GEOVANNA MENJIVAR ([phone])[facility] MUN[facility] RITTMAN (SWRLAB)[address] [place] [address] [place] Urea nitrogen [Mass/Vol] 12 mg/dL Normal 9-23 [facility] Comment on above: Performed By: #### L [id number] ####Nuclear Auxiliary Operator: GEOVANNA MENJIVAR ([phone])[facility] CAMP[facility] (SWRLAB)[address] [place] [address] Basic metabolic 1998 panelon 10-15-2024 Anion gap [Moles/Vol] 12 mmol/L 3 - 13 mmol/L [facility] Calcium [Mass/Vol] 9.7 mg/dL 8.8 - 10. 0 mg/dL [facility] Chloride [Moles/Vol] 106 mmol/L 98 - 10 7 mmol/L [facility] CO2 [Moles/Vol] 23 mmol/L 23 - 31 mmol/L [facility] Creatinine [Mass/Vol] 0.68 mg/dL 0.57 - 1.11 mg/dL [facility] GFR/1.73 sq M.predicted (S/P/Bld) [Vol rate/Area] 87.6 mL/min - PINF [facility] Comment on above: Calculation based on the Chronic Kidney Disease Epidemiology Collaboration (CKD-EPI) equation refit without adjustment for race Glucose [Mass/Vol] 89 mg/dL 82 - 115 mg/dL [facility] Interpretation and review of laboratory results Normal [facility] Potassium [Moles/Vol] 3.5 mmol/L 3.5 - 5.1 mmol/L [facility] Comment on above: Plasma potassium yohana ues may be up to 0.5 mmol/L lower than serum values. Sodium [Moles/Vol] 141 mmol/L 136 - 145 mmol/L [facility] Urea nitrogen [Mass/Vol] 12 mg/dL 9 - 23 mg/dL [facility] CBC W Auto Differential pane l (Bld)on 10-15-2024 Basophils (Bld) [#/Vol] 0.1 10*3/uL 0.0 - 0.2 10*3/uL [facility] Basophils/100 WBC (Bld) 0.7 % 0.0 - 2.0 % [facility] Eosinophils (Bld) [#/Vol] 0 10*3/uL 0.0 - 0.5 10*3/uL [facility] Eosinophils/100 WBC (Bld) 0 % 0.0 - 6.0 % [facility] Erythrocyte distribution width (RBC) [Ratio] 12.5 % 11.5 - 15.0 % [facility] Hematocrit (Bld) [Volume fraction] 38.5 % 35.0 - 47.0 % [facility] Hemoglobin (Bld) [Mass/Vol] 13.2 g/dL 11.7 - 16.0 g/dL [facility] Immature granulocytes (Bld) [#/Vol] 0 10*3/uL NINF - 0.1 10*3/uL [facility] [employer] Immature granulocytes/100 WBC (Bld) 0.4 % 0.0 - 2.0 % [facility] Interpretation and review of laboratory results Abnormal [facility] IPF 5 [facility] Lymphocytes (Bld) [#/Vol] 1.2 10*3/uL 1.0 - 4.3 10*3/uL [facility] Lymphocytes/100 WBC (Bld) 12.8 % Low 15.0 - 45.0 % [facility] MCH (RBC) [Entitic mass] 30.9 pg 26.0 - 34.[address] [facility] MCHC (RBC) [Mass/Vol] 34.3 % 30.5 - 36.0 % [facility] MCV (RBC) [Entitic vol] 90.2 fL 77.0 - 99.[address] [facility] Monocytes (Bld) [#/Vol] 1 10*3/uL High 0.0 - 0.9 10*3/uL [facility] Monocytes/100 WBC (Bld) 10.7 % 5.0 - 13.0 % [facility] Neutrophils (Bld) [#/Vol] 7.2 10*3/uL 1.8 - 7.5 10*3/uL [facility] Neutrophils/100 WBC (Bld) 75.4 % 38.0 - 82.0 % [facility] Nucleated RBC/100 WBC (Bld) [Ratio] 0 % [facility] [employer] Platelet mean volume (Bld) [Entitic vol] 11.1 fL 9.0 - 12.7 fL [facility] [employer] Platelets (Bld) [#/Vol] 139 10*3/uL Low 140 - 440 10*3/uL [facility] RBC (Bld) [#/Vol] 4.27 10*6/uL 3.80 - 5.2 0 10*6/uL [facility] WBC (Bld) [#/Vol] 9.6 10*3/uL 3.6 - 10.7 10*3/uL [facility] CBC WITH AUTO DIFFERENTIALon 10-15-2024 Basophils (Bld) [#/Vol] 0.1 10*3/uL Normal 0.0-0.2 [facility] Comment on above: Performed By: #### L [id number] ####Nuclear Auxiliary Operator: GEOVANNA MENJIVAR ([phone])[facility]UN[facility] RITTMAN (SWRLAB)[address] [place] [address] [place] Basophils/100 WBC (Bld) 0.7 % Normal 0.0-2.0 [facility] Comment on above: Performed By: #### L [id number] ####Nuclear Auxiliary Operator: GEOVANNA MENJIVAR ([phone])[facility]IAL[facility]UN[facility] RITTMAN (SWRLAB)[address] [place] [address] [place] Eosinophils (Bld) [#/Vol] 0.0 10*3/uL Normal 0.0-0.5 [facility] Comment on above: Performed By: #### L [id number] ####Nuclear Auxiliary Operator: GEOVANNA MENJIVAR ([id number])[facility]IAL[facility] MUN[facility] RITTMAN (SWRLAB)[address] [place] [address] [place] Eosinophils/100 WBC (Bld) 0.0 % Normal 0.0-6.0 [facility] Comment on above: Performed By: #### L [id number] ####Nuclear Auxiliary Operator: GEOVANNA MENJIVAR ([phone])[facility]IAL[facility]ITTM[facility] (SWRLAB)[address] [place] [address] Erythrocyte distribution width (RBC) [Ratio] 12.5 % Normal 11.5-15.0 [facility] Comment on above: Performed By: #### L [id number] ####Nuclear Auxiliary Operator: GEOVANNA MENJIVAR ([phone])[facility] (SWRLAB)[address] [place] [address] Hematocrit (Bld) [Volume fraction] 38.5 % Normal 35.0-47.0 [facility] Comment on above: Performed By: #### L [id number] ####Nuclear Auxiliary Operator: GEOVANNA MENJIVAR ([phone])MARLENE MUNOZ RITTMAN (SWRLAB)[address] [place] [address] Hemoglobin (Bld) [Mass/Vol] 13.2 g/dL Normal 11.7-16.0 [facility] Comment on above: Performed By: #### L [id number] ####Nuclear Auxiliary Operator: GEOVANNA MENJIVAR ([phone])[facility] (SWRLAB)[address] [place] [address] IMMATURE GRANS % 0.4 % Normal 0.0-2.0 [facility] Comment on above: Performed By: #### L [id number] ####Nuclear Auxiliary Operator: GEOVANNA MENJIVAR ([phone])[facility] (SWRLAB)[address] [place] [address] IMMATURE GRANS ABSOLUTE 0.0 10*3/uL Normal <0.1 [facility] Comment on above: Performed By: #### L [id number] ####Nuclear Auxiliary Operator: GEOVANNA MENJIVAR ([phone])[facility] (SWRLAB)[address] [place] [address] [place] IPF 5 Normal [facility] Comment on above: Performed By: #### L [id number] ####Nuclear Auxiliary Operator: GEOVANNA MENJIVAR ([phone])[facility] (SWRLAB)[address] [place] [address] [place] Lymphocytes (Bld) [#/Vol] 1.2 10*3/uL Normal 1.0-4.3 [facility] Comment on above: Performed By: #### L [id number] ####Nuclear Auxiliary Operator: GEOVANNA MENJIVAR ([phone])[facility] (SWRLAB)[address] [place] [address] [place] Lymphocytes/100 WBC (Bld) 12.8 % Low 15.0-45.0 [facility] Comment on above: Performed By: #### L [id number] ####Nuclear Auxiliary Operator: GEOVANNA MENJIVAR ([phone])MARLENE MUNOZ RITTMAN (SWRLAB)[address] [place] [address] MCH (RBC) [Entitic mass] 30.9 pg Normal 26.0-34.0 [facility] Comment on above: Performed By: #### L [id number] ####Nuclear Auxiliary Operator: GEOVANNA MENJIVAR ([id number])MARLENE MUNOZ RITTMAN (SWRLAB)[address] [place] [address] MCHC 34.3 % Normal 30.5-36.0 [facility] Comment on above: Performed By: #### L [id number] ####Nuclear Auxiliary Operator: GEOVANNA MENJIVAR ([phone])MARLENE MUNOZ RITTMAN (SWRLAB)[address] [place] [address] MCV (RBC) [Entitic vol] 90.2 fL Normal 77.0-99.0 [facility] Comment on above: Performed By: #### L [id number] ####Nuclear Auxiliary Operator: GEOVANNA MENJIVAR ([phone])MARLENE MUNOZ RITTMAN (SWRLAB)[address] [place] [address] Monocytes (Bld) [#/Vol] 1.0 10*3/uL High 0.0-0.9 [facility] Comment on above: Performed By: #### L [id number] ####Nuclear Auxiliary Operator: GEOVANNA MENJIVAR ([phone])MARLENE MUNOZ RITTMAN (SWRLAB)[address] [place] [address] [place] Monocytes/100 WBC (Bld) 10.7 % Normal 5.0-13.0 [facility] Comment on above: Performed By: #### L [id number] ####Nuclear Auxiliary Operator: GEOVANNA MENJIVAR ([phone])MARLENE MUNOZ RITTMAN (SWRLAB)[address] [place] [address] NEUTROPHILS ABSOLUTE 7.2 10*3/uL Normal 1.8-7.5 [facility] Comment on above: Performed By: #### L [id number] ####Nuclear Auxiliary Operator: GEOVANNA MENJIVAR ([phone])MARLENE MUNOZ RITTMAN (SWRLAB)[address] [place] [address] [place] Neutrophils/100 WBC (Bld) 75.4 % Normal 38.0-82.0 [facility] Comment on above: Performed By: #### L [id number] ####Nuclear Auxiliary Operator: GEOVANNA MENJIVAR ([phone])[facility] (SWRLAB)[address] [place] [address] [place] NRBC 0.0 /100 WBCs Normal 0.0-2.0 [facility] Comment on above: Performed By: #### L [id number] ####Nuclear Auxiliary Operator: GEOVANNA MENJIVAR ([phone])[facility]IAL[facility] M[facility] R[facility]TM[facility] (SWRLAB)[address] [place] [address] [place] Platelet mean volume (Bld) [Entitic vol] 11.1 fL Normal 9.0-12.7 [facility] Comment on above: Performed By: #### L [id number] ####Nuclear Auxiliary Operator: GEOVANNA MENJIVAR ([phone])[facility]IAL[facility] RITTM[facility] (SWRLAB)[address] [place] [address] [place] Platelets (Bld) [#/Vol] 139 10*3/uL Low 140-440 [facility] Comment on above: Performed By: #### L [id number] ####Nuclear Auxiliary Operator: GEOVANNA MENJIVAR ([phone])[facility] (SWRLAB)[address] [place] [address] [place] RBC (Bld) [#/Vol] 4.27 10*6/uL Normal 3.80-5.20 [facility] Comment on above: Performed By: #### L [id number] ####Nuclear Auxiliary Operator: GEOVANNA MENJIVAR ([phone])[facility] (SWRLAB)[address] [place] [address] [place] WBC (Bld) [#/Vol] 9.6 10*3/uL Normal 3.6-10.7 [facility] Comment on above: Performed By: #### L [id number] ####Nuclear Auxiliary Operator: GEOVANNA MENJIVAR ([phone])[facility] A[facility] FISH (SWRLAB)[address] [place] [address] CT PELVIS WO IV CONTRASTon 0 10-15-2024 [...] XRs done same day, suspects fall Normal [facility] CT Pelvis WO contraston 07-0 1. No acute osseous abnormality. 2. Degenerative change. Report Dictated on Electronically Signed By: Lazaro Osuna MD Electronically Signed Date/Time: 10/15/2024 9:33 PM EDT [facility]IOLOGY [facility] Patient Name: MARTHA MILLIGAN : 1940 [...] calcification. Small, fat-containing umbilical hernia partially visualized. [facility] Lazaro Osuna MD - 10/15/2024 Patient Name: MARTHA MILLIGAN : 1940 [facility]#: [id number] Exam Date/Time: 10/15/2024 21:10 Procedure: CT PELVIS [...] Electronically Signed Date/Time: 10/15/2024 9:33 PM EDT [facility] Radiology Study observation (narrative) [facility] ED Nursing Noteon 10-15-2024 ED Nursing Note Pt to xray via cart and lifted onto table with assist of 3. Tolerated well Normal [facility] ED Nursing Note Pt to ER [...] safety. Cody light in reach. @ bedside. [facility] ED Provider Noteon ED Provider Note EMERGENCY [...] TIME 10.7 (more content not included)... Normal [facility] Laboratory - Coagulationon 0 10-15-2024 PT Coag (Bld) [Time] 10.7 s 9.0 - 12.0 s [facility] No Panel Informationon 10-15 1. No acute osseous abnormality. 2. Degenerative change. Report Dictated on Electronically Signed By: Lazaro Osuna MD Electronically Signed Date/Time: 10/15/2024 8:41 PM EDT [facility] No Panel InformationOrdered By: Lazaro Osuna on 10-15-2024 [facility] Work Phone: PROTHROMBIN TIMEon INR Coag (PPP) [Relative time] 1.0 {INR} Normal 0.9-1.1 [facility] Comment on above: Result Comment: Neil [...] Infarction Performed By: #### L AB320 #### Nuclear Auxiliary Operator: GEOVANNA MENJIVAR ([id number]) [facility] [employer] (SWRL[employer]) [address] [place] [address] PT Coag (PPP) [Time] 10.7 s Normal 9.0-12.0 [facility] Comment on above: Performed By: #### L AB320 #### Nuclear Auxiliary Operator: GEOVANNA MENJIVAR ([id number]) [facility] [employer] ([employer]) [address] [place] [address] PT Coag (Bld) [Time]on 10-15 INR Coag (PPP) [Relative time] 1 {INR} 0.9 - 1.1 [facility] Comment on above: Recommended Anticoag ulant [...] Interpretation and review of laboratory results Normal [facility] XR Femur - bilateral 2 Views on 10-15-2024 Patient Name: MARTHA MILLIGAN : 1940 [facility]#: [id number] Exam Date/Time: 10/15/2024 20:32 Procedure: XR FEMUR [...] patellofemoral joint spaces. Soft tissues grossly unremarkable. [facility] Lazaro Osuna MD - 10/15/2024 Patient Name: MARTHA MILLIGAN : 1940 Exam [...] Electronically Signed Date/Time: 10/15/2024 8:[address] [facility] Radiology Study observation (narrative) [facility] He alth XR Pelvis 1 or 2 Viewson Patient Name: MARTHA MILLIGAN : 1940 Exam Date/Time: 10/15/2024 20:13 Procedure: XR PELVIS [...] patellofemoral joint spaces. Soft tissues grossly unremarkable. [facility] Lazaro Osuna MD - 10/15/2024 Patient Name: MARTHA MILLIGAN : 1940 [facility]#: [id number] Exam Date/Time: 10/15/2024 20:13 Procedure: XR PELVIS [...] Electronically Signed Date/Time: 10/15/2024 8:[address] [facility] Radiology Study observation (narrative) Marlene contreras 36on 09-06-2024 36 Request for refill received from pharmacy Last appointment: 08/30/2024 Next appointment: 01/31/2025 Pharmacy confirmed: [x] Yes [] No Normal [facility] 37on 08-30-2024 37 Start memantine (Namenda) [...] if any problems with this medication. Normal [facility] Office Visiton 08-30-2024 Follow-up visit [id number] Martha Milligan 1940 F Date Provider Department Center 08/30/2024 [id number] None Family History Problem Relation Age of Onset Dementia Mother Stroke Mother Breast cancer Mother Lung cancer Father Brain cancer Father Hypertension Father Heart attack Father Lymphoma Father Cancer Father Family Status - Relation Status Age at Mother Alive Father Alive Level of Service:99922 OK OFFICE/OUTPATIENT ESTABLISHED MOD MDM 30 MIN Reason for Visit and Comments: Dementia [30] Normal [facility] Progress Noteon 08-30-2024 Progress Note Senior Services/Geriatrics Social History Present at visit: patient, Jordan Marital status: Children: 2 sons (1 [facility], 1 in [place]) Living arrangement: with spouse, own home >>08/30/24 [...] to eat, socialize with family, went to [place] Exercise: none Finances: has adequate assets My Chart: Only spouse uses Healthcare Power of Telecasting Technician: Yes: spouse Financial Power of Telecasting Technician: Yes: spouse Living Will: Yes Guardian: No [...] about the same. They did go to [place] since last visit and patient did well [...] [] [x] manages >>08/30/24 same - Normal [facility] Progress Note [facility] [place] [address] Dept: [phone] Dept Loc: [phone] Visit type: [facility] Follow Up Visit Reason for Visit: Dementia [...] hypothyroidism, hypertension, anxiety/depression who presents to the [facility] for a follow-up visit. The patient is [...] morning. Says she wants to rest. -Otherwise slowly slowing down -Appetite: Good -Mood: Good. No anxiety or agitation -short term memory is poor -custodial memory is pretty good. -Sleep: Almost too good -Physical health: Gets around better now that her blood pressure issues were taken care of. Doesn't use a cane or a walker. No falls History obtained from patient: Memory: I don't know. I just roll with the punches Mood: I am a happy person. Likes the play the piano. Sleep: 'I sure can sleep Appetite: I think it is good. Physical Health: I think it is alright. Reviewed progress notes completed by EDGARD GREGORIO) [...] Name Status Mother Alysha Lang Alive Father Brilliant Rickey Alive No partnership data on file [...] to thechart: MMSE score:01/08 Clock drawing score: 04/17 I independently reviewed the M (more content not included)... Normal [facility] Progress Note Review of Systems Constitutional: [...] disturbance. The patient is not nervous/anxious. Normal [facility] Office Visiton 01-12-2024 Follow-up visit [id number] Martha Milligan 1940 F Date Provider Department Center 01/12/2024 [id number][facility] None Family History Problem Relation Age of Onset Dementia Mother Stroke Mother Breast cancer Mother Lung cancer Father Brain cancer Father Hypertension Father Heart attack Father Lymphoma Father Family Status - Relation Status Age at Mother Father Level of Service:19526 OK OFFICE/OUTPATIENT ESTABLISHED MOD MDM 30 MIN Reason for Visit and Comments: Dementia [30] Normal [facility] PATINSon 01-12-2024 PATINS Your vitamin b12 [...] see her again in six months. Normal [facility] Progress Noteon 01-12-2024 Progress Note Interval [...] Diet Healthy Nutrition for Older Adults - [facility] Injury Prevention/Home Safety [facility] Home Safety Checklist [facility] Mobility for Adults Medications Medication Safety/Dispensers Sleep Getting a Good Night's Sleep ([facility]) Personal Care Personal Care Tips Normal [facility] Progress Note [facility] [address] [place] [id number] Dept: [phone] Dept Loc: [phone] Visit type: [facility] Family Summary Conference Reason for Visit: Dementia [...] NA 137 (more content not included)... Normal [facility] Cobalamin (Vitamin B12) [Mas s/Vol]on 11-03-2023 Interpretation and review of laboratory results Normal [facility] VITAMIN B12on 11-03-2023 Cobalamin (Vitamin B12) [Mass/Vol] 307 pg/mL Normal 239-931 [facility] Comment on above: Performed By: #### L AB67 ####Nuclear Auxiliary Operator: GEOVANNA MENJIVAR ([id number])[facility] (SWRLAB)[address] [place] [address] Vitamin B12on 11-03-2023 Cobalamin (Vitamin B12) [Mass/Vol] 307 pg/mL 239 - 931 pg/mL [facility] CBC W Auto Differential pane l (Bld)Ordered By: Kira Gant on 07-19-2022 Basophils (Bld) [#/Vol] 0.1 10*3/uL 0.0 - 0.2 10*3/uL [facility] Basophils/100 WBC (Bld) 1.0 % 0.0 - 2.0 % [facility] Eosinophils (Bld) [#/Vol] 0.0 10*3/uL 0.0 - 0.5 10*3/uL [facility] Eosinophils/100 WBC (Bld) 0.0 % Low 1.0 - 6.0 % [facility] Erythrocyte distribution width (RBC) [Ratio] 12.4 % 11.5 - 14.5 % [facility] Hematocrit (Bld) [Volume fraction] 42.2 % 35.0 - 47.0 % [facility] Hemoglobin (Bld) [Mass/Vol] 14.5 g/dL 11.7 - 16.0 g/dL [facility] Immature granulocytes (Bld) [#/Vol] 0.0 10*3/uL NINF - 0.0 10*3/uL [facility] Immature granulocytes/100 WBC (Bld) 0.3 % High NINF - 0.0 % [facility] Interpretation and review of laboratory results Abnormal [facility] Lymphocytes (Bld) [#/Vol] 1.9 10*3/uL 1.0 - 4.3 10*3/uL [facility] Lymphocytes/100 WBC (Bld) 26.2 % 20.0 - 40.0 % [facility] MCH (RBC) [Entitic mass] 31.6 pg 26.0 - 34.0 pg [facility] MCHC (RBC) [Mass/Vol] 34.4 % 32.0 - 36.0 % [facility] MCV (RBC) [Entitic vol] 91.9 fL 80.0 - 98.[address] [facility] Monocytes (Bld) [#/Vol] 0.7 10*3/uL 0.0 - 0.8 10*3/uL [facility] Monocytes/100 WBC (Bld) 9.7 % 2.0 - 10.0 % [facility] Neutrophils (Bld) [#/Vol] 4.6 10*3/uL 1.8 - 7.0 10*3/uL [facility] Neutrophils/100 WBC (Bld) 62.8 % 40.0 - 80.0 % [facility] Platelet mean volume (Bld) [Entitic vol] 11.0 fL 7.4 - 12.[address] [facility] Comment on above: MPV is a calculated measurement using platelet volume ratio Platelets (Bld) [#/Vol] 208 10*3/uL 140 - 440 10*3/uL [facility] RBC (Bld) [#/Vol] 4.59 10*6/uL 3.8 - 5.20 10*6/uL [facility] WBC (Bld) [#/Vol] 7.3 10*3/uL 3.6 - 10.7 10*3/uL [facility] Comprehensive metabolic 1998 panelon 07-19-2022 Albumin [Mass/Vol] 4.2 g/dL 3.5 - 5.0 g/dL [facility] ALP [Catalytic activity/Vol] 84 U/L 38 - 126 U/L [facility] ALT [Catalytic activity/Vol] 22 U/L 0 - 34 U/L [facility] Anion gap [Moles/Vol] 3 mmol/L 3 - 13 mmol/L [facility] AST [Catalytic activity/Vol] 24 U/L 15 - 46 U/L [facility] Bilirubin [Mass/Vol] 0.6 mg/dL 0.2 - 1 .3 mg/dL [facility] Calcium [Mass/Vol] 9.7 mg/dL 8.4 - 10. 4 mg/dL [facility] Chloride [Moles/Vol] 102 mmol/L 98 - 10 7 mmol/L [facility] CO2 [Moles/Vol] 32 mmol/L High 22 - 30 mmol/L [facility] Creatinine [Mass/Vol] 0.61 mg/dL 0.52 - 1.04 mg/dL [facility] GFR/1.73 sq M.predicted MDRD (S/P/Bld) [Vol rate/Area] - PINF [facility] Comment on above: Calculation based on the Chronic Kidney Disease Epidemiology Collaboration (CKD-EPI) equation refit without adjustment for race Glucose [Mass/Vol] 92 mg/dL 70 - 100 mg/dL [facility] Potassium [Moles/Vol] 3.5 mmol/L 3.5 - 5.1 mmol/L [facility] Protein [Mass/Vol] 7.0 g/dL 6.3 - 8.2 g/dL [facility] Sodium [Moles/Vol] 137 mmol/L 135 - 145 mmol/L [facility] Urea nitrogen [Mass/Vol] 12 mg/dL 7 - 17 mg/dL [facility] Folateon 07-19-2022 Folate [Mass/Vol] 18.4 ng/mL 2.9 - PINF ng/mL [facility] Folate [Mass/Vol]on 07-20-19 Interpretation and review of laboratory results Normal [facility] Free T3 [Mass/Vol]on 023 Interpretation and review of laboratory results Normal [facility] Free T4 [Mass/Vol]on 023 Free T4 Dialysis [Mass/Vol] 1.17 ng/dL 0.78 - 2.19 ng/dL [facility] Interpretation and review of laboratory results Normal [facility] Lipid 1996 panelon 3 Cholesterol [Mass/Vol] 188 mg/dL NINF - 200 mg/dL [facility] Cholesterol in HDL [Mass/Vol] 47 mg/dL 40 - 60 mg/dL [facility] Cholesterol in LDL [Mass/Vol] 112 mg/dL High 0 - <100 [facility] Cholesterol.total/[place] sterol in HDL [Mass ratio] 4 {ratio} [facility] Comment on above: Ref Range: < 3 Low Risk for CHD 3-6 Mod Risk for CHD > 6 High Risk for CHD Triglyceride [Mass/Vol] 145 mg/dL NINF - 150 mg/dL [facility] No Panel Informationon 07-19 Interpretation and review of laboratory results Abnormal [facility] T3, freeon 07-19-2022 Free T3 [Mass/Vol] 3.83 pg/mL 2.77 - 5. 27 pg/mL [facility] TSHon 07-19-2022 TSH Qn 2.720 m[IU]/L [facility] h TSH Qnon 07-19-2022 Interpretation and review of laboratory results Normal [facility] Metabolic Panelon 02-04 ALP [Catalytic activity/Vol] 85 U/L Normal 38-126 [facility] Comment on above: Performed By: #### C MP3, TSH5, LIPD2 #### [facility] [address] [place] [address] ALT [Catalytic activity/Vol] 17 U/L Normal 0-34 [facility] Comment on above: Result Comment: The ALT test is performed by an updated assay method. Please note that the reference intervals have been changed and are now sex specific. Performed By: #### C MP3, TSH5, LIPD2 #### [facility] [address] [place] [address] AST [Catalytic activity/Vol] 37 U/L Normal 15-46 [facility] Comment on above: Performed By: #### C MP3, TSH5, LIPD2 #### [facility] [address] [place] [address] Bilirubin [Mass/Vol] 0.8 mg/dL Normal 0.2-1.3 [facility] Comment on above: Performed By: #### C MP3, TSH5, LIPD2 #### [facility] [address] [place] [address] Calcium [Mass/Vol] 9.7 mg/dL Normal 8.4-10.4 [facility] Comment on above: Performed By: #### C MP3, TSH5, LIPD2 #### [facility] [address] [place] [address] Glucose [Mass/Vol] 108 mg/dL High 70-100 [facility] Comment on above: Performed By: #### C MP3, TSH5, LIPD2 #### [facility] [address] [place] [address] Protein [Mass/Vol] 7.7 g/dL Normal 6.3-8.2 [facility] Comment on above: Performed By: #### C MP3, TSH5, LIPD2 #### [facility] [address] [place] [address] Urea nitrogen [Mass/Vol] 11 mg/dL Normal 9-20 [facility] Comment on above: Performed By: #### C MP3, TSH5, LIPD2 #### [facility] [address] [place] [address] Anion gap [Moles/Vol] 6 mmol/L Normal 3-13 [facility] Comment on above: Performed By: #### C MP3, TSH5, LIPD2 #### [facility] [address] [place] [address] CO2 [Moles/Vol] 30 mmol/L Normal 22-30 [facility] Comment on above: Performed By: #### C MP3, TSH5, LIPD2 #### [facility] [address] [place] [address] Creatinine [Mass/Vol] 0.75 mg/dL Normal 0.52-1.25 [facility] Comment on above: Performed By: #### C MP3, TSH5, LIPD2 #### [facility] [address] [place] [address] GFR/1.73 sq M.predicted among blacks MDRD (S/P/Bld) [Vol rate/Area] 87.8 mL/min/{1.73_m2} Normal >60 [facility] Comment on above: Performed By: #### C MP3, TSH5, LIPD2 #### [facility] [address] [place] [address] GFR/1.73 sq M.predicted among non-blacks MDRD (S/P/Bld) [Vol rate/Area] 75.7 mL/min/{1.73_m2} Normal >60 [facility] Comment on above: Result Comment: KDIG [...] By: #### C MP3, TSH5, LIPD2 #### [facility] [address] [place] [address] Albumin [Mass/Vol] 4.3 g/dL Normal 3.5-5.0 [facility] Comment on above: Performed By: #### C MP3, TSH5, LIPD2 #### [facility] [address] [address] Chloride [Moles/Vol] 104 mmol/L Normal 98-107 [facility] Comment on above: Performed By: #### C MP3, TSH5, LIPD2 #### [facility] [address] [place] [address] Potassium [Moles/Vol] 4.0 mmol/L Normal 3.5-5.1 [facility] Comment on above: Performed By: #### C MP3, TSH5, LIPD2 #### [facility] [address] [place] [address] Sodium [Moles/Vol] 140 mmol/L Normal 135-145 [facility] Comment on above: Performed By: #### C MP3, TSH5, LIPD2 #### [facility] [address] [address] Comprehensive Metabolic Pane juliane 02-04-2022 Albumin [Mass/Vol] 4.3 g/dL 3.5 - 5.0 g/dL [facility] ALP (Bld) [Catalytic activity/Vol] 85 U/L 38 - 126 U/L [facility] ALT [Catalytic activity/Vol] 17 U/L 0 - 34 U/L [facility] Comment on above: The ALT test [...] - 1.25 mg/dL [facility] EGFR IF NonAfrican Berm[place]ian 75.7 mL/min 60 - PINF mL/min [facility] [...] [Mass/Vol] 11 mg/dL 9 - 20 mg/dL [facility] Lipid Panelon 02-04-2022 Chol/HDL 4 Normal [facility] Comment on above: Result Comment: Ref Range: < 3 Low Risk for CHD 3-6 Mod Risk for CHD > 6 High Risk for CHD Performed By: #### C MP3, TSH5, LIPD2 #### [facility] [address] [place] [address] Cholesterol in HDL [Mass/Vol] 44 mg/dL Normal 40-60 [facility] Comment on above: Performed By: #### C MP3, TSH5, LIPD2 #### [facility] [address] [place] [address] Low Density Lipoprotein 101 mg/dL Abnormal <100 [facility] Comment on above: Performed By: #### C MP3, TSH5, LIPD2 #### [facility] [address] [place] [address] Triglyceride [Mass/Vol] 142 mg/dL Normal <150 [facility] Comment on above: Performed By: #### C MP3, TSH5, LIPD2 #### [facility] [address] [place] [address] Cholesterol [Mass/Vol] 173 mg/dL Normal < 200 [facility] Comment on above: Performed By: #### C MP3, TSH5, LIPD2 #### [facility] [address] [place] [address] Cholesterol [Mass/Vol] 173 mg/dL NINF - 200 mg/dL [facility] Cholesterol in HDL [Mass/Vol] 44 mg/dL 40 - 60 mg/dL [facility] Cholesterol in LDL [Mass/Vol] 101 mg/dL Abnormal NINF - 100 mg/dL [facility] Cholesterol.total/[place] sterol in HDL [Mass ratio] 4 {ratio} [facility] Comment on above: Ref Range: < 3 Low Risk for CHD 3-6 Mod Risk for CHD > 6 High Risk for CHD Triglyceride [Mass/Vol] 142 mg/dL NINF - 150 mg/dL [facility] No Panel Informationon 02-04 Interpretation and review of laboratory results Abnormal [facility] Test Performed by [facility], [address] , [place], [place] [id number] [place] [address] LAB [facility] TSHon 02-04-2022 Interpretation and review of laboratory results Abnormal [facility] TSH Qn 5.010 u[IU]/mL High 0.465 - 4.680 u[IU]/mL [facility] Test Performed by [facility], [address] , [place], [place] [id number] [place] [address] LAB [facility] Thyroid Stim. Hormoneon 10-2 Thyroid Stim. Hormone 5.010 u[IU]/mL High 0.465-4.68 0 [facility] Comment on above: Performed By: #### C MP3, TSH5, LIPD2 #### [facility] [address] [place] [address] CT Head or Brain w/o Contras ton 08-13-2021 CT Head or Brain w/o Contrast Patient Name: MARTHA MILLIGAN Computed Tomography ACCESSION EXAM DATE/TIME PROCEDURE ORDERING PROVIDER [id number] 08/13/2021 13:[address] Head or Brain w/o DO DE LA CRUZ JOSHUA D Contrast CPT code 38842 Reason For Exam (CT Head or Brain [...] Transcribed Date and Time: 08/13/2021 4:38 Normal [facility] Vital Signs Date Time Vital Sign Value Performing Clinician Maria Fernanda lauren 10-19-2024 07:43-0400 Body temperature 97.7 [degF] TIMMY Rincon MD Work Phone: [facility] 10-19-2024 07:43-0400 Diastolic blood pressure 77 mm[Hg] TIMMY Rincon MD Work Phone: [facility] 10-19-2024 07:43-0400 Heart rate 58 /min TIMMY Rincon MD Work Phone: [facility] 10-19-2024 07:43-0400 Respiratory rate 15 /min TIMMY Rincon MD Work Phone: [facility] 10-19-2024 07:43-0400 SaO2% (BldA) [Mass fraction] 95 % TIMMY Rincon MD Work Phone: [facility] 10-19-2024 07:43-0400 Systolic blood pressure 150 mm[Hg] TIMMY Rincon MD Work Phone: [facility] 10-15-2024 19:52-0400 Body mass index (BMI) [Ratio] 26.08 kg/m2 TIMMY Rincon MD Work Phone: [facility] 10-15-2024 19:52-0400 Body weight 62.1 kg TIMMY Rincon MD Work Phone: [facility] 01-12-2024 12:45-0400 Body mass index (BMI) [Ratio] 26.67 kg/m2 Michele Mccollum MD Work Phone: [facility] 01-12-2024 12:45-0400 Body weight 63.5 kg Michele Mccollum MD Work Phone: [facility] 01-12-2024 12:45-0400 Diastolic blood pressure 77 mm[Hg] Michele Mccollum MD Work Phone: [facility] 01-12-2024 12:45-0400 Heart rate 89 /min Michele Mccollum MD Work Phone: [facility] 01-12-2024 12:45-0400 Systolic blood pressure 122 mm[Hg] Michele Shetty Work Phone: [facility] 10-18-2023 08:52-0400 Diastolic blood pressure 54 mm[Hg] Michele Mccollum MD Work Phone: [facility] 10-18-2023 08:52-0400 Heart rate 102 /min Michele Mccollum MD Work Phone: [facility] 10-18-2023 08:52-0400 Systolic blood pressure 83 mm[Hg] Michele Shetty Work Phone: [facility] 10-18-2023 08:51-0400 Body height 154.3 cm Michele Mccollum MD Work Phone: [facility] 10-18-2023 08:51-0400 Body mass index (BMI) [Ratio] 27.89 kg/m2 Michele Mccollum MD Work Phone: [facility] 10-18-2023 08:51-0400 Body weight 66.41 kg Michele Mccollum MD Work Phone: [facility] Encounters Encounter Date Encounter Type Care Provider Facility Start: 02-06-2025 ambulatory Michael Deperro OLS Facili ty:[facility] Start: 10-26-2024 ambulatory Michael Deperro OLS Facili ty:[facility] Start: 10-23-2024 ambulatory Michael Deperro OLS Facili ty:[facility] Start: 10-22-2024 [facility] Start: 10-15-2024 End: 10-19-2024 Evaluation and management of inpatient J Zena Rincon MD Work Phone: [facility] Cardiac Progressive Care Unit PCU 2E Comment on above: Hip pain, bilateral (Primary Dx); Unable to ambulate Start: 09-06-2024 End: 09-06-[address] 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 behavioral disturbance, psychotic disturbance, mood disturbance, or anxiety (HCC) (Primary Dx) Start: 01-12-2024 End: 01-12-2024 Office outpatient visit 25 minutes Michele Mccollum MD [facility] Comment on above: 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 behavioral disturbance, psychotic disturbance, mood disturbance, or anxiety (HCC) (Primary Dx) Start: 01-12-2024 End: 01-12-2024 [facility] Start: 11-03-2023 End: 11-03-2023 [facility] Start: 10-18-2023 End: 10-18-2023 Office outpatient new 45 minutes Michele Mccollum MD Work Phone: [facility] Comment on above: Memory loss (Primary Dx); History of hypertension Start: 08-31-2023 Telephone encounter Darron kirby DO Work Phone: [facility] Clinical Communication Comment on above: new patient appointm ent Start: 08-29-2023 Telephone encounter Re Chairez MD Work Phone: [facility] Comment on above: Appointment Request Start: 07-19-2022 End: 07-19-2022 ambulatory Darron De La Cruz DO Work Phone: [facility] Laboratory Comment on above: Hyperlipidemia, unsp ecified (Primary Dx); Deficiency of other specified B group vitamins; Hypothyroidism, unspecified Start: 02-04-2022 ambulatory Darron De La Cruz [facility] Start: 02-04-2022 End: 02-04-2022 Subsequent hospital visit by physician Darron De La Cruz DO Work Phone: [facility] Laboratory Start: 05-05-2022 ambulatory [facility]ron De La Cruz [facility] Procedures Date Procedure Procedure Detail Performing [...] Work Phone: Start: 02-04-2022 Lipid panel Darron kirby DO Work Phone: Plan of Treatment Date Care Activity Detail Author Start: 07-20-2027 Lipid panel Lipid Panel [facility] Start: 03-02-2025 Depression Monitoring Depression Mon [facility] Start: 02-02-2025 Thyroid stimulating hormone measurement TSH Level [facility] Start: 01-31-2025 End: 01-31-2025 Patient encounter procedure 01/31/2025 1:00 PM EDT Office Visit [facility] [place] [address] Michele Mccollum MD [address] [address] [facility] Start: 2024 Influenza vaccination Influenza Vacc ine (#1) [facility] Start: 10-17-2024 Depression Screening Depression Scre ening [facility] Start: 09-02-2024 Medicare Annual Wellness (AWV) Medicare Annual Wellness (AWV) [facility] Start: 08-02-2024 End: 08-02-2024 Patient encounter procedure 08/02/2024 11:00 AM EDT Office Visit [facility] [address] [place] [phone] Michele Mccollum MD [address] [address] [facility] Start: 04-19-2024 Depression Monitoring Depression Mon [facility] Start: 01-12-2024 End: 01-12-2024 Patient encounter procedure 01/12/2024 1:00 PM EDT Office Visit [facility] [address] [place] [phone] Michele Mccollum MD [address] [address] [facility] Start: 12-11-2023 COVID-19 Vaccine ( season) COVID-19 Vaccine ( season) [facility] Start: 12-11-2023 COVID-19 Vaccine ( season) COVID-19 Vaccine ( season) [facility] Start: 12-11-2023 Influenza vaccination [facility] Start: 11-24-2023 End: 11-24-2023 Patient encounter procedure [facility] Start: 10-18-2023 End: 10-17-2024 Cobalamin (Vitamin B12) [Mass/volume] in Serum or Plasma Vitamin B12 Lab Routine Memory loss Expected: 10/18/2023 (Approximate), Expires: 10/17/2024 [facility] Work Phone: Comment on above: Expected: 10/18/2023 (Approximate), Expires: 10/17/2024 Start: 10-18-2023 End: 10-18-2023 Patient encounter procedure 10/18/2023 8:45 AM EDT Office Visit [facility] [address] [place] [address] Michele Mccollum MD [address] [address] [facility] Start: 07-20-2023 Thyroid stimulating hormone measurement TSH Level [facility] Start: 2022 COVID-19 Vaccine ( season) COVID-19 Vaccine ( season) [facility] Start: 2022 Influenza vaccination Influenza Vacc ine (#1) [facility] Start: 11-09-2021 Influenza vaccination Flu vaccine (# 1) [facility] Start: 06-05-2019 Shingles vaccine (2 of 2) Shingles vaccine (2 of 2) [facility] Start: 06-05-2019 Zoster Vaccines (2 o f 2) Zoster Vaccines (2 of 2) [facility] Start: 06-05-2019 Zoster Vaccines (3 o f 3) Zoster Vaccines (3 of 3) [facility] Start: 2017 RSV Immunization for Adults (1 - 1-dose 75+ series) RSV Immunization for Adults (1 - 1-dose 75+ series) [facility] Start: 02-14-2016 Pneumococcal 65+ yea rs Vaccine (2 - PPSV23 if available, else PCV20) Pneumococcal 65+ years Vaccine (2 - PPSV23 if available, else PCV20) [facility] Start: 02-14-2016 Pneumococcal Vaccine : 65+ Years (2 - PPSV23 if available, else PCV20) Pneumococcal Vaccine: 65+ Years (2 - PPSV23 if available, else PCV20) [facility] Start: 02-14-2016 Pneumococcal Vaccine : 65+ Years (2 of 2 - PPSV23 or PCV20) Pneumococcal Vaccine: 65+ Years (2 of 2 - PPSV23 or PCV20) [facility] Start: 2002 RSV Immunization age d 60 or older (1 - 1-dose 60+ series) RSV Immunization aged 60 or older (1 - 1-dose 60+ series) [facility] Start: 1997 Screening for osteoporosis DEXA (modify frequency per FRAX score) [facility] Start: 1961 DTaP/Tdap/Td vaccine (1 - Tdap) DTaP/Tdap/Td vaccine (1 - Tdap) [facility] Start: 1961 DTaP/Tdap/Td Vaccine s (1 - Tdap) DTaP/Tdap/Td Vaccines (1 - Tdap) [facility] Start: 1960 Hepatitis C screening [facility] Start: 1954 Depression Screen Depression Screen [facility] Start: 1954 Depression Screening Depression Scre ening [facility] Start: 06-10-1943 COVID-19 Vaccine (#1) COVID-19 Vacci ne (#1) [facility] Start: 1942 Hepatitis B Vaccines (1 of 3 - 3-dose series) Hepatitis B Vaccines (1 of 3 - 3-dose series) [facility] Start: 1940 Medicare Annual Wellness (AWV) Medicare Annual Wellness (AWV) [facility] Start: 1940 Screening for osteoporosis Bone Density Scan [facility] OUTSIDE PROCEDURE SCAN OUTSIDE P ROCEDURE SCAN Procedures Ordered: 07/19/2022 [facility] Comment on above: Ordered: 07/19/2022 Immunizations Immunization Date Immunization Notes Care Provider Fa cili 01-19-2024 influenza virus vacc ine, unspecified formulation ITMMY Rincon MD Work Phone: [facility] [employer] 01-02-2022 influenza virus vacc ine, unspecified formulation Darron De La Cruz DO Work Phone: [facility] Payers Date Payer Category Payer Self-pay 2022 Private Health Insurance GENERIC COMMERCIAL [id number] 2022 Unknown [id number] 2007 Unknown 2007 Medicare 2007 Medicare [id number] 1940 Unknown [id number] 1940 Unknown [id number] Unknown [id number] Social History Date Type Detail Facility Tobacco smoking stat [facility] Tobacco smoking consumption unknown [facility] Start: 1940 Sex Assigned At Not on file [facility] [place] Work Phone: Start: 07-09-2022 End: 07-19-2022 Exposure to SARS-CoV-2 (event) Not sure [facility] [employer] Start: 10-18-2023 End: 10-16-2024 Gender identity Not on file [facility] [employer] Start: 10-18-2023 End: 08-30-2024 Tobacco smoking status SCIS Ex-smoker [facility] [employer] Start: 04-11-1960 End: 04-11-1967 History of tobacco use Current smoker [facility] [employer] Start: 04-11-1960 End: 04-11-1967 History of tobacco use Cigarette Smoker [facility] [employer] Start: 10-18-2023 End: 10-16-2024 Cigarettes smoked current (pack per day) - Reported 0.2 [facility] [employer] Start: 10-18-2023 End: 08-30-2024 Tobacco use and exposure Smokeless tobacco non-user [facility] [employer] Start: 10-18-2023 Alcoholic beverage intake Current drinker of alcohol (finding) [facility] [employer] Start: 11-09-2021 Sex Female (finding) [facility] [employer] Start: 08-30-2024 End: 10-16-2024 Alcoholic beverage intake Ex-drinker (finding) [facility] Has the [employer], or [employer] threatened to shut off services in your home in past 12Mo No [facility] Are you now , , , , never or living with a partner? [facility] How often to you hav e a drink containing alcohol? Monthly or less [facility] How many standard drinks containing alcohol do you have on a typical day? 1 or 2 [facility] How often do you hav e 6 or more drinks on 1 occasion? Never [facility] How hard is it for y ou to pay for the very basics like food, housing, medical care, and heating Not hard at all [facility] Do you feel stress - tense, restless, nervous, or anxious, or unable to sleep at night because your mind is troubled all the time - these days [OSQ] Not at all [facility] (I/We) worried wheth er (my/our) food would run out before (I/we) got money to buy more. Never true [facility] Functional Status Date Assessment Result Facility 10-15-2024 Total score [AUDIT-C] 0 10/16/19 7:54 PM EDT Meena Carranza RN [facility] Clinical Notes 08-29-2023 to 10-19-2024 Tameka Paz RN - 10/19/2024 2:17 PM Rodrigo Paz RN - 10/19/2024 2:17 PM Rodrigo Paz RN - 10/19/2024 1:43 PM Manuelito Patrick RN - 10/16/2024 3:08 AM EDTDavid Henriquez - FABIAN Note Date & Type Note Facility 10-19-2024 Nurse Note Report called to Tawny SAUNDERS at [facility]. No further questions or concerns. [facility] 10-19-2024 Nurse Note Report called to Tawny SAUNDERS at [facility]. No further questions or concerns. Transferred to the [address] [place] [address] nurseline at [facility] but no answer. Phone rang for 3 min. Will attempt calling report again at a later time. 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 Chart accessed pending admission to [address] documented in this encounter [facility] 10-19-2024 Nurse Note Transferred to the [address] [place] [address] nurseline at [facility] but no answer. Phone rang for 3 min. Will attempt calling report again at a later time. 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 [facility] 10-19-2024 Note Discharge Summary Martha Milligan [...] diagnosis management during her stay here at [facility]: Acute, acute on chronic, unstable/uncontrolled chronic problems/diagnoses: [...] Complexity: follow up within 7-14 calendar days (13306) [] Severe Complexity: follow up within 7 calendar days (60812) FOLLOW UP TESTING, PENDING RESULTS OR REFERRALS [...] Please confirm patient (more content not included)... [facility] 10-19-2024 Hospital course Narrative Images from [...] diagnosis management during her stay here at [facility]: Acute, acute on chronic, unstable/uncontrolled chronic problems/diagnoses: [...] Complexity: follow up within 7-14 calendar days (59528) [] Severe Complexity: follow up within 7 calendar days (75889) FOLLOW UP TESTING, PENDING RESULTS OR REFERRALS [...] 10/19/2024, 12:23 PM documented in this encounter [facility] 10-19-2024 Miscellaneous Notes Patient Choice Patient Name: MARTHA MILLIGAN Date of : 1940 All Providers Sent [facility] Phone: [phone] Address: [address] [id number] Name: Barryvilledre Munoz [facility] Phone: [phone] Address: [address] [place], [place] [id number] Discharge med list transmitted to [facility] via Careport per TCC request. 7000 was entered into [facility] for the SNF- FACILITY IS AWARE DC order paced. FABIAN done. CLINICAL PHYSICIAN ASSISTANT tasked to do 7000 and send DC paperwork and MAR to [facility]. Transportation will be set up by pr shortly. Problem: Safety Goal: I will remain [...] 10/17/2024 11:51 AM EDT Referral placed to [facility] via Careport per TCC request. Await review and response regarding ability to accept. TCC notified. Met with Jordan at bedside to discuss DC planning. Pt had choice list in hand that I left in room yesterday. chose1) [facility]. CLINICAL PHYSICIAN ASSISTANT tasked to make new SNF referrals. Awaiting [...] No GMLOS Documented documented in this encounter [facility] 10-19-2024 Note Formatting of this n ote might be different from the original. Patient Choice Patient Name: MARTHA MILLIGAN Date of : 1940 All Providers Sent Referral Name: [facility] Phone: [phone] Address: [address] [place] [address] Name: [employer] Phone: [phone] Address: [address] [place] [address] [address] [facility] 10-19-2024 Note Formatting of this n ote might be different from the original. Patient Choice Patient Name: MARTHA MILLIGAN Date of : 1940 All Providers Sent Referral Name: [facility] Phone: [phone] Address: [address] [place] [address] Name: [employer] Phone: [phone] Address: [address] [place] [address] [address] [facility] 10-19-2024 Note Formatting of this n ote might be different from the original. Discharge med list transmitted to [facility] via Careport per TCC request. 7000 was entered into [employer] for the SNF- FACILITY IS AWARE [facility] 10-19-2024 Note Formatting of this n ote might be different from the original. Discharge med list transmitted to [facility] via Careport per TCC request. 7000 was entered into [employer] for the SNF- FACILITY IS AWARE T [facility] 10-19-2024 Note Formatting of this n ote might be different from the original. DC order paced. FABIAN done. CLINICAL PHYSICIAN ASSISTANT tasked to do 7000 and send DC paperwork and MAR to [facility]. Transportation will be set up by pr shortly. [facility] 10-19-2024 Note Formatting of this n ote might be different from the original. DC order paced. FABIAN done. CLINICAL PHYSICIAN ASSISTANT tasked to do 7000 and send DC paperwork and MAR to [facility]. Transportation will be set up by pr shortly. [facility] 10-19-2024 History of Present illness Narrative Images from the original note were not included. OCCUPATIONAL THERAPY [facility] Treatment Note Name/MRN: Martha Milligan ([id number]) Date of : 1940 Age: 83 y.o. Room/Bed: B2-252/B2-252 A Visit #: 1 out of 7 Discharge Recommendation: Senior Care Facility Equipment Needed: No Prior Level of [...] original note were not included. PHYSICAL THERAPY [facility] Treatment Note Name/MRN: Martha Milligan ([id number]) Date of : 1940 Age: 83 y.o. Room/Bed: B2-252/B2-252 A Visit #: 1 out of 7 visits Discharge Recommendation: Senior Care Facility Equipment Needed: No Prior Level of [...] original note were not included. OCCUPATIONAL THERAPY [facility] Name/MRN: Martha Milligan ([id number]) Date: 10/18/2024 Chart reviewed. Attempt to see pt for OT session. Pt adamantly declining participation in OT session. Pt given encouragement and multiple tx options with no success. Unable to re direct pt. OT will continue to follow and re attempt to see as schedule permits. VISHAL Mccarthy/Rodrigo Cosigned by Tom Palencia OT at 10/18/2024 3:58 PM EDT Hospitalist Progress Note 10/18/[id number]: Please page me ([phone]) for patient care issues. [phone]: Please page [facility] night Hospitalist for any issues. Subjective: Admit Date: 10/15/2024 PCP: aDrron De La Cruz, DO Room#: B2-252/B2-252 A Interval History: No overnight issues. Denies chest pain or sob. No abdominal pain, nausea, vomiting. No fevers or chills. She is laying in bed resting comfortably. Her is at bedside again today. Adult diet Regular @[id number]@ 24HR INTAKE/OUTPUT: Intake/Output Summary (Last 24 hours) [...] ANIONGAP 12 LIVER PROFILE:No results for input(s): AST, ALT, BILITOT, ALKPHOS, PROT in the last 72 hours. No lab exists for component: LABALBU PT/INR: Recent Labs 10/15/242107 PROTIME 10.7 INR 1.0 CARDIAC ENZYMES: No results for input(s): TROPONINI in the last 72 hours. Procalcitonin: No results found for: PROCAL COVID-19 PCR: No results for input(s): COVID19 in the last 72 hours. Objective: Vitals: [...] Emergency Contact: Jordan Milligan Mobile Relation: Spouse Manufacturing Quality Manager needed? No Carlos Fall MD Division of Hospitalist Medicine Inpatient Medical Services/[facility] PAGER: Epic chat [1] Past Medical History: [...] original note were not included. OCCUPATIONAL THERAPY [facility] Initial Evaluation Name/MRN: Martha Milligan ([id number]) Evaluation Date: 10/17/2024 Date of : 1940 Admission Date: 10/15/2024 7:52 PM Age: 83 y.o. Room/Bed: B2252/[facility]252 A Discharge Recommendation: Senior Care Facility Equipment Needed: No Assessment IMPRESSION: Pt [...] per RN. Agreeable to therapy evaluation. Pain: medium pain in eran hips (R > L) Past [...] Responsibilities: Independent Receives Help From: Family Active Technician'S Helper: No Prior Level of Function Prior Level [...] of Care supervision is transferred to a [facility] Therapy Services Occupational Therapist. Goals and/or [...] TONSILLECTOMY TUBAL LIGATION Hospitalist Progress Note 10/17/2024 [phone]: Please page me ([phone]) for patient care issues. [phone]: Please page [facility] Hospitalist for any issues. Subjective: Admit Date: 10/15/2024 PCP: Darron De La Cruz, DO Room#: B2-252/B2-252 A Interval History: No overnight issues. Denies chest pain or sob. No abdominal pain, nausea, vomiting. No fevers or chills. She is laying in bed resting comfortably. She was sleeping before I woke her up. Her is at bedside. Adult diet Regular @[id number]@ 24HR INTAKE/OUTPUT: Intake/Output Summary (Last 24 hours) [...] ANIONGAP 12 LIVER PROFILE:No results for input(s): AST, ALT, BILITOT, ALKPHOS, PROT in the last 72 hours. No lab exists for component: LABALBU PT/INR: Recent Labs 10/15/242107 PROTIME 10.7 INR 1.0 CARDIAC ENZYMES: No results for input(s): TROPONINI in the last 72 hours. Procalcitonin: No results found for: PROCAL COVID-19 PCR: No results for input(s): COVID19 in the last 72 hours. Objective: Vitals: [...] Emergency Contact: Jordan Milligan Mobile Relation: Spouse Manufacturing Quality Manager needed? No Carlos Fall MD Division of Hospitalist Medicine Inpatient Medical Services/[facility]AGER: Epic chat [1] Past Medical History: [...] be monitored and followed by the diet ecg technician. Images from the original note were not included. PHYSICAL THERAPY [facility] Initial Evaluation Name/MRN: Martha Milligan ([id number]) Evaluation Date: 10/16/2024 Date of : 1940 Admission Date: 10/15/2024 7:52 PM Age: 83 y.o. Room/Bed: B2-252/[facility]252 A Discharge Recommendation: Senior Care Facility Equipment Needed: No Assessment IMPRESSION: Pt [...] Responsibilities: Independent Receives Help From: Family Active Technician'S Helper: No Prior Level of Function Prior Level [...] of Care supervision is transferred to a [facility] Therapy Services Physical Therapist. Goals and/or treatment plan was established in collaboration with patient/family/other representatives. [1] Past Medical History: Diagnosis Date Anxiety Depression Folate deficiency Hiatal hernia Hyperlipemia Hypertension Hypothyroidism Memory loss Osteopenia Vitamin D deficiency [2] Past Surgical History: Procedure Laterality Date COLONOSCOPY 09/22/2015 PARATHYROIDECTOMY 1993 THYROID SURGERY 1992 Benign Thyroid mass TONSILLECTOMY TUBAL LIGATION documented in this encounter [facility] 10-19-2024 Hospital Discharge instructions Tameka Paz RN - 10/19/2024 10:03 AM EDT Images from the original note were not included. Continuity of Care Form Patient Name: Martha Milligan : 1940 Admit date: 10/15/2024 Discharge date: 10.19.24 Code Status Order: DNR-CCA Advance Directives: Y Admitting Physician: Abdelrahman Baeza MD PCP: Darron De La Cruz DO Discharging Nurse: Zahraa RN Discharging Hospital Unit/Room#: B2-252/B2-252 A Discharging Unit Emergency Contact: Extended Emergency Contact Information Primary Emergency Contact: Jordan Milligan Mobile Relation: Spouse Manufacturing Quality Manager needed? No Past Surgical History: Past Surgical History: Procedure Laterality Date COLONOSCOPY 09/22/2015 PARATHYROIDECTOMY 1992 THYROID SURGERY 1992 Benign Thyroid mass TONSILLECTOMY TUBAL LIGATION Immunization [...] assistance Toileting Total assistance Feeding Minimal assistance Laundry Operator Total assistance Med Delivery yes Wound Care [...] select all that are sent with patient): {[facility] Patient Belongings:12186} RN SIGNATURE: MANAGEMENT/SOCIAL WORK SECTION Inpatient Status Date: 10/16/24 Discharging to Facility/ Agency [facility] Address: [address] [place] [address] Fax: Dialysis Facility (if applicable) Name: Address: Dialysis Schedule: Phone: Fax: Title I Director/Utility Division Project Manager signature: ICIAN SECTION Name: Martha Milligan Prognosis: good Condition at Discharge: stable Rehab Potential (if transferring to Rehab): good Recommended Labs or Other Treatments After Discharge: The individual is being admitted to a nursing facility directly from an [facility] or a unit of a [facility] that is not operated by or licensed by [facility] under section 5119.14 or 5160-3-15.1 5 The individual requires the level of services provided by a nursing facility for the condition for which he or she was treated in the hospital and, Physician Certification: I certify the above information and transfer of Martha Milligan is necessary for the continuing treatment of the diagnosis listed and that she requires longterm facility for less than 30 days. Update Admission H&P: No change in H&P PHYSICIAN SIGNATURE: documented in this encounter [facility] 10-18-2024 Note Hospitalist Progress Note 10/18/2024 [phone]: Please page me ([phone]) for patient care issues. [phone]: Please page [facility] Hospitalist for any issues. Subjective: Admit Date: 10/15/2024 PCP: Darron De La Cruz, DO Room#: B2-252/B2-252 A Interval History: No overnight issues. Denies chest pain or sob. No abdominal pain, nausea, vomiting. No fevers or chills. She is laying in bed resting comfortably. Her is at bedside again today. Adult diet Regular @[id number]@ 24HR INTAKE/OUTPUT: Intake/Output Summary (Last 24 hours) [...] ANIONGAP 12 LIVER PROFILE:No results for input(s): AST, ALT, BILITOT, ALKPHOS, PROT in the last 72 hours. No lab exists for component: LABALBU PT/INR: Recent Labs 10/15/24 2108 PROTIME 10.7 INR 1.0 CARDIAC ENZYMES: No results for input(s): TROPONINI in the last 72 hours. Procalcitonin: No results found for: PROCAL COVID-19 PCR: No results for input(s): COVID19 in the last 72 hours. Objective: Vitals: [...] Emergency Contact: Jordan Milligan Mobile Relation: Spouse Manufacturing Quality Manager needed? No Carlos Fall MD Division of Hospitalist Medicine Inpatient Medical Services/[facility] PAGER: Epic chat [1] Past Medical History: [...] sodium chloride 0.9%, 5-40 mL, IntraVENous, q12h [facility] 10-17-2024 Note Problem: Safety Goal: I will remain free of falls Outcome: Progressing Problem: Daily Care Goal: Daily care needs are met Outcome: Progressing Problem: Chronic Conditions and Co-morbidities Goal: Patient's chronic conditions and co-morbidity symptoms are monitored and maintained or improved Outcome: Progressing [facility] 10-17-2024 Plan of care note Problem: Safety Goal: I will remain free of falls Outcome: Progressing Problem: Daily Care Goal: Daily care needs are met Outcome: Progressing Problem: Chronic Conditions and Co-morbidities Goal: Patient's chronic conditions and co-morbidity symptoms are monitored and maintained or improved Outcome: Progressing [facility] 10-17-2024 Note OCCUPATIONAL THERAPY [facility] Initial Evaluation Name/MRN: Martha Milligan ([id number]) Evaluation Date: 10/17/2024 Date of : 1940 Admission Date: 10/15/2024 7:52 PM Age: 83 y.o. Room/Bed: B2-252/B2-252 A Discharge Recommendation: Senior [facility] Facility Equipment Needed: No Assessment IMPRESSION: Pt [...] per RN. Agreeable to therapy evaluation. Pain: medium pain in eran hips (R > L) Past [...] Responsibilities: Independent Receives Help From: Family Active Technician'S Helper: No Prior Level of Function Prior Level [...] this date. Patient (more content not included)... [facility] 10-17-2024 Note Hospitalist Progress Note 10/17/[id number]: Please page me ([phone]) for patient care issues. [phone]: Please page [facility] Hospitalist for any issues. Subjective: Admit Date: 10/15/2024 PCP: Darron De La Cruz, DO Room#: B2-252/B2-252 A Interval History: No overnight issues. Denies chest pain or sob. No abdominal pain, nausea, vomiting. No fevers or chills. She is laying in bed resting comfortably. She was sleeping before I woke her up. Her is at bedside. Adult diet Regular @[id number]@ 24HR INTAKE/OUTPUT: Intake/Output Summary (Last 24 hours) [...] ANIONGAP 12 LIVER PROFILE:No results for input(s): AST, ALT, BILITOT, ALKPHOS, PROT in the last 72 hours. No lab exists for component: LABALBU PT/INR: Recent Labs 10/15/242107 PROTIME 10.7 INR 1.0 CARDIAC ENZYMES: No results for input(s): TROPONINI in the last 72 hours. Procalcitonin: No results found for: PROCAL COVID-19 PCR: No results for input(s): COVID19 in the last 72 hours. Objective: Vitals: [...] Emergency Contact: Jordan Milligan Mobile Relation: Spouse Manufacturing Quality Manager needed? No Carlos Fall MD Division of Hospitalist Medicine [facility]patient Medical Services[place] [place]: Epic chat [1] Past Medical History: [...] sodium chloride 0.9%, 5-40 mL, IntraVENous, q12h [facility] 10-17-2024 Note Problem: Safety Goal: I will remain free of falls Outcome: Progressing Problem: Daily Care Goal: Daily care needs are met Outcome: Progressing Problem: Chronic Conditions and Co-morbidities Goal: Patient's chronic conditions and co-morbidity symptoms are monitored and maintained or improved Outcome: Progressing [facility] 10-17-2024 Plan of care note Problem: Safety Goal: I will remain free of falls Outcome: Progressing Problem: Daily Care Goal: Daily care needs are met Outcome: Progressing Problem: Chronic Conditions and Co-morbidities Goal: Patient's chronic conditions and co-morbidity symptoms are monitored and maintained or improved Outcome: Progressing Cosigned by Ousmane Mancia RN at 10/17/2024 11:[address] [facility] 10-17-2024 Note Formatting of this n ote might be different from the original. Referral placed to [facility] via [facility] per TCC request. Await review and response regarding ability to accept. TCC notified. T [facility] 10-17-2024 Note Formatting of this n ote might be different from the original. Referral placed to SNF- [facility] via [facility] per TCC request. Await review and response regarding ability to accept. TCC notified. T [facility] 10-17-2024 Note Referral placed to S - [facility] via [facility] per TCC request. Await review and response regarding ability to accept. TCC notified. [facility] 10-17-2024 Note Formatting of this n ote might be different from the original. Met with Jordan at bedside to discuss DC planning. Pt had choice list in hand that I left in room yesterday. chose1) [facility] SNF and 2) [facility]. CLINICAL PHYSICIAN ASSISTANT tasked to make new SNF referrals. Awaiting acceptance. [facility] 10-17-2024 Note Formatting of this n ote might be different from the original. Met with Jordan at bedside to discuss DC planning. Pt had choice list in hand that I left in room yesterday. chose1) [facility] SNF and 2) [facility]. CLINICAL PHYSICIAN ASSISTANT tasked to make new SNF referrals. Awaiting acceptance. [facility] 10-17-2024 Consult note Associated Order (s): IP [...] 10.7 INR 1.0 APTT:No results for input(s): APTT in the last 72 hours. LIVER PROFILE:No results for input(s): AST, ALT, BILIDIR, BILITOT, ALKPHOS in the last 72 hours. Imaging/Diagnostics Pelvis [...] cancer Mother Alysha Lang Lung cancer Father [place] Brain cancer Father [place] Hypertension Father Brilliant Rickey Heart attack Father [place] Lymphoma Father [place] Cancer Father Brilliant Rickey meetsT [employer] Phone: 10-17-2024 Consult note Associated Order (s): [...] 10.7 INR 1.0 APTT:No results for input(s): APTT in the last 72 hours. LIVER PROFILE:No results for input(s): AST, ALT, BILIDIR, BILITOT, ALKPHOS in the last 72 hours. Imaging/Diagnostics Pelvis [...] Dementia Mother Alysha Lang Stroke Mother Alysha Rickey Breast cancer Mother Alysha Lang Lung cancer Father [place] Brain cancer Father [place] Hypertension Father [place] Heart attack Father Brilliant [place]key Lymphoma Father [place] Cancer Father [place] documented in this encounter [facility] 10-16-2024 Note Problem: Safety Goal: I will remain free of falls Outcome: Progressing Problem: Daily Care Goal: Daily care needs are met Outcome: Progressing Problem: Chronic Conditions and Co-morbidities Goal: Patient's chronic conditions and co-morbidity symptoms are monitored and maintained or improved Outcome: Progressing [facility] 10-16-2024 Plan of care note Problem: Safety Goal: I will remain free of falls Outcome: Progressing Problem: Daily Care Goal: Daily care needs are met Outcome: Progressing Problem: Chronic Conditions and Co-morbidities Goal: Patient's chronic conditions and co-morbidity symptoms are monitored and maintained or improved Outcome: Progressing [facility] 10-16-2024 Note Problem: Safety Goal: I will remain free of falls Outcome: Progressing Problem: Daily Care Goal: Daily care needs are met Outcome: Progressing Problem: Chronic Conditions and Co-morbidities Goal: Patient's chronic conditions and co-morbidity symptoms are monitored and maintained or improved Outcome: Progressing [facility] 10-16-2024 Plan of care note Problem: Safety Goal: I will remain free of falls Outcome: Progressing Problem: Daily Care Goal: Daily care needs are met Outcome: Progressing Problem: Chronic Conditions and Co-morbidities Goal: Patient's chronic conditions and co-morbidity symptoms are monitored and maintained or improved Outcome: Progressing [facility] 10-16-2024 Note Formatting of this n [...] Stay (Days): 0 GMLOS: No GMLOS Documented [facility] 10-16-2024 Note Formatting of this n [...] Stay (Days): 0 GMLOS: No GMLOS Documented [facility] 10-16-2024 Note Care Management Prog ress [...] Stay (Days): 0 GMLOS: No GMLOS Documented [facility] 10-16-2024 Note PHYSICAL THERAPY [facility] Initial Evaluation Name/MRN: Martha Milligan ([id number]) Evaluation Date: 10/16/2024 Date of : 1940 Admission Date: 10/15/2024 7:52 PM Age: 83 y.o. Room/Bed: B2-252/B2252 A Discharge Recommendation: Senior Care Facility Equipment Needed: No Assessment IMPRESSION: Pt [...] Responsibilities: Independent Receives Help From: Family Active Technician'S Helper: No Prior Level of Function Prior Level [...] AM-PAC Inpatient Mobili (more content not included)... [facility] 10-16-2024 History and physical note Attending [...] min Stress: No Stress Concern Present (08/27/2024) [employer] - Occupational Stress Questionnaire Feeling of Stress : Not at all Social Connections: Moderately Isolated (08/27/2024) Social Connection and Isolation Panel [NHANES] Frequency of Communication with Friends and Family: Once a week Frequency of Social Gatherings with Friends and Family: Once a week Attends [employer] Services: 1 to 4 times per year [...] ANIONGAP 12 LIVER PROFILE:No results for input(s): AST, ALT, BILITOT, ALKPHOS, PROT in the last 72 hours. No lab exists for component: LABALBU PT/INR: Recent Labs 10/15/242107 PROTIME 10.7 INR 1.0 CARDIAC ENZYMES: No results for input(s): TROPONINI in the last 72 hours. Procalcitonin: No results found for: PROCAL Urine Culture: No results found for this or any previous visit. COVID-19 PCR: No results for input(s): COVID19 in the last 72 hours. I reviewed: [...] cancer Mother Alysha Lang Lung cancer Father Brilliant Rickey Brain cancer Father Brilliant [place]key Hypertension Father [place] Heart attack Father [place] Lymphoma Father Brilliant Rickey Cancer Father Brilliant Rickey [4] No current facility-administered medications for this encounter. [facility] 10-16-2024 Note Attending History an d [...] min Stress: No Stress Concern Present (08/27/2024) [employer] - Occupational Stress Questionnaire Feeling of Stress : Not at all Social Connections: Moderately Isolated (08/27/2024) Social Connection and Isolation Panel [NHANES] Frequency of Communication with Friends and Family: Once a week Frequency of Social Gatherings with Friends and Family: Once a week Attends [employer] Services: 1 to 4 times per year [...] rashes or lesions. DATA: CBC: Recent Labs 10/15/24 2108 WBC 9.6 RBC 4.27 HGB 13.2 HCT 38.5 MCV 90.2 RDW 12.5 PLT 139* BMP: Rec (more content not included)... [facility] 10-16-2024 History and physical note Attending [...] min Stress: No Stress Concern Present (08/27/2024) [employer] - Occupational Stress Questionnaire Feeling of Stress : Not at all Social Connections: Moderately Isolated (08/27/2024) Social Connection and Isolation Panel [NHANES] Frequency of Communication with Friends and Family: Once a week Frequency of Social Gatherings with Friends and Family: Once a week Attends [employer] Services: 1 to 4 times per year [...] rashes or lesions. DATA: CBC: Recent Labs 07/07/25 2108 WBC 9.6 RBC 4.27 HGB 13.2 HCT 38.5 MCV 90.2 RDW 12.5 PLT 139* BMP: Recent Labs 10/15/242107 NA 141 K 3.5 CL 106 CO2 23 BUN 12 CREATININE 0.68 GLUCOSE 89 CALCIUM 9.7 ANIONGAP 12 LIVER PROFILE:No results for input(s): AST, ALT, BILITOT, ALKPHOS, PROT in the last 72 hours. No lab exists for component: LABALBU PT/INR: Recent Labs 10/15/242107 PROTIME 10.7 INR 1.0 CARDIAC ENZYMES: No results for input(s): TROPONINI in the last 72 hours. Procalcitonin: No results found for: PROCAL Urine Culture: No results found for this or any previous visit. COVID-19 PCR: No results for input(s): COVID19 in the last 72 hours. I reviewed: [...] cancer Mother Alysha Lang Lung cancer Father [place] Brain cancer Father Brilliant [place]key Hypertension Father [place] Heart attack Father [place] Lymphoma Father [place] Cancer Father Brilliant Rickey [4] No current facility-administered medications for this encounter. documented in this encounter [facility] 10-16-2024 Emergency department Note Pt depends changed for urine incontinence and repositioned in bed for comfort. [facility] 10-16-2024 Emergency department Note Pt depends [...] bilateral femurs I reviewed external records from: [facility] demonstrating no controlled substance prescriptions X-rays negative for fracture, upon my independent interpretation. Patient still unable to bear weight and subsequently, CT pelvis ordered, as patient still has tenderness to both of her hips. CT negative for fracture. Patient care discussed with: Dr. Baeza, [facility] hospital[place], who has agreed to accept the patient for admission. Consideration for escalation of care with: Admission. The patient requires hospitalization due to inability to ambulate Patient's care was impacted by Alzheimer's dementia The patient will be discharged The patient is in agreement with this plan. Diagnoses as of 10/15/242206 Hip pain, bilateral Unable to ambulate Medications [...] cancer Mother Alysha Lang Lung cancer Father Brilliant Rickey Brain cancer Father Brilliant Rickey Hypertension Father Brilliant Rickey Heart attack Father Brilliant Rickey Lymphoma Father Brilliant [place]key Cancer Father [place] [4] Social History Socioeconomic History Marital status: [...] min Stress: No Stress Concern Present (08/27/2024) [employer] - Occupational Stress Questionnaire Feeling of Stress : Not at all Social Connections: Moderately Isolated (08/27/2024) Social Connection and Isolation Panel [NHANES] Frequency of Communication with Friends and Family: Once a week Frequency of Social Gatherings with Friends and Family: Once a week Attends [employer] Services: 1 to 4 times per year [...] reach. @ bedside. documented in this encounter [facility] 10-16-2024 Nurse Note Chart accessed pending admission to [address] [facility] 10-15-2024 Emergency department Note Pt to xray via cart and lifted onto table with assist of 3. Tolerated well [facility] 10-15-2024 Emergency department Triage note Pt [...] safety. Cody light in reach. @ bedside. [facility] 10-15-2024 Physician Emergency department Note EMERGENCY [...] DEPARTMENT COURSE and DIFFERENTIAL DIAGNOSIS/MDM: Vitals: Vitals: 10/15/24195110/15/24 2154 BP: (!) 186/78 (!) 181/82 BP [...] bilateral femurs I [facility] demonstrating no controlled substance prescriptions X-rays negative for fracture, upon my independent interpretation. Patient still unable to bear weight and subsequently, CT pelvis ordered, as patient still has tenderness to both of her hips. CT negative for fracture. Patient care discussed with: Dr. Baeza, [facility] hospital[place], who has agreed to accept the [...] cancer Mother Alysha Lang Lung cancer Father [place] Brain cancer Father Brilliant Rickey Hypertension Father [place] Heart attack Father [place] Lymphoma Father [place] Cancer Father Brilliant Rickey [4] Social History Socioeconomic History Marital status: [...] min Stress: No Stress Concern Present (08/27/2024) [employer] - Occupational Stress Questionnaire Feeling of Stress : Not at all Social Connections: Moderately Isolated (08/27/2024) Social Connection and Isolation Panel [NHANES] Frequency of Communication with Friends and Family: Once a week Frequency of Social Gatherings with Friends and Family: Once a week Attends [employer] Services: 1 to 4 times per year [...] the Last Year: No Monica Rincon MD 10/15/[address] [facility] 09-06-2024 Telephone encounter Note Request for refill received from pharmacy Last appointment: 08/30/2024 Next appointment: 01/31/2025 Pharmacy confirmed: [x] Yes [] No [facility] 09-06-2024 Miscellaneous Notes Request for refill received from pharmacy Last appointment: 08/30/2024 Next appointment: 01/31/2025 Pharmacy confirmed: [x] Yes [] No documented in this encounter [facility] 01-12-2024 History of Present illness Narrative Images from the original note were not included. [address] [address] Dept: [phone] Dept Loc: [phone] Visit type: [facility] Family Summary Conference Reason for Visit: Dementia [...] 18.4 07/19/2022 Lab Results Component Value Date [id number] 11/03/2023 No results found for: RPR Imaging: no new neuroimaging obtained Testing: I reviewed the [place] CognitiveAssessment from the initial assessment with the [...] Safety/Dispensers Sleep Getting [facility] Good [facility] ([facility]) Personal Care Personal Care Tips documented in this encounter [facility] 01-12-2024 Instructions Michele Mccollum MD - 01/12/2024 [...] in six months. documented in this encounter [facility] 10-18-2023 History of Present illness Narrative [...] Jordan Marital status: Children: 2 sons (1 [facility], 1 in [place]) Living arrangement: with spouse, own home Household [...] Chart: Only spouse uses Healthcare Power of Telecasting Technician: Yes: spouse Financial Power of Telecasting Technician: Yes: spouse Living Will: Yes Guardian: No [...] Diet Healthy Nutrition for Older Adults - [facility] Injury Prevention/Home Safety [facility] Home Safety Checklist [facility] Mobility for Adults Medications Medication Safety/Dispensers Sleep Getting a Good Night's Sleep ([facility]) Personal Care Personal Care Tips Images from the original note were not included. [facility] [address] [address] Dept: [phone] Dept Loc: [phone] Visit type: [facility] Initial Assessment Visit Date: 10/18/2023 Reason for [...] hypothyroidism, hypertension, anxiety/depression who presents to the [facility] for a comprehensive geriatric assessment. The patient is new to me. Chart Review -Tsh 1.8 in 07/2023 -CMP and CBC from 08/02 reviewed as well (in PCP progress note) -PCP concerned about Alzheimer's Disease due to memory loss. -She had a CT head in 2021 for memory loss: No evidence of intracranial hemorrhage or definite acute cortical infarction. There is mild volume loss. Periventricular leukomalacia likely reflects areas of small vessel ischemic change. History obtained from caregiver(s): Spouse - Jordan [...] cueing. For example, She sometimes will ask where should I go and sit. -She has trouble with names (even people she knows well). 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 -No dizziness/lightheaded complaints. Just seems a bit unstable when she stands sometimes. -Mood: no anxiety or depression. Mood is pretty even. Short term memory loss: Timing- slowly progressive, all day everyday, no difference whether morning or night, cognitive changes are stable day to day, Context- (give details of any yes answers) history of stroke- No, history of head trauma- no, history of seizures- no, history of hospitalization or surgery that made memory worse- no History of COVID-19- No If yes, were there symptoms of brain fog? N/a History of cancer? - No Hearing Loss? - No Hearing Aids? - no Associated signs and symptoms- delusions or hallucinations- No hallucinations. No delusions. paranoia- no Trouble sleeping? No. If anything she sleeps too much ( has to wake her up sometimes) Symptoms of REM-related sleep disorder- Does he/she appear to act out their dreams while sleeping (punch or flail arms, shout or scream? No Appetite: It is lessening with time. If workup results in a diagnosis of dementia/Alzheimer's, do you have any concerns about your loved one hearing this diagnosis? I don't know. Would likely go with the flow. Would [...] word search book from her purse). -Mood: I feel pretty good and happy. -Sleep: that is kind of a strange question. No trouble falling or staying asleep -Appetite: It is usually pretty good. -Hallucinations: no -Sometimes goes out for walks with her spouse. -Doesn't feel sick/ill today. No dizziness/lightheadedness. -I'm as happy as a clam. Hearing Screen: HHIE-S: 0/40 Able to identify 9-1-1: yes Reviewed progress notes completed by EDGARD [...] lb 6.4 oz (66.4 kg) Height: 5' 0.75 (1.543 m) Wt Readings from Last 3 [...] FOLATE 18.4 07/19/2022 No results found for: [id number] No results found for: RPR Testing: The following tests were performed at today's visit and scanned in to the chart: MoCA score: 11/07, MIS score: 2 Clock drawing score: 0/7 PHQ-9 score: 0 I independently reviewed the [place] Cognitive Assessment from 10/18/2023. Test scanned in [...] exam and/or evaluation documented in this encounter [facility] 10-18-2023 History of Present illness Narrative [...] Jordan Marital status: Children: 2 sons (1 [facility], 1 in [place]) Living arrangement: with spouse, own home Household [...] Chart: Only spouse uses Healthcare Power of Telecasting Technician: Yes: spouse Financial Power of Telecasting Technician: Yes: spouse Living Will: Yes Guardian: No [...] Safety/Dispensers Sleep Getting a Good Night's Sleep ([facility]) Personal Care Personal Care Tips Images from the original note were not included. [facility] [address] [address] Dept: [phone] Dept Loc: [phone] Visit type: [facility] Initial Assessment Visit Date: 10/18/2023 Reason for [...] hypothyroidism, hypertension, anxiety/depression who presents to the [facility] for a comprehensive geriatric assessment. The patient is new to me. Chart Review -Tsh 1.8 in 07/2023 -CMP and CBC from 08/02 reviewed as well (in PCP progress note) -PCP concerned about Alzheimer's Disease due to memory loss. -She had a CT head in 2021 for memory loss: No evidence of intracranial hemorrhage or definite acute cortical infarction. There is mild volume loss. Periventricular leukomalacia likely reflects areas of small vessel ischemic change. History obtained from caregiver(s): Spouse - Jordan [...] cueing. For example, She sometimes will ask where should I go and sit. -She has trouble with names (even people she knows well). 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 -No dizziness/lightheaded complaints. Just seems a bit unstable when she stands sometimes. -Mood: no anxiety or depression. Mood is pretty even. Short term memory loss: Timing- slowly progressive, all day everyday, no difference whether morning or night, cognitive changes are stable day to day, Context- (give details of any yes answers) history of stroke- No, history of head trauma- no, history of seizures- no, history of hospitalization or surgery that made memory worse- no History of COVID-19- No If yes, were there symptoms of brain fog? N/a History of cancer? - No Hearing Loss? - No Hearing Aids? - no Associated signs and symptoms- delusions or hallucinations- No hallucinations. No delusions. paranoia- no Trouble sleeping? No. If anything she sleeps too much ( has to wake her up sometimes) Symptoms of REM-related sleep disorder- Does he/she appear to act out their dreams while sleeping (punch or flail arms, shout or scream? No Appetite: It is lessening with time. If workup results in a diagnosis of dementia/Alzheimer's, do you have any concerns about your loved one hearing this diagnosis? I don't know. Would likely go with the flow. Would [...] word search book from her purse). -Mood: I feel pretty good and happy. -Sleep: that is kind of a strange question. No trouble falling or staying asleep -Appetite: It is usually pretty good. -Hallucinations: no -Sometimes goes out for walks with her spouse. -Doesn't feel sick/ill today. No dizziness/lightheadedness. -I'm as happy as a clam. Hearing Screen: HHIE-S: 0/40 Able to identify 9--1: yes Reviewed progress [...] lb 6.4 oz (66.4 kg) Height: 5' 0.75 (1.543 m) Wt Readings from Last 3 [...] FOLATE 18.4 07/19/2022 No results found for: [id number] No results found for: RPR Testing: The following tests were performed at today's visit and scanned in to the chart: MoCA score: 11/07, MIS score: 2/15 Clock drawing score: 0/7 PHQ-9 score: 0 I independently reviewed the Hamilton Cognitive Assessment from 10/18/2023. Test scanned in [...] exam and/or evaluation documented in this encounter [facility] 10-18-2023 Miscellaneous Notes Addended by: CAITLIN GONZALEZ on: 11/03/2023 02:34 PM Modules accepted: Orders documented in this encounter [facility] 10-18-2023 Note Addended by: CAITLIN GONZALEZ on: 11/03/2023 02:34 PM Modules accepted: Orders [facility] 08-31-2023 Telephone encounter Note Scheduled 10/18/2023. [facility] 08-31-2023 Miscellaneous Notes Scheduled 10/18/2023. Name [...] Appointment: new patient appt- referral in media Office Name: senior services Medication Refills need, if any: na Medication Name: na documented in this encounter [facility] 08-31-2023 Telephone encounter Note Duplicate TE. [facility] 08-31-2023 Miscellaneous Notes Duplicate TE. Name of Caller: Juventino Contact Reason for Appointment: new patient appt- referral in media Toms second call he's a little frustrated. Appointments for Martha Office Name: senior services Medication Refills need, if any: na Medication Name: na documented in this encounter [facility] 08-31-2023 Telephone encounter Note Name of Caller: Juventino Contact Reason for Appointment: new patient appt- referral in media Toms second call he's a little frustrated. Appointments for Martha Office Name: senior services Medication Refills need, if any: na Medication Name: na [facility] 08-30-2023 Telephone encounter Note Name of Caller: Jordan Contact Reason for Appointment: Returning a call to Karishma to schedule an appointment with Dr. Chairez. Please advise Office Name: Senior Services Medication Refills need, if any: N/A Medication Name: N/A [facility] 08-30-2023 Telephone encounter Note Left message for Jordan to call back (new patient). [facility] 08-29-2023 Telephone encounter Note Name of Caller: Karishma Contact Reason for Appointment: new patient appt- referral in media Office Name: senior services Medication Refills need, if any: na Medication Name: na [facility] Evaluation note Diagnosis Hyperlipidemia, unspecified- Primary Deficiency of other specified B group vitamins Hypothyroidism, unspecified [facility] Memory loss- Primary History of hypertension Personal history of other diseases of circulatory system [facility] Memory loss- Primary History of hypertension Personal history of other diseases of circulatory system [facility] Diagnosis 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 behavioral disturbance, psychotic disturbance, mood disturbance, or anxiety (HCC)- [facility] Diagnosis 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 behavioral disturbance, psychotic disturbance, mood disturbance, or anxiety (HCC)- Primary [facility]* Diagnosis 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 behavioral disturbance, psychotic disturbance, mood disturbance, or anxiety (HCC) [facility] Diagnosis Hip pain, bilateral- Primary Pain in joint, pelvic region and thigh Hip pain, bilateral Pain in joint, pelvic region and thigh Unable to ambulate documented in this encounter 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 anation DNR (Do Not Resuscitate) 10/19/2024 10:03 AM [place] Form Power of Telecasting Technician 01/12/2024 12:37 PM DPOA Advance Directives and Living Will 01/12/2024 12:39 PM Living Will Power of Telecasting Technician 01/12/2024 12:38 PM HC P OA Date Activated Date Inactivated Comments 10/16/2024 9:40 AM 10/19/2024 4:38 PM Question Answer Comments ICU transfer: Yes Intubation: No Additional Source Comments INFORMATION SOURCE (unrecogn ized section and content) DATE CREATED AUTHOR 02/04/2022 [facility] DATE CREATED AUTHOR AUTHOR'S ORGANIZ ATION 10/25/2024 [facility] DATE CREATED AUTHOR AUTHOR'S ORGANIZ ATION 02/15/2025 [facility] Care Teams (unrecognized sec tion and content) [employer] Dean Relationship Specialty Start Date End Date Darron De La Cruz DO [address], [place] [id number] PCP - General 09/09/15 [employer] Dean Relationship Specialty Start Date End Date Darron De La Cruz DO [address] [place] [address] PCP - General 09/09/18 [employer] Dean Relationship Specialty Start Date End Date Darron De La Cruz DO [address] [place] [address] PCP - General 09/09/18 [employer] Dean Relationship Specialty Start Date End Date Darron De La Cruz DO [address] [place] [address] PCP - General 09/09/18 [employer] Dean Relationship Specialty Start Date End Date Darron De La Cruz DO [address] [place] [address] PCP - General 09/09/18 [employer] Dean Relationship Specialty Start Date End Date Darron De La Cruz DO [address] [place] [address] PCP - General 09/09/18 [employer] Dean Relationship Specialty Start Date End Date Darron De La Cruz DO [address] [place] [address] PCP - General 09/09/18 [employer] Dean Relationship Specialty Start Date End Date Darron De La Cruz DO [address] [place] [id number] PCP - General 09/09/18 [employer] Dean Relationship Specialty Start Date End Date Darorn De La Cruz DO [address] [place] [id number] PCP - General 09/09/18 [employer] Dean Relationship Specialty Start Date End Date Darron De La Cruz DO [address] [place] [id number] PCP - General 09/09/18 Reason for Visit (unrecogniz ed section and content) Reason Onset Date Comments new patient appointment 08/31/2023 Reason Onset Date Comments Appointment Request 08/29/2023 Reason Comments Memory Loss Specialty Diagnoses / Procedures Referred By Myron potter Referred To Contact Geriatric Medicine Diagnoses Other amnesia Procedures new patient appointment [facility] [address] [address] [place] [address] [address] Referral ID Status Reason Start Date Expiration Date Visits Re quested Visits Authorized [id number] Closed 08/23/2023 02/19/2024 1 1 Reason Comments Dementia Reason Onset Date Comments Med Refill 09/06/2024 Reason Comments Hip Pain Bilateral Specialty Diagnoses / Procedures Referred By Myron t Referred To Contact Diagnoses Hip pain, bilateral Unable to ambulate Procedures . Abdelrahman Baeza MD [address] [place] [address] Phone: tel: fax: [facility] Card[facility] Unit [address] [place] [address] Phone: tel: Referral ID Status Reason Start Date Expiration Date Visits Re quested Visits Authorized 1 1 Scheduled Active and Recently Administ [...] Peters)2010 (Given - Provider: Rachel North, CHIP) 09 (Given - Provider: Ousmane Mancia, CHIP)1319 (Not Given - Provider: Ousmane Mancia RN - Reason: Patient/family refused)2117 (Given - Provider: Gema Phillips RN) 0818 (Given - Provider: Tameka Paz RN)1400 (Canceled [...] 2117 (Given - Provider: Gema Phillips, CHIP) enoxaparin (Lovenox) syringe 40 mg 40 mg, SubCUTAneous, Every 24 hours scheduled (Daily), First dose on Tue10/16/24 at 0945, Indication of Use: Prophylaxis-DVT/PE, Indications: Prophylaxis of Venous Thromboembolism 0854 (Given - Provider: Ada Peters) 0929 (Given - Provider: Ousmane Mancia, CHIP) 0819 (Given - Provider: Tameka Paz, CHIP) folic acid (Folvite) tablet 1 mg 1 mg, Oral, Daily, First dose (after last reorder) on Tue10/16/24 at 1000 0855 (Given - Provider: Ada Peters) 0929 (Given - Provider: Ousmane Mancia RN) 0818 (Given - Provider: Tameka Paz RN) hydroCHLOROthiazide (HYDRODiuril) tablet 12.5 mg(Linked Group 1) 12.5 mg, Oral, Daily, First dose on Tue10/16/24 at 0945, Therapeutic Substitution for lisinopril/hydrochlorothi azide 20-12.5mg 0855 (Given - Provider: Ada Peters) 0928 (Given - Provider: Ousmane Mancia RN) 0818 (Given - Provider: Tameka Paz RN) levothyroxine (Synthroid, Levoxyl) tablet 75 mcg 75 mcg, Oral, Daily before breakfast, First dose on Tue10/17/24 at 0600, Tube feeding (TF) interaction, obtain physician order to manage, recommend holding TF for 30 minutes before and after dose. 0609 (Given - Provider: Rachel North RN) 0616 (Given - Provider: Rachel North RN) 0656 (Given - Provider: Gema Phillips RN) Lidocaine 4 % patch 2 patch [...] pt said that it was not necessary.) 0929 (Not Given - Provider: Ousmane Mancia RN - Reason: Patient/family refused) 0818 (Medication Applied - Provider: Tameka Paz RN)1427 (Due: Medication Removed - Provider: Automatic Discharge Provider - Comment: Time automatically adjusted from order being discontinued) lisinopril tablet 20 mg(Linked Group 1) 20 mg, Oral, Daily, First dose on Tue10/16/24 at 0945, Therapeutic Substitution for lisinopril/hydrochlorothi azide 20-12.5mg 0855 (Given - Provider: Ada Peters) 09 (Given - Provider: Ousmane Mancia RN) 08 (Given - Provider: Tameka Paz RN) memantine (Namenda) tablet 10 mg 10 mg, Oral, 2 times daily, First dose on Tue10/16/24 at 0945 0855 (Given - Provider: Ada Peters)2010 (Given - Provider: Rachel North RN) 927 (Given - Provider: Ousmane Mancia RN)2117 (Given - Provider: Gema Phillips RN) 08 (Given - Provider: Tameka Paz RN) miconazole (Micotin) 2 % powder Topical, 2 times daily, First dose on Tue10/16/24 at 2100, Apply to skin fold yeast infection ? 1418 (Given - Provider: Ada Peters - Comment: nursing workflow)2014 (Given - Provider: Rachel North RN) 929 (Given - Provider: Ousmane Mancia RN - Comment: right breast)2118 (Given - Provider: Gema Phillips RN) 08 (Given - Provider: Tameka Paz, CHIP) sertraline (Zoloft) tablet 50 mg 50 mg, Oral, Daily, First dose on Tue10/16/24 at 0945 0855 (Given - Provider: Ada Peters) 0928 (Given - Provider: Ousmane Mancia RN) 0818 (Given - Provider: Tameka Paz RN) sodium chloride 0.9% (NS) flush 5-40 mL [...] Midline or Central Line = 20 mL/lumen 0853 (Not Given - Provider: Ada Peters - [...] sedation for opioid reversal - MUST notify cushion builder provider immediately after first dose, may give [...] BE BASED ON THE PRIMARY CLINICAL RECORDS. [facility]. provides no warranty or guarantee of the accuracy or completeness of information in this document.
[2025-04-01 08:02] LABS: Hematocrit 35.5 % (37-47); Hemoglobin 12.6 g/dL (12.0-15.0); Mean Corp Hgb Conc 35.5 g/dL (32-36); Mean Corpuscular Volume 92.2 fL (81-99); Mean Platelet Vol. 10.2 fl (6.2-12.0); Platelet Count 171 K/mm3 (150-450); RBC Distribution Width CV 11.9 % (11.6-14.6); RBC Distribution Width SD 39.7 fl (35.1-43.9); Red Blood Count 3.85 M/mm3 (4.2-5.4); White Blood Count 8.9 K/mm3 (4.4-11.0)
[2025-04-01 08:25] LABS: AST(SGOT) 24 U/L (<=31); Alanine Aminotransfer ALT/SGPT 19 U/L (<=34); Albumin, Serum 3.8 g/dL (3.4-4.8); Alkaline Phosphatase 58 U/L (35-104); Anion Gap 8 (5-15); BUN 9 mg/dL (4-19); BUN/Creat Ratio 14.4 RATIO (10-20); Calcium,Total 9.5 mg/dL (7.6-11.0); Carbon Dioxide 27.2 mmol/L (21.0-32.0); Chloride 96 mmol/L (98-108); Globulin 2.3 g/dL (2.2-4.2); Glucose 88 mg/dL (70-99); Potassium 3.7 mmol/L (3.3-5.1)
== END ==
LOC: OLS.ACH 05:00
PROVIDERS: Visit Provider Internal Medicine
DX: G30.1 Alzheimer's disease with late onset (principal); Z91.81 History of falling
CPT/HCPCS: 36415; 80053; 85027

== ENCOUNTER → 2025-04-09 05:00 | Outpatient (REF) | payer MEDICARE, SELFPAY ==
--- OUTSIDE RECORDS SUMMARY | 2025-04-09 04:20 | XMS RPT_ITS | CCD ---
Author Organization [facility] Care Team Providers Care Manager Camp Name Role Phone Dorothy Darron Attending Unavailable PROVIDER, UNKNOWN Referring Unavailable Dorothy, Darron Primary Care Unavailable Dorothy, Darron Attending Unavailable PROVIDER, UNKNOWN Referring Unavailable Dorothy, Darron Primary Care Unavailable Dorothy DO, Darron Primary Care Provider [phone] Dorothy DO, Darron Primary Care Provider [phone] Dorothy DO, Darron Primary Care Provider DOROTHY, [...] Propensity to adverse reactions [address] [facility] (10 sources) celecoxib Drug Allergy [address] [facility] (10 sources) Citalopram Drug Allergy [address] [facility] (10 sources) loracarbef Drug Allergy [address] [facility] (10 sources) Penicillins Propensity to adverse reactions [address] [facility] (10 sources) Sulfamethoxazole Propensity to adverse reactions Unknown [facility] Medications Current Medications Medication Drug Class(es) [...] hydrochloride 5 mg oral tablet (8 sources) [id number]-[id number]-aspart ate Receptor Antagonist Start: 10-16-2024 End: 10-19-2024 [...] on Tue10/16/24 at 0938 polyethylene glycol 3350 [id number] mg powder for oral solution (2 sources) [...] width (RBC) [Ratio] 12.2 % Normal 11.6-14.6 [facility] Comment on above: Order Comment: 315-1 Performed By: #### L 100.0500, L500.4100, L500.4050, [id number] #### [facility] [address] [place], [address] Hematocrit (Bld) [Volume fraction] 37.8 % Normal 37-47 [facility] Comment on above: Order Comment: 315-1 Performed By: #### L 100.0500, L500.4100, L500.4050, [id number] #### [facility] [address] [place], [address] Hemoglobin (Bld) [Mass/Vol] 13.3 g/dL Normal 12.0-15.0 [facility] Comment on above: Order Comment: 315-1 Performed By: #### L 100.0500, L500.4100, L500.4050, [id number] #### [facility] [address] [place], [address] MCH (RBC) [Entitic mass] 32.5 pg High 27.0-32.0 [facility] Comment on above: Order Comment: 315-1 Performed By: #### L 100.0500, L500.4100, L500.4050, [id number] #### [facility] [address] [place], [address] MCHC (RBC) [Mass/Vol] 35.2 g/dL Normal 32-36 [facility] Comment on above: Order Comment: 315-1 Performed By: #### L 100.0500, L500.4100, L500.4050, [id number] #### [facility] [address] [place], [address] MCV (RBC) [Entitic vol] 92.4 fL Normal 81-99 [facility] Comment on above: Order Comment: 315-1 Performed By: #### L 100.0500, L500.4100, L500.4050, [id number] #### [facility] [address] [place], [address] Platelet mean volume (Bld) [Entitic vol] 10.0 fL Normal 6.2-12.0 [facility] Comment on above: Order Comment: 315-1 Performed By: #### L 100.0500, L500.4100, L500.4050, [id number] #### [facility] [address] [place], [address] Platelets (Bld) [#/Vol] 180 10*3/uL Normal 150-450 [facility] Comment on above: Order Comment: 315-1 Performed By: #### L 100.0500, L500.4100, L500.4050, [id number] #### [facility] [address] [place], [address] RBC (Bld) [#/Vol] 4.09 10*6/uL Low 4.2-5.4 [facility] Comment on above: Order Comment: 315-1 Performed By: #### L 100.0500, L500.4100, L500.4050, [id number] #### [facility] [address] [place], [address] RDW SD 41.5 fl Normal 35.1-43.9 [facility] Comment on above: Order Comment: 315-1 Performed By: #### L 100.0500, L500.4100, L500.4050, [id number] #### [facility] [address] [place], [address] WBC (Bld) [#/Vol] 6.8 10*3/uL Normal 4.4-11.0 [facility] Comment on above: Order Comment: 315-1 Performed By: #### L 100.0500, L500.4100, L500.4050, [id number] #### [facility] [address] [place], [address] Comprehensive Metabolic Prof ilon 02-06-2025 Albumin [Mass/Vol] 3.7 g/dL Normal 3.4-4.8 [facility] Comment on above: Order Comment: 315-1 Performed By: #### L 100.0500, L500.4100, L500.4050, [id number] #### [facility] [address] [place], [address] Albumin/Globulin [Mass ratio] 1.4 {ratio} Normal 0.9-2.4 [facility] Comment on above: Order Comment: 315-1 Performed By: #### L 100.0500, L500.4100, L500.4050, [id number] #### [facility] [address] [place], [address] ALK PHOS 64 U/L Normal 35-104 [facility] Comment on above: Order Comment: 315-1 Performed By: #### L 100.0500, L500.4100, L500.4050, [id number] #### [facility] [address] [place], [address] ALT [Catalytic activity/Vol] 20 U/L Normal <=34 [facility] Comment on above: Order Comment: 315-1 Performed By: #### L 100.0500, L500.4100, L500.4050, [id number] #### [facility] [address] [place], [address] AST [Catalytic activity/Vol] 21 U/L Normal <=31 [facility] Comment on above: Order Comment: 315-1 Performed By: #### L 100.0500, L500.4100, L500.4050, [id number] #### [facility] [address] [place], [address] Bilirubin [Mass/Vol] 0.47 mg/dL Normal 0.00-1.30 [facility] Comment on above: Order Comment: 315-1 Performed By: #### L 100.0500, L500.4100, L500.4050, [id number] #### [facility] [address] [place], [address] BUN/CRE 23.5 RATIO High 10-20 [facility] Comment on above: Order Comment: 315-1 Performed By: #### L 100.0500, L500.4100, L500.4050, [id number] #### [facility] [address] [place], [address] Calcium [Mass/Vol] 9.7 mg/dL Normal 7.6-11.0 [facility] Comment on above: Order Comment: 315-1 Performed By: #### L 100.0500, L500.4100, L500.4050, [id number] #### [facility] [address] [place], [address] Chloride [Moles/Vol] 100 mmol/L Normal 98-108 [facility] Comment on above: Order Comment: 315-1 Performed By: #### L 100.0500, L500.4100, L500.4050, [id number] #### [facility] [address] [place], [address] CO2 [Moles/Vol] 26.3 mmol/L Normal 21.0-32.0 [facility] Comment on above: Order Comment: 315-1 Performed By: #### L 100.0500, L500.4100, L500.4050, [id number] #### [facility] [address] [place], [address] Creatinine [Mass/Vol] 0.71 mg/dL Normal 0.70-1.20 [facility] Comment on above: Order Comment: 315-1 Performed By: #### L 100.0500, L500.4100, L500.4050, [id number] #### [facility] [address] [place], [address] GAP 9 Normal 5-15 [facility] Comment on above: Order Comment: 315-1 Performed By: #### L 100.0500, L500.4100, L500.4050, [id number] #### [facility] [address] [place], [address] GFR/1.73 sq M.predicted among non-blacks MDRD (S/P/Bld) [Vol rate/Area] 85 mL/min/{1.73_m2} Normal >60 [facility] Comment on above: Order Comment: 315-1 Result Comment: mL/m in/1.73m2 CKD-EPI Creatinine Equation (2020) Performed By: #### L 100.0500, L500.4100, L500.4050, [id number] #### [facility] [address] [place], [address] Globulin (S) [Mass/Vol] 2.6 g/dL Normal 2.2-4.2 [facility] Comment on above: Order Comment: 315-1 Performed By: #### L 100.0500, L500.4100, L500.4050, [id number] #### [facility] [address] [place], [address] Glucose [Mass/Vol] 87 mg/dL Normal 70-99 [facility] Comment on above: Order Comment: 315-1 Performed By: #### L 100.0500, L500.4100, L500.4050, [id number] #### [facility] [address] [place], [address] Potassium [Moles/Vol] 3.9 mmol/L Normal 3.3-5.1 [facility] Comment on above: Order Comment: 315-1 Performed By: #### L 100.0500, L500.4100, L500.4050, [id number] #### [facility] [address] [place], [address] Sodium [Moles/Vol] 136 mmol/L Normal 133-145 [facility] Comment on above: Order Comment: 315-1 Performed By: #### L 100.0500, L500.4100, L500.4050, [id number] #### [facility] [address] [place], [address] T PROT 6.3 g/dL Normal 5.9-8.4 [facility] Comment on above: Order Comment: 315-1 Performed By: #### L 100.0500, L500.4100, L500.4050, [id number] #### [facility] [address] [place], [address] Urea nitrogen [Mass/Vol] 17 mg/dL Normal 4-19 [facility] Comment on above: Order Comment: 315-1 Performed By: #### L 100.0500, L500.4100, L500.4050, [id number] #### [facility] [address] [place], [address] Lipid Profileon 02-06-2025 CHOL:HDL 2.70 Normal [facility] Comment on above: Order Comment: 315-1 Performed By: #### L 100.0500, L500.4100, L500.4050, [id number] #### [facility] [address] [place], [address] Cholesterol [Mass/Vol] 132 mg/dL Normal <=[address] [facility] Comment on above: Order Comment: 315-1 Result Comment: Chol esterol level, Desirable <200 mg/dL Borderline high cholesterol 200-239 mg/dL High cholesterol >=240 mg/dL Recommendations of the NCEP Adult Treatment Panel for the following risk-cutoff thresholds for the [place] population. Performed By: #### L 100.0500, L500.4100, L500.4050, [id number] #### [facility] [address] [place], [address] Cholesterol in HDL [Mass/Vol] 49 mg/dL Normal [facility] Comment on above: Order Comment: 315-1 Result Comment: Odilia onal Cholesterol Education Program (NCEP) guidelines: <40 mg/dL: Low HDL-cholesterol (major risk factor for CHD) >= 60 mg/dL: High HDL-cholesterol (negative risk factor for CHD) HDL-cholesterol is affected by a number of factors, e.g. smoking, exercise, hormones, sex and age. Performed By: #### L 100.0500, L500.4100, L500.4050, [id number] #### [facility] [address] [place], [address] Cholesterol in LDL [Mass/Vol] 68 mg/dL Normal [facility] Comment on above: Order Comment: 315-1 Result Comment: Bord cmncoo=760-118 mg/dL Higher Tlly=554 mg/dL or greater Shane Equation 2020 for LDL-C Performed By: #### L 100.0500, L500.4100, L500.4050, [id number] #### [facility] [address] [place], [address] Cholesterol in VLDL [Mass/Vol] 16 mg/dL Normal 5-40 [facility] Comment on above: Order Comment: 315-1 Performed By: #### L 100.0500, L500.4100, L500.4050, [id number] #### [facility] [address] [place], [address] Triglyceride [Mass/Vol] 79 mg/dL Normal [facility] Comment on above: Order Comment: 315-1 Result Comment: The drugs N-Acetylcysteine and Metamizole may falsely depress this assay. Normal range: <150 mg/dL Borderline High: 150-199 mg/dL High: 200-499 mg/dL Very High: >500 mg/dL Performed By: #### L 100.0500, L500.4100, L500.4050, [id number] #### [facility] [address] [place], [address] Thyroid Stim Hormone (TSH)on 02-06-2025 TSH 0.809 uIU/mL Normal 0.300-4.200 [facility] Comment on above: Order Comment: 315.1 Performed By: #### L 500.2500, L100.0500 #### [facility] [address] [place], [address] CBC-Complete Blood Cnt No Di ffon 02-05-2025 HCT Normal 37-47 [facility] Comment on above: Order Comment: 315.1 Result Comment: [facility] [employer] REFUSED TOLD NURSE ONEIL Performed By: #### L 500.4100, L100.0500, L500.4050 #### [facility] [address] [place], [address] HGB Normal 12.0-15.0 [facility] Comment on above: Order Comment: 315.1 Result Comment: [employer] REFUSED TOLD NURSE ONEIL Performed By: #### L 500.4100, L100.0500, L500.4050 #### [facility] [address] [place], [address] MCH Normal 27.0-32.0 [facility] Comment on above: Order Comment: 315.1 Result Comment: [employer] REFUSED TOLD NURSE ONEIL Performed By: #### L 500.4100, L100.0500, L500.4050 #### [facility] [address] [place], [address] MCHC Normal 32-36 [facility] Comment on above: Order Comment: 315.1 Result Comment: [employer] REFUSED TOLD NURSE ONEIL Performed By: #### L 500.4100, L100.0500, L500.4050 #### [facility] [address] [place], [address] MCV Normal 81-99 [facility] Comment on above: Order Comment: 315.1 Result Comment: [employer] REFUSED TOLD NURSE ONEIL Performed By: #### L 500.4100, L100.0500, L500.4050 #### [facility] [address] [place], [address] PLT Normal 150-450 [facility] Comment on above: Order Comment: 315.1 Result Comment: [employer] REFUSED TOLD NURSE ONEIL Performed By: #### L 500.4100, L100.0500, L500.4050 #### [facility] [address] [place], [address] RBC Normal 4.2-5.4 [facility] Comment on above: Order Comment: 315.1 Result Comment: [employer] REFUSED TOLD NURSE ONEIL Performed By: #### L 500.4100, L100.0500, L500.4050 #### [facility] [address] [place], [address] RDW CV Normal 11.6-14.6 [facility] Comment on above: Order Comment: 315.1 Result Comment: [employer] E[employer] REFUSED TOLD NURSE ONEIL Performed By: #### L 500.4100, L100.0500, L500.4050 #### [facility] [address] [place], [address] RDW SD Normal 35.1-43.9 [facility] Comment on above: Order Comment: 315.1 Result Comment: [employer] E[employer] REFUSED TOLD NURSE ONEIL Performed By: #### L 500.4100, L100.0500, L500.4050 #### [facility] [address] [place], [address] WBC Normal 4.4-11.0 [facility] Comment on above: Order Comment: 315.1 Result Comment: [employer] E[employer] REFUSED TOLD NURSE ONEIL Performed By: #### L 500.4100, L100.0500, L500.4050 #### [facility] [address] [place], [address] Comprehensive Metabolic Prof ilon 02-05-2025 ALB Normal 3.4-4.8 [facility] Comment on above: Order Comment: 315.1 Result Comment: [employer] E[employer] REFUSED TOLD NURSE ONEIL Performed By: #### L 500.4100, L100.0500, L500.4050 #### [facility] [address] [place], [address] ALK PHOS Normal 35-104 [facility] Comment on above: Order Comment: 315.1 Result Comment: [employer] E[employer] REFUSED TOLD NURSE ONEIL Performed By: #### L 500.4100, L100.0500, L500.4050 #### [facility] [address] [place], [address] ALT Normal <=34 [facility] Comment on above: Order Comment: 315.1 Result Comment: [employer] E[employer] REFUSED TOLD NURSE ONEIL Performed By: #### L 500.4100, L100.0500, L500.4050 #### [facility] [address] [place], [address] AST Normal <=31 [facility] Comment on above: Order Comment: 315.1 Result Comment: [employer] E[employer] REFUSED TOLD NURSE ONEIL Performed By: #### L 500.4100, L100.0500, L500.4050 #### [facility] [address] [place], [address] BUN Normal 4-19 [facility] Comment on above: Order Comment: 315.1 Result Comment: [employer] E[employer] REFUSED TOLD NURSE ONEIL Performed By: #### L 500.4100, L100.0500, L500.4050 #### [facility] [address] [place], [address] BUN/CRE Normal 10-20 [facility] Comment on above: Order Comment: 315.1 Result Comment: [employer] E[employer] REFUSED TOLD NURSE ONEIL Performed By: #### L 500.4100, L100.0500, L500.4050 #### [facility] [address] [place], [address] Calcium Normal 7.6-11.0 [facility] Comment on above: Order Comment: 315.1 Result Comment: [employer] ENT REFUSED TOLD NURSE ONEIL Performed By: #### L 500.4100, L100.0500, L500.4050 #### [facility] [address] [place], [address] CL Normal 98-108 [facility] Comment on above: Order Comment: 315.1 Result Comment: [employer] E[employer] REFUSED TOLD NURSE ONEIL Performed By: #### L 500.4100, L100.0500, L500.4050 #### [facility] [address] [place], [address] CO2 Normal 21.0-32.0 [facility] Comment on above: Order Comment: 315.1 Result Comment: [employer] E[employer] REFUSED TOLD NURSE ONEIL Performed By: #### L 500.4100, L100.0500, L500.4050 #### [facility] [address] [place], [address] CREAT,SERUM Normal 0.70-1.20 [facility] Comment on above: Order Comment: 315.1 Result Comment: [employer] E[employer] REFUSED TOLD NURSE ONEIL Performed By: #### L 500.4100, L100.0500, L500.4050 #### [facility] [address] [place], [address] eGFR Normal >60 [facility] Comment on above: Order Comment: 315.1 Result Comment: SOC[employer] ENT REFUSED TOLD NURSE ONEIL Performed By: #### L 500.4100, L100.0500, L500.4050 #### [facility] [address] [place], [address] GAP Normal 5-15 [facility] Comment on above: Order Comment: 315.1 Result Comment: [employer] ENT REFUSED TOLD NURSE ONEIL Performed By: #### L 500.4100, L100.0500, L500.4050 #### [facility] [address] [place], [address] GLU Normal 70-99 [facility] Comment on above: Order Comment: 315.1 Result Comment: [employer] ENT REFUSED TOLD NURSE ONEIL Performed By: #### L 500.4100, L100.0500, L500.4050 #### [facility] [address] [place], [address] Potassium Normal 3.3-5.1 [facility] Comment on above: Order Comment: 315.1 Result Comment: [employer] ENT REFUSED TOLD NURSE ONEIL Performed By: #### L 500.4100, L100.0500, L500.4050 #### [facility] [address] [place], [address] T BILI Normal 0.00-1.30 [facility] Comment on above: Order Comment: 315.1 Result Comment: [employer] ENT REFUSED TOLD NURSE ONEIL Performed By: #### L 500.4100, L100.0500, L500.4050 #### [facility] [address] [place], [address] T PROT Normal 5.9-8.4 [facility] Comment on above: Order Comment: 315.1 Result Comment: SOC[employer] ENT REFUSED TOLD NURSE ONEIL Performed By: #### L 500.4100, L100.0500, L500.4050 #### [facility] [address] [place], [address] Comprehensive Metabolic Profil Normal 133-145 [facility] Comment on above: Order Comment: 315.1 Result Comment: SOCOR[employer] ENT REFUSED TOLD NURSE ONEIL Performed By: #### L 500.4100, L100.0500, L500.4050 #### [facility] [address] [place], [address] Lipid Profileon 02-05-2025 CHOL Normal <=200 [facility] Comment on above: Order Comment: 315.1 Result Comment: SOC[employer] ENT REFUSED TOLD NURSE ONEIL Performed By: #### L 500.4100, L100.0500, L500.4050 #### [facility] [address] [place], [address] CHOL:HDL Normal [facility] Comment on above: Order Comment: 315.1 Result Comment: SOCOR[employer] ENT REFUSED TOLD NURSE ONEIL Performed By: #### L 500.4100, L100.0500, L500.4050 #### [facility] [address] [place], [address] CLDL Normal [facility] Comment on above: Order Comment: 315.1 Result Comment: SOCOR[employer] ENT REFUSED TOLD NURSE ONEIL Performed By: #### L 500.4100, L100.0500, L500.4050 #### [facility] [address] [place], [address] HDL Normal [facility] Comment on above: Order Comment: 315.1 Result Comment: [employer] ENT REFUSED TOLD NURSE ONEIL Performed By: #### L 500.4100, L100.0500, L500.4050 #### [facility] [address] [place], [address] TRIG Normal [facility] Comment on above: Order Comment: 315.1 Result Comment: [employer] ENT REFUSED TOLD NURSE ONEIL Performed By: #### L 500.4100, L100.0500, L500.4050 #### [facility] [address] [place], [address] VLDL Normal 5-40 [facility] Comment on above: Order Comment: 315.1 Result Comment: [employer] E[employer] REFUSED TOLD NURSE ONEIL Performed By: #### L 500.4100, L100.0500, L500.4050 #### [facility] [address] [place], [address] Potassiumon 10-26-2024 Potassium [Moles/Vol] 3.3 mmol/L Normal 3.3-5.1 [facility] Comment on above: Order Comment: 315.1 Performed By: #### L 501.5600 #### [facility] [address] [place], [address] Potassiumon 10-23-2024 Potassium [Moles/Vol] 3.4 mmol/L Normal 3.3-5.1 [facility] Comment on above: Order Comment: 315.1 Performed By: #### L 501.5600 #### [facility] [address] [place], [address] [id number] 10-22-2024 [id number] Patient Choice Patient Name: MARTHA MILLIGAN Date of : 1940 [facility] Basic Metabolic Profile (BMP )on 10-22-2024 BUN/CRE 25.1 RATIO High 10-20 [facility] Comment on above: Order Comment: 315.1 Performed By: #### L 500.2500, L100.0500 #### [facility] [address] [place], [address] Calcium [Mass/Vol] 9.6 mg/dL Normal 7.6-11.0 [facility] Comment on above: Order Comment: 315.1 Performed By: #### L 500.2500, L100.0500 #### [facility] [address] [place], [address] Chloride [Moles/Vol] 99 mmol/L Normal 98-108 [facility] Comment on above: Order Comment: 315.1 Performed By: #### L 500.2500, L100.0500 #### [facility] [address] [place], [address] CO2 [Moles/Vol] 29.9 mmol/L Normal 21.0-32.0 [facility] Comment on above: Order Comment: 315.1 Performed By: #### L 500.2500, L100.0500 #### [facility] [address] [place], [address] Creatinine [Mass/Vol] 0.67 mg/dL Low 0.70-1.20 [facility] Comment on above: Order Comment: 315.1 Performed By: #### L 500.2500, L100.0500 #### [facility] [address] [place], [address] GAP 10 Normal 5-15 [facility] Comment on above: Order Comment: 315.1 Performed By: #### L 500.2500, L100.0500 #### [facility] [address] [place], [address] GFR/1.73 sq M.predicted among non-blacks MDRD (S/P/Bld) [Vol rate/Area] 88 mL/min/{1.73_m2} Normal >60 [facility] Comment on above: Order Comment: 315.1 Result Comment: mL/m in/1.73m2 CKD-EPI Creatinine Equation (2020) Performed By: #### L 500.2500, L100.0500 #### [facility] [address] [place], [address] Glucose [Mass/Vol] 85 mg/dL Normal 70-99 [facility] Comment on above: Order Comment: 315.1 Performed By: #### L 500.2500, L100.0500 #### [facility] [address] [place], [address] Potassium [Moles/Vol] 2.8 mmol/L Low 3.3-5.1 [facility] Comment on above: Order Comment: 315.1 Performed By: #### L 500.2500, L100.0500 #### [facility] [address] [place], [address] Sodium [Moles/Vol] 138 mmol/L Normal 133-145 [facility] Comment on above: Order Comment: 315.1 Performed By: #### L 500.2500, L100.0500 #### [facility] [address] [place], [address] Urea nitrogen [Mass/Vol] 17 mg/dL Normal 4-19 [facility] Comment on above: Order Comment: 315.1 Performed By: #### L 500.2500, L100.0500 #### [facility] [address] [place], [address] CBC-Complete Blood Cnt No [facility] 10-22-2024 Erythrocyte distribution width (RBC) [Ratio] 12.3 % Normal 11.6-14.6 [facility] Comment on above: Order Comment: 315.1 Performed By: #### L 500.2500, L100.0500 #### [facility] [address] [place], [address] Hematocrit (Bld) [Volume fraction] 42.6 % Normal 37-47 [facility] Comment on above: Order Comment: 315.1 Performed By: #### L 500.2500, L100.0500 #### [facility] [address] [place], [address] Hemoglobin (Bld) [Mass/Vol] 13.9 g/dL Normal 12.0-15.0 [facility] Comment on above: Order Comment: 315.1 Performed By: #### L 500.2500, L100.0500 #### [facility] [address] [place], [address] MCH (RBC) [Entitic mass] 30.3 pg Normal 27.0-32.0 [facility] Comment on above: Order Comment: 315.1 Performed By: #### L 500.2500, L100.0500 #### [facility] [address] [place], [address] MCHC (RBC) [Mass/Vol] 32.6 g/dL Normal 32-36 [facility] Comment on above: Order Comment: 315.1 Performed By: #### L 500.2500, L100.0500 #### [facility] [address] [place], [address] MCV (RBC) [Entitic vol] 93.0 fL Normal 81-99 [facility] Comment on above: Order Comment: 315.1 Performed By: #### L 500.2500, L100.0500 #### [facility] [address] [place], [address] Platelet mean volume (Bld) [Entitic vol] 10.6 fL Normal 6.2-12.0 [facility] Comment on above: Order Comment: 315.1 Performed By: #### L 500.2500, L100.0500 #### [facility] [address] [place], [address] Platelets (Bld) [#/Vol] 206 10*3/uL Normal 150-450 [facility] Comment on above: Order Comment: 315.1 Performed By: #### L 500.2500, L100.0500 #### [facility] [address] [place], [address] RBC (Bld) [#/Vol] 4.58 10*6/uL Normal 4.2-5.4 [facility] Comment on above: Order Comment: 315.1 Performed By: #### L 500.2500, L100.0500 #### [facility] [address] [place], [address] RDW SD 42.0 fl Normal 35.1-43.9 [facility] Comment on above: Order Comment: 315.1 Performed By: #### L 500.2500, L100.0500 #### [facility] [address] [place], [address] WBC (Bld) [#/Vol] 8.0 10*3/uL Normal 4.4-11.0 [facility] Comment on above: Order Comment: 315.1 Performed By: #### L 500.2500, L100.0500 #### [facility] [address] [place], [address] [id number] 10-19-2024 [id number] Next Site of Care Admission Date: 10/15/2024 07:52 PM Patient Name: MARTHA MILLIGAN Location: [place] [id number] Date of : 1940 Placement Information Referral Type:Detention/SNF - New Referral ID:[id number] [facility] Address 1:[address] Address 2: City:[place] Selection Factors:Patient/Fami ly Choice State:[place] [facility] [phone] Discharge med list transmitted to [facility] via Careport per TCC request. 7000 was entered into [place] [facility] for the SNF- FACILITY IS AWARE [facility] [phone] DC order paced. FABIAN done. [facility] tasked to do 7000 and send DC paperwork and MAR to [facility] Transportation will be set up by ne shortly. [facility] Nursing Noteon 10-19-2024 Nursing Note Report called to Tawny SAUNDERS at [facility]. No further questions or concerns. [facility] Nursing Note Transferred to the [address] nurseline at [facility] but no answer. Phone rang for 3 min. Will attempt calling report again at a later time. Scheduled warp picker time is 1330. [facility] Progress Noteon 10-19-2024 Progress Note OCCUPATIONAL THERAPY [facility] Treatment Note Name/MRN: Martha Milligan ([id number]) Date of : 1940 Age: 83 y.o. Room/Bed: B2-252/B2-252 A Visit #: 1 out of 7 Discharge Recommendation: Assisted Facility Equipment Needed: No Prior Level of [...] 13 Minutes (1 Ther Act) VISHAL Burleson [facility] Progress Note PHYSICAL THERAPY [facility] Treatment Note Name/MRN: Martha Milligan ([id number]) Date of : 1940 Age: 83 y.o. Room/Bed: B2252/[facility] A Visit #: 1 out of 7 visits Discharge Recommendation: Assisted Facility Equipment Needed: No Prior Level of [...] 8 Minutes (ther act) Emmett Bautista, PT [facility] Progress Noteon 10-18-2024 Progress Note OCCUPATIONAL THERAPY [facility]'s Name/MRN: Martha Milligan ([id number]) Date: 10/18/2024 Chart reviewed. Attempt to see pt for OT session. Pt adamantly declining participation in OT session. Pt given encouragement and multiple tx options with no success. Unable to re direct pt. OT will continue to follow and re attempt to see as schedule permits. VISHAL Mccarthy/Rodrigo [facility] [id number] 10-17-2024 [id number] Met with Jordan at bedside to discuss DC planning. Pt had choice list in hand that I left in room yesterday. chose1) [facility] SNF and 2) [facility]. INSPECTOR [employer]ERS tasked to make new SNF referrals. Awaiting acceptance. [facility] Consulton 10-17-2024 Consult Consult Note Date:10/17/2024 Patient Name:Marhta Milligan Date of :1940 Age:83 y.o. Reason [...] cancer Mother Alysha Lang Lung cancer Father [place] Brain cancer Father [place] Hypertension Father [place] Heart attack Father [place] L (more content not included)... Normal [facility] Progress Noteon 10-17-2024 Progress Note Nutrition rescreen completed. Chart reviewed. Patient to be monitored and followed by the diet technical maintenance technician. Normal [facility] ED Nursing Noteon 10-16-2024 ED Nursing Note Pt depends changed for urine incontinence and repositioned in bed for comfort. Normal [facility] Nursing Noteon 10-16-2024 Nursing Note Chart accessed pending admission to [address] [facility] BASIC METABOLIC PANELon Anion gap [Moles/Vol] 12 mmol/L Normal 3-13 [facility] Comment on above: Performed By: #### L [id number] ####Supervisor Statement Clerks: GEOVANNA MENJIVAR ([phone])[facility] RITTMAN (SWRLAB)[address] [place] [address] [place] Calcium [Mass/Vol] 9.7 mg/dL Normal 8.8-10.0 [facility] Comment on above: Performed By: #### L AB15 ####Supervisor Statement Clerks: GEOVANNA MENJIVAR ([phone])[facility] ALEXANDER RITTMAN (SWRLAB)[address] [place] [address] [place] Chloride [Moles/Vol] 106 mmol/L Normal 98-107 [facility] Comment on above: Performed By: #### L AB15 ####Supervisor Statement Clerks: GEOVANNA MENJIVAR ([phone])[facility] ALEXANDER RITTMAN (SWRLAB)[address] [place] [address] [place] CO2 [Moles/Vol] 23 mmol/L Normal 23-31 [facility] Comment on above: Performed By: #### L AB15 ####Supervisor Statement Clerks: GEOVANNA MENJIVAR ([phone])[facility] ALEXANDER RITTMAN (SWRLAB)[address] [place] [address] [place] Creatinine [Mass/Vol] 0.68 mg/dL Normal 0.57-1.11 [facility] Comment on above: Performed By: #### L AB15 ####Supervisor Statement Clerks: GEOVANNA MENJIVAR ([phone])[facility]ITAL[facility] JUNIORTMAN (SWRLAB)[address] [place] [address] [place] GLOMERULAR FILTRATION RATE ML/MIN/1.73 SQ M.PREDICTED 87.6 mL/min/1.73m*2 Normal >60.0 [facility] Comment on above: Result Comment: Calc ulation based on the Chronic Kidney Disease Epidemiology Collaboration (CKD-EPI) equation refit without adjustment for race Performed By: #### L AB15 ####Supervisor Statement Clerks: GEOVANNA MENJIVAR ([id number])[facility]ITAL[facility]argo JUNIORTMAN (SWRLAB)[address] [place] [address] [place] Glucose [Mass/Vol] 89 mg/dL Normal 82-115 [facility] Comment on above: Performed By: #### L AB15 ####Supervisor Statement Clerks: GEOVANNA MENJIVAR ([phone])[facility]ITALMargo MUNOZ RITTMAN (SWRLAB)[address] [place] [address] [place] Potassium [Moles/Vol] 3.5 mmol/L Normal 3.5-5.1 [facility] Comment on above: Result Comment: [facility] potassium values may be up to 0.5 mmol/L lower than serum values. Performed By: #### L AB15 ####Supervisor Statement Clerks: GEOVANNA MENJIVAR ([phone])[facility]ITALMargo MUNOZ RITTMAN (SWRLAB)[address] [place] [address] [place] Sodium [Moles/Vol] 141 mmol/L Normal 136-145 [facility] Comment on above: Performed By: #### L AB15 ####Supervisor Statement Clerks: GEOVANNA MENJIVAR ([phone])[facility]ITALMargo MUNOZ RITTMAN (SWRLAB)[address] [place] [address] [place] Urea nitrogen [Mass/Vol] 12 mg/dL Normal 9-23 [facility] Comment on above: Performed By: #### L AB15 ####Supervisor Statement Clerks: GEOVANNA MENJIVAR ([phone])[facility] (SWRLAB)[address] [place] [address] Basic metabolic 1998 panelon 10-15-2024 Anion gap [Moles/Vol] 12 mmol/L 3 - 13 mmol/L [facility] Calcium [Mass/Vol] 9.7 mg/dL 8.8 - 10. 0 mg/dL [facility] Chloride [Moles/Vol] 106 mmol/L 98 - 10 7 mmol/L [facility] CO2 [Moles/Vol] 23 mmol/L 23 - 31 mmol/L [facility] Creatinine [Mass/Vol] 0.68 mg/dL 0.57 - 1.11 mg/dL [facility] GFR/1.73 sq M.predicted (S/P/Bld) [Vol rate/Area] 87.6 mL/min - PINF [facility] Comment on above: Calculation based on the Chronic Kidney Disease Epidemiology Collaboration (CKD-EPI) equation refit without adjustment for race Glucose [Mass/Vol] 89 mg/dL 82 - 115 mg/dL [facility] Interpretation and review of laboratory results Normal [facility] Potassium [Moles/Vol] 3.5 mmol/L 3.5 - 5.1 mmol/L [facility] Comment on above: Plasma potassium yohana ues may be up to 0.5 mmol/L lower than serum values. Sodium [Moles/Vol] 141 mmol/L 136 - 145 mmol/L [facility] Urea nitrogen [Mass/Vol] 12 mg/dL 9 - 23 mg/dL [facility] CBC W Auto Differential pane l (Bld)on 10-15-2024 Basophils (Bld) [#/Vol] 0.1 10*3/uL 0.0 - 0.2 10*3/uL [facility] Basophils/100 WBC (Bld) 0.7 % 0.0 - 2.0 % [facility] Eosinophils (Bld) [#/Vol] 0 10*3/uL 0.0 - 0.5 10*3/uL [facility] Eosinophils/100 WBC (Bld) 0 % 0.0 - 6.0 % [facility] Erythrocyte distribution width (RBC) [Ratio] 12.5 % 11.5 - 15.0 % [facility] Hematocrit (Bld) [Volume fraction] 38.5 % 35.0 - 47.0 % [facility] Hemoglobin (Bld) [Mass/Vol] 13.2 g/dL 11.7 - 16.0 g/dL [facility] Immature granulocytes (Bld) [#/Vol] 0 10*3/uL NINF - 0.1 10*3/uL [facility] IT'SUGAR Immature granulocytes/100 WBC (Bld) 0.4 % 0.0 - 2.0 % [facility] Interpretation and review of laboratory results Abnormal [facility] IPF 5 [facility] Lymphocytes (Bld) [#/Vol] 1.2 10*3/uL 1.0 - 4.3 10*3/uL [facility] Lymphocytes/100 WBC (Bld) 12.8 % Low 15.0 - 45.0 % [facility] MCH (RBC) [Entitic mass] 30.9 pg 26.0 - 34.[address] [facility] MCHC (RBC) [Mass/Vol] 34.3 % 30.5 - 36.0 % [facility] MCV (RBC) [Entitic vol] 90.2 fL 77.0 - 99.[address] [facility] Monocytes (Bld) [#/Vol] 1 10*3/uL High 0.0 - 0.9 10*3/uL [facility] Monocytes/100 WBC (Bld) 10.7 % 5.0 - 13.0 % [facility] Neutrophils (Bld) [#/Vol] 7.2 10*3/uL 1.8 - 7.5 10*3/uL [facility] Neutrophils/100 WBC (Bld) 75.4 % 38.0 - 82.0 % [facility] Nucleated RBC/100 WBC (Bld) [Ratio] 0 % [facility] [employer] Platelet mean volume (Bld) [Entitic vol] 11.1 fL 9.0 - 12.7 fL [facility] IT[employer] Platelets (Bld) [#/Vol] 139 10*3/uL Low 140 - 440 10*3/uL [facility] RBC (Bld) [#/Vol] 4.27 10*6/uL 3.80 - 5.2 0 10*6/uL [facility] WBC (Bld) [#/Vol] 9.6 10*3/uL 3.6 - 10.7 10*3/uL [facility] CBC WITH AUTO DIFFERENTIALon 10-15-2024 Basophils (Bld) [#/Vol] 0.1 10*3/uL Normal 0.0-0.2 [facility] Comment on above: Performed By: #### L [id number] ####Supervisor Statement Clerks: GEOVANNA MENJIVAR ([phone])[facility]OS[facility]ITALMargo MUNOZ RITTMAN (SWRLAB)[address] [place] [address] [place] Basophils/100 WBC (Bld) 0.7 % Normal 0.0-2.0 [facility] Comment on above: Performed By: #### L [id number] ####Supervisor Statement Clerks: GEOVANNA MENJIVAR ([phone])[facility]ITALMargo MUNOZ RITTMAN (SWRLAB)[address] [place] [address] [place] Eosinophils (Bld) [#/Vol] 0.0 10*3/uL Normal 0.0-0.5 [facility] Comment on above: Performed By: #### L [id number] ####Supervisor Statement Clerks: GEOVANNA MENJIVAR ([phone])[facility]ITALMargo MUNOZ RITTMAN (SWRLAB)[address] [place] [address] [place] Eosinophils/100 WBC (Bld) 0.0 % Normal 0.0-6.0 [facility] Comment on above: Performed By: #### L [id number] ####Supervisor Statement Clerks: GEOVANNA MENJIVAR ([phone])[facility]ITALMargo MUNOZ RITTMAN (SWRLAB)[address] [place] [address] Erythrocyte distribution width (RBC) [Ratio] 12.5 % Normal 11.5-15.0 [facility] Comment on above: Performed By: #### L [id number] ####Supervisor Statement Clerks: GEOVANNA MENJIVAR ([phone])[facility]ITALMargo MUNOZ RITTMAN (SWRLAB)[address] [place] [address] Hematocrit (Bld) [Volume fraction] 38.5 % Normal 35.0-47.0 [facility] Comment on above: Performed By: #### L [id number] ####Supervisor Statement Clerks: GEOVANNA MENJIVAR ([phone])MARLENE MUNOZ RITTMAN (SWRLAB)[address] [place] [address] Hemoglobin (Bld) [Mass/Vol] 13.2 g/dL Normal 11.7-16.0 [facility] Comment on above: Performed By: #### L [id number] ####Supervisor Statement Clerks: GEOVANNA MENJIVAR ([phone])[facility]ITALMargo MUNOZ RITTMAN (SWRLAB)[address] [place] [address] IMMATURE GRANS % 0.4 % Normal 0.0-2.0 [facility] Comment on above: Performed By: #### L [id number] ####Supervisor Statement Clerks: GEOVANNA MENJIVAR ([phone])[facility]ITALM[facility] MUNOZ RITTMAN (SWRLAB)[address] [place] [address] IMMATURE GRANS ABSOLUTE 0.0 10*3/uL Normal <0.1 [facility] Comment on above: Performed By: #### L [id number] ####Supervisor Statement Clerks: GEOVANNA MENJIVAR ([phone])[facility]ITALM[facility] MUNOZ RITTMAN (SWRLAB)[address] [place] [address] [place] IPF 5 Normal [facility] Comment on above: Performed By: #### L [id number] ####Supervisor Statement Clerks: GEOVANNA MENJIVAR ([phone])[facility]ITALM[facility] MUNOZ RITTMAN (SWRLAB)[address] [place] [address] [place] Lymphocytes (Bld) [#/Vol] 1.2 10*3/uL Normal 1.0-4.3 [facility] Comment on above: Performed By: #### L [id number] ####Supervisor Statement Clerks: GEOVANNA MENJIVAR ([phone])[facility]ITALM[facility] MUNOZ RITTMAN (SWRLAB)[address] [place] [address] [place] Lymphocytes/100 WBC (Bld) 12.8 % Low 15.0-45.0 [facility] Comment on above: Performed By: #### L [id number] ####Supervisor Statement Clerks: GEOVANNA MENJIVAR ([phone])MARLENE MUNOZ RITTMAN (SWRLAB)[address] [place] [address] MCH (RBC) [Entitic mass] 30.9 pg Normal 26.0-34.0 [facility] Comment on above: Performed By: #### L [id number] ####Supervisor Statement Clerks: GEOVANNA MENJIVAR ([phone])MARLENE MUNOZ RITTMAN (SWRLAB)[address] [place] [address] MCHC 34.3 % Normal 30.5-36.0 [facility] Comment on above: Performed By: #### L [id number] ####Supervisor Statement Clerks: GEOVANNA MENJIVAR ([phone])MARLENE MUNOZ RITTMAN (SWRLAB)[address] [place] [address] MCV (RBC) [Entitic vol] 90.2 fL Normal 77.0-99.0 [facility] Comment on above: Performed By: #### L [id number] ####Supervisor Statement Clerks: GEOVANNA MENJIVAR ([phone])MARLENE MUNOZ RITTMAN (SWRLAB)[address] [place] [address] Monocytes (Bld) [#/Vol] 1.0 10*3/uL High 0.0-0.9 [facility] Comment on above: Performed By: #### L [id number] ####Supervisor Statement Clerks: GEOVANNA MENJIVAR ([id number])MARLENE MUNOZ RITTMAN (SWRLAB)[address] [place] [address] [place] Monocytes/100 WBC (Bld) 10.7 % Normal 5.0-13.0 [facility] Comment on above: Performed By: #### L [id number] ####Supervisor Statement Clerks: GEOVANNA MENJIVAR ([phone])MARLENE MUNOZ RITTMAN (SWRLAB)[address] [place] [address] NEUTROPHILS ABSOLUTE 7.2 10*3/uL Normal 1.8-7.5 [facility] Comment on above: Performed By: #### L [id number] ####Supervisor Statement Clerks: GEOVANNA MENJIVAR ([phone])MARLENE MUNOZ RITTMAN (SWRLAB)[address] [place] [address] [place] Neutrophils/100 WBC (Bld) 75.4 % Normal 38.0-82.0 [facility] Comment on above: Performed By: #### L [id number] ####Supervisor Statement Clerks: GEOVANNA MENJIVAR ([phone])[facility]ITALMargo MUNOZ RITTMAN (SWRLAB)[address] [place] [address] [place] NRBC 0.0 /100 WBCs Normal 0.0-2.0 [facility] Comment on above: Performed By: #### L [id number] ####Supervisor Statement Clerks: GEOVANNA MENJIVAR ([phone])[facility]ITALM[facility] MUNOZ RITTMAN (SWRLAB)[address] [place] [address] [place] Platelet mean volume (Bld) [Entitic vol] 11.1 fL Normal 9.0-12.7 [facility] Comment on above: Performed By: #### L [id number] ####Supervisor Statement Clerks: GEOVANNA MENJIVAR ([id number])[facility]ITALM[facility] MUNOZ RITTMAN (SWRLAB)[address] [place] [address] [place] Platelets (Bld) [#/Vol] 139 10*3/uL Low 140-440 [facility] Comment on above: Performed By: #### L [id number] ####Supervisor Statement Clerks: GEOVANNA MENJIVAR ([phone])[facility]ITALMargo MUNOZ RITTMAN (SWRLAB)[address] [place] [address] [place] RBC (Bld) [#/Vol] 4.27 10*6/uL Normal 3.80-5.20 [facility] Comment on above: Performed By: #### L [id number] ####Supervisor Statement Clerks: GEOVANNA MENJIVAR ([phone])[facility]ITALM[facility] MUNOZ RITTMAN (SWRLAB)[address] [place] [address] [place] WBC (Bld) [#/Vol] 9.6 10*3/uL Normal 3.6-10.7 [facility] Comment on above: Performed By: #### L [id number] ####Supervisor Statement Clerks: GEOVANNA MENJIVAR ([phone])[facility] ALEXANDER FISH (SWRLAB)[address] [place] [address] CT PELVIS WO IV CONTRASTon 0 10-15-2024 [...] XRs done same day, suspects fall Normal [facility] CT Pelvis WO contraston 07-0 1. No acute osseous abnormality. 2. Degenerative change. Report Dictated on Electronically Signed By: Lazaro Osuna MD Electronically Signed Date/Time: 10/15/2024 9:33 PM EDT [facility] Patient Name: MARTHA MILLIGAN : [...] calcification. Small, fat-containing umbilical hernia partially visualized. [facility] Lazaro Osuna MD - 10/15/2024 Patient Name: [facility]ILLIGAN : 1940 [id number] Exam Date/Time: 10/15/2024 21:10 Procedure: CT PELVIS [...] Electronically Signed Date/Time: 10/15/2024 9:33 PM EDT [facility] Radiology Study observation (narrative) [facility] ED Nursing Noteon 10-15-2024 ED Nursing Note Pt to xray via cart and lifted onto table with assist of 3. Tolerated well Normal [facility] ED Nursing Note Pt to ER with [...] safety. Cody light in reach. @ bedside. [facility] ED Provider Noteon ED Provider Note EMERGENCY [...] TIME 10.7 (more content not included)... Normal [facility] - Coagulationon 0 10-15-2024 PT Coag (Bld) [Time] 10.7 s 9.0 - 12.0 s [facility] No Panel Informationon 10-15 1. No acute osseous abnormality. 2. Degenerative change. Report Dictated on Electronically Signed By: Lazaro Osuna MD Electronically Signed Date/Time: 10/15/2024 8:41 PM EDT [facility] No Panel InformationOrdered By: Lazaro Osuna on 10-15-2024 [facility] Work Phone: PROTHROMBIN TIMEon INR Coag (PPP) [Relative time] 1.0 {INR} Normal 0.9-1.1 [facility] Comment on above: Result Comment: Neil mmended [...] Infarction Performed By: #### L [id number] #### Supervisor Statement Clerks: GEOVANNA MENJIVAR ([phone]) [facility] ALEXANDER EZ2CADTMAN (SWRLAB) [address] [place] [address] PT Coag (PPP) [Time] 10.7 s Normal 9.0-12.0 [facility] Comment on above: Performed By: #### L [id number] #### Supervisor Statement Clerks: GEOVANNA MENJIVAR ([phone]) [facility] EZ2CADTMAN (SWRLAB) [address] [place] [address] PT Coag (Bld) [Time]on 10-15 INR Coag (PPP) [Relative time] 1 {INR} 0.9 - 1.1 [facility] Comment on above: Recommended Anticoag ulant [...] Interpretation and review of laboratory results Normal [facility] XR Femur - bilateral 2 Views on 10-15-2024 Patient Name: MARTHA MILLIGAN : 1940 [id number] Exam Date/Time: 10/15/2024 20:32 Procedure: XR FEMUR [...] patellofemoral joint spaces. Soft tissues grossly unremarkable. [facility] Lazaro Osuna MD - 10/15/2024 [...] Signed Date/Time: 10/15/2024 8:[address] [facility] Radiology Study observation (narrative) [facility] He alth XR Pelvis 1 or [...] patellofemoral joint spaces. Soft tissues grossly unremarkable. [facility] Lazaro Osuna MD - 10/15/2024 Patient Name: MRATHA MILLIGAN : 1940 [id number] Exam Date/Time: 10/15/2024 20:13 Procedure: XR PELVIS [...] change. Report Dictated on Electronically Signed By: Lazrao Osuna MD Electronically Signed Date/Time: 10/15/2024 8:[address] [facility] Radiology Study observation (narrative) Marlene contreras 36on 09-06-2024 36 Request for refill received from pharmacy Last appointment: 08/30/2024 Next appointment: 01/31/2025 Pharmacy confirmed: [x] Yes [] No Normal [facility] 37on 08-30-2024 37 Start memantine (Namenda) IR [...] if any problems with this medication. Normal [facility] Office Visiton 08-30-2024 Follow-up visit [id number] Martha Milligan 1940 F Date Provider Department Center 08/30/2024 [id number]-RQOXGHPMICHELE [facility] CS None Family History Problem Relation Age of Onset Dementia Mother Stroke Mother Breast cancer Mother Lung cancer Father Brain cancer Father Hypertension Father Heart attack Father Lymphoma Father Cancer Father Family Status - Relation Status Age at Mother Alive Father Alive Level of Service:09718 UT OFFICE/OUTPATIENT ESTABLISHED MOD MDM 30 MIN Reason for Visit and Comments: Dementia [30] Normal [facility] Progress Noteon 08-30-2024 Progress Note Senior Services/Geriatrics Social History Present at visit: patient, Jordan Marital status: Children: 2 sons (1 [facility], 1 in [place]) Living arrangement: with spouse, own home >>08/30/24 [...] to eat, socialize with family, went to [place] Exercise: none Finances: has adequate assets My Chart: Only spouse uses Healthcare Power of Multimedia Educational Specialist: Yes: spouse Financial Power of Multimedia Educational Specialist: Yes: spouse Living Will: Yes Guardian: No [...] about the same. They did go to [place] since last visit and patient did well [...] [] [x] manages >>08/30/24 same - Normal [facility] Progress Note [facility] [place] [address] Dept: [phone] Dept Loc: [phone] Visit type: [facility] Follow Up Visit Reason for [...] hypothyroidism, hypertension, anxiety/depression who presents to the [facility] for a follow-up visit. The [...] poor -snf memory is pretty good. -Sleep: Almost too [...] Name Status Mother Alysha Lang Alive Father [place] Rickey Alive No partnership data on file [...] the M (more content not included)... Normal [facility] Progress Note Review of Systems Constitutional: Negative [...] disturbance. The patient is not nervous/anxious. Normal [facility] Office Visiton 01-12-2024 Follow-up visit [id number] Martha Milligan 1940 F Date Provider Department Center 01/12/2024 [id number] MCCOLLUM [facility] CS None Family History Problem Relation Age of Onset Dementia Mother Stroke Mother Breast cancer Mother Lung cancer Father Brain cancer Father Hypertension Father Heart attack Father Lymphoma Father Family Status - Relation Status Age at Mother Father Level of Service:10673 UT OFFICE/OUTPATIENT ESTABLISHED MOD MDM 30 MIN Reason for Visit and Comments: Dementia [30] Normal [facility] PATINSon 01-12-2024 PATINS Your vitamin b12 levels [...] see her again in six months. Normal [facility] Progress Noteon 01-12-2024 Progress Note Interval history [...] Diet Healthy Nutrition for Older Adults - [facility] Injury Prevention/Home Safety [facility] Home Safety Checklist [facility] Mobility for Adults Medications Medication Safety/Dispensers Sleep Getting a Good Night's Sleep ([facility]) Personal Care Personal Care Tips Normal [facility] Progress Note [facility] [address] [place] [address] Dept: [phone] Dept Loc: [phone] Visit type: [facility] Family Summary Conference Reason for [...] NA 137 (more content not included)... Normal [facility] Cobalamin (Vitamin B12) [Mas s/Vol]on 11-03-2023 Interpretation and review of laboratory results Normal [facility] VITAMIN B12on 11-03-2023 Cobalamin (Vitamin B12) [Mass/Vol] 307 pg/mL Normal 239-931 [facility] Comment on above: Performed By: #### L AB67 ####Supervisor Statement Clerks: GEOVANNA MENJIVAR ([phone])[facility]SWRL[facility])[address] [place] [address] Vitamin B12on 11-03-2023 Cobalamin (Vitamin B12) [Mass/Vol] 307 pg/mL 239 - 931 pg/mL [employer] CBC W Auto Differential pane l (Bld)Ordered By: Kira Gant on 07-19-2022 Basophils (Bld) [#/Vol] 0.1 10*3/uL 0.0 - 0.2 10*3/uL [employer] Basophils/100 WBC (Bld) 1.0 % 0.0 - 2.0 % [facility] [employer] Eosinophils (Bld) [#/Vol] 0.0 10*3/uL 0.0 - 0.5 10*3/uL [facility] Eosinophils/100 WBC (Bld) 0.0 % Low 1.0 - 6.0 % [employer] Erythrocyte distribution width (RBC) [Ratio] 12.4 % 11.5 - 14.5 % [employer] Hematocrit (Bld) [Volume fraction] 42.2 % 35.0 - 47.0 % [facility] [employer] Hemoglobin (Bld) [Mass/Vol] 14.5 g/dL 11.7 - 16.0 g/dL [facility] [employer] Immature granulocytes (Bld) [#/Vol] 0.0 10*3/uL NINF - 0.0 10*3/uL [employer] Immature granulocytes/100 WBC (Bld) 0.3 % High NINF - 0.0 % [facility] [employer] Interpretation and review of laboratory results Abnormal [facility] [employer] Lymphocytes (Bld) [#/Vol] 1.9 10*3/uL 1.0 - 4.3 10*3/uL [employer] Lymphocytes/100 WBC (Bld) 26.2 % 20.0 - 40.0 % [facility] [employer] MCH (RBC) [Entitic mass] 31.6 pg 26.0 - 34.0 pg [facility] [employer] MCHC (RBC) [Mass/Vol] 34.4 % 32.0 - 36.0 % [employer] MCV (RBC) [Entitic vol] 91.9 fL 80.0 - 98.[address] [facility] Monocytes (Bld) [#/Vol] 0.7 10*3/uL 0.0 - 0.8 10*3/uL [facility] Monocytes/100 WBC (Bld) 9.7 % 2.0 - 10.0 % [facility] Neutrophils (Bld) [#/Vol] 4.6 10*3/uL 1.8 - 7.0 10*3/uL [facility] Neutrophils/100 WBC (Bld) 62.8 % 40.0 - 80.0 % [facility] Platelet mean volume (Bld) [Entitic vol] 11.0 fL 7.4 - 12.[address] [facility] Comment on above: MPV is a calculated measurement using platelet volume ratio Platelets (Bld) [#/Vol] 208 10*3/uL 140 - 440 10*3/uL [facility] RBC (Bld) [#/Vol] 4.59 10*6/uL 3.8 - 5.20 10*6/uL [facility] WBC (Bld) [#/Vol] 7.3 10*3/uL 3.6 - 10.7 10*3/uL [facility] Comprehensive metabolic 1998 panelon 07-19-2022 Albumin [Mass/Vol] 4.2 g/dL 3.5 - 5.0 g/dL [facility] ALP [Catalytic activity/Vol] 84 U/L 38 - 126 U/L [facility] ALT [Catalytic activity/Vol] 22 U/L 0 - 34 U/L [facility] Anion gap [Moles/Vol] 3 mmol/L 3 - 13 mmol/L [facility] AST [Catalytic activity/Vol] 24 U/L 15 - 46 U/L [facility] Bilirubin [Mass/Vol] 0.6 mg/dL 0.2 - 1 .3 mg/dL [facility] Calcium [Mass/Vol] 9.7 mg/dL 8.4 - 10. 4 mg/dL [facility] Chloride [Moles/Vol] 102 mmol/L 98 - 10 7 mmol/L [facility] CO2 [Moles/Vol] 32 mmol/L High 22 - 30 mmol/L [facility] Creatinine [Mass/Vol] 0.61 mg/dL 0.52 - 1.04 mg/dL [facility] GFR/1.73 sq M.predicted MDRD (S/P/Bld) [Vol rate/Area] - PINF [facility] Comment on above: Calculation based on the Chronic Kidney Disease Epidemiology Collaboration (CKD-EPI) equation refit without adjustment for race Glucose [Mass/Vol] 92 mg/dL 70 - 100 mg/dL [facility] Potassium [Moles/Vol] 3.5 mmol/L 3.5 - 5.1 mmol/L [facility] Protein [Mass/Vol] 7.0 g/dL 6.3 - 8.2 g/dL [facility] Sodium [Moles/Vol] 137 mmol/L 135 - 145 mmol/L [facility] Urea nitrogen [Mass/Vol] 12 mg/dL 7 - 17 mg/dL [facility] Folateon 07-19-2022 Folate [Mass/Vol] 18.4 ng/mL 2.9 - PINF ng/mL [facility] Folate [Mass/Vol]on 07-20-19 Interpretation and review of laboratory results Normal [facility] Free T3 [Mass/Vol]on 023 Interpretation and review of laboratory results Normal [facility] Free T4 [Mass/Vol]on 023 Free T4 Dialysis [Mass/Vol] 1.17 ng/dL 0.78 - 2.19 ng/dL [facility] Interpretation and review of laboratory results Normal [facility] Lipid 1996 panelon 3 Cholesterol [Mass/Vol] 188 mg/dL NINF - 200 mg/dL [facility] Cholesterol in HDL [Mass/Vol] 47 mg/dL 40 - 60 mg/dL [facility] Cholesterol in LDL [Mass/Vol] 112 mg/dL High 0 - <100 [facility] Cholesterol.total/[place] sterol in HDL [Mass ratio] 4 {ratio} [facility] Comment on above: Ref Range: < 3 Low Risk for CHD 3-6 Mod Risk for CHD > 6 High Risk for CHD Triglyceride [Mass/Vol] 145 mg/dL NINF - 150 mg/dL [facility] No Panel Informationon 07-19 Interpretation and review of laboratory results Abnormal [facility] T3, freeon 07-19-2022 Free T3 [Mass/Vol] 3.83 pg/mL 2.77 - 5. 27 pg/mL [facility] TSHon 07-19-2022 TSH Qn 2.720 m[IU]/L [facility] h TSH Qnon 07-19-2022 Interpretation and review of laboratory results Normal [facility] Metabolic Panelon 02-04 ALP [Catalytic activity/Vol] 85 U/L Normal 38-126 [facility] Comment on above: Performed By: #### C MP3, TSH5, LIPD2 #### [facility] [address] [place] [address] ALT [Catalytic activity/Vol] 17 U/L Normal 0-34 [facility] Comment on above: Result Comment: The ALT test is performed by an updated assay method. Please note that the reference intervals have been changed and are now sex specific. Performed By: #### C MP3, TSH5, LIPD2 #### [facility] [address] [place] [address] AST [Catalytic activity/Vol] 37 U/L Normal 15-46 [facility] Comment on above: Performed By: #### C MP3, TSH5, LIPD2 #### [facility] [address] [place] [address] Bilirubin [Mass/Vol] 0.8 mg/dL Normal 0.2-1.3 [facility] Comment on above: Performed By: #### C MP3, TSH5, LIPD2 #### [facility] [address] [place] [address] Calcium [Mass/Vol] 9.7 mg/dL Normal 8.4-10.4 [facility] Comment on above: Performed By: #### C MP3, TSH5, LIPD2 #### [facility] [address] [place] [address] Glucose [Mass/Vol] 108 mg/dL High 70-100 [facility] Comment on above: Performed By: #### C MP3, TSH5, LIPD2 #### [facility] [address] [place] [address] Protein [Mass/Vol] 7.7 g/dL Normal 6.3-8.2 [facility] Comment on above: Performed By: #### C MP3, TSH5, LIPD2 #### [facility] [address] [place] [address] Urea nitrogen [Mass/Vol] 11 mg/dL Normal 9-20 [facility] Comment on above: Performed By: #### C MP3, TSH5, LIPD2 #### [facility] [address] [place] [address] Anion gap [Moles/Vol] 6 mmol/L Normal 3-13 [facility] Comment on above: Performed By: #### C MP3, TSH5, LIPD2 #### [facility] [address] [place] [address] CO2 [Moles/Vol] 30 mmol/L Normal 22-30 [facility] Comment on above: Performed By: #### C MP3, TSH5, LIPD2 #### [facility] [address] [place] [address] Creatinine [Mass/Vol] 0.75 mg/dL Normal 0.52-1.25 [facility] Comment on above: Performed By: #### C MP3, TSH5, LIPD2 #### [facility] [address] [place] [address] GFR/1.73 sq M.predicted among blacks MDRD (S/P/Bld) [Vol rate/Area] 87.8 mL/min/{1.73_m2} Normal >60 [facility] Comment on above: Performed By: #### C MP3, TSH5, LIPD2 #### [facility] [address] [place] [address] GFR/1.73 sq M.predicted among non-blacks MDRD (S/P/Bld) [Vol rate/Area] 75.7 mL/min/{1.73_m2} Normal >60 [facility] Comment on above: Result Comment: KDIG O [...] By: #### C MP3, TSH5, LIPD2 #### [facility] [address] [place] [address] Albumin [Mass/Vol] 4.3 g/dL Normal 3.5-5.0 [facility] Comment on above: Performed By: #### C MP3, TSH5, LIPD2 #### [facility] [address] [address] Chloride [Moles/Vol] 104 mmol/L Normal 98-107 [facility] Comment on above: Performed By: #### C MP3, TSH5, LIPD2 #### [facility] [address] [place] [address] Potassium [Moles/Vol] 4.0 mmol/L Normal 3.5-5.1 [facility] Comment on above: Performed By: #### C MP3, TSH5, LIPD2 #### [facility] [address] [place] [address] Sodium [Moles/Vol] 140 mmol/L Normal 135-145 [facility] Comment on above: Performed By: #### C MP3, TSH5, LIPD2 #### [facility] [address] [address] Comprehensive Metabolic Pane juliane 02-04-2022 Albumin [Mass/Vol] 4.3 g/dL 3.5 - 5.0 g/dL [facility] ALP (Bld) [Catalytic activity/Vol] 85 U/L 38 - 126 U/L [facility] ALT [Catalytic activity/Vol] 17 U/L 0 - 34 U/L [facility] Comment on above: The ALT test [...] - 1.25 mg/dL [facility] EGFR IF NonAfrican Irish 75.7 mL/min 60 - PINF mL/min [facility] [...] [facility] Lipid Panelon 02-04-2022 Chol/HDL 4 Normal [facility] Comment on above: Result Comment: Ref Range: < 3 Low Risk for CHD 3-6 Mod Risk for CHD > 6 High Risk for CHD Performed By: #### C MP3, TSH5, LIPD2 #### [facility] [address] [place] [address] Cholesterol in HDL [Mass/Vol] 44 mg/dL Normal 40-60 [facility] Comment on above: Performed By: #### C MP3, TSH5, LIPD2 #### [facility] [address] [place] [address] Low Density Lipoprotein 101 mg/dL Abnormal <100 [facility] Comment on above: Performed By: #### C MP3, TSH5, LIPD2 #### [facility] [address] [place] [address] Triglyceride [Mass/Vol] 142 mg/dL Normal <150 [facility] Comment on above: Performed By: #### C MP3, TSH5, LIPD2 #### [facility] [address] [place] [address] Cholesterol [Mass/Vol] 173 mg/dL Normal < 200 [facility] Comment on above: Performed By: #### C MP3, TSH5, LIPD2 #### [facility] [address] [place] [address] Cholesterol [Mass/Vol] 173 mg/dL NINF - 200 mg/dL [facility] Cholesterol in HDL [Mass/Vol] 44 mg/dL 40 - 60 mg/dL [facility] Cholesterol in LDL [Mass/Vol] 101 mg/dL Abnormal NINF - 100 mg/dL [facility] Cholesterol.total/[place] sterol in HDL [Mass ratio] 4 {ratio} [facility] Comment on above: Ref Range: < 3 Low Risk for CHD 3-6 Mod Risk for CHD > 6 High Risk for CHD Triglyceride [Mass/Vol] 142 mg/dL NINF - 150 mg/dL [facility] No Panel Informationon 02-04 Interpretation and review of laboratory results Abnormal [facility] Test Performed by [facility], [address] , [place], [place] [id number] [place] [address] LAB [facility] TSHon 02-04-2022 Interpretation and review of laboratory results Abnormal [facility] TSH Qn 5.010 u[IU]/mL High 0.465 - 4.680 u[IU]/mL [facility] Test Performed by [facility], [address] , [place], [place] [id number] [place] [address] LAB [facility] Thyroid Stim. Hormoneon 10-2 Thyroid Stim. Hormone 5.010 u[IU]/mL High 0.465-4.68 0 [facility] Comment on above: Performed By: #### C MP3, TSH5, LIPD2 #### [facility] [address] [place] [address] CT Head or Brain w/o Contras ton 08-13-2021 CT Head or Brain w/o Contrast Patient Name: MARTHA MILLIGAN Computed Tomography ACCESSION EXAM DATE/TIME PROCEDURE ORDERING PROVIDER [id number] 08/13/2021 13:[address] Head or Brain w/o DO DE LA CRUZ JOSHUA D Contrast CPT code 12707 Reason For Exam (CT Head or Brain [...] Transcribed Date and Time: 08/13/2021 4:38 Normal [facility] Vital Signs Date Time Vital Sign Value Performing Clinician Maria Fernanda lauren 10-19-2024 07:43-0400 Body temperature 97.7 [degF] TIMMY Rincon MD Work Phone: [facility] 10-19-2024 07:43-0400 Diastolic blood pressure 77 mm[Hg] TIMMY Rincon MD Work Phone: [facility] [employer] 10-19-2024 07:43-0400 Heart rate 58 /min TIMMY Rincon MD Work Phone: [facility] [employer] 10-19-2024 07:43-0400 Respiratory rate 15 /min TIMMY Rincon MD Work Phone: [facility] [employer] 10-19-2024 07:43-0400 SaO2% (BldA) [Mass fraction] 95 % TIMMY Rincon MD Work Phone: [facility] [employer] 10-19-2024 07:43-0400 Systolic blood pressure 150 mm[Hg] TIMMY Rincon MD Work Phone: [facility] [employer] 10-15-2024 19:52-0400 Body mass index (BMI) [Ratio] 26.08 kg/m2 TIMMY Rincon MD Work Phone: [facility] [employer] 10-15-2024 19:52-0400 Body weight 62.1 kg TIMMY Rincon MD Work Phone: [facility] [employer] 01-12-2024 12:45-0400 Body mass index (BMI) [Ratio] 26.67 kg/m2 Michele Mccollum MD Work Phone: [facility] [employer] 01-12-2024 12:45-0400 Body weight 63.5 kg Michele Mccollum MD Work Phone: [facility] [employer] 01-12-2024 12:45-0400 Diastolic blood pressure 77 mm[Hg] Michele Mccollum MD Work Phone: [facility] [employer] 01-12-2024 12:45-0400 Heart rate 89 /min Michele Mccollum MD Work Phone: [facility] [employer] 01-12-2024 12:45-0400 Systolic blood pressure 122 mm[Hg] Michele Shetty Work Phone: [facility] [employer] 10-18-2023 08:52-0400 Diastolic blood pressure 54 mm[Hg] Michele Mccollum MD Work Phone: [facility] [employer] 10-18-2023 08:52-0400 Heart rate 102 /min Michele Mccollum MD Work Phone: [facility] [employer] 10-18-2023 08:52-0400 Systolic blood pressure 83 mm[Hg] Michele Shetty Work Phone: [facility] [employer] 10-18-2023 08:51-0400 Body height 154.3 cm Michele Mccollum MD Work Phone: [facility] [employer] 10-18-2023 08:51-0400 Body mass index (BMI) [Ratio] 27.89 kg/m2 Michele Mccollum MD Work Phone: [facility] [employer] 10-18-2023 08:51-0400 Body weight 66.41 kg Michele Mccollum MD Work Phone: [facility] [employer] Encounters Encounter Date Encounter Type Care Provider Facility Start: 02-06-2025 ambulatory Michael Deperro OLS Facili ty:[facility] Start: 10-26-2024 ambulatory Michael Deperro OLS Facili ty:[facility] Start: 10-23-2024 ambulatory Michael Deperro OLS Facili ty:[facility] Start: 10-22-2024 [facility] Start: 10-15-2024 End: 10-19-2024 Evaluation and management of inpatient J Zena Rincon MD Work Phone: [facility] Cardiac Progressive Care Unit PCU 2E Comment on above: Hip pain, bilateral (Primary Dx); Unable to ambulate Start: 09-06-2024 End: 09-06-[address] [facility] Comment on above: 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 behavioral disturbance, psychotic disturbance, mood disturbance, or anxiety (HCC) Start: 08-30-2024 End: 08-30-2024 [facility] Start: 02-09-2024 End: 02-09-2024 Refill [facility]ollum MD [facility] Comment on above: 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 behavioral disturbance, psychotic disturbance, mood disturbance, or anxiety (HCC) (Primary Dx) Start: 01-12-2024 End: 01-12-2024 Office outpatient visit 25 minutes Michele Mccollum MD [facility] Comment on above: 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 behavioral disturbance, psychotic disturbance, mood disturbance, or anxiety (HCC) (Primary Dx) Start: 01-12-2024 End: 01-12-2024 [facility] Start: 11-03-2023 End: 11-03-2023 [facility]ulatory [facility] Start: 10-18-2023 End: 10-18-2023 Office outpatient new 45 minutes Michele Mccollum MD Work Phone: [facility] Comment on above: Memory loss (Primary Dx); History of hypertension Start: 08-31-2023 Telephone encounter Darrno kirby DO Work Phone: [facility] Clinical Communication Comment on above: new patient appointm ent Start: 08-29-2023 Telephone encounter Re Chairez MD Work Phone: [facility] Comment on above: Appointment Request Start: 07-19-2022 End: 07-19-2022 ambulatory Darron De La Cruz DO Work Phone: [facility] Laboratory Comment on above: Hyperlipidemia, unsp ecified (Primary Dx); Deficiency of other specified B group vitamins; Hypothyroidism, unspecified Start: 02-04-2022 ambulatory Darron De La Cruz [facility] Start: 02-04-2022 End: 02-04-2022 Subsequent hospital visit by physician Darron De La Cruz DO Work Phone: [facility] Laboratory Start: 05-05-2022 ambulatory [facility] Procedures Date Procedure Procedure [...] Author Start: 07-20-2027 Lipid panel Lipid Panel [facility] Start: 03-02-2025 Depression Monitoring Depression Mon [facility] Start: 02-02-2025 Thyroid stimulating hormone measurement TSH Level [facility] Start: 01-31-2025 End: 01-31-2025 Patient encounter procedure 01/31/2025 1:00 PM EDT Office Visit [facility] [place] [address] Michele Mccollum MD [address] [address] [facility] Start: 2024 Influenza vaccination Influenza Vacc ine (#1) [facility] Start: 10-17-2024 Depression Screening Depression Scre ening [facility] Start: 09-02-2024 Medicare Annual Wellness (AWV) Medicare Annual Wellness (AWV) [facility] Start: 08-02-2024 End: 08-02-2024 Patient encounter procedure 08/02/2024 11:00 AM EDT Office Visit [facility] [address] [place] [phone] Michele Mccollum MD [address] [address] [facility] Start: 04-19-2024 Depression Monitoring Depression Mon [facility] Start: 01-12-2024 End: 01-12-2024 Patient encounter procedure 01/12/2024 1:00 PM EDT Office Visit [facility] [address] [place] [phone] Michele Mccollum MD [address] [address] [facility] Start: 12-11-2023 COVID-19 Vaccine ( season) COVID-19 Vaccine ( season) [facility] Start: 12-11-2023 COVID-19 Vaccine ( season) COVID-19 Vaccine ( season) [facility] Start: 12-11-2023 Influenza vaccination [facility] Start: 11-24-2023 End: 11-24-2023 Patient encounter procedure [facility] Start: 10-18-2023 End: 10-17-2024 Cobalamin (Vitamin B12) [Mass/volume] in Serum or Plasma Vitamin B12 Lab Routine Memory loss Expected: 10/18/2023 (Approximate), Expires: 10/17/2024 [facility] Work Phone: Comment on above: Expected: 10/18/2023 (Approximate), Expires: 10/17/2024 Start: 10-18-2023 End: 10-18-2023 Patient encounter procedure 10/18/2023 8:45 AM EDT Office Visit [facility] [address] [place] [address] Michele Mccollum MD [address] [address] [facility] Start: 07-20-2023 Thyroid stimulating hormone measurement TSH Level [facility] Start: 2022 COVID-19 Vaccine ( season) COVID-19 Vaccine ( season) [facility] Start: 2022 Influenza vaccination Influenza Vacc ine (#1) [facility] Start: 11-09-2021 Influenza vaccination Flu vaccine (# 1) [facility] Start: 06-05-2019 Shingles vaccine (2 of 2) Shingles vaccine (2 of 2) [facility] Start: 06-05-2019 Zoster Vaccines (2 o f 2) Zoster Vaccines (2 of 2) [facility] Start: 06-05-2019 Zoster Vaccines (3 o f 3) Zoster Vaccines (3 of 3) [facility] Start: 2017 RSV Immunization for Adults (1 - 1-dose 75+ series) RSV Immunization for Adults (1 - 1-dose 75+ series) [facility] Start: 02-14-2016 Pneumococcal 65+ yea rs Vaccine (2 - PPSV23 if available, else PCV20) Pneumococcal 65+ years Vaccine (2 - PPSV23 if available, else PCV20) [facility] Start: 02-14-2016 Pneumococcal Vaccine : 65+ Years (2 - PPSV23 if available, else PCV20) Pneumococcal Vaccine: 65+ Years (2 - PPSV23 if available, else PCV20) [facility] Start: 02-14-2016 Pneumococcal Vaccine : 65+ Years (2 of 2 - PPSV23 or PCV20) Pneumococcal Vaccine: 65+ Years (2 of 2 - PPSV23 or PCV20) [facility] Start: 2002 RSV Immunization age d 60 or older (1 - 1-dose 60+ series) RSV Immunization aged 60 or older (1 - 1-dose 60+ series) [facility] Start: 1997 Screening for osteoporosis DEXA (modify frequency per FRAX score) [facility] Start: 1961 DTaP/Tdap/Td vaccine (1 - Tdap) DTaP/Tdap/Td vaccine (1 - Tdap) [facility] Start: 1961 DTaP/Tdap/Td Vaccine s (1 - Tdap) DTaP/Tdap/Td Vaccines (1 - Tdap) [facility] Start: 1960 Hepatitis C screening S [facility] Start: 1954 Depression Screen Depression Screen [facility] Start: 1954 Depression Screening Depression Scre ening [facility] Start: 06-10-1943 COVID-19 Vaccine (#1) COVID-19 Vacci ne (#1) [facility] Start: 1942 Hepatitis B Vaccines (1 of 3 - 3-dose series) Hepatitis B Vaccines (1 of 3 - 3-dose series) [facility] Start: 1942 Medicare Annual Wellness (AWV) Medicare Annual Wellness (AWV) [facility] Start: 1942 Screening for osteoporosis Bone Density Scan [facility] OUTSIDE PROCEDURE SCAN OUTSIDE P ROCEDURE SCAN Procedures Ordered: 07/19/2022 [facility] Comment on above: Ordered: 07/19/2022 Immunizations Immunization Date Immunization Notes Care Provider Fa cili 01-19-2024 influenza virus vacc ine, unspecified formulation TIMMY Rincon MD Work Phone: [facility] [employer] 01-02-2022 influenza virus vacc ine, unspecified formulation Darron De La Cruz DO Work Phone: [facility] Payers Date Payer Category Payer Self-pay 2022 Private Health Insurance GENERIC COMMERCIAL [id number] 2022 Unknown [id number] 2007 Unknown 2007 Medicare 2007 Medicare [id number] 1940 Unknown [id number] 1940 Unknown [id number] Unknown [id number] Social History Date Type Detail Facility Tobacco smoking stat [facility] Tobacco smoking consumption unknown [facility] Start: 1940 Sex Assigned At Not on file S [employer] Work Phone: Start: 07-09-2022 End: 07-19-2022 Exposure to SARS-CoV-2 (event) Not sure [facility] [employer] Start: 10-18-2023 End: 10-16-2024 Gender identity Not on file [facility] [employer] Start: 10-18-2023 End: 08-30-2024 Tobacco smoking status PAIS Ex-smoker [facility] [employer] Start: 04-11-1960 End: 04-11-1967 History of tobacco use Current smoker [employer] Start: 04-11-1960 End: 04-11-1967 History of tobacco use Cigarette Smoker [facility] [employer] Start: 10-18-2023 End: 10-16-2024 Cigarettes smoked current (pack per day) - Reported 0.2 [facility] [employer] Start: 10-18-2023 End: 08-30-2024 Tobacco use and exposure Smokeless tobacco non-user [facility] [employer] Start: 10-18-2023 Alcoholic beverage intake Current drinker of alcohol (finding) [facility] [employer] Start: 11-09-2021 Sex Female (finding) [facility] [employer] Start: 08-30-2024 End: 10-16-2024 Alcoholic beverage intake Ex-drinker (finding) [facility] Has the [employer] or [email or web address] threatened to shut off services in your home in past 12Mo No [facility] Are you now , , , , never or living with a partner? [facility] How often to you hav e a drink containing alcohol? Monthly or less [facility] How many standard drinks containing alcohol do you have on a typical day? 1 or 2 [facility] How often do you hav e 6 or more drinks on 1 occasion? Never [facility] How hard is it for y ou to pay for the very basics like food, housing, medical care, and heating Not hard at all [facility] Do you feel stress - tense, restless, nervous, or anxious, or unable to sleep at night because your mind is troubled all the time - these days [OSQ] Not at all [facility] (I/We) worried wheth er (my/our) food would run out before (I/we) got money to buy more. Never true [facility] Functional Status Date Assessment Result Facility 10-15-2024 Total score [AUDIT-C] 0 10/16/19 7:54 PM EDT Meena Carranza RN [facility] Clinical Notes 08-29-2023 to 10-19-2024 Tameka Paz RN - 10/19/2024 2:17 PM Rodrigo Paz RN - 10/19/2024 2:17 PM Rodrigo Paz RN - 10/19/2024 1:43 PM Manuelito Patrick RN - 10/16/2024 3:08 AM EDTDavid Henriquez - FABIAN Note Date & Type Note Facility 10-19-2024 Nurse Note Report called to Tawny SAUNDERS at [facility]. No further questions or concerns. [facility] 10-19-2024 Nurse Note Report called to Tawny SAUNDERS at [facility]. No further questions or concerns. Transferred to the [address] [place] [address] nurseline at [facility] but no answer. Phone rang for 3 min. Will attempt calling report again at a later time. Scheduled warp picker time is 1330. Chart accessed pending admission to [address] documented in this encounter [facility] 10-19-2024 Nurse Note Transferred to the [address] [place] [address] nurseline at [facility] but no answer. Phone rang for 3 min. Will attempt calling report again at a later time. Scheduled warp picker time is 1330. [facility] 10-19-2024 Note Discharge Summary Martha Milligan [...] diagnosis management during her stay here at [facility]: Acute, acute on chronic, unstable/uncontrolled chronic problems/diagnoses: [...] Complexity: follow up within 7-14 calendar days (87985) [] Severe Complexity: follow up within 7 calendar days (93453) FOLLOW UP TESTING, PENDING RESULTS OR REFERRALS [...] Please confirm patient (more content not included)... [facility] 10-19-2024 Hospital course Narrative Images from the [...] diagnosis management during her stay here at [facility]: Acute, acute on chronic, unstable/uncontrolled chronic problems/diagnoses: [...] Complexity: follow up within 7-14 calendar days (43947) [] Severe Complexity: follow up within 7 calendar days (31962) FOLLOW UP TESTING, PENDING RESULTS OR REFERRALS [...] 12:23 PM documented in this encounter [facility] 10-19-2024 Miscellaneous Notes Patient Choice Patient Name: MARTHA MILLIGAN Date of : 1940 All Providers Sent [facility] Phone: [phone] Address: [address] [phone] Name: Pleasantdaledre Munoz [facility] Phone: [phone] Address: [address] [place], [place] [id number] Discharge med list transmitted to [facility] via [facility] per TCC request. 7000 was entered into [facility] for the SNF- FACILITY IS AWARE DC order paced. FABIAN done. INSPECTOR TIMERS tasked to do 7000 and send DC paperwork and MAR to [facility]. Transportation will be set up by ne [...] 10/17/2024 11:51 AM EDT Referral placed to [facility] via [facility] per TCC request. Await review and response regarding ability to accept. TCC notified. Met with Jordan at bedside to discuss DC planning. Pt had choice list in hand that I left in room yesterday. chose1) [facility] SNF and [facility]. INSPECTOR TIMERS tasked to make new SNF referrals. Awaiting [...] GMLOS Documented documented in this encounter [facility] 10-19-2024 Note Formatting of this n ote might be different from the original. Patient Choice Patient Name: MARTHA MILLIGAN Date of : 1940 All Providers Sent Referral Name: [employer] Phone: [phone] Address: [address] [place] [address] Name: [employer] Phone: [phone] Address: [address] [place] [address] [address] [facility] 10-19-2024 Note Formatting of this n ote might be different from the original. Patient Choice Patient Name: MARTHA MILLIGAN Date of : 1940 All Providers Sent Referral Name: [employer] Phone: [phone] Address: [address] [place] [address] Name: [employer] Phone: [phone] Address: [address] [place] [address] [facility] 10-19-2024 Note Formatting of this n ote might be different from the original. Discharge med list transmitted to [facility] via [facility]port per TCC request. 7000 was entered into [employer] for the SNF- FACILITY IS AWARE [facility] 10-19-2024 Note Formatting of this n ote might be different from the original. Discharge med list transmitted to [facility] via [facility]port per TCC request. 7000 was entered into [facility] for the SNF- FACILITY IS AWARE T [facility] 10-19-2024 Note Formatting of this n ote might be different from the original. DC order paced. FABIAN done. INSPECTOR TIMERS tasked to do 7000 and send DC paperwork and MAR to [facility]. Transportation will be set up by ne shortly. [facility] 10-19-2024 Note Formatting of this n ote might be different from the original. DC order paced. FABIAN done. INSPECTOR TIMERS tasked to do 7000 and send DC paperwork and MAR to [facility]. Transportation will be set up by ne shortly. [facility] 10-19-2024 History of Present illness Narrative Images from the original note were not included. OCCUPATIONAL THERAPY [facility] Treatment Note Name/MRN: Martha Milligan ([id number]) Date of : 1940 Age: 83 y.o. Room/Bed: B2-252/B2-252 A Visit #: 1 out of 7 Discharge Recommendation: Assisted Facility Equipment Needed: No Prior Level of [...] original note were not included. PHYSICAL THERAPY [facility] Treatment Note Name/MRN: Martha Milligan ([id number]) Date of : 1940 Age: 83 y.o. Room/Bed: B2-252/B2-252 A Visit #: 1 out of 7 visits Discharge Recommendation: Assisted Facility Equipment Needed: No Prior Level of [...] original note were not included. OCCUPATIONAL THERAPY [facility] Name/MRN: Martha Milligan ([id number]) Date: 10/18/2024 Chart reviewed. Attempt to see pt for OT session. Pt adamantly declining participation in OT session. Pt given encouragement and multiple tx options with no success. Unable to re direct pt. OT will continue to follow and re attempt to see as schedule permits. VISHAL Mccarthy/Rodrigo Cosigned by Tom Palencia OT at 10/18/2024 3:58 PM EDT Hospitalist Progress Note 10/18/20246992556-7848: Please page me ([phone]) for patient care issues. [phone]: Please page [facility] night Hospitalist for any issues. Subjective: Admit Date: 10/15/2024 PCP: Darron De La Cruz, DO Room#: B2-252/B2-252 A Interval History: No overnight issues. Denies chest pain or sob. No abdominal pain, nausea, vomiting. No fevers or chills. She is laying in bed resting comfortably. Her is at bedside again today. Adult diet Regular @[id number]@ 24HR INTAKE/OUTPUT: Intake/Output Summary (Last 24 hours) [...] Emergency Contact: Jordan Milligan Mobile Relation: Spouse Supervisor Metal Placing needed? No Cralos Fall MD Division of Hospitalist Medicine Inpatient Medical Services/[facility] PAGER: Epic chat [1] Past Medical History: [...] original note were not included. OCCUPATIONAL THERAPY [facility] Initial Evaluation Name/MRN: Martha Milligan ([id number]) Evaluation Date: 10/17/2024 Date of : 1940 Admission Date: 10/15/2024 7:52 PM Age: 83 y.o. Room/Bed: B2252/[place]252 A Discharge Recommendation: Assisted Facility Equipment Needed: No Assessment IMPRESSION: Pt [...] Responsibilities: Independent Receives Help From: Family Active Greige Goods Examiner: No Prior Level of Function Prior Level [...] of Care supervision is transferred to a [facility] Therapy Services Occupational Therapist. Goals and/or [...] TONSILLECTOMY TUBAL LIGATION Hospitalist Progress Note 10/17/2024 [phone]: Please page me ([phone]) for patient care issues. [phone]: Please page [facility] Hospitalist for any issues. Subjective: Admit Date: 10/15/2024 PCP: Darron De La Cruz, DO Room#: B2-252/B2-252 A Interval History: No overnight issues. Denies chest pain or sob. No abdominal pain, nausea, vomiting. No fevers or chills. She is laying in bed resting comfortably. She was sleeping before I woke her up. Her is at bedside. Adult diet Regular @[id number]@ 24HR INTAKE/OUTPUT: Intake/Output Summary (Last 24 hours) [...] Emergency Contact: Jordan Milligan Mobile Relation: Spouse Supervisor Metal Placing needed? No Carlos Fall MD Division of Hospitalist Medicine Inpatient Medical Services/[facility] PAGER: Epic chat [1] Past Medical History: [...] be monitored and followed by the diet technical maintenance technician. Images from the original note were not included. PHYSICAL THERAPY [facility] Initial Evaluation Name/MRN: Martha Milligan ([id number]) Evaluation Date: 10/16/2024 Date of : 1940 Admission Date: 10/15/2024 7:52 PM Age: 83 y.o. Room/Bed: B2-252/[place] A Discharge Recommendation: Assisted Facility Equipment Needed: No Assessment IMPRESSION: Pt [...] Responsibilities: Independent Receives Help From: Family Active Greige Goods Examiner: No Prior Level of Function Prior Level [...] of Care supervision is transferred to a [facility] Therapy Services Physical Therapist. Goals and/or treatment plan was established in collaboration with patient/family/other representatives. [1] Past Medical History: Diagnosis Date Anxiety Depression Folate deficiency Hiatal hernia Hyperlipemia Hypertension Hypothyroidism Memory loss Osteopenia Vitamin D deficiency [2] Past Surgical History: Procedure Laterality Date COLONOSCOPY 09/22/2015 PARATHYROIDECTOMY 1993 THYROID SURGERY 1992 Benign Thyroid mass TONSILLECTOMY TUBAL LIGATION documented in this encounter [facility] 10-19-2024 Hospital Discharge instructions Tameka Paz [...] Emergency Contact: Jordan Milligan Mobile Relation: Spouse Supervisor Metal Placing needed? No Past Surgical History: Past Surgical [...] assistance Toileting Total assistance Feeding Minimal assistance Road Boss Total assistance Med Delivery yes Wound Care [...] select all that are sent with patient): {[facility] Patient Belongings:73635} RN SIGNATURE: MANAGEMENT/SOCIAL WORK SECTION Inpatient Status Date: 10/16/24 [facility] Address: [address] [place] [address] Fax: Dialysis Facility (if applicable) Name: Address: Dialysis Schedule: Phone: Fax: Director Community Organization/Brine Tank Separator Operator signature: ICIAN SECTION Name: Martha Milligan Prognosis: good Condition at Discharge: stable Rehab Potential (if transferring to Rehab): good Recommended Labs or Other Treatments After Discharge: The individual is being admitted to a nursing facility directly from an [facility] or a unit of a [facility] that is not operated by or licensed by [facility] under section 5119.14 or 5160-3-15.1 5 The individual requires the level of services provided by a nursing facility for the condition for which he or she was treated in the hospital and, Physician Certification: I certify the above information and transfer of Martha Milligan is necessary for the continuing treatment of the diagnosis listed and that she requires long-term facility for less than 30 days. Update Admission H&P: No change in H&P PHYSICIAN SIGNATURE: documented in this encounter [facility] 10-18-2024 Note Hospitalist Progress Note 10/18/2024 [phone]: Please page me ([phone]) for patient care issues. [phone]: Please page [facility] Hospitalist for any issues. Subjective: Admit Date: 10/15/2024 PCP: Darron De La Cruz, DO Room#: B2-252/B2-252 A Interval History: No overnight issues. Denies chest pain or sob. No abdominal pain, nausea, vomiting. No fevers or chills. She is laying in bed resting comfortably. Her is at bedside again today. Adult diet Regular @[id number]@ 24HR INTAKE/OUTPUT: Intake/Output Summary (Last 24 hours) [...] Emergency Contact: Jordan Milligan Mobile Relation: Spouse Supervisor Metal Placing needed? No Carlos Fall MD Division of Hospitalist Medicine Inpatient Medical Services/[facility] PAGER: Epic chat [1] Past Medical History: [...] sodium chloride 0.9%, 5-40 mL, IntraVENous, q12h [facility] 10-17-2024 Note Problem: Safety Goal: I will remain free of falls Outcome: Progressing Problem: Daily Care Goal: Daily care needs are met Outcome: Progressing Problem: Chronic Conditions and Co-morbidities Goal: Patient's chronic conditions and co-morbidity symptoms are monitored and maintained or improved Outcome: Progressing [facility] 10-17-2024 Plan of care note Problem: Safety Goal: I will remain free of falls Outcome: Progressing Problem: Daily Care Goal: Daily care needs are met Outcome: Progressing Problem: Chronic Conditions and Co-morbidities Goal: Patient's chronic conditions and co-morbidity symptoms are monitored and maintained or improved Outcome: Progressing [facility] 10-17-2024 Note OCCUPATIONAL THERAPY [facility] Initial Evaluation Name/MRN: Martha Milligan ([id number]) Evaluation Date: 10/17/2024 Date of : 1940 Admission Date: 10/15/2024 7:52 PM Age: 83 y.o. Room/Bed: B2-252/B2-252 A Discharge Recommendation: Assisted Facility Equipment Needed: No Assessment IMPRESSION: Pt [...] Responsibilities: Independent Receives Help From: Family Active Greige Goods Examiner: No Prior Level of Function Prior Level [...] this date. Patient (more content not included)... [facility] 10-17-2024 Note Hospitalist Progress Note 10/17/2024 [phone]: Please page me ([phone]) for patient care issues. [phone]: Please page [facility] Hospitalist for any issues. Subjective: Admit Date: 10/15/2024 PCP: Darron De La Cruz, DO Room#: B2-252/B2-252 A Interval History: No overnight issues. Denies chest pain or sob. No abdominal pain, nausea, vomiting. No fevers or chills. She is laying in bed resting comfortably. She was sleeping before I woke her up. Her is at bedside. Adult diet Regular @[id number]@ 24HR INTAKE/OUTPUT: Intake/Output Summary (Last 24 hours) [...] Emergency Contact: Jordan Milligan Mobile Relation: Spouse Supervisor Metal Placing needed? No Carlos Fall MD Division of Hospitalist Medicine Inpatient Medical Services/[facility] PAGER: Epic chat [1] Past Medical History: [...] sodium chloride 0.9%, 5-40 mL, IntraVENous, q12h [facility] 10-17-2024 Note Problem: Safety Goal: I will remain free of falls Outcome: Progressing Problem: Daily Care Goal: Daily care needs are met Outcome: Progressing Problem: Chronic Conditions and Co-morbidities Goal: Patient's chronic conditions and co-morbidity symptoms are monitored and maintained or improved Outcome: Progressing [facility] 10-17-2024 Plan of care note Problem: Safety Goal: I will remain free of falls Outcome: Progressing Problem: Daily Care Goal: Daily care needs are met Outcome: Progressing Problem: Chronic Conditions and Co-morbidities Goal: Patient's chronic conditions and co-morbidity symptoms are monitored and maintained or improved Outcome: Progressing Cosigned by Ousmane Mancia RN at 10/17/2024 11:[address] [facility] 10-17-2024 Note Formatting of this n ote might be different from the original. [facility] per TCC request. Await review and response regarding ability to accept. TCC notified. T [facility] 10-17-2024 Note Formatting of this n ote might be different from the original. [facility] per TCC request. Await review and response regarding ability to accept. TCC notified. T [facility] 10-17-2024 Note [facility] per TCC request. Await review and response regarding ability to accept. TCC notified. [facility] 10-17-2024 Note Formatting of this n ote might be different from the original. Met with Jordan at bedside to discuss DC planning. Pt had choice list in hand that I left in room yesterday. chose1) [facility] SNF and 2) [facility]. INSPECTOR TIMERS tasked to make new SNF referrals. Awaiting acceptance. [facility] 10-17-2024 Note Formatting of this n ote might be different from the original. Met with Jordan at bedside to discuss DC planning. Pt had choice list in hand that I left in room yesterday. chose1) [facility] SNF and 2) [facility]. INSPECTOR TIMERS tasked to make new SNF referrals. Awaiting acceptance. [facility] 10-17-2024 Consult note Associated Order (s): [...] cancer Mother Alysha Lang Lung cancer [place] Brain cancer Father [place] Hypertension Father [place] Heart attack Father [place] Lymphoma Father [place] Cancer Father [place] [facility] [employer] Phone: 10-17-2024 Consult note Associated Order (s): [...] cancer Mother Alysha Lang Lung cancer Father [place] Brain cancer Father [place] Hypertension Father [place] Heart attack Father [place] Lymphoma Father [place] Cancer Father [place] documented in this encounter [facility] 10-16-2024 Note Problem: Safety Goal: I will remain free of falls Outcome: Progressing Problem: Daily Care Goal: Daily care needs are met Outcome: Progressing Problem: Chronic Conditions and Co-morbidities Goal: Patient's chronic conditions and co-morbidity symptoms are monitored and maintained or improved Outcome: Progressing [facility] 10-16-2024 Plan of care note Problem: Safety Goal: I will remain free of falls Outcome: Progressing Problem: Daily Care Goal: Daily care needs are met Outcome: Progressing Problem: Chronic Conditions and Co-morbidities Goal: Patient's chronic conditions and co-morbidity symptoms are monitored and maintained or improved Outcome: Progressing [facility] 10-16-2024 Note Problem: Safety Goal: I will remain free of falls Outcome: Progressing Problem: Daily Care Goal: Daily care needs are met Outcome: Progressing Problem: Chronic Conditions and Co-morbidities Goal: Patient's chronic conditions and co-morbidity symptoms are monitored and maintained or improved Outcome: Progressing [facility] 10-16-2024 Plan of care note Problem: Safety Goal: I will remain free of falls Outcome: Progressing Problem: Daily Care Goal: Daily care needs are met Outcome: Progressing Problem: Chronic Conditions and Co-morbidities Goal: Patient's chronic conditions and co-morbidity symptoms are monitored and maintained or improved Outcome: Progressing [facility] 10-16-2024 Note Formatting of this n [...] (Days): 0 GMLOS: No GMLOS Documented [facility] 10-16-2024 Note Formatting of this n [...] (Days): 0 GMLOS: No GMLOS Documented [facility] 10-16-2024 Note Care Management Prog ress [...] Stay (Days): 0 GMLOS: No GMLOS Documented [facility] 10-16-2024 Note PHYSICAL THERAPY [facility] Initial Evaluation Name/MRN: Martha Milligan ([id number]) Evaluation Date: 10/16/2024 Date of : 1940 Admission Date: 10/15/2024 7:52 PM Age: 83 y.o. Room/Bed: B2-252/B2252 A Discharge Recommendation: Assisted Facility Equipment Needed: No Assessment IMPRESSION: Pt [...] Responsibilities: Independent Receives Help From: Family Active Greige Goods Examiner: No Prior Level of Function Prior Level [...] AM-PAC Inpatient Mobili (more content not included)... [facility] 10-16-2024 History and physical note Attending History [...] min Stress: No Stress Concern Present (08/27/2024) [employer] [place] [employer] - Occupational Stress Questionnaire Feeling of Stress : Not at all Social Connections: Moderately Isolated (08/27/2024) Social Connection and Isolation Panel [NHANES] Frequency of Communication with Friends and Family: Once a week Frequency of Social Gatherings with Friends and Family: Once a week Attends Bahai Services: 1 to 4 times per year [...] cancer Mother Alysha Lang Lung cancer Father [place] Brain cancer Father [place] Hypertension Father [place] Heart attack Father [place] Lymphoma Father [place] Cancer Father [place] [4] No current facility-administered medications for this encounter. [facility] 10-16-2024 Note Attending History an d [...] min Stress: No Stress Concern Present (08/27/2024) [place] [employer] - Occupational Stress Questionnaire Feeling of Stress : Not at all Social Connections: Moderately Isolated (08/27/2024) Social Connection and Isolation Panel [NHANES] Frequency of Communication with Friends and Family: Once a week Frequency of Social Gatherings with Friends and Family: Once a week Attends Bahai Services: 1 to 4 times per year [...] 139* BMP: Rec (more content not included)... [facility] 10-16-2024 History and physical note Attending History [...] min Stress: No Stress Concern Present (08/27/2024) [employer] [place] - Occupational Stress Questionnaire Feeling of Stress : Not at all Social Connections: Moderately Isolated (08/27/2024) Social Connection and Isolation Panel [NHANES] Frequency of Communication with Friends and Family: Once a week Frequency of Social Gatherings with Friends and Family: Once a week Attends Bahai Services: 1 to 4 times per year [...] cancer Mother Alysha Lang Lung cancer Father [place] Brain cancer Father [place] Hypertension Father [place] Heart attack Father [place] Lymphoma Father [place] Cancer Father [place] [4] No current facility-administered medications for this encounter. documented in this encounter [facility] 10-16-2024 Emergency department Note Pt depends changed for urine incontinence and repositioned in bed for comfort. [facility] 10-16-2024 Emergency department Note Pt depends [...] bilateral femurs I [place] [facility] [place] no controlled substance prescriptions X-rays negative for fracture, upon my independent interpretation. Patient still unable to bear weight and subsequently, CT pelvis ordered, as patient still has tenderness to both of her hips. CT negative for fracture. Patient care discussed with: Dr. Baeza, [facility] hospitalist, who has agreed to accept the [...] cancer Mother Alysha Lang Lung cancer Father [place] Brain cancer Father [place] Hypertension Father [place] Heart attack Father [place] Lymphoma Father [place] Cancer Father [place] [4] Social History Socioeconomic History Marital status: [...] min Stress: No Stress Concern Present (08/27/2024) [employer] [place] - Occupational Stress Questionnaire Feeling of Stress : Not at all Social Connections: Moderately Isolated (08/27/2024) Social Connection and Isolation Panel [NHANES] Frequency of Communication with Friends and Family: Once a week Frequency of Social Gatherings with Friends and Family: Once a week Attends Bahai Services: 1 to 4 times per year [...] @ bedside. documented in this encounter [facility] 10-16-2024 Nurse Note Chart accessed pending admission to [address] [facility] 10-15-2024 Emergency department Note Pt to xray via cart and lifted onto table with assist of 3. Tolerated well [facility] 10-15-2024 Emergency department Triage note Pt [...] Cody light in reach. @ bedside. [facility] 10-15-2024 Physician Emergency department Note EMERGENCY [...] bilateral femurs I reviewed external records [facility]: [facility] demonstrating no controlled substance prescriptions X-rays negative for fracture, upon my independent interpretation. Patient still unable to bear weight and subsequently, CT pelvis ordered, as patient still has tenderness to both of her hips. CT negative for fracture. Patient care discussed with: Dr. Baeza, [facility] hospitalist, who has agreed to accept the [...] cancer Mother Alysha Lang Lung cancer Father [place] Brain cancer Father [place] Hypertension Father [place] Heart attack Father [place] Lymphoma Father [place] Cancer Father [place] [4] Social History Socioeconomic History Marital [...] min Stress: No Stress Concern Present (08/27/2024) [employer] [place] [employer] - Occupational Stress Questionnaire Feeling of Stress : Not at all Social Connections: Moderately Isolated (08/27/2024) Social Connection and Isolation Panel [NHANES] Frequency of Communication with Friends and Family: Once a week Frequency of Social Gatherings with Friends and Family: Once a week Attends Bahai Services: 1 to 4 times per year [...] Last Year: No Monica Rincon MD 10/15/[id number] [facility] 09-06-2024 Telephone encounter Note Request for refill received from pharmacy Last appointment: 08/30/2024 Next appointment: 01/31/2025 Pharmacy confirmed: [x] Yes [] No [facility] 09-06-2024 Miscellaneous Notes Request for refill received from pharmacy Last appointment: 08/30/2024 Next appointment: 01/31/2025 Pharmacy confirmed: [x] Yes [] No documented in this encounter [facility] 01-12-2024 History of Present illness Narrative Images from the original note were not included. [address] [address] Dept: [phone] Dept Loc: [phone] Visit type: [facility] Family Summary Conference Reason for [...] 18.4 07/19/2022 Lab Results Component Value Date [id number] 11/03/2023 No results found for: RPR Imaging: no new neuroimaging obtained Testing: I reviewed the [place] CognitiveAssessment from the initial assessment with the [...] Safety/Dispensers Sleep Getting a Good Night's Sleep ([facility]) Personal Care Personal Care Tips documented in this encounter [facility] 01-12-2024 Instructions Michele Mccollum MD [...] six months. documented in this encounter [facility] 10-18-2023 History of Present illness Narrative [...] Jordan Marital status: Children: 2 sons (1 [facility], 1 in [place]) Living arrangement: with spouse, own home Household [...] Chart: Only spouse uses Healthcare Power of Multimedia Educational Specialist: Yes: spouse Financial Power of Multimedia Educational Specialist: Yes: spouse Living Will: Yes Guardian: No [...] Diet Healthy Nutrition for Older Adults - [facility] Injury Prevention/Home Safety [facility] Home Safety Checklist [facility] Mobility for Adults Medications Medication Safety/Dispensers Sleep Getting a Good Night's Sleep ([facility]) Personal Care Personal Care Tips Images from the original note were not included. [facility] [address] [address] Dept: [phone] Dept Loc: [phone] Visit type: [facility] Initial Assessment Visit Date: 10/18/2023 [...] hypothyroidism, hypertension, anxiety/depression who presents to the [facility] for a comprehensive geriatric assessment. [...] knows well). 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 Test scanned in [...] and/or evaluation documented in this encounter [facility] 10-18-2023 History of Present illness Narrative [...] Jordan Marital status: Children: 2 sons (1 [facility], 1 in [place]) Living arrangement: with spouse, own home Household [...] Chart: Only spouse uses Healthcare Power of Multimedia Educational Specialist: Yes: spouse Financial Power of Multimedia Educational Specialist: Yes: spouse Living Will: Yes Guardian: No [...] Safety/Dispensers Sleep Getting a Good Night's Sleep ([facility]) Personal Care Personal Care Tips Images from the original note were not included. [facility] [address] [address] Dept: [phone] Dept Loc: [phone] Visit type: [facility] Initial Assessment Visit Date: 10/18/2023 [...] hypothyroidism, hypertension, anxiety/depression who presents to the [facility] for a comprehensive geriatric assessment. [...] knows well). 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 Test scanned in [...] and/or evaluation documented in this encounter [facility] 10-18-2023 Miscellaneous Notes Addended by: CAITLIN GONZALEZ on: 11/03/2023 02:34 PM Modules accepted: Orders documented in this encounter [facility] 10-18-2023 Note Addended by: CAITLIN GONZALEZ on: 11/03/2023 02:34 PM Modules accepted: Orders [facility] 08-31-2023 Telephone encounter Note Scheduled 10/18/2023. [facility] 08-31-2023 Miscellaneous Notes Scheduled 10/18/2023. Name [...] Name: na documented in this encounter [facility] 08-31-2023 Telephone encounter Note Duplicate TE. [facility] 08-31-2023 Miscellaneous Notes Duplicate TE. Name of Caller: Juventino Contact Reason for Appointment: new patient appt- referral in media Toms second call he's a little frustrated. Appointments for Martha Office Name: senior services Medication Refills need, if any: na Medication Name: na documented in this encounter [facility] 08-31-2023 Telephone encounter Note Name of Caller: Juventino Contact Reason for Appointment: new patient appt- referral in media Toms second call he's a little frustrated. Appointments for Martha Office Name: senior services Medication Refills need, if any: na Medication Name: na [facility] 08-30-2023 Telephone encounter Note Name of Caller: Jordan Contact Reason for Appointment: Returning a call to Karishma to schedule an appointment with Dr. Chairez. Please advise Office Name: Senior Services Medication Refills need, if any: N/A Medication Name: N/A [facility] 08-30-2023 Telephone encounter Note Left message for Jordan to call back (new patient). [facility] 08-29-2023 Telephone encounter Note Name of Caller: Karishma Contact Reason for Appointment: new patient appt- referral in media Office Name: senior services Medication Refills need, if any: na Medication Name: na [facility] Evaluation note Diagnosis Hyperlipidemia, unspecified- Primary Deficiency of other specified B group vitamins Hypothyroidism, unspecified [facility] Diagnosis Memory loss- Primary History of hypertension Personal history of other diseases of circulatory system [facility] Diagnosis Memory loss- Primary History of hypertension Personal history of other diseases of circulatory system [facility] Diagnosis 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 behavioral disturbance, psychotic disturbance, mood disturbance, or anxiety (HCC)- Primary [facility] Diagnosis 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 behavioral disturbance, psychotic disturbance, mood disturbance, or anxiety (HCC)- Primary documented in this encounter [facility]* Diagnosis 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 behavioral disturbance, psychotic disturbance, mood disturbance, or anxiety (HCC) [facility] Diagnosis Hip pain, bilateral- Primary Pain in joint, pelvic region and thigh Hip pain, bilateral Pain in joint, pelvic region and thigh Unable to ambulate documented in this encounter [facility] Summary Purpose Family History No Family History Records FoundNo Family History Records FoundNo Family History Records Found Advance Directives No Advanced Directives Records FoundDocuments on File Type Date Recorded Patient Outpatient Coder Expl anation Power of Multimedia Educational Specialist 01/12/2024 12:37 PM DPOA Advance Directives and Living Will 01/12/2024 12:39 PM Living Will Power of Multimedia Educational Specialist 01/12/2024 12:38 PM HC P OA Documents on File Type Date Recorded Patient Outpatient Coder Expl anation DNR (Do Not Resuscitate) 10/19/2024 10:03 AM [place] DNR Form Power of Multimedia Educational Specialist 01/12/2024 12:37 PM DPOA Advance Directives and Living Will 01/12/2024 12:39 PM Living Will Power of Multimedia Educational Specialist 01/12/2024 12:38 PM HC P OA Date Activated Date Inactivated Comments 10/16/2024 9:40 AM 10/19/2024 4:38 PM Question Answer Comments ICU transfer: Yes Intubation: No Additional Source Comments INFORMATION SOURCE (unrecogn ized section and content) DATE CREATED AUTHOR 02/04/2022 [facility] DATE CREATED AUTHOR AUTHOR'S ORGANIZ ATION 10/25/2024 [facility] DATE CREATED AUTHOR AUTHOR'S ORGANIZ ATION 02/15/2025 [facility] Care Teams (unrecognized sec tion and content) Manager Camp Relationship Specialty Start Date End Date Darron De La Cruz DO [address] [place], [place] [address] PCP - General 09/09/15 Manager Camp Relationship Specialty Start Date End Date Darron De La Cruz DO [address] [place] [address] PCP - General 09/09/18 Manager Camp Relationship Specialty Start Date End Date Darron De La Cruz DO [address] [place] [address] PCP - General 09/09/18 Manager Camp Relationship Specialty Start Date End Date Darron De La Cruz DO [address] [place] [address] PCP - General 09/09/18 Manager Camp Relationship Specialty Start Date End Date Darron De La Cruz DO [address] [place] [address] PCP - General 09/09/18 Manager Camp Relationship Specialty Start Date End Date Darron De La Cruz DO [address] [place] [address] PCP - General 09/09/18 Manager Camp Relationship Specialty Start Date End Date Darron De La Cruz DO [address] [place] [address] PCP - General 09/09/18 Manager Camp Relationship Specialty Start Date End Date Darron De La Cruz DO [address] [place] [id number] PCP - General 09/09/18 Manager Camp Relationship Specialty Start Date End Date Darron De La Cruz DO [address] [place] [phone] PCP - General 09/09/18 Manager Camp Relationship Specialty Start Date End Date Darron De La Cruz DO [address] [place] [phone] PCP - General 09/09/18 Reason for Visit (unrecogniz ed section and content) Reason Onset Date Comments new patient appointment 08/31/2023 Reason Onset Date Comments Appointment Request 08/29/2023 Reason Comments Memory Loss Specialty Diagnoses / Procedures Referred By Myron potter Referred To Contact Geriatric Medicine Diagnoses Other amnesia Procedures new patient appointment [facility] [address] [address] [place] [address] [address] Referral ID Status Reason Start Date Expiration Date Visits Re quested Visits Authorized [id number] Closed 08/23/2023 02/19/2024 1 1 Reason Comments Dementia Reason Onset Date Comments Med Refill 09/06/2024 Reason Comments Hip Pain Bilateral Specialty Diagnoses / Procedures Referred By Myron t Referred To Contact Diagnoses Hip pain, bilateral Unable to ambulate Procedures . Abdelrahman Baeza MD [address] [place] [address] Phone: tel: fax: [facility] Cardiac Progressive Care Unit PCU [address] [place] [address] Phone: tel: Referral ID Status Reason Start [...] sedation for opioid reversal - MUST notify application performance engineer provider immediately after first dose, may give [...] BE BASED ON THE PRIMARY CLINICAL RECORDS. [employer] [facility]. provides no warranty or guarantee of the accuracy or completeness of information in this document.
[2025-04-09 08:46] LABS: Hematocrit 35.1 % (37-47); Hemoglobin 13.0 g/dL (12.0-15.0); Mean Corp Hgb Conc 37.0 g/dL (32-36); Mean Corpuscular Volume 88.6 fL (81-99); Mean Platelet Vol. 9.8 fl (6.2-12.0); Platelet Count 195 K/mm3 (150-450); RBC Distribution Width CV 11.8 % (11.6-14.6); RBC Distribution Width SD 38.0 fl (35.1-43.9); Red Blood Count 3.96 M/mm3 (4.2-5.4); White Blood Count 6.3 K/mm3 (4.4-11.0)
[2025-04-09 09:05] LABS: AST(SGOT) 19 U/L (<=31); Alanine Aminotransfer ALT/SGPT 13 U/L (<=34); Albumin, Serum 3.8 g/dL (3.4-4.8); Alkaline Phosphatase 81 U/L (35-104); Anion Gap 12 (7-18); BUN 8 mg/dL (4-19); BUN/Creat Ratio 14.0 RATIO (10-20); Calcium,Total 9.5 mg/dL (7.6-11.0); Carbon Dioxide 24.5 mmol/L (20.0-29.0); Chloride 95 mmol/L (96-106); Globulin 2.6 g/dL (2.2-4.2); Glucose 87 mg/dL (70-99); Potassium 3.2 mmol/L (3.5-5.1)
== END ==
LOC: OLS.ACH 05:00
PROVIDERS: Visit Provider Internal Medicine
DX: E87.6 Hypokalemia (principal); E87.1 Hypo-osmolality and hyponatremia
CPT/HCPCS: 36415; 80053; 85027